=== PATIENT | male | born 1970 | race Caucasian/White ===

== ENCOUNTER → 2020-06-28 10:02 | Outpatient (BNVA) | payer MEDICAID, SELFPAY | PROVIDERS: Visit Provider Student in an Organized Health Care Education/Training Program | DX: M47.816 Spondylosis without myelopathy or radiculopathy, lumbar region (principal); Z79.891 Long term (current) use of opiate analgesic | CPT/HCPCS: 99212 ==

== ENCOUNTER 2020-09-08 15:02 | Emergency (ER) | payer MEDICAID, SELFPAY ==
--- NOTE | 2020-09-08 | ECG_ITS ---
Test Reason : CP Blood Pressure : / mmHG Vent. Rate : 059 BPM Atrial Rate : 059 BPM P-R Int : 150 ms QRS Dur : 096 ms QT Int : 416 ms P-R-T Axes : 053 041 054 degrees QTc Int : 411 ms Sinus bradycardia Incomplete right bundle branch block Borderline ECG When compared with ECG of 07-OCT-2016 15:57, No significant change was found Referred By: Generic ED Physician Electronically Signed By:Matthew Melgar
[2020-09-08 15:04] VITALS: BP 153/69; PULSE 58; RESP 16; TEMP 36.6; O2SAT 98; BMI 30.4
[2020-09-08 16:41] LABS: MANUAL DIFF FLAG NO
[2020-09-08 16:42] LABS: Basophils Absolute Auto 0.1 X10*3/uL (0.0-0.2); Basophils Percent Auto 0.9 % (0-2); Eosinophils Absolute Auto 0.6 X10*3/uL (0.0-0.4); Eosinophils Percent Auto 5.8 % (0-4); Hematocrit 40.2 % (42-52); Hemoglobin 14.1 g/dl (14.0-18.0); Imm Gran Abs Auto 0.03 X10*3/uL (0.00-0.03); Imm Gran Pct Auto 0.3 % (0.0-0.4); Lymphocytes Absolute Auto 2.3 X10*3/uL (1.2-4.9); Lymphocytes Percent Auto 24.9 % (20-40); Mean Corpuscular HGB Conc 35.1 g/dl (31.0-36.0); Mean Corpuscular Hemoglobin 32.3 pg (27.0-33.0); Mean Platelet Volume 10.1 fL (9.4-12.4); Monocytes Absolute Auto 0.7 X10*3/uL (0.1-1.2); Monocytes Percent Auto 7.4 % (2-11); Neutrophils Absolute Auto 5.7 X10*3/uL (2.0-8.3); Neutrophils Percent Auto 60.7 % (45-73); Platelet Count 294 X10*3/uL (160-400); Red Blood Count 4.37 X10*6/uL (4.60-5.80); Red Cell Distribution Width 12.8 % (11.0-16.0); White Blood Count 9.4 X10*3/uL (4.8-10.8)
[2020-09-08 17:05] LABS: Alanine Aminotransferase 23 U/L (0-40); Albumin Level 4.5 g/dL (3.5-5.0); Alkaline Phosphatase 87 U/L (39-117); Anion Gap 13 (12-20); Aspartate Amino Transferase 23 U/L (5-37); Bilirubin Direct 0.2 mg/dL (0.0-0.5); Bilirubin Total 0.7 mg/dL (0.0-1.0); Blood Urea Nitrogen 14 mg/dL (9-16); Calcium 9.6 mg/dL (8.4-10.2); Carbon Dioxide 32 mmol/L (22-29); Chloride 102 mmol/L (96-108); Creatinine Clr Calc Pharmacy 81.4; Estimated Glomerular Filt Rate > 60; Glucose Random 110 mg/dL (60-115); Lipase 31 U/L (8-78); Potassium 3.3 mmol/L (3.3-5.1); Sodium 144 mmol/L (135-145); Total Protein 7.4 g/dL (6.5-8.0)
[2020-09-08 17:08] LABS: Troponin-I High Sensitivity 8.8 ng/L (<3.5-35.0)
--- NOTE | 2020-09-08 17:16 | ED.CHESTPAIN ---
HPI - Chest Pain General Chief Complaint: Chest Pain Stated Complaint: Chest pain Time Seen by Provider: 09/08/20 17:13 Source: patient Mode of arrival: ambulatory Limitations: no limitations History of Present Illness HPI narrative: 50-year-old male with past medical history of hypertension, hyperlipidemia, GERD, constipation and chronic pain presents with left-sided chest pain will come help in the morning. The chest pain starts under the nipple line and radiates downward toward the sternum and around to the back. He also reports an episode of right lower extremity weakness that occurred yesterday lasting several minutes that has resolved. He does not report any shortness of breath, changes in vision, headaches or dizziness, palpitations, abdominal pain, dysuria, hematuria, or edema. MD complaint: chest pain Onset (ago): hour(s) (Several hours) Timing of current episode: constant Prior episodes: No Onset: during rest Pain location: substernal and left chest Pain radiation: left scapula Severity: moderate Quality: tightness and aching Relieving factors: nothing Exacerbating factors: exertion Risk Factors Coronary artery disease risk factors: smoking history, hyperlipidemia and hypertension Thoracic aortic dissection risk factors: none Related Data Home Medications Medication Instructions Recorded Confirmed aspirin 81 mg tablet,delayed 81 mg PO DAILY 06/28/20 release cholecalciferol (vitamin D3) 25 25 mcg PO DAILY 06/28/20 mcg (1,000 unit) capsule docusate sodium 100 mg capsule 100 mg PO BID 06/28/20 hydrochlorothiazide 25 mg tablet 25 mg PO DAILY 06/28/20 ibuprofen 600 mg tablet 600 mg PO Q8H PRN 06/28/20 metoprolol tartrate 50 mg tablet 50 mg PO BID 06/28/20 omeprazole magnesium 20 mg 20 mg PO BID 06/28/20 tablet,delayed release sennosides 8.6 mg tablet 17.2 mg PO BEDTIME tab 06/28/20 simvastatin 20 mg tablet 20 mg PO DAILY 06/28/20 tramadol 50 mg tablet 50 mg PO TID PRN 06/28/20 Allergies Allergy/AdvReac Type Severity Reaction Status Date / Time No Known Allergies Allergy Mild Verified 09/08/20 15:10 Review of Systems Review of Systems: Constitutional: No Weight loss, No Fever, No Chills, No Night Sweats, No Fatigue, No Malaise ENT/Mouth: No Hearing loss, No Ear Pain, No Nasal Congestion, No Sinus Pain, No Hoarseness, No sore throat, No Rhinorrhea, No Swallowing Difficulty Eyes: No Eye Pain, No Swelling, No Redness, No Foreign Body, No Discharge, No Vision Changes Cardiovascular: pos Chest Pain, no SOB, no Dyspnea on Exertion, No Orthopnea, No Edema, No Palpitations Respiratory: No Cough, No Sputum, No Wheezing, No Smoke Exposure, No Dyspnea Gastrointestinal: pos Nausea, No Vomiting, No Diarrhea, No abdominal Pain, No Hematochezia, No Melena Genitourinary: No irregular bleeding, No Dysuria, No Urinary Frequency, No Hematuria, No Urinary Incontinence, No Urgency, No Flank Pain, No Urinary Flow Changes, No Hesitancy Musculoskeletal: Positive right lower extremity weakness, No joint pain, No Myalgias, No Joint Swelling Skin: No Skin Lesions, No rash Neuro: No Weakness, No Numbness, No Paresthesias, No Loss of Consciousness, No Dizziness, No Headache Psych: No Anxiety/Panic, No Depression, No SI/HI/AH/VH Heme/Lymph: No Bruising, No Bleeding,No Lymphadenopathy Endocrine: No Polyuria, No Polydipsia, No Temperature Intolerance Yes all other systems are reviewed and are negative [facility] Past Medical History Attestation statement: The following information was validated with the patient. Source: old records reviewed Medical History Diabetes Hypercholesteremia Hypertension Social History Social History Alcohol intake: never Smoking Status: Current every day smoker Cigarettes Per Day: 4 Use of substances other than those prescribed or required for medical reasons: No Advance Directives: No Advance Directives Information Provided: Yes Physical Exam Vital Signs: Vital Signs: Last Vital Signs Temp 98.7 F 09/08/20 20:00 Pulse 58 09/08/20 20:00 Resp 17 09/08/20 20:00 BP 138/85 09/08/20 20:00 Pulse Ox 99 09/08/20 20:00 Body Mass Index 30.4 Appearance: Alert. Oriented X3. No acute distress. Eyes: Pupils equal, round and reactive to light. ENT: Pharynx normal. Neck: Normal inspection. Neck supple. CVS: Normal heart rate and rhythm. Pulses normal. Respiratory: No respiratory distress. Breath sounds normal. Abdomen: Soft and nontender. Skin: Skin warm and dry. Normal skin color. Normal skin turgor. Extremities: No lower extremity edema. Neuro: No motor deficit. No sensory deficit. Course Course Course Narrative: 50-year-old male with past medical history of hypertension, hyperlipidemia, GERD, chronic pain, presents with left-sided chest pain as well as an episode of right lower extremity weakness that occurred yesterday that has now resolved. Labs indicate elevated trope at 8.8, plan of care is to repeat at 7:30 p.m., order for chest x-ray and CT scan of head to rule out CVA, ischemia. Second troponin 10.8, does not need delta wave requirement for admission. CT scan of head negative for acute findings requiring emergent intervention. Chest x-ray normal. Patient was advised to follow up with his primary care physician for further follow-up. Patient verbalized understanding of and agrees to plan of care discharge home. MDM - Chest Pain Differential Diagnosis Differential diagnosis: Likely fracture of rib, pneumothorax, stable angina, atypical chest pain, st elevation myocardial infarction, costochondritis, chest pain and biliary colic Medical Records Data Attestation: I reviewed the patient's medical records. Lab Data Attestation: I reviewed the patient's lab results. Result diagrams: 09/08/20 16:32 09/08/20 16:32 Labs: Lab Results 09/08/20 09/08/20 09/08/20 Range/Units 16:32 16:32 16:32 WBC 9.4 (4.8-10.8) X10*3/uL RBC 4.37 L (4.60-5.80) X10*6/uL Hgb 14.1 (14.0-18.0) g/dl Hct 40.2 L (42-52) % MCV 92.0 (80-98) fL MCH 32.3 (27.0-33.0) pg MCHC 35.1 (31.0-36.0) g/dl RDW 12.8 (11.0-16.0) % Plt Count 294 (160-400) X10*3/uL MPV 10.1 (9.4-12.4) fL Immature Gran % (Auto) 0.3 (0.0-0.4) % Neut % (Auto) 60.7 (45-73) % Lymph % (Auto) 24.9 (20-40) % [place] % (Auto) 7.4 (2-11) % Eos % (Auto) 5.8 H (0-4) % Baso % (Auto) 0.9 (0-2) % Lymph # (Auto) 2.3 (1.2-4.9) X10*3/uL [place] # (Auto) 0.7 (0.1-1.2) X10*3/uL Eos # (Auto) 0.6 H (0.0-0.4) X10*3/uL Baso # (Auto) 0.1 (0.0-0.2) X10*3/uL Abs Immat Gran (auto) 0.03 (0.00-0.03) X10*3/uL Absolute Neuts (auto) 5.7 (2.0-8.3) X10*3/uL Absolute Nucleated RBC 0.000 (0.0-0.012) X10*3/uL Nucleated RBC % (auto) 0.0 (0.0-0.2) /100WBC Sodium 144 (135-145) mmol/L Potassium 3.3 (3.3-5.1) mmol/L Chloride 102 (96-108) mmol/L Carbon Dioxide 32 H (22-29) mmol/L Anion Gap 13 (12-20) BUN 14 (9-16) mg/dL Creatinine 1.16 (0.5-1.4) mg/dL Estim Creat Clear Calc 81.4 Estimated GFR > 60 Random Glucose 110 (60-115) mg/dL Calcium 9.6 (8.4-10.2) mg/dL Total Bilirubin 0.7 (0.0-1.0) mg/dL Direct Bilirubin 0.2 (0.0-0.5) mg/dL AST 23 (5-37) U/L ALT 23 (0-40) U/L Alkaline Phosphatase 87 (39-117) U/L Troponin I High Sens 8.8 (<3.5-35.0) ng/L Total Protein 7.4 (6.5-8.0) g/dL Albumin 4.5 (3.5-5.0) g/dL Lipase 31 (8-78) U/L Urine Color Urine Appearance Urine pH (5.0-8.0) Ur Specific [place] (1.005-1.025) Urine Protein (NEG-TRACE) MG/DL Urine Glucose (UA) (NEG) MG/DL Urine Ketones (NEG) MG/DL Urine Blood (NEG) Urine Nitrite (NEG) Ur Leukocyte Esterase (NEG) COVID-19 (PATEL) (Negative) COVID-19 Clin Com 09/08/20 09/08/20 09/08/20 Range/Units 18:30 18:33 19:31 WBC (4.8-10.8) X10*3/uL RBC (4.60-5.80) X10*6/uL Hgb (14.0-18.0) g/dl Hct (42-52) % MCV (80-98) fL MCH (27.0-33.0) pg MCHC (31.0-36.0) g/dl RDW (11.0-16.0) % Plt Count (160-400) X10*3/uL MPV (9.4-12.4) fL Immature Gran % (Auto) (0.0-0.4) % Neut % (Auto) (45-73) % Lymph % (Auto) (20-40) % [place] % (Auto) (2-11) % Eos % (Auto) (0-4) % Baso % (Auto) (0-2) % Lymph # (Auto) (1.2-4.9) X10*3/uL [place] # (Auto) (0.1-1.2) X10*3/uL Eos # (Auto) (0.0-0.4) X10*3/uL Baso # (Auto) (0.0-0.2) X10*3/uL Abs Immat Gran (auto) (0.00-0.03) X10*3/uL Absolute Neuts (auto) (2.0-8.3) X10*3/uL Absolute Nucleated RBC (0.0-0.012) X10*3/uL Nucleated RBC % (auto) (0.0-0.2) /100WBC Sodium (135-145) mmol/L Potassium (3.3-5.1) mmol/L Chloride (96-108) mmol/L Carbon Dioxide (22-29) mmol/L Anion Gap (12-20) BUN (9-16) mg/dL Creatinine (0.5-1.4) mg/dL Estim Creat Clear Calc Estimated GFR Random Glucose (60-115) mg/dL Calcium (8.4-10.2) mg/dL Total Bilirubin (0.0-1.0) mg/dL Direct Bilirubin (0.0-0.5) mg/dL AST (5-37) U/L ALT (0-40) U/L Alkaline Phosphatase (39-117) U/L Troponin I High Sens 10.7 (<3.5-35.0) ng/L Total Protein (6.5-8.0) g/dL Albumin (3.5-5.0) g/dL Lipase (8-78) U/L Urine Color YELLOW Urine Appearance CLEAR Urine pH 6.5 (5.0-8.0) Ur Specific [place] 1.015 (1.005-1.025) Urine Protein NEG (NEG-TRACE) MG/DL Urine Glucose (UA) NEG (NEG) MG/DL Urine Ketones NEG (NEG) MG/DL Urine Blood NEG (NEG) Urine Nitrite NEG (NEG) Ur Leukocyte Esterase NEG (NEG) COVID-19 (PATEL) Negative (Negative) COVID-19 Clin Com See Note Imaging Data Chest x-ray: Attestation: I personally reviewed and interpreted this imaging study as follows: Radiologist's impression: EXAMINATION: XR CHEST CLINICAL INFORMATION: Left-sided chest pain COMPARISON: 06/30/2017 TECHNIQUE: 2 views of the chest were obtained. FINDINGS: No significant abnormality is noted involving the heart, lungs, mediastinum, bony thorax or soft tissues. XR/XR chest 2V IMPRESSION: Unremarkable examination. CT scan - head: Attestation: I personally reviewed and interpreted this imaging study as follows: Radiologist's impression: EXAMINATION: CT HEAD WITHOUT CONTRAST CLINICAL INFORMATION: Right lower extremity weakness COMPARISON: 02/10/2012 TECHNIQUE: Contiguous axial imaging was performed from the skull base to vertex without intravenous administration of contrast. This CT examination was performed using dose optimization techniques as appropriate, variously including the following: *Automated exposure control *Adjustment of mA and/or kV according to patient size (this includes techniques or standardized protocols for targeted exams where dose is matched to indication/reason for exam; i.e. extremities or head) *Use of iterative reconstruction technique DLP: 773 mGy-cm FINDINGS: There is no evidence of acute intracranial hemorrhage or territorial infarction. No abnormal mass effect or midline shift is seen. [place] to white matter differentiation is well preserved. No extra-axial fluid collections are identified. The ventricles are normal in size. There is no abnormal attenuation within the brain parenchyma. The osseous structures and soft tissues are normal. The mastoid air cells and visualized portions of the paranasal sinuses are well aerated. CT/CT head/brain wo con IMPRESSION: No acute intracranial pathology. ECG Data ECG #1: Attestation: I personally reviewed and interpreted this ECG as follows: ECG interpretation date: 09/08/20 ECG interpretation time: 15:06 Interpretation: Vent. rate 59 BPM FL interval 150 ms QRS duration 96 ms QT/QTc 416/411 ms P-R-T axes 53 41 54 Sinus bradycardia Incomplete right bundle branch block Borderline ECG When compared with ECG of 07-OCT-2016 15:57, No significant change was found Discharge Plan Discharge Clinical Impression: Chest pain Qualifiers: Chest pain type: unspecified Qualified Code(s): R07.9 - Chest pain, unspecified Patient Disposition: Home, Self-Care Instructions: Chest Pain (ED) Additional Instructions: You were evaluated for left-sided chest pain. EKG showed sinus bradycardia at 59 beats per minute, this could be a normal finding for you as you do take a rate controlling medication, Toprol. Please follow-up with primary care physician this week for further evaluation. If your chest pain continues or you develop concerning symptoms please return to the emergency department immediately. Thank you for choosing this emergency department for evaluation. Please follow-up with primary care physician as needed. Return to the emergency department for any new, concerning, or worsening symptoms. Prescriptions: No Action tramadol 50 mg tablet 50 mg PO TID PRNRF: 0 metoprolol tartrate 50 mg tablet 50 mg PO BID RF: 0 simvastatin 20 mg tablet 20 mg PO DAILY RF: 0 hydrochlorothiazide 25 mg tablet 25 mg PO DAILY RF: 0 aspirin [Adult Low Dose Aspirin] 81 mg tablet,delayed release (DR/EC) 81 mg PO DAILY RF: 0 ibuprofen 600 mg tablet 600 mg PO Q8H PRNRF: 0 cholecalciferol (vitamin D3) 25 mcg (1,000 unit) capsule 25 mcg PO DAILY RF: 0 omeprazole magnesium [Prilosec OTC] 20 mg tablet,delayed release (DR/EC) 20 mg PO BID RF: 0 docusate sodium [Colace] 100 mg capsule 100 mg PO BID RF: 0 sennosides [Natural Senna Laxative] 8.6 mg tablet 17.2 mg PO BEDTIME RF: 0 Interventions: ED Discharge Assessment Last Done: 09/08/20 20:38 Discharge Date/Time: 09/08/20 20:39
[2020-09-08 17:22] VITALS: BP 149/83; PULSE 61; PULSE 63; RESP 16; TEMP 36.8; O2SAT 99
--- NOTE | 2020-09-08 17:22 | XR_ITS ---
EXAMINATION: XR CHEST CLINICAL INFORMATION: Left-sided chest pain COMPARISON: 06/30/2017 TECHNIQUE: 2 views of the chest were obtained. FINDINGS: No significant abnormality is noted involving the heart, lungs, mediastinum, bony thorax or soft tissues. XR/XR chest 2V IMPRESSION: Unremarkable examination.
--- NOTE | 2020-09-08 17:24 | CT_ITS ---
EXAMINATION: CT HEAD WITHOUT CONTRAST CLINICAL INFORMATION: Right lower extremity weakness COMPARISON: 02/10/2012 TECHNIQUE: Contiguous axial imaging was performed from the skull base to vertex without intravenous administration of contrast. This CT examination was performed using dose optimization techniques as appropriate, variously including the following: *Automated exposure control *Adjustment of mA and/or kV according to patient size (this includes techniques or standardized protocols for targeted exams where dose is matched to indication/reason for exam; i.e. extremities or head) *Use of iterative reconstruction technique DLP: 773 mGy-cm FINDINGS: There is no evidence of acute intracranial hemorrhage or territorial infarction. No abnormal mass effect or midline shift is seen. [place] to white matter differentiation is well preserved. No extra-axial fluid collections are identified. The ventricles are normal in size. There is no abnormal attenuation within the brain parenchyma. The osseous structures and soft tissues are normal. The mastoid air cells and visualized portions of the paranasal sinuses are well aerated. CT/CT head/brain wo con IMPRESSION: No acute intracranial pathology.
[2020-09-08 18:00] VITALS: BP 133/83; PULSE 54; RESP 15; TEMP 36.9; O2SAT 98
[2020-09-08 18:43] LABS: Glucose Urine UA NEG (NEG); Leukocyte Esterase Urine NEG (NEG); Nitrite Urine NEG (NEG); PH 6.5 (5.0-8.0); Specific Gravity - Urine 1.015 (1.005-1.025); Urine Blood NEG (NEG); Urine Ketones NEG (NEG); Urine Protein NEG (NEG-TRACE)
[2020-09-08 18:46] LABS: Appearance Urine CLEAR; Color Urine YELLOW
[2020-09-08 19:01] LABS: COVID-19 Test Negative (Negative); IDNOW Serial# 9DD0AD1C
[2020-09-08 20:00] VITALS: BP 138/85; PULSE 58; RESP 17; TEMP 37.1; O2SAT 99
[2020-09-08 20:12] LABS: Troponin-I High Sensitivity 10.7 ng/L (<3.5-35.0)
== END 2020-09-08 20:39 | disposition home or self-care (01) ==
PROVIDERS: Nurse Practitioner Family; Emergency Provider Internal Medicine
DX: R07.9 Chest pain, unspecified (principal); Z20.822 Contact with and (suspected) exposure to COVID-19; I10 Essential (primary) hypertension; E11.9 Type 2 diabetes mellitus without complications; F17.210 Nicotine dependence, cigarettes, uncomplicated; Z79.899 Other long term (current) drug therapy
CPT/HCPCS: 36415; 70450; 71046; 80048; 80076; 81003; 83690; 84484; 85025; 87635; 93005; 99284

== ENCOUNTER 2021-03-28 11:57 | Emergency (ER) | payer MEDICAID, SELFPAY ==
--- NOTE | ~2021-03-28 | XR_ITS ---
EXAMINATION: XR CHEST CLINICAL INFORMATION: Chest pain COMPARISON: Chest radiographs 09/08/2020, 06/30/2017. TECHNIQUE: Frontal view of the chest was obtained. FINDINGS: The lungs are clear. There is no pneumothorax, pleural reaction, airspace consolidation or opacity. No pleural effusion. The costophrenic sulci are clear. The heart is normal in size. The hilar and mediastinal contours are normal. No edema visible acute bony abnormality. XR/XR chest 1V IMPRESSION: Unremarkable examination.
[2021-03-28 12:07] VITALS: BP 147/77; PULSE 63; RESP 16; O2SAT 98; BMI 30.4
--- NOTE | 2021-03-28 12:11 | ECG_ITS ---
Test Reason : CHEST PAIN Blood Pressure : / mmHG Vent. Rate : 053 BPM Atrial Rate : 053 BPM P-R Int : 154 ms QRS Dur : 098 ms QT Int : 434 ms P-R-T Axes : 044 039 039 degrees QTc Int : 407 ms Sinus bradycardia Incomplete right bundle branch block Borderline ECG When compared with ECG of 08-SEP-2020 15:06, No significant change was found Referred By: Generic ED Physician Electronically Signed By:DIEGO HIGHTOWER
[2021-03-28 13:24] LABS: MANUAL DIFF FLAG NO
[2021-03-28 13:32] LABS: Basophils Absolute Auto 0.1 X10*3/uL (0.0-0.2); Basophils Percent Auto 0.7 % (0-2); Eosinophils Absolute Auto 0.5 X10*3/uL (0.0-0.4); Eosinophils Percent Auto 6.1 % (0-4); Hematocrit 35.7 % (42-52); Hemoglobin 12.7 g/dl (14.0-18.0); Imm Gran Abs Auto 0.03 X10*3/uL (0.00-0.03); Imm Gran Pct Auto 0.4 % (0.0-0.4); Lymphocytes Absolute Auto 1.8 X10*3/uL (1.2-4.9); Mean Corpuscular HGB Conc 35.6 g/dl (31.0-36.0); Mean Corpuscular Hemoglobin 31.9 pg (27.0-33.0); Mean Corpuscular Volume 89.7 fL (80-98); Mean Platelet Volume 10.3 fL (9.4-12.4); Monocytes Absolute Auto 0.7 X10*3/uL (0.1-1.2); Monocytes Percent Auto 9.1 % (2-11); Neutrophils Absolute Auto 4.7 X10*3/uL (2.0-8.3); Neutrophils Percent Auto 60.7 % (45-73); Platelet Count 256 X10*3/uL (160-400); Red Blood Count 3.98 X10*6/uL (4.60-5.80); Red Cell Distribution Width 12.9 % (11.0-16.0); White Blood Count 7.7 X10*3/uL (4.8-10.8)
[2021-03-28 13:41] LABS: Prothrombin Time 11.6 SEC (9.9-13.0)
[2021-03-28 13:56] LABS: Anion Gap 12 (12-20); Blood Urea Nitrogen 15 mg/dL (9-16); Calcium 9.4 mg/dL (8.4-10.2); Carbon Dioxide 28 mmol/L (22-29); Chloride 106 mmol/L (96-108); Creatinine Clr Calc Pharmacy 82.9; Estimated Glomerular Filt Rate > 60; Glucose Random 161 mg/dL (60-115); Magnesium 2.3 mg/dL (1.6-2.6); Potassium 3.2 mmol/L (3.3-5.1); Sodium 143 mmol/L (135-145); Troponin-I High Sensitivity 9.6 ng/L (<3.5-35.0)
[2021-03-28 14:18] VITALS: BP 125/71; PULSE 50; RESP 16; O2SAT 98
--- NOTE | 2021-03-28 14:18 | PC.NURSE ---
LAYING OPN STRETCHER, CALL [facility] IN PLACE. AWAITING MD MCCLAIN
[2021-03-28] MEDS: Potassium Chloride Packet 20 MEQ PACKET 40 MEQ PO (16:17)
[2021-03-28 16:18] VITALS: BP 146/83; PULSE 54; RESP 20; O2SAT 98
--- NOTE | 2021-03-28 16:20 | PC.NURSE ---
PT RESTING IN THE STRETCHER, , RESPIRATION EVEN AND UNLABORED, PT REPORTS LEFT SIDE CHEST PAIN THAT GETS WORSE WITH MOVEMENT, DENIES SOB
--- NOTE | 2021-03-28 17:01 | ED.CHESTPAIN ---
HPI - Chest Pain General Chief Complaint: Chest Pain Stated Complaint: chest and shoulder pain Time Seen by Provider: 03/28/21 15:49 Source: patient Mode of arrival: ambulatory Limitations: no limitations History of Present Illness HPI narrative: 50-year-old male presents for 2 days of constant left upper chest pain, left shoulder pain, left arm pain. Patient has no associated shortness of breath, nausea or vomiting, he saw his primary care provider 2 days ago gave him a muscle relaxant. No trauma, no injury, no repetitive motion. Patient has had surgery in his left shoulder previously. Related Data Home Medications Medication Instructions Recorded Confirmed aspirin 81 mg tablet,delayed 81 mg PO DAILY 06/28/20 release (Adult Low Dose Aspirin) cholecalciferol (vitamin D3) 25 25 mcg PO DAILY 06/28/20 mcg (1,000 unit) capsule docusate sodium 100 mg capsule 100 mg PO BID 06/28/20 (Colace) hydrochlorothiazide 25 mg tablet 25 mg PO DAILY 06/28/20 ibuprofen 600 mg tablet 600 mg PO Q8H PRN 06/28/20 metoprolol tartrate 50 mg tablet 50 mg PO BID 06/28/20 omeprazole magnesium 20 mg 20 mg PO BID 06/28/20 tablet,delayed release (Prilosec OTC) sennosides 8.6 mg tablet (Natural 17.2 mg PO BEDTIME tab 06/28/20 Senna Laxative) simvastatin 20 mg tablet 20 mg PO DAILY 06/28/20 Previous Rx's Medication Instructions Recorded tramadol 50 mg tablet 50 mg PO TID PRN #90 tab 03/26/21 ketorolac 10 mg tablet 10 mg PO Q6H 5 Days #20 tab 03/28/21 methocarbamol 750 mg tablet 750 mg PO Q8H 5 Days #15 tab 03/28/21 Allergies Allergy/AdvReac Type Severity Reaction Status Date / Time No Known Allergies Allergy Mild Verified 03/28/21 12:11 Review of Systems Review of Systems: Constitutional : No Weight loss, No Fever, No Chills, No Night Sweats,No Fatigue, No Malaise ENT/Mouth : No Hearing loss, No Ear Pain, No Nasal Congestion, NoSinus Pain, No Hoarseness, No sore throat, No Rhinorrhea, NoSwallowing Difficulty Eyes: No Eye Pain, No Swelling, No Redness, No Foreign Body, NoDischarge, No Vision Changes Cardiovascular : Chest Pain, No SOB, No Dyspnea on Exertion, NoOrthopnea, No Edema, No Palpitations Respiratory : No Cough, No Sputum, No Wheezing, No Smoke Exposure, No Dyspnea Gastrointestinal : No Nausea, No Vomiting, No Diarrhea, NoConstipation, No abdominal Pain, No Hematochezia, No Melena Genitourinary : no irregular bleeding, No Dysuria, No UrinaryFrequency, No Hematuria, No Urinary Incontinence, No Urgency, No FlankPain, No Urinary Flow Changes, No Hesitancy Musculoskeletal : left shoulder pain, left arm pain, upper left back pain Skin : No Skin Lesions, No rash Neuro : No Weakness, No Numbness, No Paresthesias, No Loss ofConsciousness, No Dizziness, No Headache Psych : , No Depression, No SI/HI/AH/VH, No Social Issues, Endocrine : No Polyuria, No Polydipsia, No Temperature Intolerance PMFSH Past Medical History Medical History Diabetes Hypercholesteremia Hypertension Social History Social History Alcohol intake: never Patient Tobacco Use Status: Current everyday Tobacco user Cigarettes Per Day: 4 Use of substances other than those prescribed or required for medical reasons: No Advance Directives: Yes Advance Directives Information Provided: Yes Advance Directives on File: No Physical Exam Vital Signs: Vital Signs: Last Vital Signs Pulse 54 03/28/21 16:18 Resp 20 03/28/21 16:18 BP 146/83 H 03/28/21 16:18 Pulse Ox 98 03/28/21 16:18 Body Mass Index 30.4 Appearance: Alert. Oriented X3. No acute distress. Head: Normal external exam. Normocephalic. Atraumatic. ?No Johnson signs noted. No raccoon eyes noted Eyes: PERRLA. EOMI. Conjunctiva and sclera normal. Eyelids normal. ENT: EAC normal. TM's Normal. Pharynx normal. Uvula midline. Moist mucous membranes. ??No trismus noted. ?No drooling noted. ?No muffled voice noted. Neck: Normal inspection. Neck supple. FROM. No adenopathy. Thyroid Normal. No meningeal signs. No neck mass noted. CVS: heart rate 53, and rhythm. Heart sound normal. Pulses normal throughout. ?No murmurs/rales/gallops. Respiratory: No respiratory distress. Painless inspiration. Breath sounds normal. No wheezes/rales/rhonchi noted. Chest nontender. ??No accessory muscle usage noted or decreased air movement noted. Abdomen: Soft and nontender. Bowel sounds normal in all 4 quadrants. No distention noted. ?No organomegaly noted. ?No visible injury noted. Back: ?No CVA tenderness. ?Full range of motion noted. ?No rashes/lesion/induration/fluctuance or signs of infection noted. Tender left neck muscles, left upper paraspinous muscles Skin: Skin warm and dry. ?Normal skin color. ?Normal skin turgor. No rashes/lesions/lacerations noted. Extremities: Patient has full range of motion of left upper extremity, mild pain with empty can test. No lower extremity edema. ??Extremities exhibit normal range of motion. ?Extremities nontender. Neuro: Oriented X 3. ?No motor deficit. ?No sensory deficit. ?Reflexes normal. ?Normal steady gait. ?No focal neuro deficits noted. Vascular: + radial pulses ?Normal cap refill. ?No cyanosis noted to upper extremity nails Course Course Course Narrative: 50-year-old male presents with 2 days of constant aching left chest pain left upper back pain left shoulder pain and left arm pain. On exam, patient is tender to palpation in his upper left paraspinous muscle, upper left neck muscle. Patient has intact left upper extremity pulses, sensation, motor strength. Chest x-ray is unremarkable, EKG is unchanged from August 2020, troponin is not elevated. Patient is mildly hypokalemic at 3.2. Repleted potassium orally. Discussed that this does not seem to be cardiac in nature. Discussed foods to increase potassium, counseled patient to continue taking his potassium supplements. Consult patient follow-up with his primary care provider. Give patient IM ketorolac, send patient home on ketorolac and naproxen. Counseled patient to stop baclofen and ibuprofen. Given return precautions. MDM - Chest Pain Lab Data Result diagrams: 03/28/21 13:19 03/28/21 13:19 Labs: Lab Results 03/28/21 03/28/21 03/28/21 Range/Units 13:18 13:19 13:19 WBC 7.7 (4.8-10.8) X10*3/uL RBC 3.98 L (4.60-5.80) X10*6/uL Hgb 12.7 L (14.0-18.0) g/dl Hct 35.7 L (42-52) % MCV 89.7 (80-98) fL MCH 31.9 (27.0-33.0) pg MCHC 35.6 (31.0-36.0) g/dl RDW 12.9 (11.0-16.0) % Plt Count 256 (160-400) X10*3/uL MPV 10.3 (9.4-12.4) fL Immature Gran % (Auto) 0.4 (0.0-0.4) % Neut % (Auto) 60.7 (45-73) % Lymph % (Auto) 23.0 (20-40) % [place] % (Auto) 9.1 (2-11) % Eos % (Auto) 6.1 H (0-4) % Baso % (Auto) 0.7 (0-2) % Lymph # (Auto) 1.8 (1.2-4.9) X10*3/uL [place] # (Auto) 0.7 (0.1-1.2) X10*3/uL Eos # (Auto) 0.5 H (0.0-0.4) X10*3/uL Baso # (Auto) 0.1 (0.0-0.2) X10*3/uL Abs Immat Gran (auto) 0.03 (0.00-0.03) X10*3/uL Absolute Neuts (auto) 4.7 (2.0-8.3) X10*3/uL Absolute Nucleated RBC 0.000 (0.0-0.012) X10*3/uL Nucleated RBC % (auto) 0.0 (0.0-0.2) /100WBC PT 11.6 (9.9-13.0) SEC INR 1.0 (0.9-1.1) Sodium 143 (135-145) mmol/L Potassium 3.2 L (3.3-5.1) mmol/L Chloride 106 (96-108) mmol/L Carbon Dioxide 28 (22-29) mmol/L Anion Gap 12 (12-20) BUN 15 (9-16) mg/dL Creatinine 1.14 (0.5-1.4) mg/dL Estim Creat Clear Calc 82.9 Estimated GFR > 60 Random Glucose 161 H D (60-115) mg/dL Calcium 9.4 (8.4-10.2) mg/dL Magnesium 2.3 (1.6-2.6) mg/dL Troponin I High Sens (<3.5-35.0) ng/L 03/28/ Range/Units 13:19 WBC (4.8-10.8) X10*3/uL RBC (4.60-5.80) X10*6/uL Hgb (14.0-18.0) g/dl Hct (42-52) % MCV (80-98) fL MCH (27.0-33.0) pg MCHC (31.0-36.0) g/dl RDW (11.0-16.0) % Plt Count (160-400) X10*3/uL MPV (9.4-12.4) fL Immature Gran % (Auto) (0.0-0.4) % Neut % (Auto) (45-73) % Lymph % (Auto) (20-40) % [place] % (Auto) (2-11) % Eos % (Auto) (0-4) % Baso % (Auto) (0-2) % Lymph # (Auto) (1.2-4.9) X10*3/uL [place] # (Auto) (0.1-1.2) X10*3/uL Eos # (Auto) (0.0-0.4) X10*3/uL Baso # (Auto) (0.0-0.2) X10*3/uL Abs Immat Gran (auto) (0.00-0.03) X10*3/uL Absolute Neuts (auto) (2.0-8.3) X10*3/uL Absolute Nucleated RBC (0.0-0.012) X10*3/uL Nucleated RBC % (auto) (0.0-0.2) /100WBC PT (9.9-13.0) SEC INR (0.9-1.1) Sodium (135-145) mmol/L Potassium (3.3-5.1) mmol/L Chloride (96-108) mmol/L Carbon Dioxide (22-29) mmol/L Anion Gap (12-20) BUN (9-16) mg/dL Creatinine (0.5-1.4) mg/dL Estim Creat Clear Calc Estimated GFR Random Glucose (60-115) mg/dL Calcium (8.4-10.2) mg/dL Magnesium (1.6-2.6) mg/dL Troponin I High Sens 9.6 (<3.5-35.0) ng/L ECG Data ECG #1: Interpretation: EKG shows sinus bradycardia at [address] interval 154, QRS 90, QTC 407. Patient has incomplete right bundle branch, unchanged from August. New ST segment elevation or depression, no T-wave changes. Normal axis. Discharge Plan Discharge Clinical Impression: Atypical chest pain, Muscle spasm of left shoulder area Patient Disposition: Home, Self-Care Instructions: Chest Pain (ED) Additional Instructions: Please stop taking ibuprofen and the baclofen. I have ordered the muscle relaxant that I like better to your pharmacy. I am also ordering a medicine called ketorolac. This is what you got a shot anterior arm of. Your potassium was low, please continue to take your potassium supplement While taking the ketorolac please do not take any ibuprofen containing products, no Motrin, no Excedrin, no Aleve, no ibuprofen. Please call your primary care provider tomorrow for follow-up appointment. I would like you to be seen in 1 week. If you have worsening chest pain, shortness of breath, nausea, vomiting, fevers, please return to the emergency room. Prescriptions: New methocarbamol 750 mg tablet 750 mg PO Q8H 5 Days Qty: 15 RF: 0 ketorolac 10 mg tablet 10 mg PO Q6H 5 Days Qty: 20 RF: 0 No Action tramadol 50 mg tablet 50 mg PO TID PRN (Reason: pain) Qty: 90 RF: 5 metoprolol tartrate 50 mg tablet 50 mg PO BID RF: 0 simvastatin 20 mg tablet 20 mg PO DAILY RF: 0 hydrochlorothiazide 25 mg tablet 25 mg PO DAILY RF: 0 aspirin [Adult Low Dose Aspirin] 81 mg tablet,delayed release (DR/EC) 81 mg PO DAILY RF: 0 ibuprofen 600 mg tablet 600 mg PO Q8H PRNRF: 0 cholecalciferol (vitamin D3) 25 mcg (1,000 unit) capsule 25 mcg PO DAILY RF: 0 omeprazole magnesium [Prilosec OTC] 20 mg tablet,delayed release (DR/EC) 20 mg PO BID RF: 0 docusate sodium [Colace] 100 mg capsule 100 mg PO BID RF: 0 sennosides [Natural Senna Laxative] 8.6 mg tablet 17.2 mg PO BEDTIME RF: 0 Interventions: ED Discharge Assessment Last Done: 03/28/21 18:25 Discharge Date/Time: 03/28/21 18:26
[2021-03-28] MEDS: Ketorolac Tromethamine 15 MG/ML VIAL 30 MG IM (17:19)
== END 2021-03-28 18:26 | disposition home or self-care (01) ==
PROVIDERS: Emergency Provider Emergency Medicine
DX: R07.89 Other chest pain (principal); M62.838 Other muscle spasm; M79.602 Pain in left arm; R00.1 Bradycardia, unspecified; E11.9 Type 2 diabetes mellitus without complications; I10 Essential (primary) hypertension; E78.00 Pure hypercholesterolemia, unspecified; Z79.899 Other long term (current) drug therapy; Z79.02 Long term (current) use of antithrombotics/antiplatelets; Z79.82 Long term (current) use of aspirin; F17.210 Nicotine dependence, cigarettes, uncomplicated
CPT/HCPCS: 36415; 71045; 80048; 83735; 84484; 85025; 85610; 93005; 96372; 99284; J1885

== ENCOUNTER 2021-06-27 10:00 | Outpatient (REF) | payer MEDICAID, SELFPAY ==
--- NOTE | ~2021-06-27 | XR_ITS ---
EXAMINATION: XR ELBOW, RIGHT XR ELBOW, LEFT CLINICAL INFORMATION: Pain in the elbows COMPARISON: None TECHNIQUE: AP, lateral, and oblique views of each elbow. FINDINGS: RIGHT ELBOW: Small marginal osteophytes are present at the coronoid process. No fracture or malalignment. Joint spaces are well-preserved. No effusion. A small enthesopathic spur is present at the triceps tendon insertion on the olecranon. LEFT ELBOW: Small enthesopathic spur at the triceps tendon insertion on the olecranon. No fracture or malalignment. Joint spaces are well-preserved. No effusion. XR/XR elbow LT 2V IMPRESSION: Minimal osteophytic spurring at the elbows. No acute osseous findings.
--- NOTE | ~2021-06-27 | XR_ITS ---
EXAMINATION: XR HAND, RIGHT XR HAND, LEFT CLINICAL INFORMATION: Bilateral hand pain. COMPARISON: None TECHNIQUE: PA, lateral, and oblique views of each hand. FINDINGS: RIGHT HAND: Tiny marginal osteophytes are present at multiple joints including the triscaphe, first CMC, and MCP joints. No joint space narrowing. No fracture or malalignment. No erosions. Soft tissues are unremarkable. Normal bone mineralization. LEFT HAND: Tiny marginal osteophytes are present at the first CMC joint. No fracture or malalignment. Bone mineralization is normal. Joint spaces are well-preserved. No erosions. Soft tissues are unremarkable. 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 No fracture or malalignment.
--- NOTE | ~2021-06-27 | XR_ITS ---
EXAMINATION: XR HAND, RIGHT XR HAND, LEFT CLINICAL INFORMATION: Bilateral hand pain. COMPARISON: None TECHNIQUE: PA, lateral, and oblique views of each hand. FINDINGS: RIGHT HAND: Tiny marginal osteophytes are present at multiple joints including the triscaphe, first CMC, and MCP joints. No joint space narrowing. No fracture or malalignment. No erosions. Soft tissues are unremarkable. Normal bone mineralization. LEFT HAND: Tiny marginal osteophytes are present at the first CMC joint. No fracture or malalignment. Bone mineralization is normal. Joint spaces are well-preserved. No erosions. Soft tissues are unremarkable. XR/XR hand LT min 3V IMPRESSION: Minimal multifocal osteoarthritis in the hands. No fracture or malalignment.
--- NOTE | ~2021-06-27 | XR_ITS ---
EXAMINATION: XR ELBOW, RIGHT XR ELBOW, LEFT CLINICAL INFORMATION: Pain in the elbows COMPARISON: None TECHNIQUE: AP, lateral, and oblique views of each elbow. FINDINGS: RIGHT ELBOW: Small marginal osteophytes are present at the coronoid process. No fracture or malalignment. Joint spaces are well-preserved. No effusion. A small enthesopathic spur is present at the triceps tendon insertion on the olecranon. LEFT ELBOW: Small enthesopathic spur at the triceps tendon insertion on the olecranon. No fracture or malalignment. Joint spaces are well-preserved. No effusion. XR/XR elbow RT 2V IMPRESSION: Minimal osteophytic spurring at the elbows. No acute osseous findings.
[2021-06-27 13:04] LABS: Alanine Aminotransferase 17 U/L (0-40); Albumin Level 4.4 g/dL (3.5-5.0); Alkaline Phosphatase 84 U/L (39-117); Anion Gap 12 (12-20); Aspartate Amino Transferase 20 U/L (5-37); Bilirubin Total 0.4 mg/dL (0.0-1.0); Blood Urea Nitrogen 22 mg/dL (9-16); Calcium 9.6 mg/dL (8.4-10.2); Carbon Dioxide 30 mmol/L (22-29); Chloride 102 mmol/L (96-108); Estimated Glomerular Filt Rate 56; Glucose Random 87 mg/dL (60-115); Potassium 3.9 mmol/L (3.3-5.1); Sodium 140 mmol/L (135-145); Total Protein 7.2 g/dL (6.5-8.0)
== END 2021-06-27 10:01 | disposition home or self-care (01) ==
LOC: HO.LAB 10:00
PROVIDERS: PCP Internal Medicine; Visit Provider Nurse Practitioner Family
DX: M47.816 Spondylosis without myelopathy or radiculopathy, lumbar region (principal); M79.641 Pain in right hand; M79.642 Pain in left hand; M25.521 Pain in right elbow; M25.522 Pain in left elbow
CPT/HCPCS: 36415; 73070; 73130; 80053; 99212

== ENCOUNTER 2021-11-28 14:45 | Emergency (ER) | payer MEDICAID, SELFPAY ==
--- NOTE | 2021-11-28 | ECG_ITS ---
Test Reason : cp Blood Pressure : / mmHG Vent. Rate : 059 BPM Atrial Rate : 059 BPM P-R Int : 146 ms QRS Dur : 092 ms QT Int : 426 ms P-R-T Axes : 043 034 036 degrees QTc Int : 421 ms Sinus bradycardia Otherwise normal ECG When compared with ECG of 28-MAR-2021 12:44, Incomplete right bundle branch block is no longer Present Referred By: Generic ED Physician Electronically Signed By:YOGI TALAVERA MD
--- NOTE | ~2021-11-28 | XR_ITS ---
EXAMINATION: XR CHEST CLINICAL INFORMATION: Chest pain COMPARISON: 03/28/2021 and priors TECHNIQUE: Frontal and lateral views of the chest FINDINGS: ECG leads overlie the chest. Heart and mediastinum grossly within normal limits and stable. No pulmonary edema. No mass or adenopathy. Lung volumes preserved. No focal pneumonia. No effusion or pneumothorax. Nonobstructive gas pattern. Status post cholecystectomy. Degenerative spine disease. XR/XR chest 2V IMPRESSION: No acute cardiopulmonary process.
[2021-11-28 15:25] VITALS: BP 129/77; PULSE 61; RESP 16; TEMP 36.3; O2SAT 98; BMI 28.8
[2021-11-28 16:30] LABS: MANUAL DIFF FLAG NO
[2021-11-28] MEDS: Aspirin 81 MG TAB.CHEW 324 MG PO (16:30)
[2021-11-28] MEDS: Nitroglycerin 2 % Oint 1 GM Packet 0.5 INCH TRANSDERMA (16:30)
[2021-11-28 16:32] LABS: Basophils Absolute Auto 0.1 X10*3/uL (0.0-0.2); Basophils Percent Auto 0.8 % (0-2); Eosinophils Absolute Auto 0.4 X10*3/uL (0.0-0.4); Eosinophils Percent Auto 4.9 % (0-4); Hematocrit 38.5 % (42.0-52.0); Hemoglobin 13.4 g/dl (14.0-18.0); Imm Gran Abs Auto 0.03 X10*3/uL (0.00-0.03); Imm Gran Pct Auto 0.3 % (0.0-0.4); Lymphocytes Absolute Auto 2.7 X10*3/uL (1.2-4.9); Lymphocytes Percent Auto 30.3 % (20-40); Mean Corpuscular HGB Conc 34.8 g/dl (31.0-36.0); Mean Corpuscular Hemoglobin 31.9 pg (27.0-33.0); Mean Corpuscular Volume 91.7 fL (80.0-98.0); Mean Platelet Volume 9.9 fL (9.4-12.4); Monocytes Absolute Auto 0.9 X10*3/uL (0.1-1.2); Neutrophils Absolute Auto 4.7 x10*3/uL (2.0-8.3); Neutrophils Percent Auto 53.7 % (45-73); Platelet Count 257 X10*3/uL (160-400); Red Cell Distribution Width 13.1 % (11.0-16.0); White Blood Count 8.8 X10*3/uL (4.8-10.8)
--- NOTE | 2021-11-28 16:40 | ED.CHESTPAIN ---
HPI - Chest Pain General Chief Complaint: Chest Pain Stated Complaint: chest pain Time Seen by Provider: 11/28/21 15:38 Source: patient Mode of arrival: ambulatory Limitations: no limitations History of Present Illness HPI narrative: Patient presents to the emergency department for evaluation of substernal chest pain of sudden onset while at rest yesterday night. Progressively worsening. The pain has been constant. Non-radiating, non-reproducible. It is described as a 9/10 squeezing pain. Has some associated cough and mild shortness of breath, reporting mold in his apartment which she thinks is causing his cough. Denies fevers, chills, neck pain, palpitations, nausea, vomiting, abdominal pain, dysuria, urinary frequency, pedal edema, generalized weakness Related Data Home Medications Medication Instructions Recorded Confirmed aspirin 81 mg tablet,delayed 81 mg PO DAILY 06/28/20 release (Adult Low Dose Aspirin) cholecalciferol (vitamin D3) 25 25 mcg PO DAILY 06/28/20 mcg (1,000 unit) capsule docusate sodium 100 mg capsule 100 mg PO BID 06/28/20 (Colace) hydrochlorothiazide 25 mg tablet 25 mg PO DAILY 06/28/20 metoprolol tartrate 50 mg tablet 50 mg PO BID 06/28/20 omeprazole magnesium 20 mg 20 mg PO BID 06/28/20 tablet,delayed release (Prilosec OTC) sennosides 8.6 mg tablet (Natural 17.2 mg PO BEDTIME tab 06/28/20 Senna Laxative) simvastatin 20 mg tablet 20 mg PO DAILY 06/28/20 Previous Rx's Medication Instructions Recorded methocarbamol 750 mg tablet 750 mg PO Q8H 5 Days #15 tab 03/28/21 tramadol 50 mg tablet 50 mg PO TID PRN #90 tab 09/18/21 Allergies Allergy/AdvReac Type Severity Reaction Status Date / Time No Known Allergies Allergy Mild Verified 06/27/21 10:34 Review of Systems Review of Systems: Constitutional : No Weight loss, No Fever, No Chills ENT/Mouth :? No sore throat, No Rhinorrhea Eyes: No Eye Pain, No Swelling Cardiovascular : pos Chest Pain, pos SOB, no Dyspnea on Exertion, No Orthopnea, No Edema, No Palpitations Respiratory : pos Cough, No Sputum Gastrointestinal : no Nausea, No Vomiting, No Diarrhea, No abdominal Pain, No Hematochezia, No Melena Genitourinary : No Dysuria, No Urinary Frequency Musculoskeletal : No joint pain, No Myalgias, No Joint Swelling Skin : No Skin Lesions, No rash Neuro : No Weakness, No Numbness, No Dizziness, No Headache Psych : No Anxiety/Panic, No Depression Heme/Lymph: No Bruising, No Lymphadenopathy Endocrine : No Polyuria, No Polydipsia Yes all other systems are reviewed and are negative [facility] Past Medical History Attestation statement: The following information was validated with the patient. Source: old records reviewed Medical History Diabetes Hypercholesteremia Hypertension Social History Social History Alcohol intake: never Patient Tobacco Use Status: Current everyday Tobacco user Cigarettes Per Day: 4 Advance Directives: No Advance Directives Information Provided: No Physical Exam Vital Signs: Vital Signs: Last Vital Signs Temp 97.8 F 11/28/21 19:39 Pulse 52 11/28/21 19:39 Resp 15 11/28/21 19:39 BP 140/82 H 11/28/21 19:39 Pulse Ox 97 11/28/21 19:39 BMI result Body Mass Index 28.8 Vital signs have been reviewed as normal and appeared to be correct. Blood pressure normal.? Heart rate normal.? Respiration rate normal. Temperature normal.? Oxygen saturation normal. Appearance: Alert.?Oriented to person, place and time. No acute distress.?Normal affect. Eyes: Pupils equal, round and reactive to light.? ENT: Pharynx normal.?? Neck: Normal inspection.? Neck supple.?? CVS: Heart sounds normal. Normal heart rate and rhythm.? Pulses normal.?? Respiratory: No respiratory distress.? Lung sounds clear to auscultation bilaterally?? Abdomen: Soft and non-tender. Normoactive bowel sounds. No pulsatile mass.?? Skin: Skin warm and dry.? Normal skin color.? Extremities: No lower extremity edema.? No calf ttp? Neuro: Moves all extremities spontaneously. Sensation intact bilaterally. CN II-XII intact. No focal neuro deficits. Ambulates with normal steady gait. Course Course Course Narrative: Patient is a 51-year-old male with past medical history of hypertension, hyperlipidemia, and hypokalemia presenting for evaluation of chest pain. Will obtain CBC to evaluate for leukocytosis/ anemia, CMP to evaluate for abnormal electrolytes /abnormal renal function/ abnormal hepatic function, EKG and troponin to evaluate for ischemia/ACS. Chest x-ray to evaluate for consolidation/ infiltrate/ mass/ pulmonary congestion. COVID- 19 and influenza testing to exclude virus. Given past medical history with will give aspirin 34 mg p.o. and nitro paste 0.5 inch for pain. disposition pending results Reevaluation(s) Reevaluation #1: CBC overall unremarkable mild normocytic anemia with hemoglobin 13.4 and hematocrit 38.5. CMP overall unremarkable. Troponin 5.8 with EKG revealing sinus bradycardia with no acute changes in comparison to March 2021 EKG, no acute concerns for ischemia, pain has been present for nearly 24 hours, and has completely resolved after receiving aspirin and nitropaste. However, without clear cause for the pain will repeat delta trop and obtain D-dimer to exclude PE. chest x-ray without any acute cardiopulmonary process. COVID- 19 and influenza testing are negative. Time: 18:23 Reevaluation #2: repeat troponin 5.7, therefore delta troponin less than 50%, unlikely to be ACS. D-dimer <150. continues to remain pain-free at this time. Reviewed case with ED attending Dr. Delvalle who agrees with plan of care and discharge. Discussed all findings with patient, advised follow-up with primary care provider in 1-3 days, discussed strict return precautions for the emergency department, all questions were answered, and patient is agreeable with plan of longterm. Patient to continue taking low-dose aspirin daily. Time: 20:16 [facility] - Chest Pain Medical Records Data Attestation: I reviewed the patient's medical records. Lab Data Attestation: I reviewed the patient's lab results. Result diagrams: 11/28/21 16:22 11/28/21 16:22 Labs: Lab Results 11/28/21 11/28/21 11/28/21 Range/Units 16:22 16:22 16:22 WBC 8.8 (4.8-10.8) X10*3/uL RBC 4.20 L (4.60-5.80) X10*6/uL Hgb 13.4 L (14.0-18.0) g/dl Hct 38.5 L (42.0-52.0) % MCV 91.7 (80.0-98.0) fL MCH 31.9 (27.0-33.0) pg MCHC 34.8 (31.0-36.0) g/dl RDW 13.1 (11.0-16.0) % Plt Count 257 (160-400) X10*3/uL MPV 9.9 (9.4-12.4) fL Immature Gran % (Auto) 0.3 (0.0-0.4) % Neut % (Auto) 53.7 (45-73) % Lymph % (Auto) 30.3 (20-40) % [place] % (Auto) 10.0 (2-11) % Eos % (Auto) 4.9 H (0-4) % Baso % (Auto) 0.8 (0-2) % Lymph # (Auto) 2.7 (1.2-4.9) X10*3/uL [place] # (Auto) 0.9 (0.1-1.2) X10*3/uL Eos # (Auto) 0.4 (0.0-0.4) X10*3/uL Baso # (Auto) 0.1 (0.0-0.2) X10*3/uL Abs Immat Gran (auto) 0.03 (0.00-0.03) X10*3/uL Absolute Neuts (auto) 4.7 (2.0-8.3) x10*3/uL Absolute Nucleated RBC 0.000 (0.0-0.012) X10*3/uL Nucleated RBC % (auto) 0.0 (0.0-0.2) /100WBC D-Dimer High Sensitivty NG/ML Sodium 142 (135-145) mmol/L Potassium 3.5 (3.3-5.1) mmol/L Chloride 104 (96-108) mmol/L Carbon Dioxide 30 H (22-29) mmol/L Anion Gap 12 (12-20) BUN 18 H (9-16) mg/dL Creatinine 1.18 (0.5-1.4) mg/dL Estim Creat Clear Calc 77.3 Estimated GFR > 60 Random Glucose 91 (60-115) mg/dL Calcium 9.5 (8.4-10.2) mg/dL Total Bilirubin 0.5 (0.0-1.0) mg/dL AST 19 (5-37) U/L ALT 14 (0-40) U/L Alkaline Phosphatase 68 (39-117) U/L Troponin I High Sens 5.8 (<3.5-35.0) ng/L Total Protein 6.6 (6.5-8.0) g/dL Albumin 4.1 (3.5-5.0) g/dL COVID-19 (PATEL) (Negative) COVID-19 Clin Com Influenza Type A (MIN) (Negative) Influenza Type B (MIN) (Negative) Influenza A & B Note 11/28/21 11/28/21 11/28/21 Range/Units 17:24 17:24 19:09 WBC (4.8-10.8) X10*3/uL RBC (4.60-5.80) X10*6/uL Hgb (14.0-18.0) g/dl Hct (42.0-52.0) % MCV (80.0-98.0) fL MCH (27.0-33.0) pg MCHC (31.0-36.0) g/dl RDW (11.0-16.0) % Plt Count (160-400) X10*3/uL MPV (9.4-12.4) fL Immature Gran % (Auto) (0.0-0.4) % Neut % (Auto) (45-73) % Lymph % (Auto) (20-40) % [place] % (Auto) (2-11) % Eos % (Auto) (0-4) % Baso % (Auto) (0-2) % Lymph # (Auto) (1.2-4.9) X10*3/uL [place] # (Auto) (0.1-1.2) X10*3/uL Eos # (Auto) (0.0-0.4) X10*3/uL Baso # (Auto) (0.0-0.2) X10*3/uL Abs Immat Gran (auto) (0.00-0.03) X10*3/uL Absolute Neuts (auto) (2.0-8.3) x10*3/uL Absolute Nucleated RBC (0.0-0.012) X10*3/uL Nucleated RBC % (auto) (0.0-0.2) /100WBC D-Dimer High Sensitivty < 150 NG/ML Sodium (135-145) mmol/L Potassium (3.3-5.1) mmol/L Chloride (96-108) mmol/L Carbon Dioxide (22-29) mmol/L Anion Gap (12-20) BUN (9-16) mg/dL Creatinine (0.5-1.4) mg/dL Estim Creat Clear Calc Estimated GFR Random Glucose (60-115) mg/dL Calcium (8.4-10.2) mg/dL Total Bilirubin (0.0-1.0) mg/dL AST (5-37) U/L ALT (0-40) U/L Alkaline Phosphatase (39-117) U/L Troponin I High Sens (<3.5-35.0) ng/L Total Protein (6.5-8.0) g/dL Albumin (3.5-5.0) g/dL COVID-19 (PATEL) Negative (Negative) COVID-19 Clin Com See Note Influenza Type A (MIN) Negative (Negative) Influenza Type B (MIN) Negative (Negative) Influenza A & B Note See Note 11/28/21 Range/Units 19:09 WBC (4.8-10.8) X10*3/uL RBC (4.60-5.80) X10*6/uL Hgb (14.0-18.0) g/dl Hct (42.0-52.0) % MCV (80.0-98.0) fL MCH (27.0-33.0) pg MCHC (31.0-36.0) g/dl RDW (11.0-16.0) % Plt Count (160-400) X10*3/uL MPV (9.4-12.4) fL Immature Gran % (Auto) (0.0-0.4) % Neut % (Auto) (45-73) % Lymph % (Auto) (20-40) % [place] % (Auto) (2-11) % Eos % (Auto) (0-4) % Baso % (Auto) (0-2) % Lymph # (Auto) (1.2-4.9) X10*3/uL [place] # (Auto) (0.1-1.2) X10*3/uL Eos # (Auto) (0.0-0.4) X10*3/uL Baso # (Auto) (0.0-0.2) X10*3/uL Abs Immat Gran (auto) (0.00-0.03) X10*3/uL Absolute Neuts (auto) (2.0-8.3) x10*3/uL Absolute Nucleated RBC (0.0-0.012) X10*3/uL Nucleated RBC % (auto) (0.0-0.2) /100WBC D-Dimer High Sensitivty NG/ML Sodium (135-145) mmol/L Potassium (3.3-5.1) mmol/L Chloride (96-108) mmol/L Carbon Dioxide (22-29) mmol/L Anion Gap (12-20) BUN (9-16) mg/dL Creatinine (0.5-1.4) mg/dL Estim Creat Clear Calc Estimated GFR Random Glucose (60-115) mg/dL Calcium (8.4-10.2) mg/dL Total Bilirubin (0.0-1.0) mg/dL AST (5-37) U/L ALT (0-40) U/L Alkaline Phosphatase (39-117) U/L Troponin I High Sens 5.7 (<3.5-35.0) ng/L Total Protein (6.5-8.0) g/dL Albumin (3.5-5.0) g/dL COVID-19 (PATEL) (Negative) COVID-19 Clin Com Influenza Type A (MIN) (Negative) Influenza Type B (MIN) (Negative) Influenza A & B Note Imaging Data Chest x-ray: Radiologist's impression: FINDINGS: ECG leads overlie the chest. Heart and mediastinum grossly within normal limits and stable. No pulmonary edema. No mass or adenopathy. Lung volumes preserved. No focal pneumonia. No effusion or pneumothorax. Nonobstructive gas pattern. Status post cholecystectomy. Degenerative spine disease. XR/XR chest 2V IMPRESSION: No acute cardiopulmonary process. ECG Data ECG #1: Attestation: I personally reviewed and interpreted this ECG as follows: ECG interpretation date: 11/28/21 ECG interpretation time: 18:14 Prior ECG tracings: available for review Interpretation: Rate: 58 Rhythm:? sinus bradycardia [place]:? normal Normal P waves.? Normal AMADO.?? Normal QRS complex.?? ST T wave :?? no ST elevation, no ST depression, no T-wave inversion qTC: 421 prior studies:? March 2021 The study has been interpreted contemporaneously by me. Discharge Plan Discharge Clinical Impression: Chest pain Patient Disposition: Home, Self-Care Instructions: Chest Pain (ED) Additional Instructions: Please follow-up with your primary care doctor in 1-3 days. Return to the emergency department with any new or worsening symptoms or concerns such as fevers, chills, dizziness, lightheadedness, worsening chest pain, palpitations, shortness of breath, difficulty breathing, nausea with persistent vomiting, abdominal pain, generalized weakness Prescriptions: No Action tramadol 50 mg tablet 50 mg PO TID PRN (Reason: pain) Qty: 90 5RF methocarbamol 750 mg tablet 750 mg PO Q8H 5 Days Qty: 15 0RF metoprolol tartrate 50 mg tablet 50 mg PO BID 0RF simvastatin 20 mg tablet 20 mg PO DAILY 0RF hydrochlorothiazide 25 mg tablet 25 mg PO DAILY 0RF aspirin [Adult Low Dose Aspirin] 81 mg tablet,delayed release (DR/EC) 81 mg PO DAILY 0RF cholecalciferol (vitamin D3) 25 mcg (1,000 unit) capsule 25 mcg PO DAILY 0RF omeprazole magnesium [Prilosec OTC] 20 mg tablet,delayed release (DR/EC) 20 mg PO BID 0RF docusate sodium [Colace] 100 mg capsule 100 mg PO BID 0RF sennosides [Natural Senna Laxative] 8.6 mg tablet 17.2 mg PO BEDTIME 0RF Referrals: Chauncey Haney MD [Primary Care Provider] - 2 days
[2021-11-28 16:48] LABS: Alanine Aminotransferase 14 U/L (0-40); Albumin Level 4.1 g/dL (3.5-5.0); Alkaline Phosphatase 68 U/L (39-117); Anion Gap 12 (12-20); Aspartate Amino Transferase 19 U/L (5-37); Bilirubin Total 0.5 mg/dL (0.0-1.0); Blood Urea Nitrogen 18 mg/dL (9-16); Calcium 9.5 mg/dL (8.4-10.2); Carbon Dioxide 30 mmol/L (22-29); Chloride 104 mmol/L (96-108); Creatinine Clr Calc Pharmacy 77.3; Estimated Glomerular Filt Rate > 60; Glucose Random 91 mg/dL (60-115); Potassium 3.5 mmol/L (3.3-5.1); Sodium 142 mmol/L (135-145); Total Protein 6.6 g/dL (6.5-8.0)
[2021-11-28 16:52] LABS: Troponin-I High Sensitivity 5.8 ng/L (<3.5-35.0)
[2021-11-28 17:49] LABS: Influenza A Negative (Negative); Influenza B2 Negative (Negative)
[2021-11-28 17:50] LABS: COVID-19 Test Negative (Negative); IDNOW Serial# 16C4AD1C
[2021-11-28 19:39] VITALS: BP 140/82; PULSE 52; RESP 15; TEMP 36.6; O2SAT 97
[2021-11-28 19:42] LABS: Troponin-I High Sensitivity 5.7 ng/L (<3.5-35.0)
[2021-11-28 19:43] LABS: D Dimer High Sensitivity < 150 NG/ML
== END 2021-11-28 20:33 | disposition home or self-care (01) ==
PROVIDERS: Nurse Practitioner Family; Emergency Provider Internal Medicine; PCP Internal Medicine
DX: R07.89 Other chest pain (principal); I10 Essential (primary) hypertension; F17.210 Nicotine dependence, cigarettes, uncomplicated; Z20.822 Contact with and (suspected) exposure to COVID-19; Z71.6 Tobacco abuse counseling; Z79.899 Other long term (current) drug therapy
CPT/HCPCS: 36415; 71046; 80053; 84484; 85025; 85379; 87502; 87635; 93005; 99283; 99285

== ENCOUNTER 2022-04-23 23:06 | Emergency (ER) | payer MEDICAID, SELFPAY ==
--- NOTE | ~2022-04-23 | CT_ITS ---
EXAMINATION: CT HEAD WITHOUT CONTRAST CLINICAL INFORMATION: Left-sided facial paresthesia COMPARISON: 09/08/2020 TECHNIQUE: Contiguous axial imaging was performed from the skull base to vertex without intravenous contrast. This CT examination was performed using dose optimization techniques as appropriate, variously including the following: * Automated exposure control * Adjustment of mA and/or kV according to patient size (this includes techniques or standardized protocols for targeted exams where dose is matched to indication/reason for exam; i.e. extremities or head) Use of iterative reconstruction technique DLP: 752 mGy-cm. FINDINGS: There is no evidence of acute intracranial hemorrhage or territorial infarction. No abnormal mass effect or midline shift is seen. [place] to white matter differentiation is well preserved. No extra-axial fluid collections are identified. No hydrocephalus. No significant volume loss. There is no abnormal attenuation within the brain parenchyma. Chronic appearing depression of the left lamina papyracea. No acute osseous or soft tissue abnormality.. The mastoid air cells and visualized portions of the paranasal sinuses are well aerated. CT/CT head/brain wo IV con IMPRESSION: No acute intracranial pathology.
[2022-04-23 23:24] VITALS: BP 177/81; PULSE 67; RESP 18; O2SAT 98; BMI 30.4
--- NOTE | 2022-04-23 23:41 | ED_ITS ---
HPI - Headache General Chief Complaint: Headache Stated Complaint: GARCIA Time Seen by Provider: 04/23/22 23:41 Source: patient Mode of arrival: ambulatory Limitations: no limitations History of Present Illness HPI Narrative: 51 years old with no significant past medical history woke up 2 hours ago with left facial numbness the drooling on the left angle of the mouth lasted for an hour no other weakness or other paresthesia at mild headache on the left side on arrival patient did not have any symptoms except for mild headache no speech problem no vision change Related Data Home Medications Medication Instructions Recorded Confirmed aspirin 81 mg tablet,delayed 81 mg PO DAILY 06/28/20 release (Adult Low Dose Aspirin) cholecalciferol (vitamin D3) 25 25 mcg PO DAILY 06/28/20 mcg (1,000 unit) capsule docusate sodium 100 mg capsule 100 mg PO BID 06/28/20 (Colace) hydrochlorothiazide 25 mg tablet 25 mg PO DAILY 06/28/20 metoprolol tartrate 50 mg tablet 50 mg PO BID 06/28/20 omeprazole magnesium 20 mg 20 mg PO BID 06/28/20 tablet,delayed release (Prilosec OTC) sennosides 8.6 mg tablet (Natural 17.2 mg PO BEDTIME 06/28/20 Senna Laxative) simvastatin 20 mg tablet 20 mg PO DAILY 06/28/20 Previous Rx's Medication Instructions Recorded methocarbamol 750 mg tablet 750 mg PO Q8H 5 days #15 tabs 03/28/21 tramadol 50 mg tablet 50 mg PO TID PRN pain #90 tabs 03/10/22 [id number] 1 cap PO Q6H PRN headache #20 caps 04/24/22 50 mg-300 mg-40 mg capsule (Fioricet) Allergies Allergy/AdvReac Type Severity Reaction Status Date / Time No Known Allergies Allergy Mild Verified 03/06/22 10:23 Review of Systems Review of Systems: Yes all other systems are reviewed and are negative PMFSH Past Medical History Medical History Diabetes Hypercholesteremia Hypertension Social History Social History Alcohol intake: never Patient Tobacco Use Status: Current everyday Tobacco user Cigarettes Per Day: 4 Use of substances other than those prescribed or required for medical reasons: No Advance Directives: No Advance Directives Information Provided: Yes Physical Exam Vital Signs: Vital Signs: Last Vital Signs Temp 98.6 F 04/23/22 23:43 Pulse 66 04/23/22 23:43 Resp 18 04/23/22 23:43 BP 141/85 H 04/23/22 23:43 Pulse Ox 99 04/23/22 23:43 O2 Del Method 04/23/22 23:43 BMI result Body Mass Index 30.4 Appearance: Alert. Oriented X3. No acute distress. Eyes: PERRLA, No Nystagmus ENT: Pharynx normal. Oral Mucosa moist Neck: Normal inspection. Neck supple. CVS: Normal heart rate and rhythm. Pulses normal. Respiratory: No respiratory distress. Equal air entry bilateral, no wheezing/rales/rhonchi Abdomen: Soft and nontender. Bowel sounds are present, no mass palpable, no CVA tenderness Skin: Skin warm and dry. Normal skin color. Normal skin turgor. Extremities: No lower extremity edema. No calf tenderness Neuro: Oriented X 3. No motor deficit. No sensory deficit.No cerebellar signs , cranial nerves II-XII intact NIH Stroke Scale Internal: Initial- Upon Arrival Level of Consciousness: Alert Level of Consciousness Questions: Answers both questions correctly Level of Consciousness Commands: Performs both tasks correctly Best Gaze: Normal Visual: No visual loss Facial Palsy: Normal Motor Arm (Right): No drift Motor Arm (Left): No drift Motor Leg (Right): No drift Motor Leg (Left): No drift Limb Ataxia: Absent Sensory: Normal Best Language: No aphasia Dysarthia: Normal Extinction and Inattention: No abnormality Score: 0 MDM - Headache MDM Narrative Medical decision making narrative: Patient has atypical symptoms no objective findings likely is migraine headache CT scan head is negative will discharge patient on Fioricet Lab Data Attestation: I reviewed the patient's lab results. Result diagrams: 04/24/22 00:40 04/24/22 00:40 Labs: Lab Results 04/24/22 04/24/22 04/24/22 Range/Units 00:40 00:40 00:40 WBC 12.1 H (4.8-10.8) X10*3/uL RBC 4.29 L (4.60-5.80) X10*6/uL Hgb 13.7 L (14.0-18.0) g/dl Hct 38.4 L (42.0-52.0) % MCV 89.5 (80.0-98.0) fL MCH 31.9 (27.0-33.0) pg MCHC 35.7 (31.0-36.0) g/dl RDW 12.9 (11.0-16.0) % Plt Count 240 (160-400) X10*3/uL MPV 10.1 (9.4-12.4) fL Immature Gran % (Auto) 0.4 (0.0-0.4) % Neut % (Auto) 64.0 (45-73) % Lymph % (Auto) 23.3 (20-40) % [place] % (Auto) 7.5 (2-11) % Eos % (Auto) 4.1 H (0-4) % Baso % (Auto) 0.7 (0-2) % Lymph # (Auto) 2.8 (1.2-4.9) X10*3/uL [place] # (Auto) 0.9 (0.1-1.2) X10*3/uL Eos # (Auto) 0.5 H (0.0-0.4) X10*3/uL Baso # (Auto) 0.1 (0.0-0.2) X10*3/uL Abs Immat Gran (auto) 0.05 H (0.00-0.03) X10*3/uL Absolute Neuts (auto) 7.7 (2.0-8.3) x10*3/uL Absolute Nucleated RBC 0.000 (0.0-0.012) X10*3/uL Nucleated RBC % (auto) 0.0 (0.0-0.2) /100WBC PT (10.0-13.1) SEC INR (0.9-1.1) APTT (26.0-36.4) SEC Sodium 145 (135-145) mmol/L Potassium 3.2 L (3.3-5.1) mmol/L Chloride 105 (96-108) mmol/L Carbon Dioxide 25 (22-29) mmol/L Anion Gap 18 (12-20) BUN 17 H (9-16) mg/dL Creatinine 0.90 (0.5-1.4) mg/dL Estim Creat Clear Calc 103.8 Estimated GFR > 60 Random Glucose 100 (60-115) mg/dL Calcium 9.0 (8.4-10.2) mg/dL Total Bilirubin 0.5 (0.0-1.0) mg/dL AST 20 (5-37) U/L ALT 16 (0-40) U/L Alkaline Phosphatase 89 D (39-117) U/L Total Protein 7.0 (6.5-8.0) g/dL Albumin 4.2 (3.5-5.0) g/dL COVID-19 (PATEL) Negative (Negative) COVID-19 Clin Com See Note 04/24/22 04/24/22 Range/Units 00:40 00:41 WBC (4.8-10.8) X10*3/uL RBC (4.60-5.80) X10*6/uL Hgb (14.0-18.0) g/dl Hct (42.0-52.0) % MCV (80.0-98.0) fL MCH (27.0-33.0) pg MCHC (31.0-36.0) g/dl RDW (11.0-16.0) % Plt Count (160-400) X10*3/uL MPV (9.4-12.4) fL Immature Gran % (Auto) (0.0-0.4) % Neut % (Auto) (45-73) % Lymph % (Auto) (20-40) % [place] % (Auto) (2-11) % Eos % (Auto) (0-4) % Baso % (Auto) (0-2) % Lymph # (Auto) (1.2-4.9) X10*3/uL [place] # (Auto) (0.1-1.2) X10*3/uL Eos # (Auto) (0.0-0.4) X10*3/uL Baso # (Auto) (0.0-0.2) X10*3/uL Abs Immat Gran (auto) (0.00-0.03) X10*3/uL Absolute Neuts (auto) (2.0-8.3) x10*3/uL Absolute Nucleated RBC (0.0-0.012) X10*3/uL Nucleated RBC % (auto) (0.0-0.2) /100WBC PT 11.2 (10.0-13.1) SEC INR 1.0 (0.9-1.1) APTT 26.3 (26.0-36.4) SEC Sodium (135-145) mmol/L Potassium (3.3-5.1) mmol/L Chloride (96-108) mmol/L Carbon Dioxide (22-29) mmol/L Anion Gap (12-20) BUN (9-16) mg/dL Creatinine (0.5-1.4) mg/dL Estim Creat Clear Calc Estimated GFR Random Glucose (60-115) mg/dL Calcium (8.4-10.2) mg/dL Total Bilirubin (0.0-1.0) mg/dL AST (5-37) U/L ALT (0-40) U/L Alkaline Phosphatase (39-117) U/L Total Protein (6.5-8.0) g/dL Albumin (3.5-5.0) g/dL COVID-19 (PATEL) (Negative) COVID-19 Clin Com Discharge Plan Discharge Clinical Impression: Facial paresthesia Patient Disposition: Home, Self-Care Instructions: Paresthesia (ED) Additional Instructions: Take baby aspirin daily Report to the ER if recurrence of symptoms Follow with PCP for further evaluation Take Fioricet for headache Prescriptions: New qosnzohcmz-rfgyqbmdhfdmk-jrle [Fioricet] 50-300-40 mg capsule 1 cap PO Q6H PRN (Reason: headache) Qty: 20 0RF No Action tramadol 50 mg tablet 50 mg PO TID PRN (Reason: pain) Qty: 90 2RF methocarbamol 750 mg tablet 750 mg PO Q8H 5 Days Qty: 15 0RF metoprolol tartrate 50 mg tablet 50 mg PO BID simvastatin 20 mg tablet 20 mg PO DAILY hydrochlorothiazide 25 mg tablet 25 mg PO DAILY aspirin [Adult Low Dose Aspirin] 81 mg tablet,delayed release (DR/EC) 81 mg PO DAILY cholecalciferol (vitamin D3) 25 mcg (1,000 unit) capsule 25 mcg PO DAILY omeprazole magnesium [Prilosec OTC] 20 mg tablet,delayed release (DR/EC) 20 mg PO BID docusate sodium [Colace] 100 mg capsule 100 mg PO BID sennosides [Natural Senna Laxative] 8.6 mg tablet 17.2 mg PO BEDTIME Interventions: ED Discharge Assessment Last Done: 04/24/22 01:41 Discharge Date/Time: 04/24/22 01:42
[2022-04-23 23:43] VITALS: BP 141/85; PULSE 66; RESP 18; TEMP 37; O2SAT 99
[2022-04-24 00:45] LABS: MANUAL DIFF FLAG NO
[2022-04-24 01:05] LABS: Basophils Absolute Auto 0.1 X10*3/uL (0.0-0.2); Basophils Percent Auto 0.7 % (0-2); Eosinophils Absolute Auto 0.5 X10*3/uL (0.0-0.4); Eosinophils Percent Auto 4.1 % (0-4); Hematocrit 38.4 % (42.0-52.0); Hemoglobin 13.7 g/dl (14.0-18.0); Imm Gran Abs Auto 0.05 X10*3/uL (0.00-0.03); Imm Gran Pct Auto 0.4 % (0.0-0.4); Lymphocytes Absolute Auto 2.8 X10*3/uL (1.2-4.9); Lymphocytes Percent Auto 23.3 % (20-40); Mean Corpuscular HGB Conc 35.7 g/dl (31.0-36.0); Mean Corpuscular Hemoglobin 31.9 pg (27.0-33.0); Mean Corpuscular Volume 89.5 fL (80.0-98.0); Mean Platelet Volume 10.1 fL (9.4-12.4); Monocytes Absolute Auto 0.9 X10*3/uL (0.1-1.2); Monocytes Percent Auto 7.5 % (2-11); Neutrophils Absolute Auto 7.7 x10*3/uL (2.0-8.3); Platelet Count 240 X10*3/uL (160-400); Red Blood Count 4.29 X10*6/uL (4.60-5.80); Red Cell Distribution Width 12.9 % (11.0-16.0); White Blood Count 12.1 X10*3/uL (4.8-10.8)
[2022-04-24 01:11] LABS: Prothrombin Time 11.2 SEC (10.0-13.1)
[2022-04-24 01:14] LABS: Partial Thromboplastin Time 26.3 SEC (26.0-36.4)
[2022-04-24 01:18] LABS: Alanine Aminotransferase 16 U/L (0-40); Albumin Level 4.2 g/dL (3.5-5.0); Alkaline Phosphatase 89 U/L (39-117); Anion Gap 18 (12-20); Aspartate Amino Transferase 20 U/L (5-37); Bilirubin Total 0.5 mg/dL (0.0-1.0); Blood Urea Nitrogen 17 mg/dL (9-16); Carbon Dioxide 25 mmol/L (22-29); Chloride 105 mmol/L (96-108); Creatinine Clr Calc Pharmacy 103.8; Estimated Glomerular Filt Rate > 60; Glucose Random 100 mg/dL (60-115); Potassium 3.2 mmol/L (3.3-5.1); Sodium 145 mmol/L (135-145)
[2022-04-24 01:24] LABS: COVID-19 Test Negative (Negative)
[2022-04-24] MEDS: Aspirin 325 MG TABLET PO (01:24)
[2022-04-24] MEDS: Butalb/Acetamin/Caff 50/325/40 TABLET 1 TAB PO (01:34)
== END 2022-04-24 01:42 | disposition home or self-care (01) ==
PROVIDERS: Emergency Provider Internal Medicine
DX: R20.2 Paresthesia of skin (principal); R51.9 Headache, unspecified; F17.200 Nicotine dependence, unspecified, uncomplicated; Z20.822 Contact with and (suspected) exposure to COVID-19; Z71.6 Tobacco abuse counseling; Z79.899 Other long term (current) drug therapy
CPT/HCPCS: 36415; 70450; 80053; 85025; 85610; 85730; 87635; 99284

== ENCOUNTER 2022-05-20 18:10 | Emergency (ER) | payer MEDICAID, SELFPAY ==
[2022-05-20 18:17] VITALS: BP 139/91; PULSE 67; RESP 18; TEMP 36.8; O2SAT 99; BMI 30.4
== END 2022-05-20 19:42 | disposition left against medical advice (07) ==
PROVIDERS: Emergency Provider Emergency Medicine
DX: I10 Essential (primary) hypertension (principal)
CPT/HCPCS: 99281

== ENCOUNTER → 2022-06-27 11:47 | Outpatient (BNVA) | payer MEDICAID, SELFPAY | PROVIDERS: PCP Internal Medicine; Visit Provider Nurse Practitioner Family | DX: M47.816 Spondylosis without myelopathy or radiculopathy, lumbar region (principal) | CPT/HCPCS: 99212 ==

== ENCOUNTER 2022-06-30 12:57 | Outpatient (REF) | payer MEDICAID, SELFPAY ==
--- NOTE | ~2022-06-30 | XR_ITS ---
EXAMINATION: XR LUMBOSACRAL SPINE CLINICAL INFORMATION: Low back pain COMPARISON: Previous x-ray from 2016 TECHNIQUE: Three views of the lumbosacral spine. FINDINGS: Bone alignment is normal. No fracture or dislocation. Multilevel degenerative spondylosis from T11-T12 to L2-L3. Normal disc spaces. Lower lumbar spine facet arthritis. XR/XR lumbar spine 2-3V IMPRESSION: Degenerative changes.
[2022-06-30 14:11] LABS: Amphetamine Screen Urine Not Detected (Not Detect); Barbiturates, Urine Not Detected (Not Detect); Benzodiazepines Screen Urine Not Detected (Not Detect); Cannabinoid Screen Urine Not Detected (Not Detect); Cocaine Screen Urine Not Detected (Not Detect); Fentanyl, urine Not Detected (Not Detect); Opiate Screen Urine Not Detected (Not Detect); Phencyclidine Screen Urine Not Detected (Not Detect)
[2022-06-30 14:15] LABS: C Reactive Protein 0.24 mg/dL (< or = 0.50); Potassium 3.8 mmol/L (3.3-5.1)
[2022-06-30 14:34] LABS: Erythrocyte Sedimentation Rate 10 MM/HR (0-15)
[2022-07-08 11:43] LABS: HLA B27 Negative (Negative)
== END 2022-06-30 12:58 | disposition home or self-care (01) ==
LOC: HO.XRAY 12:57
PROVIDERS: PCP Internal Medicine; Visit Provider Nurse Practitioner Family
DX: M54.50 Low back pain, unspecified (principal); E87.6 Hypokalemia; Z79.899 Other long term (current) drug therapy
CPT/HCPCS: 72100; 80307; 84132; 85652; 86140; 86812

== ENCOUNTER 2022-08-08 13:17 | Emergency (ER) | payer MEDICAID, SELFPAY ==
--- NOTE | ~2022-08-08 | CT_ITS ---
EXAMINATION: CT ABDOMEN AND PELVIS WITH CONTRAST CLINICAL INFORMATION: Abdominal pain COMPARISON: CT abdomen and pelvis 10/31/2016 TECHNIQUE: Multidetector volumetric images were obtained from the superior aspect of the liver through the pubic symphysis following administration 85 mL of Omnipaque 350 intravenous contrast. Sagittal and coronal reformatted images were obtained on the technologist's workstation. Oral contrast: No This CT examination was performed using dose optimization techniques as appropriate, variously including the following: *Automated exposure control *Adjustment of mA and/or kV according to patient size (this includes techniques or standardized protocols for targeted exams where dose is matched to indication/reason for exam; i.e. extremities or head) *Use of iterative reconstruction technique DLP: 674 mGy-cm FINDINGS: LUNG BASES: The visualized lung bases are unremarkable. LIVER, GALLBLADDER, AND BILIARY TREE: Normal hepatic attenuation in size. There are a few small calcified hepatic granulomas in the posterior segment right liver lobe, unchanged. No other liver lesion. No biliary ductal dilation. Status post cholecystectomy. PANCREAS: Unremarkable. SPLEEN: Normal size. Small calcified splenic annular,. No other splenic lesion. ADRENAL GLANDS: Unremarkable. KIDNEYS AND URETERS: The kidneys are normal in size, shape, and attenuation. No hydronephrosis, hydroureter, or calculi seen. No perinephric stranding. BLADDER: Unremarkable. GASTROINTESTINAL TRACT: No dilated bowel loops. No bowel wall thickening. Status post appendectomy. No free air or ascites ABDOMINAL WALL: Small fat-containing right inguinal hernia. LYMPH NODES: Slightly leila appearance of the mesenteric root with a few small nonpathologically enlarged mesenteric lymph nodes, nonspecific. No lymphadenopathy by size criteria. VASCULAR: Normal caliber abdominal aorta. Mild vascular calcifications. PELVIC VISCERA: Prostate gland is enlarged and measures approximately 5.1 x 4.8 x 4.7 cm in size slightly indenting into the bladder base. OSSEOUS STRUCTURES: No acute fracture or suspicious osseous lesion. CT/CT abdomen pelvis w IV con IMPRESSION: 1. No acute intra-abdominal process identified. 2. Status post cholecystectomy and appendectomy. 3. Prostatomegaly.
[2022-08-08 14:33] VITALS: BP 148/85; PULSE 70; RESP 18; TEMP 36.7; O2SAT 98; BMI 30.7
--- NOTE | 2022-08-08 14:33 | ED.ABDPAIN ---
HPI - Abdominal Pain General Chief Complaint: Abdominal Pain Stated Complaint: Stomach Pain Time Seen by Provider: 08/08/22 17:05 Related Data Home Medications Medication Instructions Recorded Confirmed aspirin 81 mg tablet,delayed 81 mg PO DAILY 06/28/20 release (Adult Low Dose Aspirin) cholecalciferol (vitamin D3) 25 25 mcg PO DAILY 06/28/20 mcg (1,000 unit) capsule docusate sodium 100 mg capsule 100 mg PO BID 06/28/20 (Colace) hydrochlorothiazide 25 mg tablet 25 mg PO DAILY 06/28/20 metoprolol tartrate 50 mg tablet 50 mg PO BID 06/28/20 omeprazole magnesium 20 mg 20 mg PO BID 06/28/20 tablet,delayed release (Prilosec OTC) sennosides 8.6 mg tablet (Natural 17.2 mg PO BEDTIME 06/28/20 Senna Laxative) simvastatin 20 mg tablet 20 mg PO DAILY 06/28/20 haloperidol 2 mg tablet 2 mg PO DAILY 06/27/22 06/27/22 haloperidol 5 mg tablet 5 mg PO BEDTIME 06/27/22 losartan 100 mg tablet 100 mg PO QAM 06/27/22 potassium chloride 20 mEq 40 meq PO QAM 06/27/22 tablet,extended release(part/cryst) Previous Rx's Medication Instructions Recorded rsdsihypxe-oscbmmgpuqpsk-ogynjnig 1 cap PO Q6H PRN headache #20 caps 04/24/22 50 mg-300 mg-40 mg capsule (Fioricet) tramadol 50 mg tablet 50 mg PO TID PRN pain #90 tabs 07/10/22 loperamide 2 mg capsule 2 mg PO Q6H PRN loose stool #30 08/08/22 (Anti-Diarrheal (loperamide)) caps ondansetron 4 mg disintegrating 4 mg PO Q6H PRN nausea and 08/08/22 tablet vomiting #14 tabs Allergies Allergy/AdvReac Type Severity Reaction Status Date / Time No Known Allergies Allergy Mild Verified 06/27/22 12:07 [facility] Past Medical History Medical History Diabetes Hypercholesteremia Hypertension Social History Social History Alcohol intake: never Patient Tobacco Use Status: Current everyday Tobacco user Cigarettes Per Day: 4 Smoked in Last 30 Days: No Use of substances other than those prescribed or required for medical reasons: No Advance Directives: No Advance Directives Information Provided: No Physical Exam ED Vital Signs: BMI result Body Mass Index 30.7 Course Course Course Narrative: This is an RME: Additional HPI, ROS, PE not included below will be deferred to primary provider. Patient is a 52-year-old male who presents to emergency department with complaint of tactile fevers, chills, nausea, vomiting, diarrhea with multiple episodes, diffuse ABD pain. Symptom onset was yesterday. Denies sick contacts. Reports yesterday eating out; turkish food. Plan: labs, zofran orally, viral testing, urinalysis Medical Decision Making Lab Data Result Diagrams: 08/08/22 15:56 08/08/22 15:56 Labs: Lab Results 08/08/22 08/08/22 08/08/22 Range/Units 15:53 15:54 15:54 WBC (4.8-10.8) X10*3/uL RBC (4.60-5.80) X10*6/uL Hgb (14.0-18.0) g/dl Hct (42.0-52.0) % MCV (80.0-98.0) fL MCH (27.0-33.0) pg MCHC (31.0-36.0) g/dl RDW (11.0-16.0) % Plt Count (160-400) X10*3/uL MPV (9.4-12.4) fL Immature Gran % (Auto) (0.0-0.4) % Neut % (Auto) (45-73) % Lymph % (Auto) (20-40) % [place] % (Auto) (2-11) % Eos % (Auto) (0-4) % Baso % (Auto) (0-2) % Lymph # (Auto) (1.2-4.9) X10*3/uL [place] # (Auto) (0.1-1.2) X10*3/uL Eos # (Auto) (0.0-0.4) X10*3/uL Baso # (Auto) (0.0-0.2) X10*3/uL Abs Immat Gran (auto) (0.00-0.03) X10*3/uL Absolute Neuts (auto) (2.0-8.3) x10*3/uL Absolute Nucleated RBC (0.0-0.012) X10*3/uL Nucleated RBC % (auto) (0.0-0.2) /100WBC Sodium (135-145) mmol/L Potassium (3.3-5.1) mmol/L Chloride (96-108) mmol/L Carbon Dioxide (22-29) mmol/L Anion Gap (12-20) BUN (9-16) mg/dL Creatinine (0.5-1.4) mg/dL Estim Creat Clear Calc Estimated GFR Random Glucose (60-115) mg/dL Calcium (8.4-10.2) mg/dL Total Bilirubin (0.0-1.0) mg/dL AST (5-37) U/L ALT (0-40) U/L Alkaline Phosphatase (39-117) U/L Total Protein (6.5-8.0) g/dL Albumin (3.5-5.0) g/dL Lipase (8-78) U/L Urine Color Dark Yellow Urine Appearance Clear Urine pH 5.5 (5.0-9.0) Ur Specific [place] 1.025 (1.005-1.025) Urine Protein 30 (1+) H (Neg-Trace) mg/dL Urine Glucose (UA) Negative (Negative) mg/dL Urine Ketones Trace (Negative) mg/dL Urine Blood Negative (Negative) Urine Nitrite Negative (Negative) Ur Leukocyte Esterase Negative (Negative) Urine RBC 0-2 (0-2) /HPF Urine WBC 0-5 (0-5) /HPF Ur Squamous Epith Cells 11-20 (0-2) /HPF Urine Bacteria None Seen (None Seen) Hyaline Casts >20 (0-2) /LPF Granular Casts Present COVID-19 (PATEL) Negative (Negative) COVID-19 Clin Com See Note Influenza Type A (MIN) Negative (Negative) Influenza Type B (MIN) Negative (Negative) Influenza A & B Note See Note 08/08/22 08/08/22 Range/Units 15:56 15:56 WBC 6.9 (4.8-10.8) X10*3/uL RBC 4.29 L (4.60-5.80) X10*6/uL Hgb 13.7 L (14.0-18.0) g/dl Hct 38.0 L (42.0-52.0) % MCV 88.6 (80.0-98.0) fL MCH 31.9 (27.0-33.0) pg MCHC 36.1 H (31.0-36.0) g/dl RDW 12.5 (11.0-16.0) % Plt Count 218 (160-400) X10*3/uL MPV 9.7 (9.4-12.4) fL Immature Gran % (Auto) 0.3 (0.0-0.4) % Neut % (Auto) 63.2 (45-73) % Lymph % (Auto) 19.5 L (20-40) % [place] % (Auto) 14.3 H (2-11) % Eos % (Auto) 2.3 (0-4) % Baso % (Auto) 0.4 (0-2) % Lymph # (Auto) 1.3 (1.2-4.9) X10*3/uL [place] # (Auto) 1.0 (0.1-1.2) X10*3/uL Eos # (Auto) 0.2 (0.0-0.4) X10*3/uL Baso # (Auto) 0.0 (0.0-0.2) X10*3/uL Abs Immat Gran (auto) 0.02 (0.00-0.03) X10*3/uL Absolute Neuts (auto) 4.3 (2.0-8.3) x10*3/uL Absolute Nucleated RBC 0.000 (0.0-0.012) X10*3/uL Nucleated RBC % (auto) 0.0 (0.0-0.2) /100WBC Sodium 144 (135-145) mmol/L Potassium 3.2 L (3.3-5.1) mmol/L Chloride 106 (96-108) mmol/L Carbon Dioxide 32 H (22-29) mmol/L Anion Gap 9 L (12-20) BUN 16 (9-16) mg/dL Creatinine 1.35 (0.5-1.4) mg/dL Estim Creat Clear Calc 68.7 Estimated GFR 55 Random Glucose 107 (60-115) mg/dL Calcium 9.3 (8.4-10.2) mg/dL Total Bilirubin 0.8 (0.0-1.0) mg/dL AST 29 (5-37) U/L ALT 25 (0-40) U/L Alkaline Phosphatase 82 (39-117) U/L Total Protein 6.8 (6.5-8.0) g/dL Albumin 4.2 (3.5-5.0) g/dL Lipase 32 (8-78) U/L Urine Color Urine Appearance Urine pH (5.0-9.0) Ur Specific [place] (1.005-1.025) Urine Protein (Neg-Trace) mg/dL Urine Glucose (UA) (Negative) mg/dL Urine Ketones (Negative) mg/dL Urine Blood (Negative) Urine Nitrite (Negative) Ur Leukocyte Esterase (Negative) Urine RBC (0-2) /HPF Urine WBC (0-5) /HPF Ur Squamous Epith Cells (0-2) /HPF Urine Bacteria (None Seen) Hyaline Casts (0-2) /LPF Granular Casts COVID-19 (PATEL) (Negative) COVID-19 Clin Com Influenza Type A (MIN) (Negative) Influenza Type B (MIN) (Negative) Influenza A & B Note Medications Administered Discontinued Medications Generic Name Dose Route Start Last Admin Trade Name Freq PRN Reason Stop Dose Admin Sodium Chloride 1,000 mls @ 999 mls/hr 08/08/22 20:15 08/08/22 20:18 Ns IV 08/08/22 21:15 999 mls/hr .Q1H1M KAMILAH Administration Iohexol 100 ml 08/08/22 18:30 08/08/22 18:31 Iohexol 350 Mg/Ml 100 Ml Infus..Btl IV 08/08/22 18:31 85 ml ONCE ONE Administration Loperamide HCl 2 mg 08/08/22 20:09 08/08/22 20:25 Loperamide Hcl 2 Mg Capsule PO 08/08/22 20:10 2 mg ONCE ONE Administration Ondansetron HCl 4 mg 08/08/22 14:36 08/08/22 14:39 Ondansetron Odt 4 Mg Tab.Rapdis TRANSLINGU 08/08/22 14:37 4 mg ONCE ONE Administration Potassium Chloride 20 meq 08/08/22 20:43 08/08/22 20:55 Potassium Chloride Er 20 Meq Tab.Er.Prt PO 08/08/22 20:44 20 meq ONCE ONE Administration Discharge Plan Discharge Clinical Impression: Abdominal pain, Nausea & vomiting, Diarrhea Patient Disposition: Home, Self-Care Instructions: Acute Nausea and Vomiting (ED), Acute Diarrhea (ED), Acute Abdominal Pain (ED), Abdominal Pain (ED), Nutrition Tips for Relief of Diarrhea (ED) Additional Instructions: Take your medications as prescribed. If you were prescribed antibiotics today, it is important that you take your medication to their entirety, do not skip any doses, do not finish them early. Follow-up with your primary care provider this week. Return to the emergency department with new or worsening symptoms. Such as fevers, chills, chest pain, shortness of breath, nausea, vomiting, dizziness, headache, vision changes, lethargy In case of emergency call 911 You can take Zofran for nausea and vomiting. Loperamide for diarrhea. CT/CT abdomen pelvis w IV con IMPRESSION: 1.? No acute intra-abdominal process identified. 2.? Status post cholecystectomy and appendectomy. 3.? Prostatomegaly. ? ? Prescriptions: New loperamide [Anti-Diarrheal (loperamide)] 2 mg capsule 2 mg PO Q6H PRN (Reason: loose stool) Qty: 30 0RF ondansetron 4 mg tablet,disintegrating 4 mg PO Q6H PRN (Reason: nausea and vomiting) Qty: 14 0RF No Action tramadol 50 mg tablet 50 mg PO TID PRN (Reason: pain) Qty: 90 3RF lralrcbzae-vomsrbuowyamh-zqvq [Fioricet] 50-300-40 mg capsule 1 cap PO Q6H PRN (Reason: headache) Qty: 20 0RF metoprolol tartrate 50 mg tablet 50 mg PO BID simvastatin 20 mg tablet 20 mg PO DAILY hydrochlorothiazide 25 mg tablet 25 mg PO DAILY aspirin [Adult Low Dose Aspirin] 81 mg tablet,delayed release (DR/EC) 81 mg PO DAILY cholecalciferol (vitamin D3) 25 mcg (1,000 unit) capsule 25 mcg PO DAILY omeprazole magnesium [Prilosec OTC] 20 mg tablet,delayed release (DR/EC) 20 mg PO BID docusate sodium [Colace] 100 mg capsule 100 mg PO BID sennosides [Natural Senna Laxative] 8.6 mg tablet 17.2 mg PO BEDTIME losartan 100 mg tablet 100 mg PO QAM haloperidol 5 mg tablet 5 mg PO BEDTIME potassium chloride 20 mEq tablet,ER particles/crystals 40 meq PO QAM haloperidol 2 mg tablet 2 mg PO DAILY Referrals: [facility] [place] Gastroenterology Services [Provider Group] - 2 weeks Chauncey Haney MD [Primary Care Provider] - 2 days Interventions: ED Discharge Assessment Last Done: 08/08/22 21:42 Discharge Date/Time: 08/08/22 21:43
[2022-08-08] MEDS: Ondansetron ODT 4 MG TAB.RAPDIS TRANSLINGU (14:39)
[2022-08-08 16:00] LABS: MANUAL DIFF FLAG NO
[2022-08-08 16:03] LABS: Basophils Percent Auto 0.4 % (0-2); Eosinophils Absolute Auto 0.2 X10*3/uL (0.0-0.4); Eosinophils Percent Auto 2.3 % (0-4); Hemoglobin 13.7 g/dl (14.0-18.0); Imm Gran Abs Auto 0.02 X10*3/uL (0.00-0.03); Imm Gran Pct Auto 0.3 % (0.0-0.4); Lymphocytes Absolute Auto 1.3 X10*3/uL (1.2-4.9); Lymphocytes Percent Auto 19.5 % (20-40); Mean Corpuscular HGB Conc 36.1 g/dl (31.0-36.0); Mean Corpuscular Hemoglobin 31.9 pg (27.0-33.0); Mean Corpuscular Volume 88.6 fL (80.0-98.0); Mean Platelet Volume 9.7 fL (9.4-12.4); Monocytes Percent Auto 14.3 % (2-11); Neutrophils Absolute Auto 4.3 x10*3/uL (2.0-8.3); Neutrophils Percent Auto 63.2 % (45-73); Platelet Count 218 X10*3/uL (160-400); Red Blood Count 4.29 X10*6/uL (4.60-5.80); Red Cell Distribution Width 12.5 % (11.0-16.0); White Blood Count 6.9 X10*3/uL (4.8-10.8)
[2022-08-08 16:04] LABS: Appearance Urine Clear; Color Urine Dark Yellow; Glucose Urine UA Negative (Negative); Leukocyte Esterase Urine Negative (Negative); Nitrite Urine Negative (Negative); PH 5.5 (5.0-9.0); Specific Gravity - Urine 1.025 (1.005-1.025); UMIC TRIGGER UACC YES; Urine Blood Negative (Negative); Urine Ketones Trace mg/dL (Negative); Urine Protein 30 (1+) mg/dL (Neg-Trace)
[2022-08-08 16:15] LABS: COVID-19 Test Negative (Negative); IDNOW Serial# 6674DD1D
[2022-08-08 16:18] LABS: Alanine Aminotransferase 25 U/L (0-40); Albumin Level 4.2 g/dL (3.5-5.0); Alkaline Phosphatase 82 U/L (39-117); Anion Gap 9 (12-20); Aspartate Amino Transferase 29 U/L (5-37); Bilirubin Total 0.8 mg/dL (0.0-1.0); Blood Urea Nitrogen 16 mg/dL (9-16); Calcium 9.3 mg/dL (8.4-10.2); Carbon Dioxide 32 mmol/L (22-29); Chloride 106 mmol/L (96-108); Creatinine Clr Calc Pharmacy 68.7; Estimated Glomerular Filt Rate 55; Glucose Random 107 mg/dL (60-115); Lipase 32 U/L (8-78); Potassium 3.2 mmol/L (3.3-5.1); Sodium 144 mmol/L (135-145); Total Protein 6.8 g/dL (6.5-8.0)
[2022-08-08 16:19] LABS: IDNOW Serial# 55D5AD1C; Influenza A Negative (Negative); Influenza B2 Negative (Negative)
[2022-08-08 16:21] LABS: Bacteria Urine None Seen (None Seen); Granular Casts Urine Present; Hyaline Casts Urine >20 /LPF (0-2); RBC Urine 0-2 /HPF (0-2); WBC Urine 0-5 /HPF (0-5)
[2022-08-08] MEDS: iohexoL 350 MG/ML 100 ML INFUS..BTL IV (18:31)
--- NOTE | 2022-08-08 18:51 | PC.NURSE ---
52 y/o M pw intermittent abdominal pain and n/v that started after eating samoan food. pt is aox3, calm and cooperative, VSS. awaiting further recs
[2022-08-08 19:41] VITALS: BP 140/81; PULSE 60; RESP 16; TEMP 36.8; O2SAT 96
[2022-08-08] MEDS: 0.9 % Sodium Chloride 1,000 ML 999 ML IV (20:18)
[2022-08-08] MEDS: Loperamide HCl 2 MG CAPSULE PO (20:25)
--- NOTE | 2022-08-08 20:35 | ED_ITS ---
HPI - Abdominal Pain General Chief Complaint: Abdominal Pain Stated Complaint: Stomach Pain Time Seen by Provider: 08/08/22 17:05 Source: patient Mode of arrival: ambulatory Limitations: no limitations History of Present Illness HPI narrative: This is a 52-year-old male hx DM, HLD, HTN presenting to the emergency d epartment complaints of diffuse abdominal pain, nausea, vomiting, diarrhea since this morning. Patient tells me he woke up this morning with these symptoms. He tells me he may have eaten [place]ian food that was bad yesterday. Nobody else at home has similar symptoms. Patient denies headache, vision changes, chest pain, shortness of breath, hematochezia, hematemesis, urinary changes, headache, vi chava changes, dizziness, fevers and chills. Patient has been tolerating p.o. without difficulty. Denies sick contacts. No recent antibiotic use, no recent travel. He tells me at this time he is feeling better than he was earlier today. Related Data Home Medications Medication Instructions Recorded Confirmed aspirin 81 mg tablet,delayed 81 mg PO DAILY 06/28/20 release (Adult Low Dose Aspirin) cholecalciferol (vitamin D3) 25 25 mcg PO DAILY 06/28/20 mcg (1,000 unit) capsule docusate sodium 100 mg capsule 100 mg PO BID 06/28/20 (Colace) hydrochlorothiazide 25 mg tablet 25 mg PO DAILY 06/28/20 metoprolol tartrate 50 mg tablet 50 mg PO BID 06/28/20 omeprazole magnesium 20 mg 20 mg PO BID 06/28/20 tablet,delayed release (Prilosec OTC) sennosides 8.6 mg tablet (Natural 17.2 mg PO BEDTIME 06/28/20 Senna Laxative) simvastatin 20 mg tablet 20 mg PO DAILY 06/28/20 haloperidol 2 mg tablet 2 mg PO DAILY 06/27/22 06/27/22 haloperidol 5 mg tablet 5 mg PO BEDTIME 06/27/22 losartan 100 mg tablet 100 mg PO QAM 06/27/22 potassium chloride 20 mEq 40 meq PO QAM 06/27/22 tablet,extended release(part/cryst) Previous Rx's Medication Instructions Recorded ehvledzjqa-ajasjkddwzrpq-tayggdtr 1 cap PO Q6H PRN headache #20 caps 04/24/22 50 mg-300 mg-40 mg capsule (Fioricet) tramadol 50 mg tablet 50 mg PO TID PRN pain #90 tabs 07/10/22 loperamide 2 mg capsule 2 mg PO Q6H PRN loose stool #30 08/08/22 (Anti-Diarrheal (loperamide)) caps ondansetron 4 mg disintegrating 4 mg PO Q6H PRN nausea and 08/08/22 tablet vomiting #14 tabs Allergies Allergy/AdvReac Type Severity Reaction Status Date / Time No Known Allergies Allergy Mild Verified 06/27/22 12:07 Review of Systems Review of Systems Constitutional : No Weight loss, No Fever, No Chills, No Fatigue, No Malaise ENT/Mouth : No sore throat, No Rhinorrhea Eyes: No Eye Pain, No Swelling, No Redness Cardiovascular : No Chest Pain, No SOB, No Dyspnea on Exertion, No Orthopnea, No Edema, No Palpitations Respiratory : No Cough, No Sputum, No Wheezing Gastrointestinal : + Nausea, + Vomiting, + Diarrhea, No Constipation, + abdominal Pain, No Hematochezia, No Melena Genitourinary : No Dysuria, No Urinary Frequency, No Hematuria, Musculoskeletal : No joint pain, No Myalgias, No Joint Swelling Skin : No Skin Lesions, No rash Neuro : No Weakness, No Numbness, No Dizziness, No Headache Psych : No Anxiety/Panic, No Depression All other systems reviewed and are negative Yes all other systems are reviewed and are negative FORMERLY [facility], 1928–1983 Past Medical History Attestation statement: The following information was validated with the patient. Source: old records reviewed and nursing notes reviewed Medical History Diabetes Hypercholesteremia Hypertension Social History Social History Alcohol intake: never Patient Tobacco Use Status: Current everyday Tobacco user Cigarettes Per Day: 4 Smoked in Last 30 Days: No Use of substances other than those prescribed or required for medical reasons: No Advance Directives: No Advance Directives Information Provided: No Physical Exam ED Vital Signs: Vital Signs - 24 hr 08/08/22 14:33 08/08/22 19:41 Temperature 98.1 F 98.3 F Pulse Rate 70 60 Respiratory Rate 18 16 Blood Pressure 148/85 H 140/81 H Pulse Oximetry 98 96 Oxygen Delivery Method Room Air Room Air BMI result Body Mass Index 30.7 Vital signs stable Appearance: Alert.? Oriented X3.? No acute distress.? Head: Normocephalic, atraumatic, no step-offs or deformities Eyes: Pupils equal, round and reactive to light.? ENT: Pharynx normal.? Neck: Normal inspection.? Neck supple.? CVS: Normal heart rate and rhythm.? Pulses normal.? Respiratory: No respiratory distress.? Breath sounds normal.? Abdomen: Soft and diffusely tender with normoactive bowel sounds..? Skin: Skin warm and dry.? Normal skin color.? Normal skin turgor.? Extremities: No lower extremity edema.? No calf ttp. 5/5 strength to bilateral upper and lower extremities Neuro: Oriented X 3.? No motor deficit.? No sensory deficit. CN 2-12 intact Course Reevaluation(s) Reevaluation #1: CBC appears to be within normal limits. Chemistry with slightly low potassium will give p.o. potassium prior to discharge. Carbon dioxide slightly elevated however appears to be around patient's baseline. Lipase within normal limits. Urine clean. Influenza, COVID negative. Patient tells me he is feeling so much better after Zofran which was given at triage. He is tolerating p.o.. CT of the abdomen pelvis showing no acute intra-abdominal process. Status post cholecystectomy and appendectomy. Prostatomegaly noted. Educated patient on findings of CT scan. Patient will be discharged home on Zofran, loperamide. I suspect this is viral in origin. Patient appears well tolerating p.o. at time of discharge with stable vitals. Educated patient on diagnosis and treatment plan, answered all question, patient verbalizes understanding. At this time patient will be discharged home, advised to return with new or worsening symptoms. Educated on worrisome signs and symptoms and when to return. At this time I feel comfortable discharge home. To note upon re-evaluation at discharge patient's abdomen is no longer tender, he states he is feeling better. Time: 20:41 Medical Decision Making Medical Decision Making [facility] Narrative: 1700 52-year-old male presents with nausea, vomiting, diarrhea and diffuse abdominal pain since this morning. Tells me he may have eaten bad [place] food. Physical exam patient appears well no acute distress. Abdomen diffusely tender with normoactive bowel sounds. Regular rate and rhythm. Lungs clear. Neuro nonfocal. Vital signs stable. Likely gastroenteritis versus viral infection. Unlikely acute abdomen, small- bowel obstruction, large-bowel obstruction. Plan at this time labs, imaging, influenza, COVID, urine, CT of the abdomen and pelvis. Lab Data Result Diagrams: 08/08/22 15:56 08/08/22 15:56 Labs: Lab Results 08/08/22 08/08/22 08/08/22 Range/Units 15:53 15:54 15:54 WBC (4.8-10.8) X10*3/uL RBC (4.60-5.80) X10*6/uL Hgb (14.0-18.0) g/dl Hct (42.0-52.0) % MCV (80.0-98.0) fL MCH (27.0-33.0) pg MCHC (31.0-36.0) g/dl RDW (11.0-16.0) % Plt Count (160-400) X10*3/uL MPV (9.4-12.4) fL Immature Gran % (Auto) (0.0-0.4) % Neut % (Auto) (45-73) % Lymph % (Auto) (20-40) % [place] % (Auto) (2-11) % Eos % (Auto) (0-4) % Baso % (Auto) (0-2) % Lymph # (Auto) (1.2-4.9) X10*3/uL [place] # (Auto) (0.1-1.2) X10*3/uL Eos # (Auto) (0.0-0.4) X10*3/uL Baso # (Auto) (0.0-0.2) X10*3/uL Abs Immat Gran (auto) (0.00-0.03) X10*3/uL Absolute Neuts (auto) (2.0-8.3) x10*3/uL Absolute Nucleated RBC (0.0-0.012) X10*3/uL Nucleated RBC % (auto) (0.0-0.2) /100WBC Sodium (135-145) mmol/L Potassium (3.3-5.1) mmol/L Chloride (96-108) mmol/L Carbon Dioxide (22-29) mmol/L Anion Gap (12-20) BUN (9-16) mg/dL Creatinine (0.5-1.4) mg/dL Estim Creat Clear Calc Estimated GFR Random Glucose (60-115) mg/dL Calcium (8.4-10.2) mg/dL Total Bilirubin (0.0-1.0) mg/dL AST (5-37) U/L ALT (0-40) U/L Alkaline Phosphatase (39-117) U/L Total Protein (6.5-8.0) g/dL Albumin (3.5-5.0) g/dL Lipase (8-78) U/L Urine Color Dark Yellow Urine Appearance Clear Urine pH 5.5 (5.0-9.0) Ur Specific [place] 1.025 (1.005-1.025) Urine Protein 30 (1+) H (Neg-Trace) mg/dL Urine Glucose (UA) Negative (Negative) mg/dL Urine Ketones Trace (Negative) mg/dL Urine Blood Negative (Negative) Urine Nitrite Negative (Negative) Ur Leukocyte Esterase Negative (Negative) Urine RBC 0-2 (0-2) /HPF Urine WBC 0-5 (0-5) /HPF Ur Squamous Epith Cells 11-20 (0-2) /HPF Urine Bacteria None Seen (None Seen) Hyaline Casts >20 (0-2) /LPF Granular Casts Present COVID-19 (PATEL) Negative (Negative) COVID-19 Clin Com See Note Influenza Type A (MIN) Negative (Negative) Influenza Type B (MIN) Negative (Negative) Influenza A & B Note See Note 08/08/22 08/08/22 Range/Units 15:56 15:56 WBC 6.9 (4.8-10.8) X10*3/uL RBC 4.29 L (4.60-5.80) X10*6/uL Hgb 13.7 L (14.0-18.0) g/dl Hct 38.0 L (42.0-52.0) % MCV 88.6 (80.0-98.0) fL MCH 31.9 (27.0-33.0) pg MCHC 36.1 H (31.0-36.0) g/dl RDW 12.5 (11.0-16.0) % Plt Count 218 (160-400) X10*3/uL MPV 9.7 (9.4-12.4) fL Immature Gran % (Auto) 0.3 (0.0-0.4) % Neut % (Auto) 63.2 (45-73) % Lymph % (Auto) 19.5 L (20-40) % [place] % (Auto) 14.3 H (2-11) % Eos % (Auto) 2.3 (0-4) % Baso % (Auto) 0.4 (0-2) % Lymph # (Auto) 1.3 (1.2-4.9) X10*3/uL [place] # (Auto) 1.0 (0.1-1.2) X10*3/uL Eos # (Auto) 0.2 (0.0-0.4) X10*3/uL Baso # (Auto) 0.0 (0.0-0.2) X10*3/uL Abs Immat Gran (auto) 0.02 (0.00-0.03) X10*3/uL Absolute Neuts (auto) 4.3 (2.0-8.3) x10*3/uL Absolute Nucleated RBC 0.000 (0.0-0.012) X10*3/uL Nucleated RBC % (auto) 0.0 (0.0-0.2) /100WBC Sodium 144 (135-145) mmol/L Potassium 3.2 L (3.3-5.1) mmol/L Chloride 106 (96-108) mmol/L Carbon Dioxide 32 H (22-29) mmol/L Anion Gap 9 L (12-20) BUN 16 (9-16) mg/dL Creatinine 1.35 (0.5-1.4) mg/dL Estim Creat Clear Calc 68.7 Estimated GFR 55 Random Glucose 107 (60-115) mg/dL Calcium 9.3 (8.4-10.2) mg/dL Total Bilirubin 0.8 (0.0-1.0) mg/dL AST 29 (5-37) U/L ALT 25 (0-40) U/L Alkaline Phosphatase 82 (39-117) U/L Total Protein 6.8 (6.5-8.0) g/dL Albumin 4.2 (3.5-5.0) g/dL Lipase 32 (8-78) U/L Urine Color Urine Appearance Urine pH (5.0-9.0) Ur Specific [place] (1.005-1.025) Urine Protein (Neg-Trace) mg/dL Urine Glucose (UA) (Negative) mg/dL Urine Ketones (Negative) mg/dL Urine Blood (Negative) Urine Nitrite (Negative) Ur Leukocyte Esterase (Negative) Urine RBC (0-2) /HPF Urine WBC (0-5) /HPF Ur Squamous Epith Cells (0-2) /HPF Urine Bacteria (None Seen) Hyaline Casts (0-2) /LPF Granular Casts COVID-19 (PATEL) (Negative) COVID-19 Clin Com Influenza Type A (MIN) (Negative) Influenza Type B (MIN) (Negative) Influenza A & B Note Medications Administered Generic Name Dose Route Start Last Admin Trade Name Freq PRN Reason Stop Dose Admin Sodium Chloride 1,000 mls @ 999 mls/hr 08/08/22 20:15 08/08/22 20:18 Ns IV 08/08/22 21:15 999 mls/hr .Q1H1M KAMILAH Administration Discontinued Medications Generic Name Dose Route Start Last Admin Trade Name Freq PRN Reason Stop Dose Admin Iohexol 100 ml 08/08/22 18:30 08/08/22 18:31 Iohexol 350 Mg/Ml 100 Ml Infus..Btl IV 08/08/22 18:31 85 ml ONCE ONE Administration Loperamide HCl 2 mg 08/08/22 20:09 08/08/22 20:25 Loperamide Hcl 2 Mg Capsule PO 08/08/22 20:10 2 mg ONCE ONE Administration Ondansetron HCl 4 mg 08/08/22 14:36 08/08/22 14:39 Ondansetron Odt 4 Mg Tab.Rapdis TRANSLINGU 08/08/22 14:37 4 mg ONCE ONE Administration Discharge Plan Discharge Clinical Impression: Abdominal pain, Nausea & vomiting, Diarrhea Patient Disposition: Home, Self-Care Instructions: Acute Nausea and Vomiting (ED), Acute Diarrhea (ED), Acute Abdominal Pain (ED), Abdominal Pain (ED), Nutrition Tips for Relief of Diarrhea (ED) Additional Instructions: Take your medications as prescribed. If you were prescribed antibiotics today, it is important that you take your medication to their entirety, do not skip any doses, do not finish them early. Follow-up with your primary care provider this week. Return to the emergency department with new or worsening symptoms. Such as fevers, chills, chest pain, shortness of breath, nausea, vomiting, dizziness, headache, vision changes, lethargy In case of emergency call 911 You can take Zofran for nausea and vomiting. Loperamide for diarrhea. CT/CT abdomen pelvis w IV con IMPRESSION: 1.? No acute intra-abdominal process identified. 2.? Status post cholecystectomy and appendectomy. 3.? Prostatomegaly. ? ? Prescriptions: New loperamide [Anti-Diarrheal (loperamide)] 2 mg capsule 2 mg PO Q6H PRN (Reason: loose stool) Qty: 30 0RF ondansetron 4 mg tablet,disintegrating 4 mg PO Q6H PRN (Reason: nausea and vomiting) Qty: 14 0RF No Action tramadol 50 mg tablet 50 mg PO TID PRN (Reason: pain) Qty: 90 3RF vinggekeio-ejetjxblipjwy-aacx [Fioricet] 50-300-40 mg capsule 1 cap PO Q6H PRN (Reason: headache) Qty: 20 0RF metoprolol tartrate 50 mg tablet 50 mg PO BID simvastatin 20 mg tablet 20 mg PO DAILY hydrochlorothiazide 25 mg tablet 25 mg PO DAILY aspirin [Adult Low Dose Aspirin] 81 mg tablet,delayed release (DR/EC) 81 mg PO DAILY cholecalciferol (vitamin D3) 25 mcg (1,000 unit) capsule 25 mcg PO DAILY omeprazole magnesium [Prilosec OTC] 20 mg tablet,delayed release (DR/EC) 20 mg PO BID docusate sodium [Colace] 100 mg capsule 100 mg PO BID sennosides [Natural Senna Laxative] 8.6 mg tablet 17.2 mg PO BEDTIME losartan 100 mg tablet 100 mg PO QAM haloperidol 5 mg tablet 5 mg PO BEDTIME potassium chloride 20 mEq tablet,ER particles/crystals 40 meq PO QAM haloperidol 2 mg tablet 2 mg PO DAILY [place] [facility] [place]Provider Group] - 2 weeks Chauncey Haney MD [Primary Care Provider] - 2 days
[2022-08-08] MEDS: Potassium Chloride ER 20 MEQ TAB.ER.PRT PO (20:55)
[2022-08-08 21:41] VITALS: BP 138/76; PULSE 6; RESP 16; TEMP 36.7; O2SAT 99
== END 2022-08-08 21:43 | disposition home or self-care (01) ==
PROVIDERS: Nurse Practitioner Family; Emergency Provider Emergency Medicine; PCP Internal Medicine
DX: R11.2 Nausea with vomiting, unspecified (principal); R19.7 Diarrhea, unspecified; R10.13 Epigastric pain; Z20.822 Contact with and (suspected) exposure to COVID-19; Z79.899 Other long term (current) drug therapy
CPT/HCPCS: 74177; 80053; 81001; 81003; 83690; 85025; 87502; 87635; 99284; Q9967

== ENCOUNTER → 2022-12-25 10:16 | Outpatient (BNVA) | payer MEDICAID, SELFPAY | PROVIDERS: Visit Provider Nurse Practitioner Family | DX: M47.816 Spondylosis without myelopathy or radiculopathy, lumbar region (principal); M25.511 Pain in right shoulder | CPT/HCPCS: 99212 ==

== ENCOUNTER 2023-05-19 09:53 | Outpatient (REF) | payer MEDICAID, SELFPAY ==
[2023-05-19 11:56] LABS: MANUAL DIFF FLAG NO
[2023-05-19 12:17] LABS: Basophils Absolute Auto 0.1 X10*3/uL (0.0-0.2); Basophils Percent Auto 0.8 % (0-2); Eosinophils Absolute Auto 0.4 X10*3/uL (0.0-0.4); Eosinophils Percent Auto 5.3 % (0-4); Hematocrit 39.5 % (42.0-52.0); Hemoglobin 13.5 g/dl (14.0-18.0); Imm Gran Abs Auto 0.03 X10*3/uL (0.00-0.03); Imm Gran Pct Auto 0.4 % (0.0-0.4); Lymphocytes Absolute Auto 1.6 X10*3/uL (1.2-4.9); Lymphocytes Percent Auto 20.5 % (20-40); Mean Corpuscular HGB Conc 34.2 g/dl (31.0-36.0); Mean Corpuscular Hemoglobin 31.8 pg (27.0-33.0); Mean Corpuscular Volume 92.9 fL (80.0-98.0); Mean Platelet Volume 10.9 fL (9.4-12.4); Monocytes Absolute Auto 0.6 X10*3/uL (0.1-1.2); Monocytes Percent Auto 8.2 % (2-11); Neutrophils Absolute Auto 4.9 x10*3/uL (2.0-8.3); Neutrophils Percent Auto 64.8 % (45-73); Platelet Count 280 X10*3/uL (160-400); Red Blood Count 4.25 X10*6/uL (4.60-5.80); Red Cell Distribution Width 13.4 % (11.0-16.0); White Blood Count 7.6 X10*3/uL (4.8-10.8)
[2023-05-21 16:53] LABS: TS Negative Control Passed; TS Panel A 0; TS Panel B 1; TS Positive Control Passed; TSpotTB Negative (Negative)
[2023-05-22 13:54] LABS: Hepatitis B Viral DNA Qn - cp NOT DETECTED Log IU/mL (NOT DETECTED); Hepatitis B Viral DNA Qn-IU/mL NOT DETECTED (NOT DETECTED)
[2023-05-23 01:28] LABS: VITAMIN D (1,25 OH) D3 64 pg/mL; Vit D (1,25-Dihydroxy) Total 64 pg/mL (18-72); Vitamin D (1,25 OH) D2 <8 pg/mL
== END 2023-05-19 09:54 | disposition home or self-care (01) ==
LOC: HO.HHCL 09:53
PROVIDERS: Visit Provider Student in an Organized Health Care Education/Training Program
DX: Z00.00 Encounter for general adult medical examination without abnormal findings (principal); Z11.4 Encounter for screening for human immunodeficiency virus [HIV]; Z11.3 Encounter for screening for infections with a predominantly sexual mode of transmission; Z11.1 Encounter for screening for respiratory tuberculosis
CPT/HCPCS: 0353U; 80053; 80061; 82043; 82570; 82607; 82652; 82746; 83036; 84443; 85025; 86481; 86704; 86706; 86780; 86803; 87389; 87517

== ENCOUNTER 2023-05-20 11:33 | Outpatient (REF) | payer MEDICAID, SELFPAY | END 2023-05-20 11:34 | disposition home or self-care (01) | LOC: HO.HHCL 11:33 | PROVIDERS: Visit Provider Student in an Organized Health Care Education/Training Program | DX: E87.6 Hypokalemia (principal) | CPT/HCPCS: 36415; 83735; 84132 ==

== ENCOUNTER 2023-05-20 22:14 | Emergency (ER) | payer MEDICAID, SELFPAY ==
--- NOTE | 2023-05-20 | ECG_ITS ---
Test Reason : CHEST PAIN Blood Pressure : / mmHG Vent. Rate : 064 BPM Atrial Rate : 064 BPM P-R Int : 146 ms QRS Dur : 096 ms QT Int : 418 ms P-R-T Axes : 052 033 040 degrees QTc Int : 431 ms Normal sinus rhythm Incomplete right bundle branch block Borderline ECG When compared with ECG of 28-NOV-2021 14:50, No significant change was found Referred By: Generic ED Physician Electronically Signed By:FLORINA JOE MD
--- NOTE | ~2023-05-20 | XR_ITS ---
EXAMINATION: XR CHEST CLINICAL INFORMATION: Chest pain. COMPARISON: 11/28/2021. TECHNIQUE: 2 views of the chest were obtained. FINDINGS: The cardiomediastinal silhouette is normal. There is no focal lung consolidation or pleural effusion. The bony structures and soft tissues are unremarkable. XR/XR chest 2V IMPRESSION: No active cardiopulmonary disease.
[2023-05-20 22:24] VITALS: BP 171/81; PULSE 70; RESP 20; TEMP 36.4; O2SAT 98; BMI 30.4
[2023-05-20 22:37] LABS: MANUAL DIFF FLAG NO
[2023-05-20 22:38] LABS: Basophils Absolute Auto 0.1 X10*3/uL (0.0-0.2); Basophils Percent Auto 0.6 % (0-2); Eosinophils Absolute Auto 0.5 X10*3/uL (0.0-0.4); Eosinophils Percent Auto 5.1 % (0-4); Hematocrit 37.9 % (42.0-52.0); Hemoglobin 13.4 g/dl (14.0-18.0); Imm Gran Abs Auto 0.03 X10*3/uL (0.00-0.03); Imm Gran Pct Auto 0.3 % (0.0-0.4); Lymphocytes Percent Auto 20.1 % (20-40); Mean Corpuscular HGB Conc 35.4 g/dl (31.0-36.0); Mean Corpuscular Hemoglobin 32.3 pg (27.0-33.0); Mean Corpuscular Volume 91.3 fL (80.0-98.0); Mean Platelet Volume 10.1 fL (9.4-12.4); Monocytes Absolute Auto 0.8 X10*3/uL (0.1-1.2); Monocytes Percent Auto 7.8 % (2-11); Neutrophils Absolute Auto 6.7 x10*3/uL (2.0-8.3); Neutrophils Percent Auto 66.1 % (45-73); Platelet Count 280 X10*3/uL (160-400); Red Blood Count 4.15 X10*6/uL (4.60-5.80); Red Cell Distribution Width 13.2 % (11.0-16.0); White Blood Count 10.2 X10*3/uL (4.8-10.8)
[2023-05-20 22:58] LABS: Alanine Aminotransferase 12 U/L (0-40); Albumin Level 4.3 g/dL (3.5-5.0); Alkaline Phosphatase 88 U/L (39-117); Anion Gap 15 (12-20); Aspartate Amino Transferase 22 U/L (5-37); Bilirubin Direct 0.1 mg/dL (0.0-0.5); Bilirubin Total 0.4 mg/dL (0.0-1.0); Blood Urea Nitrogen 16 mg/dL (9-16); Calcium 9.5 mg/dL (8.4-10.2); Carbon Dioxide 28 mmol/L (22-29); Chloride 106 mmol/L (96-108); Creatinine Clr Calc Pharmacy 76.9; Estimated Glomerular Filt Rate > 60; Glucose Random 109 mg/dL (60-115); Potassium 4.2 mmol/L (3.3-5.1); Sodium 145 mmol/L (135-145); Total Protein 7.5 g/dL (6.5-8.0)
[2023-05-20 23:05] LABS: Troponin-I High Sensitivity 5.1 ng/L (<3.5-35.0)
[2023-05-21] VITALS: PULSE 55
[2023-05-21 00:05] VITALS: BP 138/64; PULSE 59; RESP 16; TEMP 36.8; O2SAT 97
--- NOTE | 2023-05-21 00:15 | ED_ITS ---
HPI - Chest Pain General Chief Complaint: Chest Pain Stated Complaint: Chest pain Time Seen by Provider: 05/21/23 00:13 Source: patient Mode of arrival: ambulatory Limitations: no limitations History of Present Illness HPI narrative: Patient with history of hypertension schizophrenia no known coronary artery disease noticed pain in mid chest since 17:00 which is sharp in character coming and going no diaphoresis no nausea no vomiting no shortness of breath no cough no increase in pain on palpation no history of similar pain in the past Related Data Home Medications Medication Instructions Recorded Confirmed aspirin 81 mg tablet,delayed 81 mg PO DAILY 06/28/20 12/25/22 release (Adult Low Dose Aspirin) docusate sodium 100 mg capsule 100 mg PO BID 06/28/20 12/25/22 (Colace) hydrochlorothiazide 25 mg tablet 25 mg PO DAILY 06/28/20 12/25/22 metoprolol tartrate 50 mg tablet 50 mg PO BID 06/28/20 12/25/22 omeprazole magnesium 20 mg 20 mg PO BID 06/28/20 12/25/22 tablet,delayed release (Prilosec OTC) sennosides 8.6 mg tablet (Natural 17.2 mg PO BEDTIME 06/28/20 12/25/22 Senna Laxative) simvastatin 20 mg tablet 20 mg PO DAILY 06/28/20 12/25/22 haloperidol 2 mg tablet 2 mg PO DAILY 06/27/22 12/25/22 haloperidol 5 mg tablet 5 mg PO BEDTIME 06/27/22 12/25/22 losartan 100 mg tablet 100 mg PO QAM 06/27/22 12/25/22 potassium chloride 20 mEq 40 meq PO QAM 06/27/22 12/25/22 tablet,extended release(part/cryst) amlodipine 10 mg tablet 10 mg PO QAM 12/25/22 12/25/22 cholecalciferol (vitamin D3) 25 25 mcg PO QAM 12/25/22 12/25/22 mcg (1,000 unit) tablet zolpidem 10 mg tablet 5 - 10 mg PO BEDTIME PRN 12/25/22 12/25/22 Previous Rx's Medication Instructions Recorded zxktcdwfbx-agybiezdvewxa-kdxcbymk 1 cap PO Q6H PRN headache #20 caps 04/24/22 50 mg-300 mg-40 mg capsule (Fioricet) loperamide 2 mg capsule 2 mg PO Q6H PRN loose stool #30 08/08/22 (Anti-Diarrheal (loperamide)) caps ondansetron 4 mg disintegrating 4 mg PO Q6H PRN nausea and 08/08/22 tablet vomiting #14 tabs tramadol 50 mg tablet 50 mg PO Q8H PRN pain #90 tabs 02/23/23 Allergies Allergy/AdvReac Type Severity Reaction Status Date / Time No Known Allergies Allergy Mild Verified 05/20/23 22:24 Review of Systems 2 Review of Systems: Yes all other systems are reviewed and are negative FOR[facility]LY [facility], [facility] Past Medical History Medical History Hypercholesteremia Diabetes Hypertension Social History Social History Alcohol intake: current Alcohol intake frequency: does not drink Patient Tobacco Use Status: Former Tobacco user Quit Date: 1 year ago Advance Directives: No Advance Directives Information Provided: Yes Physical Exam 2 Vital Signs: Vital Signs: Last Vital Signs Temp 98.3 F 05/21/23 00:05 Pulse 56 05/21/23 01:22 Resp 18 05/21/23 01:22 BP 143/72 H 05/21/23 01:22 Pulse Ox 95 05/21/23 01:22 O2 Del Method Room Air 05/21/23 01:22 BMI result Body Mass Index 30.4 Appearance: Alert. Oriented X3. No acute distress. Eyes: PERRLA, No Nystagmus ENT: Pharynx normal. Oral Mucosa moist Neck: Normal inspection. Neck supple. CVS: Normal heart rate and rhythm. Pulses normal. No murmur/rub or gallop Respiratory: No respiratory distress. Equal air entry bilateral, no wheezing/rales/rhonchi Abdomen: Soft and nontender. Bowel sounds are present, no mass palpable, no CVA tenderness Skin: Skin warm and dry. Normal skin color. Normal skin turgor. Extremities: No lower extremity edema. No calf tenderness Neuro: Oriented X 3. No motor deficit. No sensory deficit.No cerebellar signs , cranial nerves II-XII intact Medications Administered Discontinued Medications Generic Name Dose Route Start Last Admin Trade Name Freq PRN Reason Stop Dose Admin Nitroglycerin 1 inch 05/21/23 00:54 05/21/23 01:20 Nitroglycerin 2 % Oint 1 Gm Packet TRANSDERMA 05/21/23 00:55 1 inch ONCE ONE Administration Medical Decision Making Medical Decision Making [facility] Narrative: Patient has atypical pain etiology not very clear not reproducible initial troponin and EKG negative will repeat troponin. Patient does take baby aspirin daily which he took today at 20:00 Repeat troponin negative for delta change Differential Diagnosis Differential Diagnoses: The differential diagnosis associated with the presentation includes Chest wall pain/ACS/angina Lab Data [facility] Lab Attestation statement: I reviewed the patient's lab results. 05/20/23 22:31 05/20/23 22:31 Labs: Lab Results 05/20/23 05/21/23 Range/Units 22:31 01:11 WBC 10.2 (4.8-10.8) X10*3/uL RBC 4.15 L (4.60-5.80) X10*6/uL Hgb 13.4 L (14.0-18.0) g/dl Hct 37.9 L (42.0-52.0) % MCV 91.3 (80.0-98.0) fL MCH 32.3 (27.0-33.0) pg MCHC 35.4 (31.0-36.0) g/dl RDW 13.2 (11.0-16.0) % Plt Count 280 (160-400) X10*3/uL MPV 10.1 (9.4-12.4) fL Immature Gran % (Auto) 0.3 (0.0-0.4) % Neut % (Auto) 66.1 (45-73) % Lymph % (Auto) 20.1 (20-40) % [place] % (Auto) 7.8 (2-11) % Eos % (Auto) 5.1 H (0-4) % Baso % (Auto) 0.6 (0-2) % Lymph # (Auto) 2.0 (1.2-4.9) X10*3/uL [place] # (Auto) 0.8 (0.1-1.2) X10*3/uL Eos # (Auto) 0.5 H (0.0-0.4) X10*3/uL Baso # (Auto) 0.1 (0.0-0.2) X10*3/uL Abs Immat Gran (auto) 0.03 (0.00-0.03) X10*3/uL Absolute Neuts (auto) 6.7 (2.0-8.3) x10*3/uL Absolute Nucleated RBC 0.000 (0.0-0.012) X10*3/uL Nucleated RBC % (auto) 0.0 (0.0-0.2) /100WBC PT 11.6 (11.1-13.3) SEC INR 1.0 (0.9-1.1) D-Dimer High Sensitivty < 150 NG/ML Sodium 145 (135-145) mmol/L Potassium 4.2 (3.3-5.1) mmol/L Chloride 106 (96-108) mmol/L Carbon Dioxide 28 (22-29) mmol/L Anion Gap 15 (12-20) BUN 16 (9-16) mg/dL Creatinine 1.20 (0.5-1.4) mg/dL Estim Creat Clear Calc 76.9 Estimated GFR > 60 Random Glucose 109 (60-115) mg/dL Calcium 9.5 (8.4-10.2) mg/dL Total Bilirubin 0.4 (0.0-1.0) mg/dL Direct Bilirubin 0.1 (0.0-0.5) mg/dL AST 22 (5-37) U/L ALT 12 (0-40) U/L Alkaline Phosphatase 88 (39-117) U/L Troponin I High Sens 5.1 7.1 (<3.5-35.0) ng/L Total Protein 7.5 (6.5-8.0) g/dL Albumin 4.3 (3.5-5.0) g/dL Independent Interpretation I performed an independent interpretation of an: EKG Interpretation: Normal sinus rhythm heart rate 64 beats per minute incomplete right bundle- branch block no acute change from the previous EKG no acute ischemia Discharge Plan Discharge Clinical Impression: Chest pain Patient Disposition: Home, Self-Care Instructions: Chest Pain (ED) Additional Instructions: Cause of your chest pain is not clear likely musculoskeletal Follow with PCP for further evaluation including stress test Continue taking baby aspirin daily Prescriptions: No Action tramadol 50 mg tablet 50 mg PO Q8H PRN (Reason: pain) Qty: 90 3RF msmxeakdas-rokwkakakhwre-ppxq [Fioricet] 50-300-40 mg capsule 1 cap PO Q6H PRN (Reason: headache) Qty: 20 0RF loperamide [Anti-Diarrheal (loperamide)] 2 mg capsule 2 mg PO Q6H PRN (Reason: loose stool) Qty: 30 0RF ondansetron 4 mg tablet,disintegrating 4 mg PO Q6H PRN (Reason: nausea and vomiting) Qty: 14 0RF metoprolol tartrate 50 mg tablet 50 mg PO BID simvastatin 20 mg tablet 20 mg PO DAILY hydrochlorothiazide 25 mg tablet 25 mg PO DAILY aspirin [Adult Low Dose Aspirin] 81 mg tablet,delayed release (DR/EC) 81 mg PO DAILY omeprazole magnesium [Prilosec OTC] 20 mg tablet,delayed release (DR/EC) 20 mg PO BID docusate sodium [Colace] 100 mg capsule 100 mg PO BID sennosides [Natural Senna Laxative] 8.6 mg tablet 17.2 mg PO BEDTIME losartan 100 mg tablet 100 mg PO QAM haloperidol 5 mg tablet 5 mg PO BEDTIME potassium chloride 20 mEq tablet,ER particles/crystals 40 meq PO QAM haloperidol 2 mg tablet 2 mg PO DAILY cholecalciferol (vitamin D3) 25 mcg (1,000 unit) tablet 25 mcg PO QAM zolpidem 10 mg tablet 5 - 10 mg PO BEDTIME PRN amlodipine 10 mg tablet 10 mg PO QAM
[2023-05-21] MEDS: Nitroglycerin 2 % Oint 1 GM Packet 1 INCH TRANSDERMA (01:20)
[2023-05-21 01:22] VITALS: BP 143/72; PULSE 56; RESP 18; O2SAT 95
--- NOTE | 2023-05-21 01:22 | PC.NURSE ---
This RN assumed care. Patient medicated per OCT. Plan of care ongoing
[2023-05-21 01:23] LABS: Prothrombin Time 11.6 SEC (11.1-13.3)
[2023-05-21 01:29] LABS: D Dimer High Sensitivity < 150 NG/ML
[2023-05-21 01:38] LABS: Troponin-I High Sensitivity 7.1 ng/L (<3.5-35.0)
== END 2023-05-21 02:41 | disposition home or self-care (01) ==
PROVIDERS: Emergency Provider Internal Medicine; PCP Student in an Organized Health Care Education/Training Program
DX: R07.9 Chest pain, unspecified (principal); I10 Essential (primary) hypertension; E78.00 Pure hypercholesterolemia, unspecified; E11.9 Type 2 diabetes mellitus without complications; Z87.891 Personal history of nicotine dependence; Z79.82 Long term (current) use of aspirin; Z79.899 Other long term (current) drug therapy
CPT/HCPCS: 36415; 71046; 80048; 80076; 84484; 85025; 85379; 85610; 93005; 99283; 99285

== ENCOUNTER 2023-05-22 21:42 | Emergency (ER) | payer MEDICAID, SELFPAY ==
--- NOTE | 2023-05-22 | ECG_ITS ---
Test Reason : hypertension Blood Pressure : / mmHG Vent. Rate : 072 BPM Atrial Rate : 072 BPM P-R Int : 148 ms QRS Dur : 094 ms QT Int : 394 ms P-R-T Axes : 132 153 145 degrees QTc Int : 431 ms Suspect limb lead reversal, interpretation assumes no reversal Normal sinus rhythm Right axis deviation Incomplete right bundle branch block Abnormal ECG When compared with ECG of 20-MAY-2023 22:19, QRS axis Shifted right T wave inversion now evident in Lateral leads limb lead reversal Referred By: Generic ED Physician Electronically Signed By:FLORINA JOE MD
[2023-05-22 21:51] VITALS: BP 156/88; PULSE 71; RESP 20; TEMP 37.2; O2SAT 98; BMI 29.6
[2023-05-22 22:11] LABS: Hematocrit 36.5 % (42.0-52.0); Mean Corpuscular HGB Conc 35.6 g/dl (31.0-36.0); Mean Corpuscular Hemoglobin 32.3 pg (27.0-33.0); Mean Corpuscular Volume 90.8 fL (80.0-98.0); Mean Platelet Volume 9.7 fL (9.4-12.4); Platelet Count 250 X10*3/uL (160-400); Red Blood Count 4.02 X10*6/uL (4.60-5.80); Red Cell Distribution Width 13.1 % (11.0-16.0); White Blood Count 11.6 X10*3/uL (4.8-10.8)
[2023-05-22 22:25] LABS: Alanine Aminotransferase 13 U/L (0-40); Albumin Level 4.4 g/dL (3.5-5.0); Alkaline Phosphatase 97 U/L (39-117); Anion Gap 16 (12-20); Aspartate Amino Transferase 21 U/L (5-37); Bilirubin Total 0.6 mg/dL (0.0-1.0); Blood Urea Nitrogen 13 mg/dL (9-16); Calcium 9.3 mg/dL (8.4-10.2); Carbon Dioxide 25 mmol/L (22-29); Chloride 109 mmol/L (96-108); Creatinine Clr Calc Pharmacy 65.6; Estimated Glomerular Filt Rate 53; Glucose Random 81 mg/dL (60-115); Potassium 3.5 mmol/L (3.3-5.1); Sodium 146 mmol/L (135-145); Total Protein 7.4 g/dL (6.5-8.0)
== END 2023-05-22 23:50 | disposition left against medical advice (07) ==
LOC: HO.ED 23:45
PROVIDERS: Emergency Medicine Emergency Medical Services; Emergency Provider Emergency Medicine; PCP Student in an Organized Health Care Education/Training Program
DX: I10 Essential (primary) hypertension (principal); E11.9 Type 2 diabetes mellitus without complications; E78.00 Pure hypercholesterolemia, unspecified
CPT/HCPCS: 36415; 80053; 85027; 93005; 99283

== ENCOUNTER 2023-07-07 10:18 | Outpatient (AMB) | payer MEDICAID, SELFPAY ==
[2023-07-07 10:35] VITALS: BP 122/70; PULSE 58; TEMP 36.3; O2SAT 97; BMI 30.3
--- NOTE | 2023-07-07 10:35 | A.OFFVIS_ITS ---
Intake Vital Signs 07/07/23 10:35 Height 5 ft 8 in Weight 199 lb 4.766 oz BMI 30.3 BP 122/70 Blood Pressure Location Rt brachial Position Sitting Pulse 58 Pulse Source Pulse Oximeter Temp 97.4 F Temp Source Skin Pulse Oximetry (%) 97 Oxygen Delivery Method Room Air Intake Visit Reasons: back pain Intake Note: Pt last seen 12/25/22, presents today for follow up and test results. On tramadol tid, using back brace Active Directory Architect Required: No Accompanied by: Self / Same As Patient Allergies No Known Allergies Allergy (Mild, Verified 07/07/23 10:37) Medication List - Last Reconciled 07/07/23 by Chase Jauregui MD amlodipine 10 mg PO QAM aspirin (Adult Low Dose Aspirin) 81 mg PO DAILY gbncobfans-odbmdnwejlbdx-stzt 50-300-40 mg (Fioricet) 1 cap PO Q6H PRN cholecalciferol (vitamin D3) 25 mcg PO QAM docusate sodium (Colace) 100 mg PO BID haloperidol 2 mg PO DAILY haloperidol 5 mg PO BEDTIME hydrochlorothiazide 25 mg PO DAILY loperamide (Anti-Diarrheal (loperamide)) 2 mg PO Q6H PRN losartan 100 mg PO QAM metoprolol tartrate 50 mg PO BID omeprazole magnesium (Prilosec OTC) 20 mg PO BID ondansetron 4 mg PO Q6H PRN potassium chloride ER 40 mEq PO QAM sennosides (Natural Senna Laxative) 17.2 mg PO BEDTIME simvastatin 20 mg PO DAILY tramadol 50 mg PO Q8H PRN zolpidem 5 - 10 mg PO BEDTIME PRN HPI HPI Comments History of Present Illness Details Patient is a 52yoM who presents for follow-up of back pain. Last seen by Sivan Hawthorne 12/2022 Patient states that his back pain is controlled overall. He takes tramadol 50 mg Twice daily and sometimes 3 times a day. Works well for his back pain. FORMERLY [facility], [facility] Medical History Hypercholesteremia Diabetes Hypertension Household Members: Significant Other Alcohol intake: current Alcohol intake frequency: does not drink Patient Tobacco Use Status: Current everyday Tobacco user Tobacco use type: Cigarette Cigarettes Per Day: 5 Review of Systems Musc Reports back pain Physical Exam Vital Signs: Last Vital Signs Temp 97.4 F 07/07/23 10:35 Pulse 58 07/07/23 10:35 BP 122/70 07/07/23 10:35 Pulse Ox 97 07/07/23 10:35 Oxygen Delivery Method Room Air 07/07/23 10:35 BMI result Body Mass Index 30.3 Const General: cooperative, healthy appearing and comfortable Nutritional Appearance: overweight Orientation/consciousness: patient oriented x3 Limitations: no limitations HEENT Head: Yes normocephalic and Yes atraumatic Mouth: moist mucous membranes Resp Effort & Inspection: normal respiratory effort and able to speak in complete sentences Auscultation: clear to auscultation bilaterally Cardio Rate: regular rate Rhythm: regular rhythm Neuro General: patient oriented x3 Extrem Other: Bilateral lumbar paraspinal muscle tenderness Results Reviewed Results Reviewed: Laboratory Tests 08/08/22 08/08/22 15:56 15:56 WBC 6.9 Hgb 13.7 L Hct 38.0 L Plt Count 218 BUN 16 Creatinine 1.35 AST 29 ALT 25 06/30/22 06/30/22 06/30/22 13:08 13:08 13:08 ESR 10 C-Reactive Protein 0.24 HLA-B27 Negative Ordering Physician: Renee Hawthorne NP Date of Service: 06/30/22 Procedure(s): XR lumbar spine 2-3V Accession Number(s): [id number] EXAMINATION: XR LUMBOSACRAL SPINE CLINICAL INFORMATION: Low back pain COMPARISON: Previous x-ray from 2016 TECHNIQUE: Three views of the lumbosacral spine. FINDINGS: Bone alignment is normal. No fracture or dislocation. Multilevel degenerative spondylosis from T11-T12 to L2-L3. Normal disc spaces. Lower lumbar spine facet arthritis. XR/XR lumbar spine 2-3V IMPRESSION: Degenerative changes. Assessment & Plan Assessment & Plan (1) Lumbar spondylosis: Code(s): M47.816 - Spondylosis without myelopathy or radiculopathy, lumbar region Plan: Patient with chronic low back pain and previous diagnosis of lumbar spondylosis. X-rays from 2015 showed mild degenerative changes throughout the spine. Repeat x-ray of the lumbar spine June 2022 with degenerative changes. At this time, patient's low back pain is well controlled with tramadol 50 mg BID & sometimes TID. In the past, the risk of taking tramadol, Haldol and zolpidem including decreased respiratory rate and , was discussed. Patient is well aware of these risks. It seems he has been tolerating his medication without issue. Will continue to monitor. Plan I spent 15 minutes reviewing patient's chart, evaluating patient, counseling patient and documenting in the chart Coding Level of Care Code Est Pt Level 3 (15799) Diagnoses Lumbar spondylosis M47.816
== END 2023-07-07 11:03 | disposition home or self-care (01) ==
PROVIDERS: PCP Student in an Organized Health Care Education/Training Program; Referring Provider Student in an Organized Health Care Education/Training Program; Visit Provider Student in an Organized Health Care Education/Training Program
DX: M47.816 Spondylosis without myelopathy or radiculopathy, lumbar region (principal)
CPT/HCPCS: 99213

== ENCOUNTER 2023-07-07 12:31 | Outpatient (REF) | payer MEDICAID, SELFPAY ==
--- NOTE | ~2023-07-07 | US_ITS ---
EXAMINATION: US SCROTUM CLINICAL INFORMATION: Hematuria. Pain at penile base. Patient states palpable mass to left side of base of penis which is palpable with erection. COMPARISON: None available. TECHNIQUE: A sonogram of the scrotum was performed assessing stoner-scale appearance and color Doppler flow. Spectral Doppler analysis of the arterial and venous flow were performed in the testes bilaterally. FINDINGS: RIGHT: Right testicle measures 3.5 x 2.0 x 3.0 cm, volume 10.8 mL. No focal testicular parenchymal lesions are visualized. Spectral Doppler analysis of the arterial and venous flow is normal in the right testis. Right epididymal head is normal in size. No right hydrocele or varicocele is seen. Right epididymal Doppler flow is normal. LEFT: Left testicle measures 3.4 x 1.8 x 2.7 cm, volume 8.4 mL. No focal testicular parenchymal lesions are visualized. Spectral Doppler analysis of the arterial and venous flow is normal in the left testis. Left epididymal head is normal in size. No left hydrocele or varicocele is seen. Left epididymal Doppler flow is normal. ADDITIONAL FINDINGS: Targeted ultrasound images were obtained by the slide forming machine operator of the area of concern as indicated by the patient in the along the left side of the base of the penis and demonstrated no focal mass. Radiologist was not in attendance. Images were later provided for interpretation. US/US scrotum IMPRESSION: 1. Targeted ultrasound images were obtained by the slide forming machine operator of the area of concern as indicated by the patient in the along the left side of the base of the penis and demonstrated no focal mass. Decisions regarding further imaging, treatment or biopsy should be based on the clinical exam, as not all abnormalities are detectable on ultrasound studies. 2. Urology consultation recommended to determine further management.
== END 2023-07-07 12:32 | disposition home or self-care (01) ==
LOC: HO.US 12:31
PROVIDERS: PCP Student in an Organized Health Care Education/Training Program; Visit Provider Student in an Organized Health Care Education/Training Program
DX: R31.9 Hematuria, unspecified (principal); N48.89 Other specified disorders of penis; M47.816 Spondylosis without myelopathy or radiculopathy, lumbar region
CPT/HCPCS: 76870; 99212

== ENCOUNTER 2023-07-29 14:03 | Outpatient (REF) | payer MEDICAID, SELFPAY ==
[2023-07-29 16:39] LABS: MANUAL DIFF FLAG NO
[2023-07-29 16:53] LABS: Basophils Absolute Auto 0.1 X10*3/uL (0.0-0.2); Basophils Percent Auto 0.8 % (0-2); Eosinophils Absolute Auto 0.6 X10*3/uL (0.0-0.4); Eosinophils Percent Auto 4.6 % (0-4); Hematocrit 42.3 % (42.0-52.0); Hemoglobin 14.5 g/dl (14.0-18.0); Imm Gran Abs Auto 0.04 X10*3/uL (0.00-0.03); Imm Gran Pct Auto 0.3 % (0.0-0.4); Lymphocytes Absolute Auto 2.8 X10*3/uL (1.2-4.9); Lymphocytes Percent Auto 23.1 % (20-40); Mean Corpuscular HGB Conc 34.3 g/dl (31.0-36.0); Mean Corpuscular Hemoglobin 31.1 pg (27.0-33.0); Mean Corpuscular Volume 90.8 fL (80.0-98.0); Mean Platelet Volume 10.4 fL (9.4-12.4); Monocytes Percent Auto 8.6 % (2-11); Neutrophils Absolute Auto 7.5 x10*3/uL (2.0-8.3); Neutrophils Percent Auto 62.6 % (45-73); Platelet Count 320 X10*3/uL (160-400); Red Blood Count 4.66 X10*6/uL (4.60-5.80)
[2023-07-29 17:39] LABS: Iron 82 mcg/dL (45-160); Percent Iron Saturation 28 % (15-50); Total Iron Binding Capacity 295 mcg/dL (228-428); Unsaturated Iron Binding 213 ug/dL
[2023-07-29 17:48] LABS: Ferritin 100 ng/mL (20-250)
== END 2023-07-29 14:04 | disposition home or self-care (01) ==
LOC: HO.HHCL 14:03
PROVIDERS: Visit Provider Student in an Organized Health Care Education/Training Program
DX: D64.9 Anemia, unspecified (principal)
CPT/HCPCS: 36415; 82728; 83540; 85025

== ENCOUNTER 2023-08-04 09:23 | Outpatient (REF) | payer MEDICAID, SELFPAY ==
[2023-08-04] MEDS: iohexoL 350 MG/ML 100 ML INFUS..BTL IV (10:31)
[2023-08-04 13:29] LABS: GFR POC > 60
== END 2023-08-04 09:24 | disposition home or self-care (01) ==
LOC: HO.CT 09:23
PROVIDERS: PCP Student in an Organized Health Care Education/Training Program; Visit Provider Student in an Organized Health Care Education/Training Program
DX: R31.9 Hematuria, unspecified (principal)
CPT/HCPCS: 74178; 82565; Q9967

== ENCOUNTER 2023-08-18 12:45 | Emergency (ER) | payer MEDICAID, SELFPAY ==
--- NOTE | ~2023-08-18 | CT_ITS ---
EXAMINATION: CT ABDOMEN AND PELVIS WITHOUT CONTRAST CLINICAL INFORMATION: Bladder mass and kidney stones COMPARISON: CT abdomen pelvis 08/04/2023: TECHNIQUE: Multidetector volumetric imaging was performed from the superior aspect of the liver through the pubic symphysis. Sagittal and coronal reformatted images were obtained on the technologist's workstation. This CT examination was performed using dose optimization techniques as appropriate, variously including the following: *Automated exposure control *Adjustment of mA and/or kV according to patient size (this includes techniques or standardized protocols for targeted exams where dose is matched to indication/reason for exam; i.e. extremities or head) *Use of iterative reconstruction technique DLP: 627 mGy-cm FINDINGS: LUNG BASES: The visualized lung bases are unremarkable. LIVER, GALLBLADDER, AND BILIARY TREE: The liver is normal in size, shape, and attenuation. At least 4 calcified punctate granulomas are again seen. No focal hepatic lesion or biliary ductal dilatation is present. Status post cholecystectomy. PANCREAS: Unremarkable. SPLEEN: Unremarkable. There is a single calcified granuloma. . ADRENAL GLANDS: Unremarkable. KIDNEYS AND URETERS: The kidneys are normal in size, shape, and attenuation. No hydronephrosis, hydroureter, or calculi seen. No perinephric stranding. BLADDER: Unremarkable. GASTROINTESTINAL TRACT: The small and large bowel are unremarkable. There is been an appendectomy and ?partial right hemicolectomy with no evidence of obstruction. ABDOMINAL WALL: Small fat-containing inguinal hernias containing fat LYMPH NODES: No retroperitoneal lymphadenopathy. VASCULAR: Calcific atherosclerotic changes are present in the aorta and iliofemoral vessels. There is no evidence of an abdominal aortic aneurysm. PELVIC VISCERA: Prostate is enlarged measuring 5.6 x 5.1 x 5.7 cm for a volume of 85 mL again seen is a median lobe protruding into the bladder but not as well-seen as the time of the prior study as this exam was without IV contrast. OSSEOUS STRUCTURES: Unremarkable. CT/CT abdomen pelvis wo IV con IMPRESSION: 1. No renal calculi are seen. 2. Prostatomegaly with median lobe protruding into the bladder. There is nothing seen to suggest the presence of an intrinsic bladder mass although cystoscopy is recommended procedure for this. 3. Other incidental findings as described above including hepatic and splenic granulomas, cholecystectomy, appendectomy and small fat-containing inguinal hernias. Fleischner guidelines were followed.
[2023-08-18 12:59] VITALS: BP 157/91; PULSE 79; RESP 19; TEMP 36.6; O2SAT 98; BMI 28.9
--- NOTE | 2023-08-18 13:00 | ED.GENADULT ---
HPI - General Adult General Chief complaint: Abdominal Pain Stated complaint: Bladder Issues Time Seen by Provider: 08/18/23 21:55 Source: patient Mode of arrival: ambulatory Limitations: no limitations History of Present Illness HPI narrative: Patient with history of BPH status post ?TURP about 5 years, history of hypertension hyperlipidemia schizophrenia depression been having suprapubic discomfort for last few days and difficulty in urination patient had a CT scan on 07/29 CP shows enlarged prostate questionable growth inside the bladder had another CT scan done today showing the same patient at slight hematuria about 4 months ago plan to see urologist in next 2 weeks Related Data Home Medications Medication Instructions Recorded Confirmed aspirin 81 mg tablet,delayed 81 mg PO DAILY 06/28/20 12/25/22 release (Adult Low Dose Aspirin) docusate sodium 100 mg capsule 100 mg PO BID 06/28/20 12/25/22 (Colace) hydrochlorothiazide 25 mg tablet 25 mg PO DAILY 06/28/20 12/25/22 metoprolol tartrate 50 mg tablet 50 mg PO BID 06/28/20 12/25/22 omeprazole magnesium 20 mg 20 mg PO BID 06/28/20 12/25/22 tablet,delayed release (Prilosec OTC) sennosides 8.6 mg tablet (Natural 17.2 mg PO BEDTIME 06/28/20 12/25/22 Senna Laxative) simvastatin 20 mg tablet 20 mg PO DAILY 06/28/20 12/25/22 haloperidol 2 mg tablet 2 mg PO DAILY 06/27/22 12/25/22 haloperidol 5 mg tablet 5 mg PO BEDTIME 06/27/22 12/25/22 losartan 100 mg tablet 100 mg PO QAM 06/27/22 12/25/22 potassium chloride 20 mEq 40 meq PO QAM 06/27/22 12/25/22 tablet,extended release(part/cryst) amlodipine 10 mg tablet 10 mg PO QAM 12/25/22 12/25/22 cholecalciferol (vitamin D3) 25 25 mcg PO QAM 12/25/22 12/25/22 mcg (1,000 unit) tablet zolpidem 10 mg tablet 5 - 10 mg PO BEDTIME PRN 12/25/22 12/25/22 Previous Rx's Medication Instructions Recorded zopzimsqya-yonotuhxphjrt-nrsdsynr 1 cap PO Q6H PRN headache #20 caps 04/24/22 50 mg-300 mg-40 mg capsule (Fioricet) loperamide 2 mg capsule 2 mg PO Q6H PRN loose stool #30 08/08/22 (Anti-Diarrheal (loperamide)) caps ondansetron 4 mg disintegrating 4 mg PO Q6H PRN nausea and 08/08/22 tablet vomiting #14 tabs tramadol 50 mg tablet 50 mg PO Q8H PRN pain #90 tabs 06/02/23 tamsulosin 0.4 mg capsule (Flomax) 0.4 mg PO BEDTIME #30 caps 08/18/23 Allergies Allergy/AdvReac Type Severity Reaction Status Date / Time No Known Allergies Allergy Mild Verified 08/18/23 12:56 Review of Systems Review of Systems: Yes all other systems are reviewed and are negative PMFSH Past Medical History Onset Date is defined in the Problem List Problems that require an onset date and time if occurred within 24 hrs of arrival to the ED Aortic Dissection and Rupture; Neurologic impairment; Cardiopulmonary Arrest; Endotracheal Intubation; Insertion or Replacement of Mechanical Circulatory Assist Device Medical History Hypercholesteremia Diabetes Hypertension Social History Social History Household Members: Significant Other Alcohol intake: former Patient Tobacco Use Status: Current everyday Tobacco user Tobacco use type: Cigarette Cigarettes Per Day: 5 Smoked in Last 30 Days: Yes Use of substances other than those prescribed or required for medical reasons: No Advance Directives: No Advance Directives Information Provided: No Physical Exam ED Vital Signs: Vital Signs - 24 hr 08/18/23 12:59 08/18/23 22:26 Temperature 98 F 98.5 F Pulse Rate 79 66 Respiratory Rate 19 16 Blood Pressure 157/91 H 147/76 H Pulse Oximetry 98 96 Oxygen Delivery Method Room Air Room Air BMI result Body Mass Index 28.9 Appearance: Alert. Oriented X3. No acute distress. ENT: Pharynx normal. Oral Mucosa moist Neck: Normal inspection. Neck supple. CVS: Normal heart rate and rhythm. Pulses normal. Respiratory: No respiratory distress. Equal air entry bilateral, Abdomen: Soft mild suprapubic discomfort Bowel sounds are present, no mass palpable, no CVA tenderness Skin: Skin warm and dry. Normal skin color. Normal skin turgor. Extremities: No lower extremity edema. No calf tenderness Neuro: Oriented X 3. No motor deficit. Medications Administered Discontinued Medications Generic Name Dose Route Start Last Admin Trade Name Estela PRN Reason Stop Dose Admin Tamsulosin HCl 0.4 mg 08/18/23 22:27 08/18/23 22:51 Tamsulosin Hcl 0.4 Mg Capsule PO 08/18/23 22:28 0.4 mg ONCE ONE Administration Medical Decision Making Medical Decision Making [facility] Narrative: RME: 53 yold male presents to the ED suprapic pain. patient states hematuria in the past and known bladdder mass . Patient states no presents hematuria. just suprapubic pain without any nausea or vomitting. labs and UA Ordered. Patient with enlarged prostate and suprapubic discomfort last few weeks plan to see urologist symptoms likely from BPH and growth is likely from the enlarged prostate will discharge patient home to follow with urologist as scheduled and start patient on Flomax Lab Data [facility] Lab Attestation statement: I reviewed the patient's lab results. 08/18/23 13:14 08/18/23 13:14 Labs: Lab Results 08/18/23 08/18/23 Range/Units 13:14 22:41 WBC 9.3 (4.8-10.8) X10*3/uL RBC 4.21 L (4.60-5.80) X10*6/uL Hgb 13.5 L (14.0-18.0) g/dl Hct 38.0 L (42.0-52.0) % MCV 90.3 (80.0-98.0) fL MCH 32.1 (27.0-33.0) pg MCHC 35.5 (31.0-36.0) g/dl RDW 12.7 (11.0-16.0) % Plt Count 260 (160-400) X10*3/uL MPV 9.8 (9.4-12.4) fL Immature Gran % (Auto) 0.3 (0.0-0.4) % Neut % (Auto) 75.0 H (45-73) % Lymph % (Auto) 13.5 L (20-40) % Donley % (Auto) 7.8 (2-11) % Eos % (Auto) 2.9 (0-4) % Baso % (Auto) 0.5 (0-2) % Lymph # (Auto) 1.3 (1.2-4.9) X10*3/uL Donley # (Auto) 0.7 (0.1-1.2) X10*3/uL Eos # (Auto) 0.3 (0.0-0.4) X10*3/uL Baso # (Auto) 0.1 (0.0-0.2) X10*3/uL Abs Immat Gran (auto) 0.03 (0.00-0.03) X10*3/uL Absolute Neuts (auto) 7.0 (2.0-8.3) x10*3/uL Absolute Nucleated RBC 0.000 (0.0-0.012) X10*3/uL Nucleated RBC % (auto) 0.0 (0.0-0.2) /100WBC Sodium 146 H (135-145) mmol/L Potassium 3.2 L (3.3-5.1) mmol/L Chloride 107 (96-108) mmol/L Carbon Dioxide 27 (22-29) mmol/L Anion Gap 15 (12-20) BUN 11 (9-16) mg/dL Creatinine 1.22 (0.5-1.4) mg/dL Estim Creat Clear Calc 73.0 Estimated GFR > 60 Random Glucose 130 H (60-115) mg/dL Calcium 9.4 (8.4-10.2) mg/dL Total Bilirubin 0.8 (0.0-1.0) mg/dL AST 33 (5-37) U/L ALT 15 (0-40) U/L Alkaline Phosphatase 91 (39-117) U/L Total Protein 7.0 (6.5-8.0) g/dL Albumin 4.1 (3.5-5.0) g/dL Urine Color Yellow Urine Appearance Clear Urine pH 6.0 (5.0-9.0) Ur Specific [place] 1.010 (1.005-1.025) Urine Protein Negative (Neg-Trace) mg/dL Urine Glucose (UA) Negative (Negative) mg/dL Urine Ketones Negative (Negative) mg/dL Urine Blood Negative (Negative) Urine Nitrite Negative (Negative) Ur Leukocyte Esterase Negative (Negative) Independent Interpretation I performed an independent interpretation of an: CT Scan Radiology Impression Discussion of test interpretation with radiology: I have reviewed the radiologist's reading. Discharge Plan Discharge Clinical Impression: Benign prostatic hyperplasia (BPH) with urinary urgency Patient Disposition: Home, Self-Care Instructions: Enlarged Prostate (BPH) (ED) Additional Instructions: Follow-up with urologist as scheduled Take Flomax 1 tab daily Follow-up with your PCP Prescriptions: New tamsulosin [Flomax] 0.4 mg capsule 0.4 mg PO BEDTIME Qty: 30 0RF No Action tramadol 50 mg tablet 50 mg PO Q8H PRN (Reason: pain) Qty: 90 3RF seaefmqgtz-elqnxcqdsytkm-dhys [Fioricet] 50-300-40 mg capsule 1 cap PO Q6H PRN (Reason: headache) Qty: 20 0RF loperamide [Anti-Diarrheal (loperamide)] 2 mg capsule 2 mg PO Q6H PRN (Reason: loose stool) Qty: 30 0RF ondansetron 4 mg tablet,disintegrating 4 mg PO Q6H PRN (Reason: nausea and vomiting) Qty: 14 0RF metoprolol tartrate 50 mg tablet 50 mg PO BID simvastatin 20 mg tablet 20 mg PO DAILY hydrochlorothiazide 25 mg tablet 25 mg PO DAILY aspirin [Adult Low Dose Aspirin] 81 mg tablet,delayed release (DR/EC) 81 mg PO DAILY omeprazole magnesium [Prilosec OTC] 20 mg tablet,delayed release (DR/EC) 20 mg PO BID docusate sodium [Colace] 100 mg capsule 100 mg PO BID sennosides [Natural Senna Laxative] 8.6 mg tablet 17.2 mg PO BEDTIME losartan 100 mg tablet 100 mg PO QAM haloperidol 5 mg tablet 5 mg PO BEDTIME potassium chloride 20 mEq tablet,ER particles/crystals 40 meq PO QAM haloperidol 2 mg tablet 2 mg PO DAILY cholecalciferol (vitamin D3) 25 mcg (1,000 unit) tablet 25 mcg PO QAM zolpidem 10 mg tablet 5 - 10 mg PO BEDTIME PRN amlodipine 10 mg tablet 10 mg PO QAM Referrals: Romie Mart MD [Physician] - 2 weeks Interventions: ED Discharge Assessment Last Done: 08/18/23 23:15 Discharge Date/Time: 08/18/23 23:16
[2023-08-18 13:18] LABS: MANUAL DIFF FLAG NO
[2023-08-18 13:22] LABS: Basophils Absolute Auto 0.1 X10*3/uL (0.0-0.2); Basophils Percent Auto 0.5 % (0-2); Eosinophils Absolute Auto 0.3 X10*3/uL (0.0-0.4); Eosinophils Percent Auto 2.9 % (0-4); Hemoglobin 13.5 g/dl (14.0-18.0); Imm Gran Abs Auto 0.03 X10*3/uL (0.00-0.03); Imm Gran Pct Auto 0.3 % (0.0-0.4); Lymphocytes Absolute Auto 1.3 X10*3/uL (1.2-4.9); Lymphocytes Percent Auto 13.5 % (20-40); Mean Corpuscular HGB Conc 35.5 g/dl (31.0-36.0); Mean Corpuscular Hemoglobin 32.1 pg (27.0-33.0); Mean Corpuscular Volume 90.3 fL (80.0-98.0); Mean Platelet Volume 9.8 fL (9.4-12.4); Monocytes Absolute Auto 0.7 X10*3/uL (0.1-1.2); Monocytes Percent Auto 7.8 % (2-11); Platelet Count 260 X10*3/uL (160-400); Red Blood Count 4.21 X10*6/uL (4.60-5.80); Red Cell Distribution Width 12.7 % (11.0-16.0); White Blood Count 9.3 X10*3/uL (4.8-10.8)
[2023-08-18 13:36] LABS: Alanine Aminotransferase 15 U/L (0-40); Albumin Level 4.1 g/dL (3.5-5.0); Alkaline Phosphatase 91 U/L (39-117); Anion Gap 15 (12-20); Aspartate Amino Transferase 33 U/L (5-37); Bilirubin Total 0.8 mg/dL (0.0-1.0); Blood Urea Nitrogen 11 mg/dL (9-16); Calcium 9.4 mg/dL (8.4-10.2); Carbon Dioxide 27 mmol/L (22-29); Chloride 107 mmol/L (96-108); Estimated Glomerular Filt Rate > 60; Glucose Random 130 mg/dL (60-115); Potassium 3.2 mmol/L (3.3-5.1); Sodium 146 mmol/L (135-145)
[2023-08-18 22:26] VITALS: BP 147/76; PULSE 66; RESP 16; TEMP 36.9; O2SAT 96
[2023-08-18 22:48] LABS: Appearance Urine Clear; Color Urine Yellow; Glucose Urine UA Negative (Negative); Leukocyte Esterase Urine Negative (Negative); Nitrite Urine Negative (Negative); Urine Blood Negative (Negative); Urine Ketones Negative (Negative); Urine Protein Negative (Neg-Trace)
[2023-08-18] MEDS: Tamsulosin HCL 0.4 MG CAPSULE PO (22:51)
== END 2023-08-18 23:16 | disposition home or self-care (01) ==
PROVIDERS: Physician Assistant; Emergency Provider Internal Medicine; PCP Student in an Organized Health Care Education/Training Program
DX: N40.0 Benign prostatic hyperplasia without lower urinary tract symptoms (principal); R39.15 Urgency of urination; R10.2 Pelvic and perineal pain; Z79.899 Other long term (current) drug therapy
CPT/HCPCS: 36415; 51798; 74176; 80053; 81003; 85025; 99284

== ENCOUNTER 2023-09-04 09:45 | Outpatient (REF) | payer MEDICAID, SELFPAY ==
[2023-09-04 16:38] LABS: Urine Cytology See Pathology rpt
== END 2023-09-04 09:46 | disposition home or self-care (01) ==
LOC: HO.LNP 09:45
PROVIDERS: PCP Student in an Organized Health Care Education/Training Program; Visit Provider Nurse Practitioner Family
DX: R31.9 Hematuria, unspecified (principal); F17.200 Nicotine dependence, unspecified, uncomplicated; Z71.6 Tobacco abuse counseling
CPT/HCPCS: 81003; 88112; 99212

== ENCOUNTER 2023-09-04 09:47 | Outpatient (AMB) | payer MEDICAID, SELFPAY ==
--- NOTE | 2023-09-04 10:51 | MHC.OFFVIS ---
Intake Intake Visit Reasons: hematuria Intake Note: New Patient presents for initial visit for hematuria Urology Medications: tamsulosin Blood Thinner: aspirin Leave Coordinator Required: No Accompanied by: Self / Same As Patient Allergies No Known Allergies Allergy (Mild, Verified 09/05/23 20:36) Medication List - Last Reconciled 09/05/23 by SHWETA Wyatt-FRANK amlodipine 10 mg PO QAM aspirin (Adult Low Dose Aspirin) 81 mg PO DAILY herwatilbz-zgaxgchreyzkn-alvf 50-300-40 mg (Fioricet) 1 cap PO Q6H PRN cholecalciferol (vitamin D3) 25 mcg PO QAM docusate sodium (Colace) 100 mg PO BID haloperidol 2 mg PO DAILY haloperidol 5 mg PO BEDTIME hydrochlorothiazide 25 mg PO DAILY loperamide (Anti-Diarrheal (loperamide)) 2 mg PO Q6H PRN losartan 100 mg PO QAM metoprolol tartrate 50 mg PO BID omeprazole magnesium (Prilosec OTC) 20 mg PO BID ondansetron 4 mg PO Q6H PRN potassium chloride ER 40 mEq PO QAM sennosides (Natural Senna Laxative) 17.2 mg PO BEDTIME simvastatin 20 mg PO DAILY tamsulosin (Flomax) 0.4 mg PO BEDTIME tramadol 50 mg PO Q8H PRN zolpidem 5 - 10 mg PO BEDTIME PRN HPI HPI Comments History of Present Illness Details Merlin is a 53-year-old male patient of Dr. Blas Yates. He has a past medical history of hypercholesteremia, diabetes, hypertension, schizophrenia, osteoarthritis, and lumbar spondylosis. Presents to the office today as a new patient for gross hematuria. In discussion with the patient today reports noting multiple episodes of gross hematuria over the last month. He reports having seeked emergency room care approximately 3 weeks ago for lower urinary tract symptoms of suprapubic discomfort and difficulty urinating at which time a CT of the abdomen was ordered and performed. These results were reviewed with the patient today. No renal calculi are seen, prostatomegaly with median lobe protruding into the bladder. There is nothing seen to suggest the presence of an intrinsic bladder mass although cystoscopy is recommended procedure for this per radiology report. In discussion with the patient today he reports having followed up with [facility] in the past and undergoing what sounds like a TURP approximately 5 years ago. He reports recommendations were made for cystoscopy however he was unable to undergo an office cystoscopy previously due to his mental health issues therefore procedure was done in the OR. He does report a longstanding history of smoking for over 35 years. He reports currently only smoking approximately 5 cigarettes per day however previously has smoked approximately 1 pack per day. He denies any workplace chemical exposure. Discussed at length potential causes for lower urinary tract symptoms patient has been experiencing. Discussed further assessment evaluation with cystoscopy however patient declines an office cystoscopy will attempt to obtain prior authorization for OR cystoscopy under sedation for further assessment evaluation. He reports hematuria has since subsided. In office urinalysis results reviewed with the patient today. No microscopic hematuria noted. PFS Medical History Hypercholesteremia Diabetes Hypertension Social History Household Members: Significant Other Alcohol intake: former Patient Tobacco Use Status: Current everyday Tobacco user Tobacco use type: Cigarette Cigarettes Per Day: 5 Review of Systems Const Reports as per HPI Eyes Reports no additional complaints ENT Reports no additional complaints Card Reports as per HPI Resp Reports no additional complaints GI Reports no additional complaints Reports as per HPI Musc Reports as per HPI Neuro Reports no additional complaints Psych Reports as per HPI Endo Reports as per HPI Gary/Lymph Reports no additional complaints Aller/Immun Reports no additional complaints Physical Exam Const General: cooperative, healthy appearing, comfortable, no acute distress, well developed, alert and awake Orientation/consciousness: patient oriented x3 Limitations: no limitations HEENT Head: Yes normal to inspection, Yes normocephalic and Yes atraumatic Ears: hearing grossly normal bilaterally Eyes General: appearance normal, both eyes and all related structures Neck Neck: Yes normal visual inspection and Yes trachea midline Chest Chest palpation & inspection: normal inspection of the chest Resp Effort & Inspection: normal respiratory effort and able to speak in complete sentences Cardio Rate: regular rate GI Inspection: Yes normal to inspection General: Yes no CVA tenderness Back/Spine/Pelvis Back: no CVA tenderness Skin General skin exam: no rashes or lesions noted Neuro General: patient oriented x3 Extrem General: Yes normal to inspection Psych Appearance: grossly normal and well kempt Mental Status: mental status grossly normal Speech and movement: Normal speech and movement present and Clear speech present Affect: normal affect Attitude: cooperative Thought process: Normal thought process present Thought content: Normal thought content present Insight: Fair insight present (Psych) Judgement: Fair judgement present (Psych) Results AMB Urinalysis, Automated UA Leukoctes 0 Keren/uL Last Edit by Gaviota Hamilton on 09/04/23 10:54 UA Nitrite Negative Last Edit by Gaviota Hamilton on 09/04/23 10:54 UA Urobilinogen 0.2 mg/dL Last Edit by [employer] on 09/04/23 10:54 UA Protein 15 mg/dL Last Edit by [employer] on 09/04/23 10:54 UA pH 6.0 Last Edit by [employer] on 09/04/23 10:54 UA Blood 0 Erwin/uL Last Edit by [employer] on 09/04/23 10:54 UA Specific [place] 1.020 Last Edit by [employer] on 09/04/23 10:54 UA Ketone Negative Last Edit by [employer] on 09/04/23 10:54 UA Bilirubin 0 mg/dL Last Edit by [employer] on 09/04/23 10:54 UA Glucose 0 mg/dL Last Edit by [employer] on 09/04/23 10:54 Results Reviewed Results Reviewed: Laboratory Last Values Urine pH (Auto) 6.0 09/04/23 10:53 Specific [place] (Auto) 1.020 09/04/23 10:53 Urine Protein (Auto) 15 mg/dL 09/04/23 10:53 Glucose (UA)(Auto) 0 mg/dL 09/04/23 10:53 Urine Ketones (Auto) Negative 09/04/23 10:53 Urine Blood (Auto) 0 Erwin/uL 09/04/23 10:53 Urine Nitrite (Auto) Negative 09/04/23 10:53 Urine Bilirubin (Auto) 0 mg/dL 09/04/23 10:53 Urine Urobilinogen (Auto) 0.2 mg/dL 09/04/23 10:53 Leukocyte Esterase (Auto) 0 Keren/uL 09/04/23 10:53 Date of Service: 08/18/23 EXAMINATION: CT ABDOMEN AND PELVIS WITHOUT CONTRAST FINDINGS: LUNG BASES: The visualized lung bases are unremarkable. LIVER, GALLBLADDER, AND BILIARY TREE: The liver is normal in size, shape, and attenuation. At least 4 calcified punctate granulomas are again seen. No focal hepatic lesion or biliary ductal dilatation is present. Status post cholecystectomy. PANCREAS: Unremarkable. SPLEEN: Unremarkable. There is a single calcified granuloma. . ADRENAL GLANDS: Unremarkable. KIDNEYS AND URETERS: The kidneys are normal in size, shape, and attenuation. No hydronephrosis, hydroureter, or calculi seen. No perinephric stranding. BLADDER: Unremarkable. GASTROINTESTINAL TRACT: The small and large bowel are unremarkable. There is been an appendectomy and ?partial right hemicolectomy with no evidence of obstruction. ABDOMINAL WALL: Small fat-containing inguinal hernias containing fat LYMPH NODES: No retroperitoneal lymphadenopathy. VASCULAR: Calcific atherosclerotic changes are present in the aorta and iliofemoral vessels. There is no evidence of an abdominal aortic aneurysm. PELVIC VISCERA: Prostate is enlarged measuring 5.6 x 5.1 x 5.7 cm for a volume of 85 mL again seen is a median lobe protruding into the bladder but not as well-seen as the time of the prior study as this exam was without IV contrast. OSSEOUS STRUCTURES: Unremarkable. IMPRESSION: 1. No renal calculi are seen. 2. Prostatomegaly with median lobe protruding into the bladder. There is nothing seen to suggest the presence of an intrinsic bladder mass although cystoscopy is recommended procedure for this. 3. Other incidental findings as described above including hepatic and splenic granulomas, cholecystectomy, appendectomy and small fat-containing inguinal hernias. Assessment & Plan Assessment & Plan (1) Hematuria: Code(s): R31.9 - Hematuria, unspecified Plan: Risks, benefits and alternatives to therapy were discussed. These include but are not limited to infection, bleeding, damage to local organs and tissues, need for further interventions. ? Anesthetic risks regarding cardiac arrhythmia, blood clots, and potential mortality were discussed. The patient understands the typical recovery time and the outpatient nature of the procedure. After consideration of these risks the patient gives full informed consent and they wish to move ahead with the procedure. (2) Nicotine dependence: Code(s): F17.200 - Nicotine dependence, unspecified, uncomplicated Plan In office urinalysis results reviewed with the patient today; as noted above; will send for urine cytology. Discussed obtaining PSA for further assessment evaluation. Recent CT results reviewed with the patient today; as noted above Discussed at length potential causes for lower urinary tract symptoms patient has been experiencing. Discussed at length potential causes for gross hematuria; discussed further workup with cytology, and cystoscopy; this was discussed at length; risks and benefits were also discussed at length Discussed, educated, and stressed the importance of drinking water daily. Discussed and stressed the importance of limiting/quitting cigarette smoking for overall health and well-being. Will attempt to obtain authorization for cystoscopy under moderate sedation for further assessment evaluation. Follow-up status post procedure per Dr. Mart's orders; or sooner with any issues, concerns, and or questions. Orders: Orders AMB Urinalysis Automated 09/04/23 Z13.9 - Encounter for screening, unspecified Prostate Specific Antigen 09/04/23 N40.0 - Benign prostatic hyperplasia without lower urinary tract symptoms, R31.9 - Hematuria, unspecified Urine Cytology 09/04/23 R31.9 - Hematuria, unspecified Patient Instructions: The patient had an opportunity to ask questions regarding the treatment plan. All questions were answered. Physical exam, labs, and imaging were discussed and reviewed in detail. As well as risks, benefits, and discussion of treatment choices. No major barriers to understanding were identified. The patient expressed understanding and agreement with the above treatment plan. The patient was made aware they should contact our office by phone for worsening of their current condition, the appearance of new symptoms, or with any questions or concerns. Compliance is encouraged with any medications and follow up testing that is ordered. It is a privilege to be allowed the opportunity to participate in? your urological care.? Again, if you have any questions or concerns If you have any questions or concerns please do not hesitate to contact me. The office is [phone]. This note is constructed using voice recognition software. While every effort has been made to ensure accuracy building tech errors may have been included. Yours sincerely, EVA Wyatt Coding Level of Care Code New Pt Level 4 (68338) Diagnoses Hematuria R31.9 Nicotine dependence F17.200
== END 2023-09-04 11:26 | disposition home or self-care (01) ==
PROVIDERS: PCP Student in an Organized Health Care Education/Training Program; Visit Provider Nurse Practitioner Family
DX: R31.9 Hematuria, unspecified (principal); F17.200 Nicotine dependence, unspecified, uncomplicated
CPT/HCPCS: 99204

== ENCOUNTER 2023-09-11 10:53 | Outpatient (REF) | payer MEDICAID, SELFPAY ==
[2023-09-11 12:46] LABS: Alanine Aminotransferase 17 U/L (0-40); Alkaline Phosphatase 94 U/L (39-117); Anion Gap 12 (12-20); Aspartate Amino Transferase 21 U/L (5-37); Bilirubin Total 0.6 mg/dL (0.0-1.0); Blood Urea Nitrogen 12 mg/dL (9-16); Calcium 9.2 mg/dL (8.4-10.2); Carbon Dioxide 27 mmol/L (22-29); Chloride 105 mmol/L (96-108); Cholesterol 156 mg/dL (<200); Estimated Glomerular Filt Rate > 60; Glucose Random 189 mg/dL (60-115); HDL Cholesterol 34 mg/dL (>40); LDL Cholesterol Calculated 77 mg/dL (<100); Magnesium 2.1 mg/dL (1.6-2.6); Potassium 2.9 mmol/L (3.3-5.1); Sodium 141 mmol/L (135-145); Triglycerides 227 mg/dL (<150)
[2023-09-11 12:59] LABS: Prostate Specific Antigen 3.15 ng/mL (<0.05-4.0)
== END 2023-09-11 10:54 | disposition home or self-care (01) ==
LOC: HO.HHCL 10:53
PROVIDERS: Nurse Practitioner Family; Visit Provider Student in an Organized Health Care Education/Training Program
DX: Z12.5 Encounter for screening for malignant neoplasm of prostate (principal); R31.9 Hematuria, unspecified; N40.0 Benign prostatic hyperplasia without lower urinary tract symptoms; E78.5 Hyperlipidemia, unspecified
CPT/HCPCS: 36415; 80053; 80061; 83735; 84153

== ENCOUNTER 2023-09-15 10:24 | Outpatient (REF) | payer MEDICAID, SELFPAY ==
[2023-09-15 14:30] LABS: Alanine Aminotransferase 18 U/L (0-40); Albumin Level 4.2 g/dL (3.5-5.0); Alkaline Phosphatase 97 U/L (39-117); Anion Gap 15 (12-20); Aspartate Amino Transferase 23 U/L (5-37); Bilirubin Total 0.4 mg/dL (0.0-1.0); Blood Urea Nitrogen 15 mg/dL (9-16); Calcium 9.4 mg/dL (8.4-10.2); Carbon Dioxide 28 mmol/L (22-29); Chloride 106 mmol/L (96-108); Estimated Glomerular Filt Rate > 60; Glucose Random 110 mg/dL (60-115); Potassium 3.7 mmol/L (3.3-5.1); Sodium 145 mmol/L (135-145); Total Protein 7.4 g/dL (6.5-8.0)
[2023-09-26 18:29] LABS: Aldosterone/Renin Ratio 107.7 Ratio (0.9-28.9); Plasma Renin Activity 0.13 ng/mL/h (0.25-5.82)
== END 2023-09-15 10:25 | disposition home or self-care (01) ==
LOC: HO.HHCL 10:24
PROVIDERS: Visit Provider Student in an Organized Health Care Education/Training Program
DX: E87.6 Hypokalemia (principal)
CPT/HCPCS: 36415; 80053; 82088

== ENCOUNTER 2023-10-09 16:22 | Emergency (ER) | payer MEDICAID, SELFPAY ==
[2023-10-09 16:25] VITALS: BP 148/78; PULSE 68; RESP 18; TEMP 36.1; O2SAT 98; BMI 30.2
--- NOTE | 2023-10-09 16:25 | ED_ITS ---
HPI - General Adult General Chief complaint: Skin/Abscess/Foreign Body Stated complaint: FB in throat/ R arm pain Time Seen by Provider: 10/09/23 16:54 Source: patient Mode of arrival: ambulatory Limitations: no limitations History of Present Illness HPI narrative: Patient is a 53 year old male with a history of schizophrenia presents to the ED with a 3 hour history of throat irritation after accidentally swallowing a piece of packing tape. Patient reports he was tearing a strip of packing tape with his teeth when it managed to get swallowed and stuck in his esophagus. Patient reports the area feeling itchy and irritated since the incident but denies throat pain, CP, SOB, difficulty breathing nor swallowing. Patient has been able to tolerate PO intake without any issues since the incident. Patient states that his right shoulder has chronically bothered him and he was hoping to have that checked out today. MD complaint: Foreign body ingestion Onset (ago): hour(s) (3) Radiation: non-radiation Severity: mild Severity scale (1-10): 2 Relieving factors: none Exacerbating factors: none Associated symptoms: denies other symptoms Treatments prior to arrival: none Related Data Home Medications Medication Instructions Recorded Confirmed aspirin 81 mg tablet,delayed 81 mg PO DAILY 06/28/20 12/25/22 release (Adult Low Dose Aspirin) docusate sodium 100 mg capsule 100 mg PO BID 06/28/20 12/25/22 (Colace) hydrochlorothiazide 25 mg tablet 25 mg PO DAILY 06/28/20 12/25/22 metoprolol tartrate 50 mg tablet 50 mg PO BID 06/28/20 12/25/22 omeprazole magnesium 20 mg 20 mg PO BID 06/28/20 12/25/22 tablet,delayed release (Prilosec OTC) sennosides 8.6 mg tablet (Natural 17.2 mg PO BEDTIME 06/28/20 12/25/22 Senna Laxative) simvastatin 20 mg tablet 20 mg PO DAILY 06/28/20 12/25/22 haloperidol 2 mg tablet 2 mg PO DAILY 06/27/22 12/25/22 haloperidol 5 mg tablet 5 mg PO BEDTIME 06/27/22 12/25/22 losartan 100 mg tablet 100 mg PO QAM 06/27/22 12/25/22 potassium chloride 20 mEq 40 meq PO QAM 11/18/22 05/18/23 tablet,extended release(part/cryst) amlodipine 10 mg tablet 10 mg PO QAM 12/25/22 12/25/22 cholecalciferol (vitamin D3) 25 25 mcg PO QAM 12/25/22 12/25/22 mcg (1,000 unit) tablet zolpidem 10 mg tablet 5 - 10 mg PO BEDTIME PRN 12/25/22 12/25/22 Previous Rx's Medication Instructions Recorded icpxiieoxb-rurqsdvigizlf-rlkrfjnd 1 cap PO Q6H PRN headache #20 caps 04/24/22 50 mg-300 mg-40 mg capsule (Fioricet) loperamide 2 mg capsule 2 mg PO Q6H PRN loose stool #30 08/08/22 (Anti-Diarrheal (loperamide)) caps ondansetron 4 mg disintegrating 4 mg PO Q6H PRN nausea and 08/08/22 tablet vomiting #14 tabs tramadol 50 mg tablet 50 mg PO Q8H PRN pain #90 tabs 06/02/23 tamsulosin 0.4 mg capsule (Flomax) 0.4 mg PO BEDTIME #30 caps 08/18/23 Allergies Allergy/AdvReac Type Severity Reaction Status Date / Time No Known Allergies Allergy Mild Verified 09/05/23 20:36 Review of Systems Constitutional: Constitutional: Reports no additional constitutional complaints, Denies chills, Denies fever(s) and Denies night sweats Eyes: Eyes: Reports no additional eye complaints, Denies blurry vision, Denies change in vision, Denies diplopia, Denies eye discharge, Denies loss of vision and Denies eye pain ENT: Denies dysphagia, Denies dizziness, Reports sore throat and Denies throat swelling Cardiovascular: Cardiovascular: Reports no additional cardiovascular complaints, Denies chest pain, Denies lightheadedness, Denies Loss of Consciousness and Denies dyspnea Respiratory: Respiratory: Reports no additional respiratory complaints and Denies dyspnea Gastrointestinal: Gastrointestinal: Reports no additional gastrointestinal complaints, Denies abdominal pain, Denies melena, Denies hematochezia, Denies change in bowel habits, Denies change in stool character and Denies dysphagia Genitourinary: Genitourinary: Reports no additional male genitourinary complaints, Denies hematuria, Denies oliguria, Denies difficulty urinating, Denies dysuria, Denies urinary frequency, Denies urinary hesitancy, Denies urinary incontinence and Denies urinary urgency Musculoskeletal: Musculoskeletal: Reports no additional musculoskeletal complaints, Denies numbness and Denies tingling Neurologic: Denies dizziness, Denies loss of vision, Denies numbness and Denies tingling Psychiatric: Psychiatric: Reports no additional psychiatric complaints Endocrine: Endocrine: Reports no additional endocrine complaints Hematologic/Lymphatic: Hematologic/Lymphatic: Reports no additional hematologic/lymphatic complaints Allergic/Immunologic: Allergic/Immunologic: Reports no additional allergic/immunologic complaints and Denies throat swelling PMFSH Past Medical History Attestation statement: The following information was validated with the patient. Source: old records reviewed and nursing notes reviewed Medical History Hypercholesteremia Diabetes Hypertension Social History Social History Household Members: Significant Other Alcohol intake: former Patient Tobacco Use Status: Current everyday Tobacco user Tobacco use type: Cigarette Cigarettes Per Day: 5 Smoked in Last 30 Days: Yes Use of substances other than those prescribed or required for medical reasons: No Advance Directives: No Advance Directives Information Provided: No Physical Exam ED Vital Signs: Vital Signs - 24 hr 10/09/23 16:25 Temperature 97.0 F Pulse Rate 68 Respiratory Rate 18 Blood Pressure 148/78 H Pulse Oximetry 98 Oxygen Delivery Method Room Air BMI result Body Mass Index 30.2 Const General: cooperative, comfortable, alert and awake Nutritional Appearance: well nourished Orientation/consciousness: patient oriented x3 Limitations: no limitations [facility] Head: Yes normal to inspection Ears: hearing grossly normal bilaterally General nose exam: Normal external nose present Face and sinus: Yes normal facial exam Mouth: Normal oral and palatal mucosa present Throat: Yes posterior oropharynx normal Eyes General: appearance normal, both eyes and all related structures Periorbital: periorbital findings normal Eyelids: Yes eyelids normal Conjunctivae: conjunctivae normal Pupils: Equal, round and reactive pupils present EOM: EOMs intact bilaterally Neck Neck: Yes normal visual inspection, Yes full ROM and Yes no lymphadenopathy Chest Chest palpation & inspection: normal inspection of the chest Resp Effort & Inspection: normal respiratory effort and able to speak in complete sentences Auscultation: clear to auscultation bilaterally Cardio Palpation: normal PMI Rate: regular rate Rhythm: regular rhythm GI Inspection: Yes normal to inspection Neuro General: patient oriented x3 Cranial nerves: Yes Equal, round and reactive pupils present Cognition (Neuro): normal cognition Motor exam (neuro): 5/5 motor strength present throughout Sensory Exam: Normal double simultaneous stimulation for sensation Coordination: nmiqdt-aj-oprp test normal Extrem Other: pain with right shoulder ROM General: Yes normal to inspection, Yes full ROM and Yes capillary refill normal Psych Appearance: grossly normal Mental Status: mental status grossly normal Affect: normal affect Attitude: cooperative Thought process: Normal thought process present Thought content: Normal thought content present Insight: Good insight present (Psych) Course Course Course Narrative: RME- 53 year old male presents for what he believes to be a piece of tape stuck in his throat. He was cutting scotch tape with his teeth when he accidentally swallowed a small piece. He is managing his secretions. Medical Decision Making Medical Decision Making [facility] Narrative: Patient is a 53 year old assigned male at with a history of schizophrenia presenting to the emergency department today with a sore throat after accidentally swallowing a piece of packing tape and chronic right shoulder pain. Patient's physical exam showed right shoulder pain with ROM but was otherwise unremarkable. I explained my physical exam findings to the patient. I answered all questions asked by the patient. Patient was able to drink an entire glass of water without incident. I stressed the importance of the patient taking his medication as prescribed. I stressed the importance of the patient following up with his primary care provider. I stressed the importance of the patient returning to the emergency department immediately if his symptoms were to worsen or if he were to develop any dizziness, shortness of breath, difficulty breathi ng, chest pain, blurry vision, loss of vision, nausea, vomiting, abdominal pain, fever, chills, back pain, or any other complaints. Patient verbalized agreement and understanding with this treatment plan and discharge. Differential Diagnosis Differential Diagnoses: The differential diagnosis associated with the presentation includes Esophagitis Shoulder pain Shoulder strain Rotator cuff injury Admission/Observation Consideration of admission/observation: Escalation of care including admission/observation considered Patient would have been admitted to the hospital had his clinical presentation warranted hospital admission. Discharge Plan Discharge Clinical Impression: Esophagitis, Acute shoulder pain Patient Disposition: Home, Self-Care Instructions: Shoulder Pain (ED), Esophagitis (ED) Additional Instructions: Follow up with your primary care provider and an orthopedic provider - for your shoulder pain. Return to the emergency department immediately if your symptoms worsen or if you develop any dizziness, shortness of breath, difficulty breathing, chest pain, blurry vision, loss of vision, nausea, vomiting, abdominal pain, fever, chills, back pain, or any other complaints. Prescriptions: No Action tramadol 50 mg tablet 50 mg PO Q8H PRN (Reason: pain) Qty: 90 3RF rodwnyhumr-nddextszxvgph-aikn [Fioricet] 50-300-40 mg capsule 1 cap PO Q6H PRN (Reason: headache) Qty: 20 0RF loperamide [Anti-Diarrheal (loperamide)] 2 mg capsule 2 mg PO Q6H PRN (Reason: loose stool) Qty: 30 0RF ondansetron 4 mg tablet,disintegrating 4 mg PO Q6H PRN (Reason: nausea and vomiting) Qty: 14 0RF tamsulosin [Flomax] 0.4 mg capsule 0.4 mg PO BEDTIME Qty: 30 0RF metoprolol tartrate 50 mg tablet 50 mg PO BID simvastatin 20 mg tablet 20 mg PO DAILY hydrochlorothiazide 25 mg tablet 25 mg PO DAILY aspirin [Adult Low Dose Aspirin] 81 mg tablet,delayed release (DR/EC) 81 mg PO DAILY omeprazole magnesium [Prilosec OTC] 20 mg tablet,delayed release (DR/EC) 20 mg PO BID docusate sodium [Colace] 100 mg capsule 100 mg PO BID sennosides [Natural Senna Laxative] 8.6 mg tablet 17.2 mg PO BEDTIME losartan 100 mg tablet 100 mg PO QAM haloperidol 5 mg tablet 5 mg PO BEDTIME potassium chloride 20 mEq tablet,ER particles/crystals 40 meq PO QAM haloperidol 2 mg tablet 2 mg PO DAILY cholecalciferol (vitamin D3) 25 mcg (1,000 unit) tablet 25 mcg PO QAM zolpidem 10 mg tablet 5 - 10 mg PO BEDTIME PRN amlodipine 10 mg tablet 10 mg PO QAM Referrals: [facility] [Provider Group] (Call to establish and follow up with an orthopedic provider to discuss your shoulder pain.) Beryl Almanza MD [Primary Care Provider] - Interventions: ED Discharge Assessment Last Done: 10/09/23 17:35 Discharge Date/Time: 10/09/23 17:28 Print Language: Salvadorean
== END 2023-10-09 17:28 | disposition home or self-care (01) ==
PROVIDERS: Emergency Provider Emergency Medicine; PCP Student in an Organized Health Care Education/Training Program
DX: K20.90 Esophagitis, unspecified without bleeding (principal); M25.511 Pain in right shoulder; I10 Essential (primary) hypertension; E11.9 Type 2 diabetes mellitus without complications
CPT/HCPCS: 99283; 99284

== ENCOUNTER 2023-10-12 14:38 | Outpatient (REF) | payer MEDICAID, SELFPAY ==
[2023-10-12 16:44] LABS: Alanine Aminotransferase 18 U/L (0-40); Albumin Level 4.4 g/dL (3.5-5.0); Alkaline Phosphatase 103 U/L (39-117); Anion Gap 9 (12-20); Aspartate Amino Transferase 20 U/L (5-37); Bilirubin Total 0.6 mg/dL (0.0-1.0); Blood Urea Nitrogen 12 mg/dL (9-16); Calcium 9.6 mg/dL (8.4-10.2); Carbon Dioxide 30 mmol/L (22-29); Chloride 109 mmol/L (96-108); Estimated Glomerular Filt Rate > 60; Glucose Random 81 mg/dL (60-115); Potassium 3.4 mmol/L (3.3-5.1); Sodium 145 mmol/L (135-145); Total Protein 7.6 g/dL (6.5-8.0)
== END 2023-10-12 14:39 | disposition home or self-care (01) ==
LOC: HO.HHCL 14:38
PROVIDERS: Visit Provider Student in an Organized Health Care Education/Training Program
DX: E87.6 Hypokalemia (principal)
CPT/HCPCS: 36415; 80053

== ENCOUNTER 2023-11-09 17:42 | Emergency (ER) | payer MEDICAID, SELFPAY ==
--- NOTE | ~2023-11-09 | XR_ITS ---
EXAMINATION: XR CHEST CLINICAL INFORMATION: Chest pain. COMPARISON: Chest radiograph 05/20/2023. TECHNIQUE: 2 views of the chest were obtained. FINDINGS: The lungs are adequately expanded. No focal consolidation. No pleural effusion, edema or pneumothorax. The cardiomediastinal silhouette is within normal limits. Degenerative changes of the thoracic spine. No acute osseous abnormality. XR/XR chest 2V IMPRESSION: No acute pulmonary disease.
--- NOTE | 2023-11-09 17:45 | ECG_ITS ---
Test Reason : CHEST PAIN Blood Pressure : / mmHG Vent. Rate : 072 BPM Atrial Rate : 072 BPM P-R Int : 150 ms QRS Dur : 138 ms QT Int : 436 ms P-R-T Axes : 049 067 010 degrees QTc Int : 477 ms Normal sinus rhythm Right bundle branch block Abnormal ECG When compared with ECG of 22-MAY-2023 21:50, Right bundle branch block has replaced Incomplete right bundle branch block Referred By: Radha Malik Electronically Signed By:YOGI TALAVERA MD
--- NOTE | 2023-11-09 17:52 | ED.GENADULT ---
HPI - General Adult General Chief complaint: Chest Pain Stated complaint: chest pain Related Data Home Medications ?Medication ?Instructions ?Recorded ?Confirmed aspirin 81 mg tablet,delayed 81 mg PO DAILY 06/28/20 12/25/22 release (Adult Low Dose Aspirin) docusate sodium 100 mg capsule 100 mg PO BID 06/28/20 12/25/22 (Colace) hydrochlorothiazide 25 mg tablet 25 mg PO DAILY 06/28/20 12/25/22 metoprolol tartrate 50 mg tablet 50 mg PO BID 06/28/20 12/25/22 omeprazole magnesium 20 mg 20 mg PO BID 06/28/20 12/25/22 tablet,delayed release (Prilosec OTC) sennosides 8.6 mg tablet (Natural 17.2 mg PO BEDTIME 06/28/20 12/25/22 Senna Laxative) simvastatin 20 mg tablet 20 mg PO DAILY 06/28/20 12/25/22 haloperidol 2 mg tablet 2 mg PO DAILY 06/27/22 12/25/22 haloperidol 5 mg tablet 5 mg PO BEDTIME 06/27/22 12/25/22 losartan 100 mg tablet 100 mg PO QAM 06/27/22 12/25/22 potassium chloride 20 mEq 40 meq PO QAM 06/27/22 12/25/22 tablet,extended release(part/cryst) amlodipine 10 mg tablet 10 mg PO QAM 12/25/22 12/25/22 cholecalciferol (vitamin D3) 25 25 mcg PO QAM 12/25/22 12/25/22 mcg (1,000 unit) tablet zolpidem 10 mg tablet 5 - 10 mg PO BEDTIME PRN 12/25/22 12/25/22 Previous Rx's ?Medication ?Instructions ?Recorded akdyxifphe-dtgvuuwrynguu-voupexnk 1 cap PO Q6H PRN headache #20 caps 04/24/22 50 mg-300 mg-40 mg capsule (Fioricet) loperamide 2 mg capsule 2 mg PO Q6H PRN loose stool #30 08/08/22 (Anti-Diarrheal (loperamide)) caps ondansetron 4 mg disintegrating 4 mg PO Q6H PRN nausea and 08/08/22 tablet vomiting #14 tabs tramadol 50 mg tablet 50 mg PO Q8H PRN pain #90 tabs 10/24/23 tamsulosin 0.4 mg capsule (Flomax) 0.4 mg PO BEDTIME #30 caps 08/18/23 Allergies Allergy/AdvReac Type Severity Reaction Status Date / Time No Known Allergies Allergy Mild Verified 11/09/23 17:57 [facility] Past Medical History Medical History Hypercholesteremia Diabetes Hypertension Social History Social History Household Members: Significant Other Alcohol intake: former Patient Tobacco Use Status: Current everyday Tobacco user Tobacco use type: Cigarette Cigarettes Per Day: 5 Advance Directives: No Advance Directives Information Provided: No Physical Exam ED Vital Signs: BMI result Body Mass Index 31.8 Course Course Course Narrative: This is a rapid medical exam: Additional HPI, ROS, PE not included below will be deferred to primary provider. Patient is a 53-year-old male with history of schizophrenia presenting to the ED with complaint of chest pain/epigastric pain for the past 2 days. Pain is constant. Also states right leg has been giving out while walking. Coughing a lot. Denies vomiting. Plan: EKG, labs, CXR, viral swabs Medical Decision Making Lab Data 11/09/23 18:19 11/09/23 18:19 Labs: Lab Results 11/09/23 11/09/23 Range/Units 18:15 18:19 WBC 8.7 (4.8-10.8) X10*3/uL RBC 4.13 L (4.60-5.80) X10*6/uL Hgb 13.4 L (14.0-18.0) g/dl Hct 36.8 L (42.0-52.0) % MCV 89.1 (80.0-98.0) fL MCH 32.4 (27.0-33.0) pg MCHC 36.4 H (31.0-36.0) g/dl RDW 12.9 (11.0-16.0) % Plt Count 249 (160-400) X10*3/uL MPV 9.9 (9.4-12.4) fL Immature Gran % (Auto) 0.2 (0.0-0.4) % Neut % (Auto) 62.2 (45-73) % Lymph % (Auto) 23.6 (20-40) % [place] % (Auto) 8.6 (2-11) % Eos % (Auto) 4.6 H (0-4) % Baso % (Auto) 0.8 (0-2) % Lymph # (Auto) 2.1 (1.2-4.9) X10*3/uL [place] # (Auto) 0.8 (0.1-1.2) X10*3/uL Eos # (Auto) 0.4 (0.0-0.4) X10*3/uL Baso # (Auto) 0.1 (0.0-0.2) X10*3/uL Abs Immat Gran (auto) 0.02 (0.00-0.03) X10*3/uL Absolute Neuts (auto) 5.4 (2.0-8.3) x10*3/uL Absolute Nucleated RBC 0.000 (0.0-0.012) X10*3/uL Nucleated RBC % (auto) 0.0 (0.0-0.2) /100WBC PT 11.8 (11.1-13.3) SEC INR 1.0 (0.9-1.1) Sodium 146 H (135-145) mmol/L Potassium 3.5 (3.3-5.1) mmol/L Chloride 109 H (96-108) mmol/L Carbon Dioxide 29 (22-29) mmol/L Anion Gap 12 (12-20) BUN 20 H (9-16) mg/dL Creatinine 1.27 (0.5-1.4) mg/dL Estim Creat Clear Calc 73.4 Estimated GFR 59 Random Glucose 91 (60-115) mg/dL Calcium 9.6 (8.4-10.2) mg/dL Total Bilirubin 0.6 (0.0-1.0) mg/dL AST 21 (5-37) U/L ALT 16 (0-40) U/L Alkaline Phosphatase 91 (39-117) U/L Troponin I High Sens 9.0 (<3.5-35.0) ng/L Total Protein 7.4 (6.5-8.0) g/dL Albumin 4.4 (3.5-5.0) g/dL Influenza Type A (PCR) NEGATIVE (Negative) Influenza Type B (PCR) NEGATIVE (Negative) RSV RNA Qual (PCR) NEGATIVE (Negative) SARS-CoV-2 RNA (RT-PCR) NEGATIVE (Negative) Discharge Plan Discharge Clinical Impression: Diagnosis unknown Patient Disposition: Left W/O Completing Treatment Prescriptions: No Action tramadol 50 mg tablet 50 mg PO Q8H PRN (Reason: pain) Qty: 90 3RF [id number]-nfzmqoxeyelsf-owfh [Fioricet] 50-300-40 mg capsule 1 cap PO Q6H PRN (Reason: headache) Qty: 20 0RF loperamide [Anti-Diarrheal (loperamide)] 2 mg capsule 2 mg PO Q6H PRN (Reason: loose stool) Qty: 30 0RF ondansetron 4 mg tablet,disintegrating 4 mg PO Q6H PRN (Reason: nausea and vomiting) Qty: 14 0RF tamsulosin [Flomax] 0.4 mg capsule 0.4 mg PO BEDTIME Qty: 30 0RF metoprolol tartrate 50 mg tablet 50 mg PO BID simvastatin 20 mg tablet 20 mg PO DAILY hydrochlorothiazide 25 mg tablet 25 mg PO DAILY aspirin [Adult Low Dose Aspirin] 81 mg tablet,delayed release (DR/EC) 81 mg PO DAILY omeprazole magnesium [Prilosec OTC] 20 mg tablet,delayed release (DR/EC) 20 mg PO BID docusate sodium [Colace] 100 mg capsule 100 mg PO BID sennosides [Natural Senna Laxative] 8.6 mg tablet 17.2 mg PO BEDTIME losartan 100 mg tablet 100 mg PO QAM haloperidol 5 mg tablet 5 mg PO BEDTIME potassium chloride 20 mEq tablet,ER particles/crystals 40 meq PO QAM haloperidol 2 mg tablet 2 mg PO DAILY cholecalciferol (vitamin D3) 25 mcg (1,000 unit) tablet 25 mcg PO QAM zolpidem 10 mg tablet 5 - 10 mg PO BEDTIME PRN amlodipine 10 mg tablet 10 mg PO QAM Discharge Date/Time: 11/10/23 01:13
[2023-11-09 17:55] VITALS: BP 145/78; PULSE 68; RESP 16; TEMP 36.8; O2SAT 98; BMI 31.8
[2023-11-09 18:27] LABS: MANUAL DIFF FLAG NO
[2023-11-09 18:28] LABS: Basophils Absolute Auto 0.1 X10*3/uL (0.0-0.2); Basophils Percent Auto 0.8 % (0-2); Eosinophils Absolute Auto 0.4 X10*3/uL (0.0-0.4); Eosinophils Percent Auto 4.6 % (0-4); Hematocrit 36.8 % (42.0-52.0); Hemoglobin 13.4 g/dl (14.0-18.0); Imm Gran Abs Auto 0.02 X10*3/uL (0.00-0.03); Imm Gran Pct Auto 0.2 % (0.0-0.4); Lymphocytes Absolute Auto 2.1 X10*3/uL (1.2-4.9); Lymphocytes Percent Auto 23.6 % (20-40); Mean Corpuscular HGB Conc 36.4 g/dl (31.0-36.0); Mean Corpuscular Hemoglobin 32.4 pg (27.0-33.0); Mean Corpuscular Volume 89.1 fL (80.0-98.0); Mean Platelet Volume 9.9 fL (9.4-12.4); Monocytes Absolute Auto 0.8 X10*3/uL (0.1-1.2); Monocytes Percent Auto 8.6 % (2-11); Neutrophils Absolute Auto 5.4 x10*3/uL (2.0-8.3); Neutrophils Percent Auto 62.2 % (45-73); Platelet Count 249 X10*3/uL (160-400); Red Blood Count 4.13 X10*6/uL (4.60-5.80); Red Cell Distribution Width 12.9 % (11.0-16.0); White Blood Count 8.7 X10*3/uL (4.8-10.8)
[2023-11-09 18:42] LABS: Alanine Aminotransferase 16 U/L (0-40); Albumin Level 4.4 g/dL (3.5-5.0); Alkaline Phosphatase 91 U/L (39-117); Anion Gap 12 (12-20); Aspartate Amino Transferase 21 U/L (5-37); Bilirubin Total 0.6 mg/dL (0.0-1.0); Blood Urea Nitrogen 20 mg/dL (9-16); Calcium 9.6 mg/dL (8.4-10.2); Carbon Dioxide 29 mmol/L (22-29); Chloride 109 mmol/L (96-108); Creatinine Clr Calc Pharmacy 73.4; Estimated Glomerular Filt Rate 59; Glucose Random 91 mg/dL (60-115); Potassium 3.5 mmol/L (3.3-5.1); Sodium 146 mmol/L (135-145); Total Protein 7.4 g/dL (6.5-8.0)
[2023-11-09 18:54] LABS: Prothrombin Time 11.8 SEC (11.1-13.3)
[2023-11-09 19:07] LABS: Influenza A PCR NEGATIVE (Negative); Influenza B PCR NEGATIVE (Negative); Resp Syncy Virus RNA Qual PCR NEGATIVE (Negative); SARS COV2 PCR INHOUSE NEGATIVE (Negative)
== END 2023-11-10 01:13 | disposition left against medical advice (07) ==
PROVIDERS: Registered Nurse Emergency; Emergency Provider Emergency Medicine; PCP Student in an Organized Health Care Education/Training Program
DX: R07.89 Other chest pain (principal); F17.210 Nicotine dependence, cigarettes, uncomplicated; Z11.52 Encounter for screening for COVID-19; Z20.822 Contact with and (suspected) exposure to COVID-19; Z79.899 Other long term (current) drug therapy
CPT/HCPCS: 0241U; 36415; 71046; 80053; 84484; 85025; 85610; 93005; 99283

== ENCOUNTER → 2023-11-09 17:45 | Outpatient (BNV) | payer MEDICAID, SELFPAY | PROVIDERS: Emergency Provider Emergency Medicine; PCP Student in an Organized Health Care Education/Training Program; Visit Provider Internal Medicine Cardiovascular Disease | DX: R94.31 Abnormal electrocardiogram [ECG] [EKG] (principal) | CPT/HCPCS: 93010 ==

== ENCOUNTER 2023-11-27 12:42 | Emergency (ER) | payer MEDICAID, SELFPAY ==
--- NOTE | ~2023-11-27 | XR_ITS ---
EXAMINATION: XR CHEST CLINICAL INFORMATION: Chest pain and cough. COMPARISON: Chest radiograph dated 11/09/2023. TECHNIQUE: 2 views of the chest were obtained. FINDINGS: The trachea is in normal anatomic position. The cardiac silhouette is normal in size. Both lungs are clear. The pleural spaces are clear. There is no pneumothorax. No acute osseous abnormality. XR/XR chest 2V IMPRESSION: Stable appearance of the heart and lungs. No active disease.
--- NOTE | 2023-11-27 12:45 | ECG_ITS ---
Test Reason : CHEST DISCOMFORT Blood Pressure : / mmHG Vent. Rate : 061 BPM Atrial Rate : 061 BPM P-R Int : 152 ms QRS Dur : 134 ms QT Int : 436 ms P-R-T Axes : 044 061 013 degrees QTc Int : 438 ms Normal sinus rhythm Right bundle branch block Abnormal ECG When compared with ECG of 09-NOV-2023 17:48, No significant changes seen Referred By: Generic ED Physician Electronically Signed By:RITIKA COREY
[2023-11-27 12:50] VITALS: BP 157/98; PULSE 61; RESP 17; TEMP 36.6; O2SAT 97; BMI 32.5
[2023-11-27 13:02] LABS: MANUAL DIFF FLAG NO
[2023-11-27 13:04] LABS: Basophils Absolute Auto 0.1 X10*3/uL (0.0-0.2); Basophils Percent Auto 0.8 % (0-2); Eosinophils Absolute Auto 0.4 X10*3/uL (0.0-0.4); Eosinophils Percent Auto 3.8 % (0-4); Hematocrit 39.4 % (42.0-52.0); Hemoglobin 14.3 g/dl (14.0-18.0); Imm Gran Abs Auto 0.05 X10*3/uL (0.00-0.03); Imm Gran Pct Auto 0.5 % (0.0-0.4); Lymphocytes Absolute Auto 1.8 X10*3/uL (1.2-4.9); Mean Corpuscular HGB Conc 36.3 g/dl (31.0-36.0); Mean Corpuscular Hemoglobin 31.8 pg (27.0-33.0); Mean Corpuscular Volume 87.8 fL (80.0-98.0); Mean Platelet Volume 9.6 fL (9.4-12.4); Monocytes Absolute Auto 0.7 X10*3/uL (0.1-1.2); Monocytes Percent Auto 7.4 % (2-11); Neutrophils Absolute Auto 6.9 x10*3/uL (2.0-8.3); Neutrophils Percent Auto 69.5 % (45-73); Platelet Count 284 X10*3/uL (160-400); Red Blood Count 4.49 X10*6/uL (4.60-5.80); Red Cell Distribution Width 12.5 % (11.0-16.0); White Blood Count 9.9 X10*3/uL (4.8-10.8)
[2023-11-27 13:11] LABS: INTERNATIONAL NORM RATIO 0.9 (0.9-1.1); Prothrombin Time 11.3 SEC (11.1-13.3)
[2023-11-27 13:18] LABS: Anion Gap 11 (12-20); Blood Urea Nitrogen 11 mg/dL (9-16); Calcium 9.6 mg/dL (8.4-10.2); Carbon Dioxide 30 mmol/L (22-29); Chloride 107 mmol/L (96-108); Creatinine Clr Calc Pharmacy 86.4; Estimated Glomerular Filt Rate > 60; Glucose Random 103 mg/dL (60-115); Lipase 36 U/L (8-78); Potassium 3.4 mmol/L (3.3-5.1); Sodium 145 mmol/L (135-145)
--- NOTE | 2023-11-27 17:44 | ED_ITS ---
HPI - Chest Pain General Chief Complaint: Chest Pain Stated Complaint: Chest Discomfort B/L Side Pain Time Seen by Provider: 11/27/23 17:33 Source: patient Limitations: no limitations History of Present Illness HPI narrative: 53 years old with past medical history hypertension, hyperlipidemia, diabetes, currently under test for gross hematuria, presents to the emergency room for chest pain. Patient reports that the pain has been ongoing for multiple months, intermittent, not exertional or pleuritic. Patient reports that it comes several times a day, last 2-3 minutes when present, localized in the middle of his chest, moderate in intensity without radiation or other associated symptoms such as nausea, vomiting, diaphoresis or shortness of breath. Patient is supposed to undergo stress test in December order by his primary physician. At the time of examination he denies active chest pain, shortness of breath, nausea, vomiting or abdominal pain. Reports that presented today because he wanted to better investigate the pain however there is no change in pain fissures. No recent trauma Related Data Home Medications ?Medication ?Instructions ?Recorded ?Confirmed aspirin 81 mg tablet,delayed 81 mg PO DAILY 06/28/20 12/25/22 release (Adult Low Dose Aspirin) docusate sodium 100 mg capsule 100 mg PO BID 06/28/20 12/25/22 (Colace) hydrochlorothiazide 25 mg tablet 25 mg PO DAILY 06/28/20 12/25/22 metoprolol tartrate 50 mg tablet 50 mg PO BID 06/28/20 12/25/22 omeprazole magnesium 20 mg 20 mg PO BID 06/28/20 12/25/22 tablet,delayed release (Prilosec OTC) sennosides 8.6 mg tablet (Natural 17.2 mg PO BEDTIME 06/28/20 12/25/22 Senna Laxative) simvastatin 20 mg tablet 20 mg PO DAILY 06/28/20 12/25/22 haloperidol 2 mg tablet 2 mg PO DAILY 06/27/22 12/25/22 haloperidol 5 mg tablet 5 mg PO BEDTIME 06/27/22 12/25/22 losartan 100 mg tablet 100 mg PO QAM 06/27/22 12/25/22 potassium chloride 20 mEq 40 meq PO QAM 06/27/22 12/25/22 tablet,extended release(part/cryst) amlodipine 10 mg tablet 10 mg PO QAM 12/25/22 12/25/22 cholecalciferol (vitamin D3) 25 25 mcg PO QAM 12/25/22 12/25/22 mcg (1,000 unit) tablet zolpidem 10 mg tablet 5 - 10 mg PO BEDTIME PRN 12/25/22 12/25/22 Previous Rx's ?Medication ?Instructions ?Recorded bicvkbjolh-smypermgewyoh-symusruc 1 cap PO Q6H PRN headache #20 caps 04/24/22 50 mg-300 mg-40 mg capsule (Fioricet) loperamide 2 mg capsule 2 mg PO Q6H PRN loose stool #30 08/08/22 (Anti-Diarrheal (loperamide)) caps ondansetron 4 mg disintegrating 4 mg PO Q6H PRN nausea and 08/08/22 tablet vomiting #14 tabs tramadol 50 mg tablet 50 mg PO Q8H PRN pain #90 tabs 06/02/23 tamsulosin 0.4 mg capsule (Flomax) 0.4 mg PO BEDTIME #30 caps 08/18/23 Allergies Allergy/AdvReac Type Severity Reaction Status Date / Time No Known Allergies Allergy Mild Verified 11/27/23 12:52 Review of Systems 2 Review of Systems: Yes all other systems are reviewed and are negative [facility] Past Medical History Medical History Hypercholesteremia Diabetes Hypertension Social History Social History Household Members: Significant Other Alcohol intake: former Patient Tobacco Use Status: Current everyday Tobacco user Tobacco use type: Cigarette Cigarettes Per Day: 5 Advance Directives: No Advance Directives Information Provided: No Physical Exam 2 Vital Signs: Vital Signs: Last Vital Signs Temp 98 F 11/27/23 12:50 Pulse 61 11/27/23 12:50 Resp 17 11/27/23 12:50 BP 157/98 H 11/27/23 12:50 Pulse Ox 97 11/27/23 12:50 O2 Del Method Room Air 11/27/23 12:50 BMI result Body Mass Index 32.5 General: Alert, Not in Distress Skin: No rash, warm HEENT: Atraumatic, No Exudate or Pharyngeal Erythema Resp: Normal Breath sounds bilaterally Cardio: Regular rate and Rhythm, Normal S1, S2 ABD: Abd soft, non tender, no guarding or rebound. Normal Bowel sounds. : No cva tenderness Neuro: Alert, oriented x4, PERRL Strenght 5/5 on all extremities Sensation is preserved in both lower and upper extremities Index to nose: normal Cranial Nerves II-XII grossly intact No dysarthria, or aphasia No neglet. Visual bustamante are normal bilaterally Psych: Cooperative, NO SI Medical Decision Making Medical Decision Making [facility] Narrative: Patient presents emergency room with a chest pain with no features of ACS. His EKG showed sinus rhythm with right bundle-branch block but otherwise no signs of ischemia. He has a blood work including single troponin which I think in his case is appropriate given fissures of the pain are unremarkable. I personally reviewed and interpreted the patient chest x-ray that shows no consolidation. I personally reviewed and interpreted the patient's EKG Admission/Observation Consideration of admission/observation: Escalation of care including admission/observation considered Lab Data [facility] Lab Attestation statement: I reviewed the patient's lab results. Negative troponin, negative and unremarkable CBC and BMP 11/27/23 12:57 11/27/23 12:57 Labs: Lab Results 11/27/23 11/27/23 Range/Units 12:57 16:31 WBC 9.9 (4.8-10.8) X10*3/uL RBC 4.49 L (4.60-5.80) X10*6/uL Hgb 14.3 (14.0-18.0) g/dl Hct 39.4 L (42.0-52.0) % MCV 87.8 (80.0-98.0) fL MCH 31.8 (27.0-33.0) pg MCHC 36.3 H (31.0-36.0) g/dl RDW 12.5 (11.0-16.0) % Plt Count 284 (160-400) X10*3/uL MPV 9.6 (9.4-12.4) fL Immature Gran % (Auto) 0.5 H (0.0-0.4) % Neut % (Auto) 69.5 (45-73) % Lymph % (Auto) 18.0 L (20-40) % [place]ilion % (Auto) 7.4 (2-11) % Eos % (Auto) 3.8 (0-4) % Baso % (Auto) 0.8 (0-2) % Lymph # (Auto) 1.8 (1.2-4.9) X10*3/uL [place] # (Auto) 0.7 (0.1-1.2) X10*3/uL Eos # (Auto) 0.4 (0.0-0.4) X10*3/uL Baso # (Auto) 0.1 (0.0-0.2) X10*3/uL Abs Immat Gran (auto) 0.05 H (0.00-0.03) X10*3/uL Absolute Neuts (auto) 6.9 (2.0-8.3) x10*3/uL Absolute Nucleated RBC 0.000 (0.0-0.012) X10*3/uL Nucleated RBC % (auto) 0.0 (0.0-0.2) /100WBC PT 11.3 (11.1-13.3) SEC INR 0.9 (0.9-1.1) Sodium 145 (135-145) mmol/L Potassium 3.4 (3.3-5.1) mmol/L Chloride 107 (96-108) mmol/L Carbon Dioxide 30 H (22-29) mmol/L Anion Gap 11 L (12-20) BUN 11 (9-16) mg/dL Creatinine 1.09 (0.5-1.4) mg/dL Estim Creat Clear Calc 86.4 Estimated GFR > 60 Random Glucose 103 (60-115) mg/dL Calcium 9.6 (8.4-10.2) mg/dL Troponin I High Sens 11.0 Cancelled (<3.5-35.0) ng/L Lipase 36 (8-78) U/L External Record Review External record reviewed: Office record (Last neurology visit was recorded) Chronic Conditions Patient?s care impacted by: Diabetes and Hypertension Discharge Plan Discharge Clinical Impression: Chest pain Patient Disposition: Home, Self-Care Additional Instructions: You were seen in the emergency room for chest pain Blood work including CBC, BMP, troponin are negative EKG showed right bundle-branch block but otherwise unremarkable, negative for ischemia Follow-up with your primary care physician within the next week and obtain stress test in December as scheduled. Presented to the emergency room if your symptoms worsen. Prescriptions: No Action tramadol 50 mg tablet 50 mg PO Q8H PRN (Reason: pain) Qty: 90 3RF sfgcbeszah-bjeszxdimbcxi-udls [Fioricet] 50-300-40 mg capsule 1 cap PO Q6H PRN (Reason: headache) Qty: 20 0RF loperamide [Anti-Diarrheal (loperamide)] 2 mg capsule 2 mg PO Q6H PRN (Reason: loose stool) Qty: 30 0RF ondansetron 4 mg tablet,disintegrating 4 mg PO Q6H PRN (Reason: nausea and vomiting) Qty: 14 0RF tamsulosin [Flomax] 0.4 mg capsule 0.4 mg PO BEDTIME Qty: 30 0RF metoprolol tartrate 50 mg tablet 50 mg PO BID simvastatin 20 mg tablet 20 mg PO DAILY hydrochlorothiazide 25 mg tablet 25 mg PO DAILY aspirin [Adult Low Dose Aspirin] 81 mg tablet,delayed release (DR/EC) 81 mg PO DAILY omeprazole magnesium [Prilosec OTC] 20 mg tablet,delayed release (DR/EC) 20 mg PO BID docusate sodium [Colace] 100 mg capsule 100 mg PO BID sennosides [Natural Senna Laxative] 8.6 mg tablet 17.2 mg PO BEDTIME losartan 100 mg tablet 100 mg PO QAM haloperidol 5 mg tablet 5 mg PO BEDTIME potassium chloride 20 mEq tablet,ER particles/crystals 40 meq PO QAM haloperidol 2 mg tablet 2 mg PO DAILY cholecalciferol (vitamin D3) 25 mcg (1,000 unit) tablet 25 mcg PO QAM zolpidem 10 mg tablet 5 - 10 mg PO BEDTIME PRN amlodipine 10 mg tablet 10 mg PO QAM Print Language: Tajik
[2023-11-27 18:00] VITALS: BP 141/89; PULSE 67; RESP 18; TEMP 36.2; O2SAT 96
== END 2023-11-27 18:01 | disposition home or self-care (01) ==
PROVIDERS: Physician Assistant; Emergency Provider Student in an Organized Health Care Education/Training Program; PCP Student in an Organized Health Care Education/Training Program
DX: R07.9 Chest pain, unspecified (principal); I10 Essential (primary) hypertension; E11.9 Type 2 diabetes mellitus without complications
CPT/HCPCS: 36415; 71046; 80048; 83690; 84484; 85025; 85610; 93005; 99283

== ENCOUNTER → 2023-11-27 12:45 | Outpatient (BNV) | payer MEDICAID, SELFPAY | PROVIDERS: PCP Student in an Organized Health Care Education/Training Program; Visit Provider Internal Medicine | DX: R94.31 Abnormal electrocardiogram [ECG] [EKG] (principal) | CPT/HCPCS: 93010 ==

== ENCOUNTER → 2023-12-16 13:25 | Outpatient (REF) | payer MEDICAID, SELFPAY ==
--- NOTE | 2023-12-16 13:28 | CA_ITS ---
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 Normal LV ejection fraction of 60 65% with impaired relaxation filling pattern 2. Normal cardiac valvular Dopplers 3. Normal RV systolic pressure 4. No gross pericardial effusion Findings Left Ventricle Normal left ventricular size, thickness, and systolic function. The visually estimated ejection fraction is between 60-65%. Spectral Doppler is indicative of an impaired relaxation filling pattern. E/E prime ratio is between 8 and 15 consistent with indeterminate filling pressures. Peak GLS is -14.8%, which is mildly to moderately reduced. Right Ventricle Normal right ventricular cavity size and systolic function. Atria Both atria are normal in size. There is no evidence of interatrial shunt. Aortic Valve Normal aortic valve structure and function. There is no aortic valve stenosis. There is no aortic valve regurgitation. Mitral Valve Normal mitral valve structure and function. There is trace mitral valve regurgitation. There is no mitral valve stenosis. Pulmonic Valve The pulmonic valve is likely normal. Tricuspid Valve Normal tricuspid valve structure. There is trace tricuspid valve regurgitation. The right ventricular systolic pressure is normal. The right ventricular systolic pressure is 10 mmHg. Normal right atrial pressure. There is no evidence of pulmonary hypertension. Great Vessels All visible segments of the aorta are normal in size. The pulmonary artery was not well visualized. There is no dilatation of the ascending aorta measuring 3.10 cm. Small plaque is seen in the sino tubular ridge. Venous The inferior vena cava is normal in size and collapses greater than 50% with inspiration. Pericardium/Pleural There is no evidence of pericardial effusion. Prior Study Comparison No prior study in the last 5 years for comparison Measurements 2D Linear Measurements IVSd: 1.00 0.6-0.9/0.6-1.0 cm LVIDd: 5.22 3.9-5.3/4.2-5.9 cm LVIDd Index: 2.50 2.4-3.2/2.2-3.1 cm/m2 LVIDs: 2.95 2.0-3.6 cm LVPWd: 0.89 0.7-1.1 cm LA Diam: 3.10 2.7-3.8/3.0-4.0 cm LAIDs Index: 1.48 1.5-2.3 cm/m2 LV Mass: 225.72 67-162/88-224 g LV Mass Index: 108.00 43-95/49-115 g/m2 LVOT Diam: 2.00 3.0+(-)1.3 cm 2D Volumes LA Vol: 25.90 2D Systolic Function EF 4C: 60.20 >55% EF 2C: 62.20 >55% EF BiP: 60.50 >55% Mitral Valve MV Pk E: 0.57 MV PK A: 0.64 MV Decel Time: 326.00 E/A: 0.90 E'Lateral: 6.42 E'Medial: 5.77 E/E' Med: 9.90 E/E' Lat: 8.90 PHT: 95.00 MVA PHT: 2.32 Decel [place]: 1.76 Aortic Valve AoV Pk Silas: 1.51 AoV Mn Silas: 0.96 AoV VTI: 0.34 AoV Pk Grad: 9.00 Aov Mn Grad: 4.00 PEARL Cont.VTI: 2.41 LVOT LVOT Pk Silas: 1.22 LVOT Mn Silas: 0.79 LVOT VTI: 0.26 LVOT Pk Grad: 6.00 LVOT Mn Grad: 3.00 LVOT Diam: 2.00 LVOT Area: 3.14 Diastolic Function MV Pk E: 0.57 MV Pk A: 0.64 E/A: 0.90 E'Medial: 5.77 E/E' Med: 9.90 E' Laterial: 6.42 E/E' Lat: 8.90 Right Ventricle TAPSE (mm): 21.40 TVS' Silas: 11.50 Tricuspid Valve TR Pk Silas: 1.36 TR Pk Grad: 7.00 RA Press: 3.00 RVSP: 10.00 Great Vessels Aorta Sinus of Valsalva: 3.21 2.0-3.[address] [place]: 2.26 1.7-3.4 cm Ao Asc: 3.10 2.1-3.4 cm Updated in Other Vendor System with Status of Final Elmo Webb MD electronically signed on 12/17/2023 3:27:30 PM with status of Final
== END ==
LOC: HO.CARD 13:25
PROVIDERS: PCP Student in an Organized Health Care Education/Training Program; Visit Provider Internal Medicine Cardiovascular Disease
DX: Z01.818 Encounter for other preprocedural examination (principal)
CPT/HCPCS: 93306; 93356

== ENCOUNTER → 2023-12-16 13:28 | Outpatient (BNV) | payer MEDICAID, SELFPAY | PROVIDERS: PCP Student in an Organized Health Care Education/Training Program; Visit Provider Internal Medicine Cardiovascular Disease | DX: R93.1 Abnormal findings on diagnostic imaging of heart and coronary circulation (principal); Z01.810 Encounter for preprocedural cardiovascular examination | CPT/HCPCS: 93306; 93356 ==

== ENCOUNTER 2023-12-18 09:54 | Outpatient (REF) | payer MEDICAID, SELFPAY ==
[2023-12-18 12:35] LABS: Alanine Aminotransferase 16 U/L (0-40); Albumin Level 4.2 g/dL (3.5-5.0); Alkaline Phosphatase 97 U/L (39-117); Anion Gap 14 (12-20); Aspartate Amino Transferase 21 U/L (5-37); Bilirubin Total 0.5 mg/dL (0.0-1.0); Blood Urea Nitrogen 12 mg/dL (9-16); Calcium 9.6 mg/dL (8.4-10.2); Carbon Dioxide 26 mmol/L (22-29); Chloride 107 mmol/L (96-108); Estimated Glomerular Filt Rate 57; Glucose Random 175 mg/dL (60-115); Potassium 3.6 mmol/L (3.3-5.1); Sodium 143 mmol/L (135-145); Total Protein 7.4 g/dL (6.5-8.0)
== END 2023-12-18 09:55 | disposition home or self-care (01) ==
LOC: HO.HHCL 09:54
PROVIDERS: Visit Provider Student in an Organized Health Care Education/Training Program
DX: I10 Essential (primary) hypertension (principal)
CPT/HCPCS: 36415; 80053

== ENCOUNTER 2024-02-02 13:29 | Outpatient (REF) | payer MEDICAID, SELFPAY ==
--- NOTE | ~2024-02-02 | XR_ITS ---
EXAMINATION: XR SHOULDER, RIGHT CLINICAL INFORMATION: Chronic right shoulder pain COMPARISON: None available. TECHNIQUE: AP external rotation, Grashey, scapular Y, and axillary views of the right shoulder. FINDINGS: Mild acromioclavicular osteoarthritis. No fracture or malalignment. The glenohumeral joint appears normal. XR/XR shoulder RT min 2V IMPRESSION: Mild acromioclavicular osteoarthritis.
== END 2024-02-02 13:30 | disposition home or self-care (01) ==
LOC: HO.HHCX 13:29
PROVIDERS: Visit Provider Student in an Organized Health Care Education/Training Program
DX: M25.511 Pain in right shoulder (principal); G89.29 Other chronic pain
CPT/HCPCS: 73030

== ENCOUNTER 2024-02-03 11:24 | Emergency (ER) | payer MEDICAID, SELFPAY ==
[2024-02-03 11:29] VITALS: BP 153/69; PULSE 60; RESP 18; TEMP 36.4; O2SAT 97; BMI 30.7
--- NOTE | 2024-02-03 11:31 | ED_ITS ---
HPI - Dental/Oral General Chief complaint: Dental/Oral Stated complaint: Tooth pain Time Seen by Provider: 02/03/24 11:41 Source: patient Mode of arrival: ambulatory Limitations: no limitations History of Present Illness ED Provider: DAPHNIE MANSFIELD PA-C HPI Narrative: 53 year old male with pmhx significant for schizophrenia, hypertension, diabetes presents to the ED today for evaluation of dental pain x24 hours. Pain localized to right upper molar without radiation. He cannot recall if he broke the tooth. Admits to multiple missing teeth and dental caries. Not followed up with a dentist in some time. Reports fever yesterday with TMAX 103F last night. Admits he took 2 motrin last night. Did not take any OTC medications today. Reports calling his dentist this morning however was placed on a wait list. Denies trauma to the mouth. Denies sore throat, neck swelling, voice changes, odynophagia, dysphagia, N/V, chest pain, palpitations. MD Complaint: tooth pain Related Data Home Medications ?Medication ?Instructions ?Recorded ?Confirmed aspirin 81 mg tablet,delayed 81 mg PO DAILY 06/28/20 12/25/22 release (Adult Low Dose Aspirin) docusate sodium 100 mg capsule 100 mg PO BID 06/28/20 12/25/22 (Colace) hydrochlorothiazide 25 mg tablet 25 mg PO DAILY 06/28/20 12/25/22 metoprolol tartrate 50 mg tablet 50 mg PO BID 06/28/20 12/25/22 omeprazole magnesium 20 mg 20 mg PO BID 06/28/20 12/25/22 tablet,delayed release (Prilosec OTC) sennosides 8.6 mg tablet (Natural 17.2 mg PO BEDTIME 06/28/20 12/25/22 Senna Laxative) simvastatin 20 mg tablet 20 mg PO DAILY 06/28/20 12/25/22 haloperidol 2 mg tablet 2 mg PO DAILY 06/27/22 12/25/22 haloperidol 5 mg tablet 5 mg PO BEDTIME 06/27/22 12/25/22 losartan 100 mg tablet 100 mg PO QAM 06/27/22 12/25/22 potassium chloride 20 mEq 40 meq PO QAM 06/27/22 12/25/22 tablet,extended release(part/cryst) amlodipine 10 mg tablet 10 mg PO QAM 12/25/22 12/25/22 cholecalciferol (vitamin D3) 25 25 mcg PO QAM 12/25/22 12/25/22 mcg (1,000 unit) tablet zolpidem 10 mg tablet 5 - 10 mg PO BEDTIME PRN 12/25/22 12/25/22 Previous Rx's ?Medication ?Instructions ?Recorded [id number] 1 cap PO Q6H PRN headache #20 caps 04/24/22 50 mg-300 mg-40 mg capsule (Fioricet) loperamide 2 mg capsule 2 mg PO Q6H PRN loose stool #30 08/08/22 (Anti-Diarrheal (loperamide)) caps ondansetron 4 mg disintegrating 4 mg PO Q6H PRN nausea and 08/08/22 tablet vomiting #14 tabs tramadol 50 mg tablet 50 mg PO Q8H PRN pain #90 tabs 06/02/23 tamsulosin 0.4 mg capsule (Flomax) 0.4 mg PO BEDTIME #30 caps 08/18/23 amoxicillin 875 mg-potassium 1 tab PO Q12H 7 days #14 tabs 02/03/24 clavulanate 125 mg tablet tramadol 50 mg tablet 50 mg PO Q8H PRN pain (scale score 02/03/24 7-10) #4 tabs Allergies Allergy/AdvReac Type Severity Reaction Status Date / Time No Known Allergies Allergy Mild Verified 02/03/24 11:34 Review of Systems 2 Review of Systems: Constitutional: No fever, chills, fatigue, night sweats, weight changes ENT/Mouth: No ear pain, hearing loss, nasal congestion, sinus pain, rhinorrhea, sore throat, +dental pain Eyes: No eye pain, swelling, redness, vision changes, discharge Cardio: No chest pain, palpitations, BRANDT, orthopnea, peripheral edema Pulm: No SOB, cough, sputum, wheezing, dyspnea, hemoptysis GI: No nausea, vomiting, hematemesis, abdominal pain, diarrhea, constipation, hematochezia, melena : No irregular bleeding, dysuria, frequency, urgency, hesitancy, hematuria, flank pain, urinary flow changes, urinary incontinence or retention MSK: No back pain, neck pain, joint pain, myalgias Skin: No lesions, rashes Neuro: No weakness, numbness, paresthesias, LOC, dizziness, headache Psych: No anxiety/panic, depression, SI/HI, AH/VH All other systems reviewed and are negative. [facility] Past Medical History Attestation statement: The following information was validated with the patient. Source: old records reviewed and nursing notes reviewed Medical History Hypercholesteremia Diabetes Hypertension Social History Social History Household Members: Significant Other Alcohol intake: former Patient Tobacco Use Status: Current everyday Tobacco user Tobacco use type: Cigarette Cigarettes Per Day: 5 Advance Directives: No Advance Directives Information Provided: Yes Do you have a plan to hurt others: No Plan Physical Exam 2 Vital Signs: Vital Signs: Last Vital Signs Temp 97.6 F 02/03/24 11:39 Pulse 60 02/03/24 11:39 Resp 18 02/03/24 11:39 BP 153/69 H 02/03/24 11:39 Pulse Ox 97 02/03/24 11:39 O2 Del Method Room Air 02/03/24 11:39 BMI result Body Mass Index 30.7 Vital signs stable, afebrile. Const: General: cooperative, comfortable and no acute distress O rientation/consciousness: patient oriented x3 Limitations: no limitations HEENT: Other: + No facial edema. Tongue and lips wnl + multiple dental caries and poor dentit ion. right upper molar with localized periapical swelling to the lingual ginginva. No pointing. No active bleeding/ discharge. TTP. No palpable fluctuance. + No edema to buccal mucosa + Posterior oropharynx without erythema/ edema. Uvula midline. Controlling secretions and speaking in complete sentences + No submandublar or submental LAD + No cervical LAD + No anterior neck swelling Head: Yes normal to inspection, Yes No palpable skull fracture present, Yes normocephalic and Yes atraumatic Ears: hearing grossly normal bilaterally, external ears normal, TM's normal bilaterally, EAC's normal, mastoids normal and no periauricular adenopathy Teeth image: 1. Eyes: General: appearance normal, both eyes and all related structures C onjunctivae: conjunctivae normal Sclerae: sclerae normal Pupils: Equal, round and reactive pupils present Neck: Neck: Yes normal visual inspection and Yes no lymphadenopathy Resp: Effort & Inspection: normal respiratory effort and no stridor A uscultation: clear to auscultation bilaterally Cardio: Rate: regular rate Rhythm: regular rhythm Skin: General skin exam: no rashes or lesions noted Neuro: General: patient oriented x3 and gait normal Cranial nerves: Yes Equal, round and reactive pupils present Course Course Course Narrative: 1145-- Patient noted to have dental infection. There is no evidence of abscess warranting drainage at this time. Will treat patient's pain and patient will be discharged home on Augmentin to ensure there is no worsening infection for follow-up with dentist. Patient advised to follow up with dentist this week. A referral has been provided. Patient has remained stable throughout ED visit today. I discussed worrisome signs and symptoms and when to return to the ED. All questions answered at this time. Patient is agreeable with disposition and stable for discharge. Medical Decision Making Medical Decision Making MDM Narrative: 53 year old male with pmhx significant for schizophrenia, hypertension, diabetes presents to the ED today for evaluation of dental pain x24 hours. Patient slightly hypertensive. Vitals otherwise wnl. Afebrile. On exam, No facial edema. Tongue and lips wnl. multiple dental caries and poor dentition. right upper molar with localized periapical swelling to the lingual ginginva. No pointing. No active bleeding/ discharge. TTP. No palpable fluctuance. No edema to buccal mucosa. Posterior oropharynx without erythema/edema. Uvula midline. Controlling secretions and speaking in complete sentences. No submandublar or submental LAD. No cervical LAD. No anterior neck swelling. No rashes. Skin W/D/I. Differential includes dental/ periapical abscess/infection. Unlikely mono, herpes, sialadenitis, sialolithiasis, WIRE BENDER, retropharyngeal abscess, deep neck infection, osteomyelitis, facial cellulitis/ abscess, lymphoma, ludwigs angina. Plan for pain control and discharge home with antibiotics and dentist follow up. Differential Diagnosis Differential Diagnoses: The differential diagnosis associated with the presentation includes as above. Admission/Observation Not indicated. External Record Review External record reviewed: Inpatient record, Office record, Outpatient record, Prior outpatient labs, Prior outpatient radiology, Primary care record and Outside ED record Tests considered The following testing was considered but not selected: I considered obtaining a CT of the soft tissues neck however these is no evidence of ludwigs angina or concern for deep tissue infection. Not warranted at this time. Prescription Management I considered prescription management with: Pain Medication (tylenol/ motrin/ tramadol) and Antibiotic (augmentin) Social Determinants Patient?s care significantly limited by Social Determinants of Health including: Other Social Determinant of Health Critical Care Time Critical Care Time Critical Care Time: No Discharge Plan Discharge Clinical Impression: Dental infection Patient Disposition: Home, Self-Care Instructions: Root Canal (DC) Additional Instructions: You were evaluated in ED today for dental pain. You have a dental infection. Augmentin is an antibiotic that has been sent to your pharmacy for treatment. Take this as prescribed and do not skip any doses. Take this to completion or the infection may persist or worsen. On Augmentin, softer bowel movements are to be expected. Call your provider if you move your bowels more than 4 times a day, your bowel movements are almost all liquid, or you get a rash.? Take tylenol/ motrin at home as needed for pain. Tramadol is a pain medication that has been sent to your pharmacy for you to take for break-through pain. Use this with caution. YOU NEED TO FOLLOW UP WITH A DENTIST. You have been provided with a referral to [facility]. They are currently taking new clients. Call them to make an appointment. They will not call you. Return with new or worsening symptoms. In the case of an emergency call [phone]. [facility]: [phone] [facility] [id number] Prescriptions: New amoxicillin-pot clavulanate 875-125 mg tablet 1 tab PO Q12H 7 Days Qty: 14 0RF tramadol 50 mg tablet 50 mg PO Q8H PRN (Reason: pain (scale score 7-10)) Qty: 4 0RF No Action tramadol 50 mg tablet 50 mg PO Q8H PRN (Reason: pain) Qty: 90 3RF [id number]-yipyugqyotsud-umts [Fioricet] 50-300-40 mg capsule 1 cap PO Q6H PRN (Reason: headache) Qty: 20 0RF loperamide [Anti-Diarrheal (loperamide)] 2 mg capsule 2 mg PO Q6H PRN (Reason: loose stool) Qty: 30 0RF ondansetron 4 mg tablet,disintegrating 4 mg PO Q6H PRN (Reason: nausea and vomiting) Qty: 14 0RF tamsulosin [Flomax] 0.4 mg capsule 0.4 mg PO BEDTIME Qty: 30 0RF metoprolol tartrate 50 mg tablet 50 mg PO BID simvastatin 20 mg tablet 20 mg PO DAILY hydrochlorothiazide 25 mg tablet 25 mg PO DAILY aspirin [Adult Low Dose Aspirin] 81 mg tablet,delayed release (DR/EC) 81 mg PO DAILY omeprazole magnesium [Prilosec OTC] 20 mg tablet,delayed release (DR/EC) 20 mg PO BID docusate sodium [Colace] 100 mg capsule 100 mg PO BID sennosides [Natural Senna Laxative] 8.6 mg tablet 17.2 mg PO BEDTIME losartan 100 mg tablet 100 mg PO QAM haloperidol 5 mg tablet 5 mg PO BEDTIME potassium chloride 20 mEq tablet,ER particles/crystals 40 meq PO QAM haloperidol 2 mg tablet 2 mg PO DAILY cholecalciferol (vitamin D3) 25 mcg (1,000 unit) tablet 25 mcg PO QAM zolpidem 10 mg tablet 5 - 10 mg PO BEDTIME PRN amlodipine 10 mg tablet 10 mg PO QAM Interventions: ED Discharge Assessment Last Done: 02/03/24 11:39 Discharge Date/Time: 02/03/24 11:44 Print Language: Kazakh
[2024-02-03 11:39] VITALS: BP 153/69; PULSE 60; RESP 18; TEMP 36.4; O2SAT 97
== END 2024-02-03 11:44 | disposition home or self-care (01) ==
PROVIDERS: Emergency Provider Emergency Medicine; PCP Student in an Organized Health Care Education/Training Program
DX: K04.7 Periapical abscess without sinus (principal); K08.89 Other specified disorders of teeth and supporting structures
CPT/HCPCS: 99282; 99283

== ENCOUNTER → 2024-02-22 09:41 | Outpatient (REF) | payer MEDICAID, SELFPAY ==
--- NOTE | ~2024-02-22 | NM_ITS ---
EXERCISE MYOCARDIAL PERFUSION STUDY INDICATION: Preoperative cardiac evaluation TECHNIQUE: The patient was brought in for an exercise perfusion study on 02/22/2024. Patient performed exercise as per Macario protocol and was injected 30 mCi of sestamibi once target heart rate was achieved. Images were obtained using the SPECT gamma camera interlaced with the gating device. Images were obtained in supine position. Resting perfusion study was performed on 02/23/2024. Patient was administered 30 mCi of sestamibi intravenously at rest. Images were then obtained in supine position. Images were processed with the software and compared side to side in short axis, horizontal long axis and vertical long axis views. Total DLP 153mGy-cm. FINDINGS: Raw images were reviewed. Arms by the patient's side. The stress perfusion study showed mildly reduced tracer uptake along the inferior wall. There is improvement with CT attenuation correction suggestive of diaphragmatic attenuation artifact. The gated study shows normal LV systolic function with calculated LVEF of 67%. LV cavity is normal in size. The gated study shows normal wall thickening and contraction of segments. Resting study shows no significant perfusion abnormality. Gating at rest reveals normal wall motion with ejection fraction at 65%. The findings are consistent with no clear reversible or fixed perfusion abnormality. NM/NM liliana perf SPECT rest & str IMPRESSION: 1. Myocardial perfusion imaging study shows likely normal myocardial perfusion. 2. Gated LVEF is 67% during stress and 65% during rest. 3. Transient ischemic dilatation not present. EKG component of the test reported separately.
--- NOTE | 2024-02-22 09:44 | CA_ITS ---
Acquisition Time: 2024-02-22 10:04:04 Total Exercise Time: 00:09:30 Test Indications: PRE OP Medications: SEE MED SHEET Protocol: MACARIO Max HR: 118 BPM 71% of Pred: 165 BPM Max BP: 154/070 mmHG Max Work Load: 10.1 METS Exercise stress test exercise 9 min 30 sec of Macario protocol achieving 70% MPHR & 10.1 METS, without anginal symptoms, with isolated PVCs, with normotensive resposne to [place].compaige damon no ST changes at achieved workload. Nuclear images pending. Test reviewed with Dr. Webb Patient took medications (reports unsure which he took), drank caffiene and refuse to reschedule testing. Reported he wouldnt come back another time. Good workload achieved. Referred By: Avinash Yeboah Overread By: Ame Crooks
== END ==
LOC: HO.CARD 09:41
PROVIDERS: PCP Student in an Organized Health Care Education/Training Program; Visit Provider Internal Medicine Cardiovascular Disease
DX: Z01.818 Encounter for other preprocedural examination (principal)
CPT/HCPCS: 78452; 93017; A9500

== ENCOUNTER → 2024-02-22 09:44 | Outpatient (BNV) | payer MEDICAID, SELFPAY | PROVIDERS: PCP Student in an Organized Health Care Education/Training Program; Visit Provider Nurse Practitioner | DX: I49.3 Ventricular premature depolarization (principal) | CPT/HCPCS: 78452; 93016; 93018 ==

== ENCOUNTER 2024-05-02 13:45 | Emergency (ER) | payer MEDICAID, SELFPAY ==
--- NOTE | ~2024-05-02 | XR_ITS ---
EXAMINATION: XR KNEE, LEFT CLINICAL INFORMATION: Left knee pain COMPARISON: None available. TECHNIQUE: Four views of the left knee. FINDINGS: No fracture or malalignment. Mild medial compartment osteoarthritis. No joint effusion. XR/XR knee LT 3V IMPRESSION: Mild medial compartment osteoarthritis. No fracture. Electronically signed by: Miguel Angel Conley MD 05/02/2024 04:36 PM EDT
--- NOTE | ~2024-05-02 | US_ITS ---
EXAMINATION: US TRIPLEX LOWER EXTREMITY, LEFT CLINICAL INFORMATION: Pain, swelling COMPARISON: None available. TECHNIQUE: Color-flow triplex imaging with spectral analysis and compression Doppler were performed on the left lower extremity. FINDINGS: Respiratory variation, normal compression and augmented flow are noted throughout the left lower extremity. The visualized common femoral vein, superficial femoral vein, profunda femoral vein, popliteal vein and midcalf peroneal and posterior tibial venous segments show no evidence of deep venous thrombosis. There is no Nunez's cyst. US/US venous duplex LE LT IMPRESSION: No evidence of deep venous thrombosis involving the left lower extremity. Electronically signed by: Mckay Daley MD 05/02/2024 06:21 PM EDT
[2024-05-02 14:20] VITALS: BP 136/79; PULSE 62; RESP 16; TEMP 36.8; O2SAT 98; BMI 30.5
--- NOTE | 2024-05-02 14:21 | ED_ITS ---
HPI - General Adult General Chief complaint: Extremity Injury, Lower Stated complaint: l knee pain Time Seen by Provider: 05/02/24 16:59 Source: patient and old records reviewed Mode of arrival: ambulatory Limitations: no limitations History of Present Illness ED Provider: MERRICK SMITH narrative: 53 yo male with PMH of DM, HTN, HLD here with c/o s/p trip and fall on a hill in [place] 3 days ago landing on L knee then flew back from [place] Thursday since then pain in knee and calf swelling no rash, redness, fevers. NO other symptoms. Denies injury to knee in past. Using copper sleeve with some relief. MD complaint: knee injury Onset (ago): day(s) (3) Location: left and lower extremity Radiation: non-radiation Severity: mild Quality: aching Pain Consistency: intermittent Relieving factors: rest Exacerbating factors: movement Associated symptoms: denies other symptoms Treatments prior to arrival: other Related Data Home Medications ?Medication ?Instructions ?Recorded ?Confirmed aspirin 81 mg tablet,delayed 81 mg PO DAILY 06/28/20 12/25/22 release (Adult Low Dose Aspirin) docusate sodium 100 mg capsule 100 mg PO BID 06/28/20 12/25/22 (Colace) hydrochlorothiazide 25 mg tablet 25 mg PO DAILY 06/28/20 12/25/22 metoprolol tartrate 50 mg tablet 50 mg PO BID 06/28/20 12/25/22 omeprazole magnesium 20 mg 20 mg PO BID 06/28/20 12/25/22 tablet,delayed release (Prilosec OTC) sennosides 8.6 mg tablet (Natural 17.2 mg PO BEDTIME 06/28/20 12/25/22 Senna Laxative) simvastatin 20 mg tablet 20 mg PO DAILY 06/28/20 12/25/22 haloperidol 2 mg tablet 2 mg PO DAILY 06/27/22 12/25/22 haloperidol 5 mg tablet 5 mg PO BEDTIME 06/27/22 12/25/22 losartan 100 mg tablet 100 mg PO QAM 06/27/22 12/25/22 potassium chloride 20 mEq 40 meq PO QAM 06/27/22 12/25/22 tablet,extended release(part/cryst) amlodipine 10 mg tablet 10 mg PO QAM 12/25/22 12/25/22 cholecalciferol (vitamin D3) 25 25 mcg PO QAM 12/25/22 12/25/22 mcg (1,000 unit) tablet zolpidem 10 mg tablet 5 - 10 mg PO BEDTIME PRN 12/25/22 12/25/22 Previous Rx's ?Medication ?Instructions ?Recorded [id number] 1 cap PO Q6H PRN headache #20 caps 04/24/22 50 mg-300 mg-40 mg capsule (Fioricet) loperamide 2 mg capsule 2 mg PO Q6H PRN loose stool #30 08/08/22 (Anti-Diarrheal (loperamide)) caps ondansetron 4 mg disintegrating 4 mg PO Q6H PRN nausea and 08/08/22 tablet vomiting #14 tabs tramadol 50 mg tablet 50 mg PO Q8H PRN pain #90 tabs 06/02/23 tamsulosin 0.4 mg capsule (Flomax) 0.4 mg PO BEDTIME #30 caps 08/18/23 amoxicillin 875 mg-potassium 1 tab PO Q12H 7 days #14 tabs 02/03/24 clavulanate 125 mg tablet tramadol 50 mg tablet 50 mg PO Q8H PRN pain (scale score 02/03/24 7-10) #4 tabs Allergies Allergy/AdvReac Type Severity Reaction Status Date / Time No Known Allergies Allergy Mild Verified 05/02/24 14:22 Review of Systems Review of Systems: Constitutional : No Fever, No Chills ENT/Mouth : No Ear Pain, No Hoarseness, No sore throat Eyes: No Eye Pain, No Swelling, No Redness, No Foreign Body Cardiovascular : No Chest Pain, No SOB Respiratory : No Cough, No Dyspnea Gastrointestinal : No Nausea, No Vomiting, No Diarrhea, No abdominal Pain Genitourinary : No Dysuria, No Hematuria Musculoskeletal : positive joint pain, No Myalgias, pos Joint Swelling Skin : No Skin lacerations, No rash Neuro : No Weakness, No Numbness, No Loss of Consciousness, No Dizziness, No Headache All other systems reviewed and are negative [facility] Past Medical History Attestation statement: The following information was validated with the patient. Source: old records reviewed Medical History Hypercholesteremia Diabetes Hypertension Social History Social History Household Members: Significant Other Alcohol intake: former Patient Tobacco Use Status: Current everyday Tobacco user Tobacco use type: Cigarette Cigarettes Per Day: 5 Advance Directives: No Advance Directives Information Provided: No Physical Exam ED Vital Signs: Vital Signs - 24 hr 05/02/24 14:20 Temperature 98.3 F Pulse Rate 62 Respiratory Rate 16 Blood Pressure 136/79 Pulse Oximetry 98 Oxygen Delivery Method Room Air BMI result Body Mass Index 30.5 Appearance: Alert. Oriented X3. No acute distress. Eyes: Pupils equal, round and reactive to light. ENT: Pharynx normal. Neck: Normal inspection. Neck supple. CVS: Normal heart rate and rhythm. Pulses normal. Respiratory: No respiratory distress. Breath sounds normal. Abdomen: Soft and nontender. Skin: Skin warm and dry. Normal skin color. Normal skin turgor. Extremities: L calf > R calf distal pulses intact, ttp along medial joint line no effusion noted, no erythema, compartments are soft and compressible. Neuro: Oriented X 3. No motor deficit. No sensory deficit. Course Course Course Narrative: RME performed by Kathleen Parrish PA-C. Patient is a 53 year old assigned male at presenting to the emergency department with left knee pain. Patient states that he tripped and fell a couple of days ago and is having left knee pain. Detailed physical exam and review of systems are deferred to the aoc director intelligence officer. Imaging ordered. Patient placed back in the waiting room pending room availability and results. Medical Decision Making Medical Decision Making MDM Narrative: 53 yo male with PMH of DM, HTN, HLD here with c/o tripping and fall landing on L knee while in [place] - he came back Thursday has copper sleeve on but still has pain and now L calf is swollen not red. No other symptoms wanted to get it checked out. Xray of knee and DVT study ordered Differential Diagnosis Differential Diagnoses: The differential diagnosis associated with the presentation includes strain, sprain, DVT, ligamentous injury Admission/Observation Consideration of admission/observation: Escalation of care including admission/observation considered no acute findings stable for outpatient workup Independent Interpretation I performed an independent interpretation of an: Plain X-Ray (no fracture) and Ultrasound (no DVT) Radiology Impression Discussion of test interpretation with radiology: I have reviewed the radiologist's reading. Discharge Plan Discharge Clinical Impression: Knee strain Qualifiers: Encounter type: initial encounter Laterality: left Qualified Code(s): S86.912A - Strain of unspecified muscle(s) and tendon(s) at lower leg level, left leg, initial encounter Patient Disposition: Home, Self-Care Instructions: Knee Sprain (ED), Knee Pain (ED) Additional Instructions: normal xray no blood clot return for worsening symptoms or concerns follow up with your doctor in 1 week if not better you may need a MRI continue to wear your wrap Prescriptions: No Action tramadol 50 mg tablet 50 mg PO Q8H PRN (Reason: pain) Qty: 90 3RF [id number]-gnldyzdldcssx-eedc [Fioricet] 50-300-40 mg capsule 1 cap PO Q6H PRN (Reason: headache) Qty: 20 0RF loperamide [Anti-Diarrheal (loperamide)] 2 mg capsule 2 mg PO Q6H PRN (Reason: loose stool) Qty: 30 0RF ondansetron 4 mg tablet,disintegrating 4 mg PO Q6H PRN (Reason: nausea and vomiting) Qty: 14 0RF tamsulosin [Flomax] 0.4 mg capsule 0.4 mg PO BEDTIME Qty: 30 0RF amoxicillin-pot clavulanate 875-125 mg tablet 1 tab PO Q12H 7 Days Qty: 14 0RF tramadol 50 mg tablet 50 mg PO Q8H PRN (Reason: pain (scale score 7-10)) Qty: 4 0RF metoprolol tartrate 50 mg tablet 50 mg PO BID simvastatin 20 mg tablet 20 mg PO DAILY hydrochlorothiazide 25 mg tablet 25 mg PO DAILY aspirin [Adult Low Dose Aspirin] 81 mg tablet,delayed release (DR/EC) 81 mg PO DAILY omeprazole magnesium [Prilosec OTC] 20 mg tablet,delayed release (DR/EC) 20 mg PO BID docusate sodium [Colace] 100 mg capsule 100 mg PO BID sennosides [Natural Senna Laxative] 8.6 mg tablet 17.2 mg PO BEDTIME losartan 100 mg tablet 100 mg PO QAM haloperidol 5 mg tablet 5 mg PO BEDTIME potassium chloride 20 mEq tablet,ER particles/crystals 40 meq PO QAM haloperidol 2 mg tablet 2 mg PO DAILY cholecalciferol (vitamin D3) 25 mcg (1,000 unit) tablet 25 mcg PO QAM zolpidem 10 mg tablet 5 - 10 mg PO BEDTIME PRN amlodipine 10 mg tablet 10 mg PO QAM Print Language: Syriac
--- NOTE | 2024-05-02 18:30 | PC.NURSE ---
PT WAS SEEN AND RESULTS WERE REVIEWED BY PROVIDER AND DISCHARGE PLAN
[2024-05-02 18:32] VITALS: BP 128/74; PULSE 71; RESP 16; TEMP 36.4; O2SAT 98
== END 2024-05-02 18:33 | disposition home or self-care (01) ==
PROVIDERS: Emergency Provider Emergency Medicine; PCP Student in an Organized Health Care Education/Training Program
DX: S83.92XA Sprain of unspecified site of left knee, initial encounter (principal); W19.XXXA Unspecified fall, initial encounter; Y93.9 Activity, unspecified; Y92.9 Unspecified place or not applicable; Y99.9 Unspecified external cause status; M25.562 Pain in left knee; I10 Essential (primary) hypertension; E11.9 Type 2 diabetes mellitus without complications; Z79.899 Other long term (current) drug therapy
CPT/HCPCS: 73562; 93971; 99282; 99284

== ENCOUNTER 2024-11-10 21:38 | Emergency (ER) | payer MEDICAID, SELFPAY ==
[2024-11-10 21:42] VITALS: BP 138/65; PULSE 66; RESP 16; TEMP 36.6; O2SAT 96; BMI 28.9
[2024-11-10 21:56] LABS: Basophils Absolute Auto 0.1 X10*3/uL (0.0-0.2); Basophils Percent Auto 0.9 % (0-2); Eosinophils Absolute Auto 0.7 X10*3/uL (0.0-0.4); Eosinophils Percent Auto 6.1 % (0-4); Hematocrit 34.8 % (42.0-52.0); Hemoglobin 12.4 g/dl (14.0-18.0); Imm Gran Abs Auto 0.05 X10*3/uL (0.00-0.03); Imm Gran Pct Auto 0.4 % (0.0-0.4); Lymphocytes Absolute Auto 2.8 X10*3/uL (1.2-4.9); Lymphocytes Percent Auto 25.3 % (20-40); MANUAL DIFF FLAG NO; Mean Corpuscular HGB Conc 35.6 g/dl (31.0-36.0); Mean Corpuscular Hemoglobin 32.3 pg (27.0-33.0); Mean Corpuscular Volume 90.6 fL (80.0-98.0); Mean Platelet Volume 9.5 fL (9.4-12.4); Monocytes Absolute Auto 0.9 X10*3/uL (0.1-1.2); Monocytes Percent Auto 7.7 % (2-11); Neutrophils Absolute Auto 6.6 x10*3/uL (2.0-8.3); Neutrophils Percent Auto 59.6 % (45-73); Platelet Count 304 X10*3/uL (160-400); Red Blood Count 3.84 X10*6/uL (4.60-5.80); Red Cell Distribution Width 12.8 % (11.0-16.0); White Blood Count 11.2 X10*3/uL (4.8-10.8)
[2024-11-10 22:14] LABS: Alanine Aminotransferase 35 U/L (0-40); Albumin Level 4.2 g/dL (3.5-5.0); Alkaline Phosphatase 105 U/L (39-117); Anion Gap 12 (12-20); Aspartate Amino Transferase 27 U/L (5-37); Bilirubin Total 0.4 mg/dL (0.0-1.0); Blood Urea Nitrogen 23 mg/dL (9-16); Calcium 9.4 mg/dL (8.4-10.2); Carbon Dioxide 24 mmol/L (22-29); Chloride 110 mmol/L (96-108); Creatinine Clr Calc Pharmacy 57.5; Estimated Glomerular Filt Rate 47; Glucose Random 131 mg/dL (60-115); Lipase 62 U/L (8-78); Potassium 4.4 mmol/L (3.3-5.1); Sodium 142 mmol/L (135-145); Total Protein 7.5 g/dL (6.5-8.0)
--- NOTE | 2024-11-10 23:26 | ED_ITS ---
HPI - Male Genitourinary General Chief complaint: Urogenital-Male Stated complaint: unable to urinate Time Seen by Provider: 11/10/24 23:04 Source: patient Mode of arrival: ambulatory Limitations: no limitations History of Present Illness ED Provider: Dr. Dirk Salazar HPI Narrative: 54-year-old male history of hypercholesterolemia, diabetes, hypertension, schizophrenia, osteoarthritis, lumbar spondylosis, gross hematuria, prostatomegaly, TURP, who presents emergency department for evaluation of difficulty urinating. The patient had a left adrenalectomy at [facility] on 10/18/2024. Patient was 3 days in the hospital. He states that he was having difficulty urinating and eventually had a Dunham catheter placed. The Dunham catheter was removed yesterday. He states that the 1st day that the Dunham catheter was removed he was able to urinate but today he was had dysuria, frequency, urgency and only urinating small amounts. He does feel like his bladder is distended. He denied fever or chills. He is taking Flomax. Related Data Home Medications ?Medication ?Instructions ?Recorded ?Confirmed aspirin 81 mg tablet,delayed 81 mg PO DAILY 06/28/20 12/25/22 release (Adult Low Dose Aspirin) docusate sodium 100 mg capsule 100 mg PO BID 06/28/20 12/25/22 (Colace) hydrochlorothiazide 25 mg tablet 25 mg PO DAILY 06/28/20 12/25/22 metoprolol tartrate 50 mg tablet 50 mg PO BID 06/28/20 12/25/22 omeprazole magnesium 20 mg 20 mg PO BID 06/28/20 12/25/22 tablet,delayed release (Prilosec OTC) sennosides 8.6 mg tablet (Natural 17.2 mg PO BEDTIME 06/28/20 12/25/22 Senna Laxative) simvastatin 20 mg tablet 20 mg PO DAILY 06/28/20 12/25/22 haloperidol 2 mg tablet 2 mg PO DAILY 06/27/22 12/25/22 haloperidol 5 mg tablet 5 mg PO BEDTIME 06/27/22 12/25/22 losartan 100 mg tablet 100 mg PO QAM 06/27/22 12/25/22 potassium chloride 20 mEq 40 meq PO QAM 06/27/22 12/25/22 tablet,extended release(part/cryst) amlodipine 10 mg tablet 10 mg PO QAM 12/25/22 12/25/22 cholecalciferol (vitamin D3) 25 25 mcg PO QAM 12/25/22 12/25/22 mcg (1,000 unit) tablet zolpidem 10 mg tablet 5 - 10 mg PO BEDTIME PRN 12/25/22 12/25/22 Previous Rx's ?Medication ?Instructions ?Recorded kipckuwlju-ztpccaujubeau-qgjxyvuy 1 cap PO Q6H PRN headache #20 caps 04/24/22 50 mg-300 mg-40 mg capsule (Fioricet) loperamide 2 mg capsule 2 mg PO Q6H PRN loose stool #30 08/08/22 (Anti-Diarrheal (loperamide)) caps ondansetron 4 mg disintegrating 4 mg PO Q6H PRN nausea and 08/08/22 tablet vomiting #14 tabs tramadol 50 mg tablet 50 mg PO Q8H PRN pain #90 tabs 06/02/23 tamsulosin 0.4 mg capsule (Flomax) 0.4 mg PO BEDTIME #30 caps 08/18/23 amoxicillin 875 mg-potassium 1 tab PO Q12H 7 days #14 tabs 02/03/24 clavulanate 125 mg tablet tramadol 50 mg tablet 50 mg PO Q8H PRN pain (scale score 02/03/24 7-10) #4 tabs Allergies Allergy/AdvReac Type Severity Reaction Status Date / Time No Known Allergies Allergy Mild Verified 11/10/24 21:46 Review of Systems 2 Review of Systems: Yes all other systems are reviewed and are negative FORMERLY [facility], [facility]–1983 Past Medical History Medical History Hypercholesteremia Diabetes Hypertension Social History Social History Household Members: Significant Other Alcohol intake: former Patient Tobacco Use Status: Current everyday Tobacco user Tobacco use type: Cigarette Cigarettes Per Day: 5 Advance Directives: No Advance Directives Information Provided: Yes Do you have a plan to hurt others: No Plan Physical Exam 2 Vital Signs: Vital Signs: Last Vital Signs Temp 98.3 F 11/10/24 23:28 Pulse 57 11/10/24 23:28 Resp 16 11/10/24 23:28 BP 121/67 11/10/24 23:28 Pulse Ox 96 11/10/24 23:28 O2 Del Method Room Air 11/10/24 23:28 BMI result Body Mass Index 28.9 Vital signs revealed an elevated blood pressure of 130/65 otherwise unremarkable Exam: General: Awake, alert in no distress Head: Normocephalic, atraumatic EENT: PERRL, Lids normal, sclera normal, conjunctiva normal, nose normal , ears normal, throat without erythema or exudates Neck: Supple, no adenopathy Lung: breath sounds symmetric, no wheezing, rales or rhonchi Chest: symmetric movement, nontender Heart: regular rate and rhythm, normal S1, S2 no murmurs or rubs Abdomen: soft, moderate suprapubic tenderness, laparoscopic surgical sites are intact, normoactive bowel sounds, no rebound Back: no vertebral tenderness, no CVAT Extremities: no deformities, moves all extremities symmetrically Neuro: Awake, alert, oriented, normal speech, cranial nerves intact, moves all extremities symmetrically Psych: Pleasant, cooperative Medical Decision Making Medical Decision Making MDM Narrative: 54-year-old male history of hypercholesterolemia, diabetes, hypertension, schizophrenia, osteoarthritis, lumbar spondylosis, gross hematuria, prostatomegaly, TURP, who presents to the emergency department for evaluation of difficulty urinating x1 day. The patient had an abdominal surgery at [facility] on 10/18/2024. Based on the patient was description of the surgery I suspect that he had an left adrenalectomy. He states that he has been 3 days in the hospital. He states that he was having difficulty urinating and eventually had a Dunham catheter placed. The Dunham catheter was removed yesterday. He states that initially he was able to urinate without any difficulty. Today he states he was only been urinating in small amounts he feels like his bladder is full. He also states that he has a burning sensation when he urinates. He denied fever or chills. He is taking Flomax. Physical examination did reveal suprapubic tenderness otherwise was unremarkable. Differential diagnosis: ?Includes but is not limited to urinary retention, urinary tract infection, acute kidney injury, anemia, electrolyte abnormality Course: 00:00 My interpretation patient's laboratory evaluation is as follows: WBC was elevated 11,200. Normocytic anemia with an H&H of 12.4 and 34.8. BUN and creatinine were elevated 23 and 1.53 with a GFR of 47 The patient had a bladder scan which revealed between 240 and 290 cc of urine in his bladder. Patient was post-void residual was 91 cc. 00:48 The patient was urinalysis was unremarkable. At this time I do not think that the patient needs the Dunham catheter reinserted and I did discuss this with him. I advised the patient to change he was Flomax to a morning dose and to take his next dose tomorrow morning. I did tell the patient increase the amount of fluid that he drinks over the next 1-2 days to prevent dehydration and that if he was not able to void or felt increased pressure in his bladder area then you should return to the emergency department for re-evaluation. Admission/Observation Consideration of admission/observation: Escalation of care including admission/observation considered (Yes) Lab Data MDM Lab Attestation statement: I reviewed the patient's lab results. 11/10/24 21:51 11/10/24 21:51 Labs: Lab Results 11/10/24 11/11/24 Range/Units 21:51 00:05 WBC 11.2 H (4.8-10.8) X10*3/uL RBC 3.84 L (4.60-5.80) X10*6/uL Hgb 12.4 L (14.0-18.0) g/dl Hct 34.8 L (42.0-52.0) % MCV 90.6 (80.0-98.0) fL MCH 32.3 (27.0-33.0) pg MCHC 35.6 (31.0-36.0) g/dl RDW 12.8 (11.0-16.0) % Plt Count 304 (160-400) X10*3/uL MPV 9.5 (9.4-12.4) fL Immature Gran % (Auto) 0.4 (0.0-0.4) % Neut % (Auto) 59.6 (45-73) % Lymph % (Auto) 25.3 (20-40) % [place] % (Auto) 7.7 (2-11) % Eos % (Auto) 6.1 H (0-4) % Baso % (Auto) 0.9 (0-2) % Lymph # (Auto) 2.8 (1.2-4.9) X10*3/uL [place] # (Auto) 0.9 (0.1-1.2) X10*3/uL Eos # (Auto) 0.7 H (0.0-0.4) X10*3/uL Baso # (Auto) 0.1 (0.0-0.2) X10*3/uL Abs Immat Gran (auto) 0.05 H (0.00-0.03) X10*3/uL Absolute Neuts (auto) 6.6 (2.0-8.3) x10*3/uL Absolute Nucleated RBC 0.000 (0.0-0.012) X10*3/uL Nucleated RBC % (auto) 0.0 (0.0-0.2) /100WBC Sodium 142 (135-145) mmol/L Potassium 4.4 D (3.3-5.1) mmol/L Chloride 110 H (96-108) mmol/L Carbon Dioxide 24 (22-29) mmol/L Anion Gap 12 (12-20) BUN 23 H (9-16) mg/dL Creatinine 1.53 H (0.5-1.4) mg/dL Estim Creat Clear Calc 57.5 Estimated GFR 47 Random Glucose 131 H (60-115) mg/dL Calcium 9.4 (8.4-10.2) mg/dL Total Bilirubin 0.4 (0.0-1.0) mg/dL AST 27 (5-37) U/L ALT 35 (0-40) U/L Alkaline Phosphatase 105 (39-117) U/L Total Protein 7.5 (6.5-8.0) g/dL Albumin 4.2 (3.5-5.0) g/dL Lipase 62 (8-78) U/L Urine Color Yellow Urine Appearance Clear Urine pH 6.0 (5.0-9.0) Ur Specific [place] 1.015 (1.005-1.025) Urine Protein Negative (Neg-Trace) mg/dL Urine Glucose (UA) Negative (Negative) mg/dL Urine Ketones Negative (Negative) mg/dL Urine Blood Negative (Negative) Urine Nitrite Negative (Negative) Ur Leukocyte Esterase Negative (Negative) Discharge Plan Discharge Clinical Impression: Dysuria Patient Disposition: Home, Self-Care Additional Instructions: Your blood work did reveal a slight elevation in your kidney numbers, I suspect that this might be from dehydration so I want you to increase the amount of fluid that you drink over the next 1-2 days. You do not have a urinary tract infection based on the urine sample that you gave us this evening. We checked the amount of urine in your bladder with an ultrasound device. Initially you had 290 cc of urine and after you voided you had 90 cc which is reassuring and suggests that you do not need a Dunham catheter at this time. However, if you continue to have difficulty urinating in you feel like your having pressure in your bladder area you should return to the emergency department so that we can re-evaluate you to determine if you need the Dunham catheter reinserted. I want you to start taking your Flomax in the morning and take your next dose tomorrow morning. Continue taking your other medications as prescribed by your providers. Follow-up with your doctor in 2 days. Please return to the emergency department if your symptoms get worse or if you develop any symptoms that are concerning to you. Prescriptions: No Action tramadol 50 mg tablet 50 mg PO Q8H PRN (Reason: pain) Qty: 90 3RF [id number]-aqfpokudmnwbd-xfjx [Fioricet] 50-300-40 mg capsule 1 cap PO Q6H PRN (Reason: headache) Qty: 20 0RF loperamide [Anti-Diarrheal (loperamide)] 2 mg capsule 2 mg PO Q6H PRN (Reason: loose stool) Qty: 30 0RF ondansetron 4 mg tablet,disintegrating 4 mg PO Q6H PRN (Reason: nausea and vomiting) Qty: 14 0RF tamsulosin [Flomax] 0.4 mg capsule 0.4 mg PO BEDTIME Qty: 30 0RF amoxicillin-pot clavulanate 875-125 mg tablet 1 tab PO Q12H 7 Days Qty: 14 0RF tramadol 50 mg tablet 50 mg PO Q8H PRN (Reason: pain (scale score 7-10)) Qty: 4 0RF metoprolol tartrate 50 mg tablet 50 mg PO BID simvastatin 20 mg tablet 20 mg PO DAILY hydrochlorothiazide 25 mg tablet 25 mg PO DAILY aspirin [Adult Low Dose Aspirin] 81 mg tablet,delayed release (DR/EC) 81 mg PO DAILY omeprazole magnesium [Prilosec OTC] 20 mg tablet,delayed release (DR/EC) 20 mg PO BID docusate sodium [Colace] 100 mg capsule 100 mg PO BID sennosides [Natural Senna Laxative] 8.6 mg tablet 17.2 mg PO BEDTIME losartan 100 mg tablet 100 mg PO QAM haloperidol 5 mg tablet 5 mg PO BEDTIME potassium chloride 20 mEq tablet,ER particles/crystals 40 meq PO QAM haloperidol 2 mg tablet 2 mg PO DAILY cholecalciferol (vitamin D3) 25 mcg (1,000 unit) tablet 25 mcg PO QAM zolpidem 10 mg tablet 5 - 10 mg PO BEDTIME PRN amlodipine 10 mg tablet 10 mg PO QAM Print Language: Yoruba
[2024-11-10 23:28] VITALS: BP 121/67; PULSE 57; RESP 16; TEMP 36.8; O2SAT 96
--- NOTE | 2024-11-11 00:01 | PC.NURSE ---
244 mL scanned. pt voided into toilet without dysuria, slight hesitancy. post void residual shows 90 mL
[2024-11-11 00:11] LABS: Appearance Urine Clear; Color Urine Yellow; Glucose Urine UA Negative (Negative); Leukocyte Esterase Urine Negative (Negative); Nitrite Urine Negative (Negative); Specific Gravity - Urine 1.015 (1.005-1.025); Urine Blood Negative (Negative); Urine Ketones Negative (Negative); Urine Protein Negative (Neg-Trace)
[2024-11-11 01:07] VITALS: BP 118/64; PULSE 56; RESP 16; TEMP 36.6; O2SAT 96
== END 2024-11-11 01:30 | disposition home or self-care (01) ==
PROVIDERS: Emergency Provider Emergency Medicine Emergency Medical Services
DX: R33.9 Retention of urine, unspecified (principal); R30.0 Dysuria; Z79.899 Other long term (current) drug therapy
CPT/HCPCS: 36415; 51798; 80053; 81003; 83690; 85025; 99283; 99285

== ENCOUNTER 2025-02-17 11:41 | Outpatient (REF) | payer MEDICAID, SELFPAY ==
--- NOTE | ~2025-02-17 | XR_ITS ---
CLINICAL HISTORY: pt w chronic lower back pain 3 views lumbar spine Comparison: CR/SR - XR LUMBAR SPINE 2-3V - 06/30/22 13:22 EST Findings: Straightening of the normal lumbar lordosis. No acute fractures or dislocation. Degenerative changes stable since 06/30/2022. IMPRESSION: No acute findings. This document has been electronically signed by: Miguel Angel Whitney MD, PHD on 02/19/2025 23:09:03
--- OUTSIDE RECORDS SUMMARY | 2025-02-17 12:11 | XMS_ITS | Clinical Summary ---
Author Organization [facility] Facility Address [address] [place] [id number] Care Team Providers Care Supervisor Hot Dip Plating Name Role Phone Me [place] Primary Care Provider Unavaila ble Allergies Active Allergy Reactions Criticality Noted Date Comments Acetaminophen Other (see comments) 11/26/2020 Oxycodone Other (see comments) 11/26/2020 Medications amLODIPine (NORVASC) 10 MG tablet Take 10 mg by mouth 1 Active SM Aspirin Adult Low Strength 81 MG EC tablet Take 81 mg by mouth at bed time 1 Active Cholecalciferol (Vitamin D3) 25 MCG tablet Take 1 tablet by mouth 1 Active Albuterol Sulfate (ProAir RespiClick) 108 (90 Base) MCG/ACT aerosol powder Active haloperidol (HALDOL) 5 MG tablet Take 5 mg by mouth at bed time 1 Active metoprolol tartrate (LOPRESSOR) 50 MG tablet TAKE 1 TABLET BY MOUTH TWICE DAILY IN THE MORNING AND IN THE EVENING WITH MEALS 1 Active nicotine (NICODERM CQ) 14 MG/24HR APPLY 1 PATCH TOPICALLY TO THE SKIN DAILY IN THE MORNING THEN REMOVE AT BEDTIME DIRECTED. DO NOT SMOKE WHILE USING PATCH 1 Active simvastatin (ZOCOR) 20 MG tablet Take 20 mg by mouth at bed time 1 Active traMADol (ULTRAM) 50 MG tablet TAKE 1 TABLET BY MOUTH THREE TIMES DAILY NEEDED FOR PAIN 1 Active zolpidem (AMBIEN) 10 MG tablet TAKE 1/2 TO 1 TABLET BY MOUTH AT BEDTIME NEEDED 1 Active hydroCHLOROthia zide (HYDRODIURIL) 25 MG tablet Take 25 mg by mouth 1 Active haloperidol (HALDOL) 2 MG tablet TAKE 1 TABLET BY MOUTH AT BEDTIME WITH 2mg TABLET 1 Active potassium chloride (KLOR-CON M20) 20 MEQ CR tablet TAKE 2 TABLETS BY MOUTH ONCE DAILY IN THE MORNING DO NOT CRUSH, DISSOLVE, OR CHEW 60 tablet 2 2 Active Active Problems Problem Noted Date Diagnosed Date Acute nontraumatic kidney injury 11/26/2020 Hypertension 11/19/2020 Hypokalemia 11/19/2020 Gastroesophageal reflux disease 11/19/2020 Schizophrenia 11/19/2020 Social History Tobacco Use Types Packs/Day Years Used Date Smoking Tobacco: Light Smoker Cigarettes Smokeless Tobacco: Never Alcohol Use Standard Drinks/Week Comments Not Currently 0 (1 standard drink = 0.6 oz pur e alcohol) Sex and Gender Information Value Date Recorded Sex Assigned at Not on file Legal Sex Male 4:48 PM EST Gender Identity Not on file Sexual Orientation Not on file Last Filed Vital Signs Vital Sign Reading Time Taken Comments Blood Pressure 125/64 02/25/2021 2:39 PM EDT Pulse 68 02/25/2021 2:39 PM EDT Temperature - - Respiratory Rate - - Oxygen Saturation 96% 02/25/2021 2:39 PM EDT Inhaled Oxygen Concentration - - Weight 91 kg (200 lb 9.6 oz) 02/25/2021 2:39 PM EDT Height 172.7 cm (5' 8 ) 11/26/2020 2:14 PM EDT Body Mass Index 30.5 11/26/2020 2:14 PM EDT Plan of Treatment Upcoming Encounters Date Type Department Care Team (Late st Contact Info) Description 04/24/2025 2:45 PM EDT Office Visit [facility] [address] [place] [phone] Antoine Basilio MD [address] [facility] [address] [place] [address] Health Maintenance Due Date Last Done Comments Hepatitis B Vaccine (1 of 3 - 19+ 3-dose series) 1987 Colorectal Cancer Screening: Annual FOBT 2017 Colorectal Cancer Screening: Colonoscopy 2017 Colorectal Cancer Screening: Sigmoidoscopy 2017 Pneumococcal Vaccine: 50+ Ye ars (3 of 3 - PCV) 08/16/2020 08/16/2019, 12/30/2015 Influenza Vaccine (#1) 2025 , 05/21/2023, 05/08/2022, Additional history exists Pneumococcal Vaccine: Peds ( 0 to 5 Years) and At-Risk Patients (6 to 49 Years) Discontinued 08/16/2019, 12/30/2015 Insurance Medicaid [place] Care Teams Supervisor Hot Dip Plating Relationship Specialty Start Date End Date Chauncey Haney PCP - General Internal Medicine 11/06/20
--- OUTSIDE RECORDS SUMMARY | 2025-02-17 12:11 | XMS_ITS | Encounter Summary ---
Author Organization [employer] Address [address] [facility] 7 [place] [address] Care Team Providers Care Degreaser Name Role Phone Beryl Almanza MD Primary Care Pro vider Reason for Visit * Reason Onset Date Comments Referral 02/16/2025 Encounter Details Date Type Department Care Team (Late st Contact Info) Description 02/16/2025 Telephone [facility] MEDICINE [address], [place] [phone] Beryl Almanza MD [address] [place] [address] Referral Social History Tobacco Use Types Packs/Day Years Used Date Smoking Tobacco: Former Cigarettes Q uit: 10/2024 Passive Smoke Exposure: Current Smokeless Tobacco: Former Comments:Started smoking 23 years of age -15 cigarettes a day for 5 years and since then smoking 1 -2 cigarette smoking total 29 years ---STOPPED 4 months Alcohol Use Standard Drinks/Week Comments Not Currently 0 (1 standard drink = 0.6 oz pur e alcohol) Depression Answer Date Recorded Patient Health Questionnaire-9 Score 1 05/01/2023 Housing Stability Answer Date Recorded What is your housing situation today? I have ayana cardenas 12/27/[address] you li ve. Do you have problems with any of the following? None of the above 12/27/2024 Food Insecurity Answer Date Recorded Within the past 12 months, y ou worried that your food would run out before you got money to buy more: Never True 12/27/2024 Within the past 12 months,th e food you bought just didn't last and you didn't have enough money to get more: Never True Transportation Answer Date Recorded In the past 12 months, has l ack of transportation kept you from medical appts, meetings, work or from getting things needed for daily living? No 12/27/2024 Utilities Answer Date Recorded In the past 12 months, has t he electric, gas, oil or water company threatened to shut off services in your home? No 12/27/2024 Depression Answer Date Recorded Patient Health Questionnaire-2 Score 0 05/01/2023 Internet Access Answer Date Recorded Internet Access Q1 Yes 12/27/2024 Internet Access Q2 Not on file 12/27/2024 Sex and Gender Information Value Date Recorded Sex Assigned at Male 06/09/2022 10:17 AM EDT Legal Sex Male 10:17 AM EDT Gender Identity Male 06/09/2022 10:17 AM EDT Sexual Orientation Straight 06/09/2022 10 :17 AM EDT documented as of this encounter Miscellaneous Notes * Telephone Encounter - Edyta Banegas RN - 02/16/2025 11:52 AM EDT TC placed to pt to advise the PCP placed an order for a lumbar spine XR on 02/09/2025. Pt advised that this can be done at the [facility] her at the clinic or at [facility]. Pt agreeable to this information and had no further questions or concerns at this time. * Telephone Encounter - Emeterio Jackson - 02/16/2025 9:27 AM EDT Tc from pt requesting a referral for Xray of back . Pt states this was discussed with provider in [facility] apt on 02/09. Contact pt at [phone] documented in this encounter Plan of Treatment Upcoming Encounters Date Type Department Care Team (Late st Contact Info) Description 04/14/2025 1:00 PM EDT Office Visit [facility] MEDICINE [address], [place] [phone] Beryl Almanza MD [address] [place], [place] [phone] documented as of this encounter Visit Diagnoses Not on filedocumented in this encounter Additional Health Concerns Assessment Noted Time PHQ-9 Depression Total Score: 1 05/01/20 23 10:48 AM EDT documented as of this encounter Care Teams Degreaser Relationship Specialty Start Date End Date Beryl Almanza MD [address] [place] [id number] PCP - General Internal Medicine 11/21/22 documented as of this encounter
--- OUTSIDE RECORDS SUMMARY | 2025-02-17 12:12 | XMS_ITS | Clinical Summary ---
Author Organization [facility] Address [address] [place] [address] Phone Care Team Providers Care Golf Sales Manager Name Role Phone Physician, Pcp Unknown Primary Care Provider Whit vailable Allergies No known active allergies Medications No known medications Active Problems No known active problems Encounters Date Type Department Care Team Description 12/23/2024 3:49 PM EDT - 12/24/2024 1:[address] [facility] Emergency [address] [place] [address] Intractable abdominal pain (Primary Dx) Discharge Disposition: Short Term Hospital from Last 3 Months Medical History Medical History Date Comments HTN (hypertension) Social History Tobacco Use Types Packs/Day Years Used Date Smoking Tobacco: Former Cigarettes Smokeless Tobacco: Never Tobacco Cessation:Counseling Given: Not Answered Sex and Gender Information Value Date Recorded Sex Assigned at Not on file Legal Sex Male 4:54 AM EST Gender Identity Not on file Sexual Orientation Not on file Obstetrics History Last Filed Vital Signs Vital Sign Reading Time Taken Comments Blood Pressure 124/75 12/24/2024 12:30 AM EDT Pulse 55 12/24/2024 12:30 AM EDT Temperature 36.4 C (97.5 F) 12/23/2024 8:26 PM EDT Respiratory Rate 18 12/24/2024 12:30 AM EDT Oxygen Saturation 99% 12/24/2024 12:30 AM EDT Inhaled Oxygen Concentration - - Weight 90.7 kg (200 lb) 12/23/2024 3:32 PM EDT Height 172.7 cm (5' 8 ) 12/23/2024 3:32 PM EDT Body Mass Index 30.41 12/23/2024 3:32 PM EDT Plan of Treatment Health Maintenance Due Date Last Done Comments Hepatitis B Vaccines (1 of 3 - 19+ 3-dose series) 1987 Pneumococcal Vaccine: 50+ Years (2 of 2 - PCV) 08/16/2020 08/16/2019, 12/30/2015 COVID-19 Vaccine (7 - 2023- season) 2024 07/10/2023, 09/25/2022, 01/09/2022, Additional history exists Depression Screening 12/23/2024 05/01/2023 HIV Screening 12/23/2024 Social Influencers of Health Screening 12/23/2024 Influenza Vaccine (#1) 2025 , 05/21/2023, 05/08/2022, Additional history exists Hypertension/CHF/CAD Annual BMP Blood Test 12/23/2025 12/23/2024 Colorectal Cancer Screening: FIT-DNA (Cologuard) 05/14/2026 05/14/2023 DTaP,Tdap,and Td Vaccines (3 - Td or Tdap) 10/05/2027 10/05/2017, 07/01/2004 Cholesterol Screening (Lipid Panel) 09/11/2028 09/11/2023 Pneumococcal Vaccine: Pediatrics (0 to 5 Years) and At-Risk Patients (6 to 49 Years) Aged Out 08/16/2019, 12/30/2015 No longer eligibl e based on patient's age to complete this topic Hepatitis C Screening Completed 05/19/2023 Zoster Vaccines Completed 07/23/2023, 05/21/2023 HIB Vaccines Aged Out No longer eligi ble based on patient's age to complete this topic HPV Vaccines Aged Out No longer eligi ble based on patient's age to complete this topic Hepatitis A Vaccines Aged Out No long er eligible based on patient's age to complete this topic IPV Vaccines Aged Out No longer eligi ble based on patient's age to complete this topic MMR Vaccines Aged Out No longer eligi ble based on patient's age to complete this topic Meningococcal ACWY Vaccine Aged Out N o longer eligible based on patient's age to complete this topic Meningococcal B Vaccine Aged Out No l onger eligible based on patient's age to complete this topic RSV Immunization Patients Under 20 months Aged Out No longer eligible based on patient's age to complete this topic Varicella Vaccines Aged Out No longer eligible based on patient's age to complete this topic Procedures Procedure Name Priority Date/Time Associated Diagnosis Comments XR CHEST 2 VIEWS STAT 12/23/2024 9:[address] ABDOMEN PELVIS W CONTRAST STAT 12/23/2024 8:34 PM EDT B-TYPE NATRIURETIC PEPTIDE STAT 12/23/2024 6:23 PM EDT HENRY URINE CULTURE TUBE STAT 12/23/2024 3:42 PM EDT URINALYSIS WITH REFLEX MICROSCOPIC AND CULTURE STAT 12/23/2024 3:42 PM EDT URINALYSIS WITH REFLEX MICROSCOPIC AND CULTURE STAT 12/23/2024 3:42 PM EDT CBC WITH AUTO DIFFERENTIAL STAT 12/23/2024 3:38 PM EDT LIPASE STAT 12/23/2024 3:38 PM EDT COMPREHENSIVE METABOLIC PANEL STAT 12/23/2024 3:38 PM EDT CBC AND DIFFERENTIAL STAT 12/23/2024 3:38 PM EDT from Last 3 Months Results * XR Chest 2 Views (12/23/2024 9:05 PM EDT) Anatomical Region Laterality Modality Body Radiographic Niya ging 12/24/2024 8:11 AM EDT Impressions 12/24/2024 8:14 AM EDT No pneumonia or edema. -------- FINAL REPORT -------- Dictated By: Gage Beckman Dictated Date: 12/24/2024 08:11 ET Assigned Physician: Gage Beckman Reviewed and Electronically Signed By: Gage Beckman Signed Date: 12/24/2024 08:14 ET Workstation ID: [id number] Transcribed By: Self Edit Transcribed Date: 12/24/2024 08:11 ET Narrative 12/24/2024 8:14 AM EDT EXAMINATION: CHEST CLINICAL INFORMATION: Shortness of breath. Chest pain COMPARISON: None. TECHNIQUE: 2 views of the chest FINDINGS: The cardiac size, mediastinal contours, hilar, and vasculature are within normal limits. No acute pneumonia. The pleural margins appear within normal limits. There are osteophytes in the spine. Procedure Note Gage Beckman MD - 12/24/2024 EXAMINATION: CHEST CLINICAL INFORMATION: Shortness of breath. Chest pain COMPARISON: None. TECHNIQUE: 2 views of the chest FINDINGS: The cardiac size, mediastinal contours, hilar, and vasculature are withinnormal limits. No acute pneumonia. The pleural margins appear within normal limits. There are osteophytes inthe spine. IMPRESSION: No pneumonia or edema. -------- FINAL REPORT -------- Dictated By: Gage Beckman Dictated Date: 12/24/2024 08:11 ET Assigned Physician: Gage Beckman Reviewed and Electronically Signed By: Gage Beckman Signed Date: 12/24/2024 08:14 ET Workstation ID: [id number] Transcribed By: Self Edit Transcribed Date: 12/24/2024 08:11 ET us Madelyn SAAB IMG XR PROCEDURES Final Result * CT Abdomen Pelvis w Contrast (12/23/2024 8:34 PM EDT) Anatomical Region Laterality Modality Body Computed Tomogra phy 12/23/2024 9:27 PM EDT Addenda Addendum by Selvin Almazan MD on 12/23/2024 9:30 PM EDT ADDENDUM: This report was discussed with WOODROW GAFFNEY on December 23, 2024 21:28:00 EDT. This document has been electronically signed by: Dariela Miranda on 12/23/2024 21:30:18 Impressions 12/23/2024 9:27 PM EDT 1. A hypodense lesion which appears to arise from the lateral limb of the left adrenal gland or arising from the dorsal inferior pancreatic tail measuring 2.9 x 2.1 cm. The dorsal pancreatic tail is adherent to this hypodense foci with multiple small hypodense soft tissue foci adjacent to the pancreatic tail within the retroperitoneum measuring up to 2.2 and 2.6 cm respectively. Recommend MRI imaging of the abdomen with pancreatic protocol for further evaluation and to exclude neoplastic process. 2. Enlarged prostate measures 5.4 cm resulting in mild posterior contouring upon the urinary bladder. 3. Surgical changes of the level of the cecum. The appendix is absent. 4. Numerous chronic findings as above. This document has been electronically signed by: Selvin Almazan DO on 12/23/2024 21:27:46 Narrative 12/23/2024 9:27 PM EDT INDICATION: diffuse abd pain CT abdomen and pelvis with contrast Comparison: None Findings: The lung bases are clear. Atherosclerosis of the abdominal aorta. Small inguinal hernias each containing fat. The liver parenchyma is unremarkable. Intrahepatic and extrahepatic biliary ductal dilatation likely related to prior cholecystectomy. A hypodense lesion which appears to arise from the lateral limb of the left adrenal gland or arising from the dorsal pancreatic tail measuring 2.9 x 2.1 cm. The dorsal pancreatic tail is adherent to this hypodense foci with multiple small hypodense soft tissue foci adjacent to the pancreatic tail measuring up to 2.2 and 2.6 cm respectively. Recommend MRI imaging of the abdomen with pancreatic protocol for further evaluation and to exclude neoplastic process. The spleen and right adrenal gland are normal. The kidneys without nephrolithiasis or hydronephrosis Enlarged prostate measures 5.4 cm in transverse diameter resulting in posterior contouring upon the urinary bladder. Mild mucosal thickening of the urinary bladder may be on the basis of underdistention or chronic outlet obstruction. Intraluminal fluid within the mid/distal small bowel, nonspecific. No bowel obstruction, pneumoperitoneum, or pneumatosis. Mild colonic fecal burden. Surgical changes of the level of the cecum. The appendix is absent. Degenerative changes of the lumbar spine. Procedure Note Selvin Almazan MD - 12/23/2024 INDICATION: diffuse abd pain CT abdomen and pelvis with contrast Comparison: None Findings: The lung bases are clear. Atherosclerosis of the abdominal aorta. Small inguinal hernias each containing fat. The liver parenchyma is unremarkable. Intrahepatic and extrahepatic biliary ductal dilatation likely relatedto prior cholecystectomy. A hypodense lesion which appears to arise from the lateral limb of the left adrenal gland or arising from the dorsal pancreatic tail measuring 2.9 x 2.1 cm. The dorsal pancreatic tail is adherent to this hypodense foci with multiple small hypodense soft tissue foci adjacent to the pancreatic tail measuring up to 2.2 and 2.6 cm respectively. RecommendMRI imaging of the abdomen with pancreatic protocol for further evaluationand to exclude neoplastic process. The spleen and right adrenal gland are normal. The kidneys without nephrolithiasis or hydronephrosis Enlarged prostate measures 5.4 cm in transverse diameter resulting in posterior contouring upon the urinary bladder. Mild mucosal thickeningof the urinary bladder may be on the basis of underdistention or chronic outlet obstruction. Intraluminal fluid within the mid/distal small bowel, nonspecific. No bowel obstruction, pneumoperitoneum, or pneumatosis. Mild colonicfecal burden. Surgical changes of the level of the cecum. The appendix is absent. Degenerative changes of the lumbar spine. IMPRESSION: 1. A hypodense lesion which appears to arise from the lateral limb ofthe left adrenal gland or arising from the dorsal inferior pancreatic tail measuring 2.9 x 2.1 cm. The dorsal pancreatic tail is adherent to this hypodense foci with multiple small hypodense soft tissue foci adjacentto the pancreatic tail within the retroperitoneum measuring up to 2.2 and2.6 cm respectively. Recommend MRI imaging of the abdomen with pancreatic protocol for further evaluation and to exclude neoplastic process. 2. Enlarged prostate measures 5.4 cm resulting in mild posterior contouring upon the urinary bladder. 3. Surgical changes of the level of the cecum. The appendix is absent. 4. Numerous chronic findings as above. This document has been electronically signed by: Selvin Almazan DO on 12/23/2024 21:27:[address] PROCEDURES Edited Resul t - Final * B-type natriuretic peptide (12/23/2024 6:23 PM EDT) BNP 3 <=100 pcg/mL LAB CHEMISTRY METHOD 12/23/2024 7:34 PM EDT [facility] Blood Venous blood specimen / Unknown Venipuncture / Unknown 12/23/2024 6:23 PM EDT 12/23/2024 6:49 PM EDT us Madelyn SAAB LAB BLOOD ORDERABLES Final Res ult [facility] [address] [place] [address], [place] [phone] * (ABNORMAL) Urinalysis with reflex microscopic and culture (12/23/2024 3:42 PM EDT) Specific Veteran Urine 1.022 1.003 - 1.030 LAB URINALYSIS - AUTOMATED METHOD 12/23/2024 4:05 PM [facility] pH, Urine 5.5 5.0 - 8.0 pH LAB URINALYSIS - AUTOMATED METHOD 12/23/2024 4:05 PM [facility] Leukocytes, Urine Negative Negative LAB URINALYSIS - AUTOMATED METHOD 12/23/2024 4:05 PM [facility] Nitrite, Urine Negative Negative LAB URINALYSIS - AUTOMATED METHOD 12/23/2024 4:05 PM [facility] Protein, Urine Trace <=Trace mg/dL LAB URINALYSIS - AUTOMATED METHOD 12/23/2024 4:05 PM [facility] Glucose, Urine Negative Negative mg/dL LAB URINALYSIS - AUTOMATED METHOD 12/23/2024 4:05 PM [facility] Ketones, Urine Trace(A) Negative mg/dL LAB URINALYSIS - AUTOMATED METHOD 12/23/2024 4:05 PM [facility] Urobilinogen, Urine 1.0 0.2 - 1.0 mg/dL LAB URINALYSIS - AUTOMATED METHOD 12/23/2024 4:05 PM [facility] Bilirubin, Urine Negative Negative LAB URINALYSIS - AUTOMATED METHOD 12/23/2024 4:05 PM [facility] Blood, Urine Negative Negative LAB URINALYSIS - AUTOMATED METHOD 12/23/2024 4:05 PM [facility] Urine Urine specimen obtained by clean catch procedure / Unknown Non-blood Collection / Unknown 12/23/2024 3:42 PM EDT 12/23/2024 3:54 PM EDT Douglas B Judd JOYCE LAB URINE ORDERABLES Final Resu lt Performing Organization Address City/[facility]/ZIP Co de Phone Number [facility] [address] [place] [address], [place] [phone] * Henry urine culture tube (12/23/2024 3:42 PM EDT) Pathologist [facility] Extra Tube Hold for add-ons. 12/23/2024 5:02 PM EDT [facility] Comment:Auto resulted. Urine Urine specimen obtained by clean catch procedure / Unknown Non-blood Collection / Unknown 12/23/2024 3:42 PM EDT 12/23/2024 3:54 PM EDT Douglas B Judd JOYCE LAB URINE ORDERABLES Final Resu lt Performing Organization Address [facility]/ZIP Co de Phone Number [facility] [address] [place] [address], [place] [phone] * (ABNORMAL) CBC auto differential (12/23/2024 3:38 PM EDT) Pathologist [facility] WBC 9.6 4.8 - 10.8 K/mcL LAB HEMETOLOGY METHOD 12/23/2024 4:04 PM EDT [facility] RBC 3.90(L) 4.50 - 5.50 M/[facility] LAB HEMETOLOGY METHOD 12/23/2024 4:04 PM EDT [facility] Hemoglobin 12.3(L) 13.5 - 17.5 g/dL LAB HEMETOLOGY METHOD 12/23/2024 4:04 PM EDT [facility] Hematocrit 34.2(L) 42.0 - 54.0 % LAB HEMETOLOGY METHOD 12/23/2024 4:04 PM [facility] MCV 88.1 79.0 - 98.0 FL LAB HEMETOLOGY METHOD 12/23/2024 4:04 PM [facility] MCH 31.7 27.0 - 32.0 pcg LAB HEMETOLOGY METHOD 12/23/2024 4:04 PM [facility] MCHC 36.0 32.0 - 37.0 g/dL LAB HEMETOLOGY METHOD 12/23/2024 4:04 PM [facility] RDW 13.4 11.0 - 15.0 % LAB HEMETOLOGY METHOD 12/23/2024 4:04 PM [facility] Platelets 265 130 - 400 K/mcL LAB HEMETOLOGY METHOD 12/23/2024 4:04 PM [facility] MPV 9.7 7.0 - 11.0 FL LAB HEMETOLOGY METHOD 12/23/2024 4:04 PM [facility] NRBC 0.0 <1.0 % LAB HEMETOLOGY METHOD 12/23/2024 4:04 PM [facility] NRBC Absolute 0.00 <0.10 K/mcL LAB HEMETOLOGY METHOD 12/23/2024 4:04 PM [facility] Neutrophils Relative 61.2 % LAB HEMETOLOGY METHOD 12/23/2024 4:04 PM [facility] Lymphocytes Relative 25.1 % LAB HEMETOLOGY METHOD 12/23/2024 4:04 PM [facility] Monocytes Relative 8.3 % LAB HEMETOLOGY METHOD 12/23/2024 4:04 PM [facility] Eosinophils Relative 4.3 % LAB HEMETOLOGY METHOD 12/23/2024 4:04 PM [facility] Basophils Relative 0.7 % LAB HEMETOLOGY METHOD 12/23/2024 4:04 PM EDT [facility] Immature Granulocytes Relative 0.4 % LAB HEMETOLOGY METHOD 12/23/2024 4:04 PM EDT [facility] Neutrophils Absolute 5.84 1.50 - 7.00 K/mcL LAB HEMETOLOGY METHOD 12/23/2024 4:04 PM EDT [facility] Lymphocytes Absolute 2.40 1.00 - 5.00 K/mcL LAB HEMETOLOGY METHOD 12/23/2024 4:04 PM EDT [facility] Monocytes Absolute 0.79 0.20 - 1.00 K/mcL LAB HEMETOLOGY METHOD 12/23/2024 4:04 PM EDT [facility] Eosinophils Absolute 0.41 0.00 - 0.50 K/mcL LAB HEMETOLOGY METHOD 12/23/2024 4:04 PM EDT [facility] Basophils Absolute 0.07 0.00 - 0.20 K/mcL LAB HEMETOLOGY METHOD 12/23/2024 4:04 PM EDT [facility] Immature Granulocytes Absolute 0.04(H) 0.00 - 0.03 K/mcL LAB HEMETOLOGY METHOD 12/23/2024 4:04 PM EDT [facility] Blood Venous blood specimen / Unknown Venipuncture / Unknown 12/23/2024 3:38 PM EDT 12/23/2024 3:54 PM EDT us Douglas B Judd JOYCE LAB BLOOD ORDERABLES Final Resu lt [facility] [address] [place] [address], * (ABNORMAL) Lipase (12/23/2024 3:38 PM EDT) Lipase 92(H) 13 - 75 unit/L LAB CHEMISTRY METHOD 12/23/2024 4:43 PM [facility] Blood Venous blood specimen / Unknown Venipuncture / Unknown 12/23/2024 3:38 PM EDT 12/23/2024 3:54 PM EDT us Douglas B Judd JOYCE LAB BLOOD ORDERABLES Final Resu lt [facility] [address] [place] [address], * (ABNORMAL) Comprehensive metabolic panel (12/23/2024 3:38 PM EDT) Sodium 138 133 - 145 mmol/L LAB CHEMISTRY METHOD 12/23/2024 4:43 PM [facility] Potassium 4.2 3.5 - 5.5 mmol/L LAB CHEMISTRY METHOD 12/23/2024 4:43 PM [facility] Chloride 105 96 - 110 mmol/L LAB CHEMISTRY METHOD 12/23/2024 4:43 PM [facility] CO2 25 21 - 32 mmol/L LAB CHEMISTRY METHOD 12/23/2024 4:43 PM [facility] Anion Gap 8 3 - 11 LAB CHEMISTRY METHOD 12/23/2024 4:43 PM [facility] Glucose 89 70 - 100 mg/dL LAB CHEMISTRY METHOD 12/23/2024 4:43 PM [facility] BUN 20 5 - 25 mg/dL LAB CHEMISTRY METHOD 12/23/2024 4:43 PM [facility] Creatinine 1.44(H) 0.70 - 1.30 mg/dL LAB CHEMISTRY METHOD 12/23/2024 4:43 PM [facility] eGFR 57(L) >=60 mL/min/1. 73m2 LAB CHEMISTRY METHOD 12/23/2024 4:43 PM EDT [facility] Comment:Calculation based on the Chronic Kidney Disease Epidemiology Collaboration (CKD-EPI) equation refit without adjustment for race. BUN/Creatinine Ratio 13.9 LAB CHEMISTRY METHOD 12/23/2024 4:43 PM T [facility] Calcium 9.6 8.5 - 10.5 mg/dL LAB CHEMISTRY METHOD 12/23/2024 4:43 PM [facility] AST (SGOT) 17 10 - 42 unit/L LAB CHEMISTRY METHOD 12/23/2024 4:43 PM [facility] ALT (SGPT) 21 10 - 60 unit/L LAB CHEMISTRY METHOD 12/23/2024 4:43 PM [facility] Alkaline Phosphatase 119 42 - 121 unit/L LAB CHEMISTRY METHOD 12/23/2024 4:43 PM [facility] Total Protein 7.7 6.0 - 8.0 g/dL LAB CHEMISTRY METHOD 12/23[facility]24 4[facility] Albumin 4.0 3.2 - 5.0 g/dL LAB CHEMISTRY METHOD 12/23/2024 4:43 PM [facility] Total Bilirubin 0.6 0.0 - 1.4 mg/dL LAB CHEMISTRY METHOD 12/23/2024 4:43 PM EDT [facility] Blood Venous blood specimen / Unknown Venipuncture / Unknown 12/23/2024 3:38 PM EDT 12/23/2024 3:54 PM EDT us Douglas B Judd JOYCE LAB BLOOD ORDERABLES Final Resu lt [facility] [address] [place] [address], [place] [phone] from Last 3 Months Insurance MEDICAID - [place] Care Teams Golf Sales Manager Relationship Specialty Start Date End Date Physician, Pcp Unknown PCP - General 12/23/24
== END 2025-02-17 11:42 | disposition home or self-care (01) ==
LOC: HO.XRAY 11:41
PROVIDERS: PCP Student in an Organized Health Care Education/Training Program; Visit Provider Student in an Organized Health Care Education/Training Program
DX: M54.50 Low back pain, unspecified (principal)
CPT/HCPCS: 72100

== ENCOUNTER → 2025-02-17 11:45 | Outpatient (BNV) | payer MEDICAID, SELFPAY | PROVIDERS: PCP Student in an Organized Health Care Education/Training Program; Visit Provider General Practice | DX: M54.50 Low back pain, unspecified (principal) | CPT/HCPCS: 72100 ==

== ENCOUNTER 2025-04-12 08:49 | Outpatient (REF) | payer MEDICAID, SELFPAY ==
--- OUTSIDE RECORDS SUMMARY | 2025-04-12 09:21 | XMS_ITS | Encounter Summary ---
Author Organization [employer] Address [address] [place] [address] [address], [place] [address] Care Team Providers Care Feed Mill Manager Name Role Phone Chauncey Haney MD Primary Care Provider Unava Chanda Mustafa [facility] Primary Care Provider [phone] Beryl Almanza MD Primary Care Pro vider Ibis Fonseca RN Unavailable [phone] Milagros Diego Unavailable Encounter Details Date Type Department Care Team (Latest Contact Info) Description 05/14/2022 Abstract [facility] CONVERSIONS Dental, Provider, DDS Social History Tobacco Use Types Packs/Day Years Used Date Smoking Tobacco: Never Assessed Sex and Gender Information Value Date Recorded Sex Assigned at Male 06/09/2022 10:17 AM EDT Legal Sex Male 10:17 AM EDT Gender Identity Male 06/09/2022 10:17 AM EDT Sexual Orientation Straight 06/09/2022 10 :17 AM EDT documented as of this encounter Plan of Treatment Upcoming Encounters Date Type Department Care Team (Late st Contact Info) Description 04/14/2025 1:00 PM EDT Office Visit [facility] [address] [place], [place] [phone] Beryl Almanza MD [address] [place], [place] [phone] documented as of this encounter Visit Diagnoses Not on filedocumented in this encounter Care Teams Feed Mill Manager Relationship Specialty Start Date End Date Chauncey Haney MD PCP - General Family Medicine 08/16/19 06/30/[facility] [address] [place] [address] [place] [address] PCP - General Family Medicine 07/01/22 11/20/22 Beryl Almanza MD [address] [place] [address] PCP - General Internal Medicine 11/21/22 Ibis Fonseca RN [address] [place] [address] Registered Nurse Family Medicine 12/26/24 12/26/24 Milagros Diego 12/26/24 12/26/24 documented as of this encounter
--- OUTSIDE RECORDS SUMMARY | 2025-04-12 09:21 | XMS_ITS | Clinical Summary ---
Author Organization [facility] Facility Address [address] [place] [address] Care Team Providers Care Patient Services Coordinator Name Role Phone Me [place] Primary Care [...] Care Team (Late st Contact Info) Description 04/20/2025 2:45 PM EDT Office Visit [facility] [address] [place] [address] Antoine Basilio MD [address] [facility] [address] [place] [address] Health Maintenance Due Date Last Done Comments Hepatitis B Vaccine (1 of 3 - 19+ 3-dose series) 1987 Colorectal Cancer Screening: Annual FOBT 2017 Colorectal Cancer Screening: Colonoscopy 2017 Colorectal Cancer Screening: Sigmoidoscopy 2017 Pneumococcal Vaccine: 50+ Ye ars (3 of 3 - PCV) 08/16/2020 08/16/2019, 12/30/2015 Influenza Vaccine (#1) 2025 4, 05/21/2023, 05/08/2022, Additional history exists Pneumococcal Vaccine: Peds ( 0 to 5 Years) and At-Risk Patients (6 to 49 Years) Discontinued 08/16/2019, 12/30/2015 [place] Medicaid [place] Care Teams Patient Services Coordinator Relationship Specialty Start Date End Date Chauncey Haney [address] [place] [address] PCP - General Internal Medicine 11/06/20
--- OUTSIDE RECORDS SUMMARY | 2025-04-12 09:21 | XMS_ITS | Encounter Summary ---
Author Organization [employer] Address [address] [facility] [address] [place] [address] Care Team Providers Care Svp Operations Name Role Phone Beryl Almanza MD Primary Care Pro vider Encounter Details Date Type Department Care Team (Late st Contact Info) Description 04/06/2025 Refill [facility] [address] [place], [place] [phone] Beryl Almanza MD [address] [place], [place] [phone] Vitamin D deficiency Social History Tobacco Use Types Packs/Day Years [...] 1:00 PM EDT Office Visit [facility] [address] [place] [phone] Beryl Almanza MD [address] [place] [address] documented as of this encounter Visit Diagnoses Diagnosis Vitamin D deficiency documented in this encounter Additional Health Concerns Assessment Noted Time PHQ-9 Depression Total Score: 1 05/01/20 23 10:48 AM EDT documented as of this encounter Care Teams Svp Operations Relationship Specialty Start Date End Date Beryl Almanza MD [address] [place] [address] PCP - General Internal Medicine 11/21/22 documented as of this encounter
--- OUTSIDE RECORDS SUMMARY | 2025-04-12 09:21 | XMS_ITS | Clinical Summary ---
Author Organization [facility] Address [address] [place] [phone] Phone Care Team Providers Care Resource Agent Name Role Phone Physician, Pcp Unknown Primary Care Provider Whit vailable Allergies No known active allergies Medications No known medications Active Problems No known active problems Medical History Medical History Date Comments HTN [...] of 2 - PCV) 08/16/2020 08/16/2019, 12/30/2015 Depression Screening 08/10/2024 HIV Screening 12/23/2024 Social Influencers of Health Screening 12/23/2024 COVID-19 Vaccine ( season) 2025 07/10/2023, 09/25/2022, 01/09/2022, Additional history exists Influenza Vaccine (#1) 2025 , 05/21/2023, 05/08/2022, Additional history exists Hypertension/CHF/CAD Annual BMP Blood Test 12/23/2025 12/23/2024 Colorectal Cancer Screening: FIT-DNA (Cologuard) 05/14/2026 05/14/2023 DTaP,Tdap,and Td Vaccines (3 - Td or Tdap) 10/05/2027 10/05/2017, 07/01/2004 Cholesterol Screening (Lipid Panel) 09/11/2028 09/11/2023 Hepatitis C Screening Completed 05/19/2023 Zoster Vaccines [...] Procedure Name Priority Date/Time Associated Diagnosis Comments COMPREHENSIVE METABOLIC PANEL STAT 12/23/2024 3:38 PM EDT from Last 3 Months or Most Recently Relevant to Health Maintenance Results * (ABNORMAL) Comprehensive metabolic panel (12/23/2024 3:38 PM EDT) Sodium 138 133 - 145 mmol/L LAB CHEMISTRY METHOD 12/23/2024 4:[address] [facility] Potassium 4.2 3.5 - 5.5 mmol/L LAB CHEMISTRY METHOD 12/23/2024 4:43 PM [facility] Chloride 105 96 - 110 mmol/L LAB CHEMISTRY METHOD 12/23/2024 4:43 PM [facility] CO2 25 21 - 32 mmol/L LAB CHEMISTRY METHOD 12/23/2024 4:43 PM [facility] Anion Gap 8 3 - 11 LAB CHEMISTRY METHOD 12/23/2024 4:43 PM [facility] Glucose 89 70 - 100 mg/dL LAB CHEMISTRY METHOD 12/23/2024 4:43 PM [facility] BUN 20 5 - 25 mg/dL LAB CHEMISTRY METHOD 12/23/2024 4:43 PM [facility] Creatinine 1.44(H) 0.70 - 1.30 mg/dL LAB CHEMISTRY METHOD 12/23/2024 4:43 PM [facility] eGFR 57(L) >=60 mL/min/1. 73m2 LAB CHEMISTRY METHOD 12/23/2024 4:43 PM [facility] Comment:Calculation based on the Chronic Kidney Disease Epidemiology Collaboration (CKD-EPI) equation refit without adjustment for race. BUN/Creatinine Ratio 13.9 LAB CHEMISTRY METHOD 12/23/2024 4:43 PM [facility] Calcium 9.6 8.5 - 10.5 mg/dL LAB CHEMISTRY METHOD 12/23/2024 4:43 PM [facility] AST (SGOT) 17 10 - 42 unit/L LAB CHEMISTRY METHOD 12/23/2024 4:43 PM [facility] ALT (SGPT) 21 10 - 60 unit/L LAB CHEMISTRY METHOD 12/23/2024 4:43 PM [facility] Alkaline Phosphatase 119 42 - 121 unit/L LAB CHEMISTRY METHOD 12/23/2024 4:43 PM [facility] Total Protein 7.7 6.0 - 8.0 g/dL LAB CHEMISTRY METHOD 12/23/2024 4:[address] [facility] Albumin 4.0 3.2 - 5.0 g/dL LAB CHEMISTRY METHOD 12/23/2024 4:[address] [facility] Total Bilirubin 0.6 0.0 - 1.4 mg/dL LAB CHEMISTRY METHOD 12/23/2024 4:[address] [facility] Blood Venous blood specimen / Unknown Venipuncture / Unknown 12/23/2024 3:38 PM EDT 12/23/2024 3:54 PM EDT Douglas Bill Whaley MD LAB BLOOD ORDERABLES Final Resu lt [facility] [address] [place] [address], from Last 3 Months or Most Recently Relevant to Health Maintenance Insurance MEDICAID - [place] Care Teams Resource Agent Relationship Specialty Start Date End Date Physician, Pcp Unknown PCP - General 12/23/24
--- OUTSIDE RECORDS SUMMARY | 2025-04-12 09:21 | XMS_ITS | Clinical Summary ---
Author Organization [employer] Address [address] [place] [address] [address] [place] [address] Care Team Providers Care Footwear Stitcher Name Role Phone Beryl Almanza MD Primary Care Pro vider Allergies No known active allergies Medications tamsulosin (Flomax) 0.4 MG 24 hr capsule Take 1 capsule (0.4 mg) by mouth in the morning. 90 capsule 024 Active haloperidol (Haldol) 1 MG tablet Active haloperidol (Haldol) 2 MG tablet 2 mg. 024 Active zolpidem (Ambien) 10 MG tablet 5 mg. 024 Active omega-3 acid ethyl esters (Lovaza) 1 g capsule TAKE 1 CAPSULE BY MOUTH EVERY MORNING 90 capsule 1 025 Active haloperidol (Haldol) 5 MG tablet Take 5 mg by mouth 4 times daily. Active Blood Pressure kitIndications:Hy pertension, unspecified type 1 each Once per day. Check BP daily as directed 1 kit 025 Active fluticasone (Flonase) 50 MCG/ACT nasal sprayIndications: Sore throat Administer 1 spray into each nostril Once per day. Shake gently. Before first use, prime pump. After use, clean tip and replace cap. 16 g 1 025 2025 Active simvastatin (Zocor) 20 MG tabletIndications :Hyperlipidemia, unspecified hyperlipidemia type TAKE 1 TABLET BY MOUTH AT BEDTIME 90 tablet 1 025 Active amLODIPine (Norvasc) 5 MG tabletIndications :Primary hypertension TAKE 1 TABLET BY MOUTH EVERY MORNING 90 tablet 1 025 Active lidocaine-priloca ine (Emla) 2.5-2.5 % cream APPLY TO THE AFFECTED AREA(S) ONCE DAILY NEEDED FOR PAIN 30 g 1 025 Active losartan (Cozaar) 100 MG tablet Take 1 tablet (100 mg) by mouth in the morning. 90 tablet 025 Active cholecalciferol (Vitamin D-3) 25 MCG tabletIndications :Vitamin D deficiency TAKE 1 TABLET BY MOUTH EVERY MORNING 90 tablet 1 025 Active simvastatin (Zocor) 20 MG tabletIndications :Hyperlipidemia, unspecified hyperlipidemia type TAKE 1 TABLET BY MOUTH AT BEDTIME 90 tablet 1 025 2024 Discontinued cholecalciferol (Vitamin D-3) 25 MCG tabletIndications :Vitamin D deficiency TAKE 1 TABLET BY MOUTH EVERY MORNING 90 tablet 1 025 2024 Discontinued(R eorder (will not trigger notification to Pharmacy)) amLODIPine (Norvasc) 5 MG tabletIndications :Primary hypertension Take 1 tablet (5 mg) by mouth in the morning. 90 tablet 025 2024 Discontinued losartan (Cozaar) 100 MG tablet Take 1 tablet (100 mg) by mouth in the morning. 90 tablet 025 2024 Discontinued(R eorder (will not trigger notification to Pharmacy)) lidocaine-priloca ine (Emla) 2.5-2.5 % cream Apply topically if needed each day for mild pain. 5 g 1 025 2024 Discontinued acetaminophen (Tylenol Extra Strength) 500 MG tabletIndications :Sore throat Take 1 tablet (500 mg) by mouth every 6 (six) hours if needed for mild pain or headaches for up to 10 days. 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 Pt fell on left knee 4-5 days ago. -ordered XR of L knee 04/26/24 -recommended ibuprofen for pain control -referred to PT 04/26/24 Severe dental caries 02/08/2024 BPH (benign prostatic hyperplasia) 12/03/2023 RBBB 11/09/2023 Macroscopic hematuria 09/07/2023 Right shoulder pain 07/08/2023 Penile abnormality 06/03/2023 Anemia 06/03/2023 Hyperlipidemia 06/03/2023 Healthcare maintenance 05/02/2023 Acute nontraumatic kidney injury 11/26/2020 Nicotine dependence 04/19/2018 Obesity 04/19/2018 Chronic pain 01/25/2015 Schizophrenia 09/16/2013 Anxiety state 01/22/2012 Depressive disorder 01/22/2012 Hypertension 01/22/2012 Gastroesophageal reflux disease 01/22/2012 Insomnia 01/22/2012 Resolved Problems Problem Noted Date Diagnosed Date Resolved Date 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 0 01/04/2025 Hypokalemia 10/12/2023 01/04/2025 Encounters Date Type Department Care Team Description 04/06/2025 Refill [facility] [address] [place] [address] Beryl Almanza MD Vitamin D deficiency 04/05/2025 Refill [facility] [address] [place] [address] Beryl Almanza MD 03/28/2025 Refill [facility] [address] [place] [address] Beryl Almanza MD Primary hypertension 03/14/2025 Refill [facility] [address] [place] [address] Luis Antonio Kumar MD Hyperlipidemia, unspecified hyperlipidemia type 03/13/2025 9:20 AM EDT Office Visit [facility] [address] [place] [address] Carol Benitez NP Sore throat (Primary Dx); Elevated blood pressure reading 03/13/2025 Travel 02/20/2025 Results Follow-Up [facility] [address] [place] [address] Beryl Almanza MD XR Lumbar Spine 2-3 Views 02/16/2025 Telephone [facility] [address] [place] [address] Beryl Almanza MD Referral 02/09/2025 10:30 AM EDT Office Visit [facility] [address] [place] [phone] Beryl Almanza MD Health care maintenance (Primary Dx); Annual physical exam; Lumbar back pain; Hypertension, unspecified type; Class 1 obesity due to excess calories without serious comorbidity with body mass index (BMI) of 30.0 to 30.9 in adult 02/09/2025 Travel 02/08/2025 Telephone [facility] [address] [place] [phone] Beryl Almanza MD chart prep 01/16/2025 3:30 PM EDT Clinical Support [address] [address] Jessica Pickard RN Hypertension, unspecified type 01/16/[address] [address] Beryl Almanza MD Hypertension, unspecified type (Primary Dx) 01/16/2025 Travel from Last 3 Months Immunizations Immunization Administration Dates Next Due Influenza Injectable Quadriv alant Preservative Free IIV4 MDCK 05/21/2023,05/08/2022,07/26/2021,06/18 Influenza injectable quadriv alent IIV4 with preservative 05/30/2019 Influenza, IIV3, injectable 05/08/2014 Influenza, Split (incl. jose fied surface antigen) 07/19/2012 Influenza, seasonal, injecta ble, preservative free 06/01/2024 Moderna Covid-19 Vaccine 12+ 12/28/2020,12/01/19 21 Moderna Covid-19 Vaccine 6+ Bivalent 09/25/2022 Pfizer Covid-19 Vaccine 12+ 07/10/2023 Pneumococcal Polysaccharide PPSV23 08/16/2019, TD (adult), 2 Lf tetanus tox oid, preservative free, adsorbed 07/01/2004 Tdap 10/05/2017 Zoster, Recombinant 07/23/2023,05/21/2023 Family History Medical History Relation Name Comments DM2 Brother DM2 Mother Relation Name Status Comments Brother Mother Social History Tobacco Use Types Packs/Day Years [...] your housing situation today? I have ayana theresa 12/27/[address] you li [...] Orientation Straight 06/09/2022 10 :17 AM EDT Last Filed Vital Signs Vital Sign Reading Time Taken Comments Blood Pressure 120/78 03/13/2025 9:48 AM EDT Pulse 103 03/13/2025 9:33 AM EDT Temperature 36 C (96.8 F) 03/13/2025 9:33 AM EDT Respiratory Rate 24 03/13/2025 9:33 AM EDT Oxygen Saturation 97% 03/13/2025 9:33 AM EDT Inhaled Oxygen Concentration - - Weight 97.1 kg (214 lb) 03/13/2025 9:33 AM EDT Height 172.7 cm (5' 8 ) 03/13/2025 9:33 AM EDT Body Mass Index 32.54 03/13/2025 9:33 AM EDT Plan of Treatment Upcoming Encounters Date Type Department Care Team (Late st Contact Info) Description 04/14/2025 1:00 PM EDT Office Visit [facility] [address] [place], [place] [phone] Beryl Almanza MD [address] [place], [place] [phone] Health Maintenance Due Date Last Done Comments CT Colonography 1968 Colonoscopy 1968 FIT 1968 FOBT 1970 Sigmoidoscopy 1968 Hepatitis B Vaccines (1 of 3 - 19+ 3-dose series) 1987 Pneumococcal Vaccine: 50+ Years (2 of 2 - PCV) 08/16/2020 08/16/2019, 12/30/2015 Dental Oral Exam 11/03/2022 05/05/2022, , 06/01/2015, Additional history exists Dental Prophylaxis 11/13/2022 05/14/2022, 0 02/09/2018, 12/04/2015, Additional history exists Dental X-Ray: Bitewings 05/06/2023 05/05/20 22, 12/04/2015, 05/24/2015, Additional history exists COVID-19 Vaccine ( season) 2024 07/10/2023, 09/25/2022, 01/09/2022, Additional history exists Depression Screening 05/01/2024 05/01/2023, 05/01/20 23 Influenza Vaccine (#1) 2025 , 05/21/2023, 05/08/2022, Additional history exists Dental X-Ray: Full Mouth 05/06/2025 05/05/2022 SDOH Screening 12/27/2025 12/27/2024 Disability Screening 01/04/2026 01/04/2025 Alcohol/Substance Use Screening 02/09/2026 02/09/2025 Tobacco Screening 03/13/2026 03/13/2025 Colorectal Cancer Screening 05/14/2026 FIT DNA/Cologuard 05/14/2026 05/14/2023 DTaP/Tdap/Td Vaccines (2 - Td or Tdap) 10/05/2027 10/05/2017, 07/01/2004 Lipid Panel 09/11/2028 09/11/2023, 05/10, 12/13/2021, Additional history exists RSV Patients and Patients Aged 60 years or older (1 - 1-dose 75+ series) 2043 HIV Screening Completed 05/19/2023 Hepatitis C Screening Completed 05/19/2023 Zoster Vaccines [...] patient's age to complete this topic Meningococcal Vaccine Aged Out No sarah bear eligible based on patient's age to complete this topic RSV under 20 months Aged Out No longe r eligible based on patient's age to complete this topic Rotavirus Vaccines Aged Out No longer eligible based on patient's age to complete this topic Procedures Procedure Name Priority Date/Time Associated Diagnosis Comments POCT INFLUENZA B (ID NOW RAPID MOLECULAR) Routine 03/13/2025 9:44 AM EDT Sore throat POCT INFLUENZA A (ID NOW RAPID MOLECULAR) Routine 03/13/2025 9:43 AM EDT Sore throat POC HOLLIDAY ID NOW STREP A Routine 03/13/2025 9:41 AM EDT Sore throat POCT RAPID COVID ANTIGEN Routine 03/13/2025 9:39 AM EDT Sore throat XR LUMBAR SPINE 2-3 VIEWS Routine 02/19/2025 11:09 PM EDT Lumbar back pain LIPID PANEL, STANDARD Routine 09/11/2023 10:57 AM EST Hyperlipidemia, unspecified hyperlipidemia type HEPATITIS C AB W/REFL TO HCV RNA, QN, PCR Routine 05/19/2023 10:00 AM EDT Health care maintenance HIV ANTIBODY/ANTIGEN (ME DPH) Routine 05/19/2023 10:00 AM EDT Hypokalemia LAB COLOGUARD COLON CANCER SCREEN Routine 05/14/2023 7:00 PM EDT Health care maintenance PROPHYLAXIS - ADULT Routine 05/14/2022 1 2:00 AM EDT INTRAORAL - COMPLETE SERIES OF RADIOGRAPHIC IMAGES Routine 05/05/2022 12:00 AM EDT PERIODIC ORAL EVALUATION - ESTABLISHED PATIENT Routine 05/05/2022 12:00 AM EDT from Last 3 Months or Most Recently Relevant to Health Maintenance Results * POCT Rapid Influenza B HOLLIDAY ID NOW (03/13/2025 9:44 AM EDT) Influenza B Negative Negative, Indeterminate [facility] QC Media Lot # [id number] [facility] Lot# Expiration Date [facility] Swab 03/13/2025 9:44 AM EDT Carol Benitez NP POINT OF CARE TEST ENTER/EDIT O RDERABLES Final Result [facility] [address] [place] [phone] * POCT Rapid Influenza A HOLLIDAY ID NOW (03/13/2025 9:43 AM EDT) Influenza A Negative Negative, Indeterminate [facility] QC Media Lot # [id number] [facility] Lot# Expiration Date [facility] Swab 03/13/2025 9:43 AM EDT [facility] CRIME SCENE ANALYST POINT OF CARE TEST ENTER/EDIT O RDERABLES Final Result [facility] [address] [place] [phone] * POCT Rapid Strep A HOLLIDAY ID NOW (03/13/2025 9:41 AM EDT) Rapid Strep A Screen Negative Negative, None Detected QC Media Lot # [id number] Lot# Expiration Date Swab 03/13/2025 9:41 AM EDT [facility] CRIME SCENE ANALYST POINT OF CARE TEST ENTER/EDIT O RDERABLES Edited Result - Final * POCT Rapid Covid-19 BinaxNOW (03/13/2025 9:39 AM EDT) Rapid COVID Ag Negative QC Media Lot # [id number] Lot# Expiration Date [id number] Swab 03/13/2025 9:39 AM EDT [facility] CRIME SCENE ANALYST POINT OF CARE TEST ENTER/EDIT O RDERABLES Final Result * XR Lumbar Spine 2-3 Views (02/19/2025 11:09 PM EDT) Anatomical Region Laterality Modality Spine, L-spine Radiographic Niya ging 02/19/2025 11:0 9 PM EDT Narrative 02/19/2025 11:10 PM EDT [address] [address] XRay Report Signed Patient: Merlin Diego MR#: [id number] : 1970 Acct:[id number] Age/Sex: 54 / M ADM Date: 02/17/25 Loc: [facility] Attending Dr: Beryl Yates MD Ordering Physician: Beryl Almanza MD Date of Service: 02/17/25 Procedure(s): XR lumbar spine 2-3V Accession Number(s): [id number] cc: Beryl Almanza MD CLINICAL HISTORY: pt w chronic lower back pain 3 views lumbar spine Comparison: CR/SR - XR LUMBAR SPINE 2-3V - 06/30/22 13:22 EST Findings: Straightening of the normal lumbar lordosis. No acute fractures or dislocation. Degenerative changes stable since 06/30/2022. IMPRESSION: No acute findings. This document has been electronically signed by: Miguel Angel Whitney MD, PHD on 02/19/2025 23:09:03 Dictated By: Miguel Angel Whitney MD Signed By: <Electronically signed by Miguel Angel Whitney MD in OV> 02/19/252309 DD/ 08 TD/TT: 02/19/252308 Mold Presser: Procedure Note Donotuseinterpreter, Image - 02/19/[address] [address] XRay Report Signed Patient: Merlin Diego [facility]#: [id number] : 1970Acct:[id number] Age/Sex: 54 / MADM Date: 02/17/25 Loc: HO.XRAY Attending Dr: Beryl Yates MD Ordering Physician: Beryl Almanza MD Date of Service: 02/17/25 Procedure(s): XR lumbar spine 2-3V Accession Number(s): [id number] cc: Beryl Almanza MD CLINICAL HISTORY: pt w chronic lower back pain 3 views lumbar spine Comparison: CR/SR - XR LUMBAR SPINE 2-3V - 06/30/22 13:22 EST Findings: Straightening of the normal lumbar lordosis. No acute fractures or dislocation. Degenerative changes stable since 06/30/2022. IMPRESSION: No acute findings. This document has been electronically signed by: Miguel Angel Whitney MD, PHD on 02/19/2025 23:09:03 Dictated By: Miguel Angel Whitney MD Signed By: <Electronically signed by Miguel Angel Whitney MD in OV> 02/19/252309 DD/ 08 TD/TT: 02/19/252308 Mold Presser: us Beryl Yates MD IMG XR PROCEDURES Edited Result - Final * (ABNORMAL) Lipid Panel, Standard (09/11/2023 10:57 AM EST) Triglycerides 227(H) <150 mg/dL [facility] Comment:Desirable Triglyceri de: less than 150 mg/dLBorderline High Triglyceride 150-199 mg/dLHigh Triglyceride: 200-499 mg/dLVery High Triglyceride: greater than or equal to 5OO mg/dL Cholesterol 156 <200 mg/dL [facility] Comment:Desirable Cholestero l: less than 200 mg/dLBorderline High Cholesterol: 200-239 mg/dLHigh Cholesterol: greater than 239 mg/dL LDL Cholesterol Calculated 77 <100 mg/dL [facility] Comment:Desirable LDL: less than 100 mg/dLNear Optimal/Above Optimal LDL: 110- 129 mg/dLBorderline High LDL: 130-159 mg/dLHigh LDL: 160-189 mg/dLVery High LDL: greater than or equal to 190 mg/dL HDL Cholesterol 34(L) >40 mg/dL [facility] Comment:Desirable HDL: great er than 40 mg/dL Note: This HDL assay may give artificially low results in patients with liver disease. Blood Venous blood specimen / Unknown 09/11/2023 10:57 AM EST 09/11/2023 11:31 AM EST us Beryl Yates MD LAB BLOOD ORDERAB LES Final Result [facility] [address] [place] [phone] * HIV Ab/Ag ([facility]) (05/19/2023 10:00 AM EDT) HIV AB/AG Nonreactive Nonreactive [facility] Comment:HIV-1 p24 Ag and/or HIV-1/HIV-2 Ab not detected.A test result that is nonreactive does not exclude thepossibility of exposure to or infection with HIV-1 and/orHIV-2. Nonreactive results in this assay for individualswith prior exposure to HIV-1 and/or HIV-2 may be due toantigen and antibody levels that are below the limit ofdetection of this assay.The [employer] HIV Ag/Ab Combo assay result andsupplemental assay results should be interpreted inconjunction with the patient's clinical presentation,history and other laboratory results. If the results areinconsistent with clinical evidence, additional testing issuggested to confirm the result. 05/19/2023 10:0 0 AM EDT 05/19/2023 11:50 AM EDT us Beryl Yates MD LAB BLOOD ORDERAB LES Final Result Performing Organization Address [facility]/ZIP Co de Phone Number [facility] [address] [place] [phone] * Hepatitis C Antibody with Reflex to HCV, RNA, Quantitative, Real-Time PCR (05/19/2023 10:00 AM EDT) [facility] Hepatitis C Antibody Nonreactive Nonreactive [facility] Comment:Antibodies to HCV no t detected; does not exclude early acuteHCV infection. Blood Venous blood specimen / Unknown 05/19/2023 10:00 AM EDT 05/19/2023 11:50 AM EDT us Beryl Yates MD LAB BLOOD ORDERAB LES Final Result Performing Organization Address [facility] Co de Phone Number [facility] [address] [place] [phone] * Cologuard?? colon cancer screening (05/14/2023 7:00 PM EDT) [facility] Cologuard Result Negative Negative 05/22/20 1:25 AM EDT [email or web address] (CLIA #:[id number]) Comment: NEGATIVE TEST RESULT. A negative Cologuard result indicates a low likelihood that a colorectal cancer (CRC) or advanced adenoma (adenomatous polyps with more advanced pre-malignant features) is present. The chance that a person with a negative Cologuard test has a colorectal cancer is less than 1 in 1500 (negative predictive value >99.9%) or has an advanced adenoma is less than 5.3% (negative predictive value 94.7%). These data are based on a prospective cross-sectional study of 10,000 individuals at average risk for colorectal cancer who were screened with both Cologuard and colonoscopy. (Bennie Kumar et al, N Engl J Med 2014;370(14):4440-6121) The normal value (reference range) for this assay is negative. COLOGUARD RE-SCREENING RECOMMENDATION: Periodic colorectal cancer screening is an important part of preventive healthcare for asymptomatic individuals at average risk for colorectal cancer. Following a negative Cologuard result, the [place] [employer] and U.S. Multi-Society Task Force screening guidelines recommend a Cologuard re-screening interval of 3 years. References: [place] [employer] Guideline for Colorectal Cancer Screening: https://www.cancer.org/cancer/alleg-axpugn-bjxnmj/tjwmebqbt-svgfkamyf-hhxaagc/ac s-rec ommendations.html.; Brian LEONG, Christine PERRY, Mickie RamosK, Colorectal Cancer Screening: Recommendations for Physicians and Patients from the U.S. Multi-Society Task Force on Colorectal Cancer Screening , Am J Gastroenterology 2017; 112:0590-4031. TEST DESCRIPTION: Composite algorithmic analysis of stool DNA-biomarkers with hemoglobin immunoassay. Quantitative values of individual biomarkers are not reportable and are not associated with individual biomarker result reference ranges. Cologuard is intended for colorectal cancer screening of adults of either sex, 45 years or older, who are at average-risk for colorectal cancer (CRC). Cologuard has been approved for use by the U.S. FDA. The performance of Cologuard was established in a cross sectional study of average-risk adults aged 50-84. Cologuard performance in patients ages 45 to 49 years was estimated by sub-group analysis of near-age groups. Colonoscopies performed for a positive result may find as the most clinically significant lesion: colorectal cancer [4.0%], advanced adenoma (including sessile serrated polyps greater than or equal to 1cm diameter) [20%] or non- advanced adenoma [31%]; or no colorectal neoplasia [45%]. These estimates are derived from a prospective cross-sectional screening study of 10,000 individuals at average risk for colorectal cancer who were screened with both Cologuard and colonoscopy. (Bennie Kumar et al, N Engl J Med 2014;370(14):4900-7720.) Cologuard may produce a false negative or false positive result (no colorectal cancer or precancerous polyp present at colonoscopy follow up). A negative Cologuard test result does not guarantee the absence of CRC or advanced adenoma (pre-cancer). The current Cologuard screening interval is every 3 years. ([place] [employer] and U.S. Multi-Society Task Force). Cologuard performance data in a 10,000 patient pivotal study using colonoscopy as the reference method can be accessed at the following location: www.[employer]/results. Additional description of the Cologuard test process, warnings and precautions can be found at www.[employer].com. Stool specimen (specimen) 05/14/2023 7:00 PM EDT 05/16/2023 4:51 PM EDT Beryl Yates MD LAB MOLECULAR [employer] ORDERABLES Final Result [email or web address] (CLIA #:[id number]) [place] [address], from Last 3 Months or Most Recently Relevant to Health Maintenance Insurance [id number] ST[facility] AD[facility] Care Teams Footwear Stitcher Relationship Specialty Start Date End Date Beryl Almanza MD [address] [place] [phone] PCP - General Internal Medicine 11/21/22
[2025-04-12 11:43] LABS: Hematocrit 35.8 % (42.0-52.0); Hemoglobin 12.2 g/dl (14.0-18.0); Mean Corpuscular HGB Conc 34.1 g/dl (31.0-36.0); Mean Corpuscular Hemoglobin 30.7 pg (27.0-33.0); Mean Corpuscular Volume 90.2 fL (80.0-98.0); NRBC Abs Auto 0.000 X10*3/uL (0.0-0.012); NRBC Pct Auto 0.0 /100WBC (0.0-0.2); Platelet Count 256 X10*3/uL (160-400); Red Blood Count 3.97 X10*6/uL (4.60-5.80); White Blood Count 7.6 X10*3/uL (4.8-10.8)
[2025-04-12 11:49] LABS: Hemoglobin A1C 118.3750 umol/L; Total Hemoglobin (HGBA1C) 3208.5427 umol/L
[2025-04-12 12:14] LABS: Alanine Aminotransferase 15 U/L (0-40); Albumin Level 4.4 g/dL (3.5-5.0); Alkaline Phosphatase 96 U/L (39-117); Anion Gap 10 (12-20); Aspartate Amino Transferase 30 U/L (5-37); Blood Urea Nitrogen 13 mg/dL (9-16); Calcium 8.9 mg/dL (8.4-10.2); Carbon Dioxide 27 mmol/L (22-29); Chloride 109 mmol/L (96-108); Cholesterol 141 mg/dL (<200); Estimated Glomerular Filt Rate 56; HDL Cholesterol 31 mg/dL (>40); Iron 55 mcg/dL (45-160); Lipase 167 U/L (8-78); Percent Iron Saturation 23 % (15-50); Potassium 4.4 mmol/L (3.3-5.1); Sodium 142 mmol/L (135-145); Total Iron Binding Capacity 236 mcg/dL (228-428); Total Protein 7.4 g/dL (6.5-8.0); Triglycerides 169 mg/dL (<150); Unsaturated Iron Binding 181 ug/dL
[2025-04-12 12:18] LABS: Prostate Specific Antigen 5.27 ng/mL (<0.05-4.0)
[2025-04-12 12:20] LABS: Syphilis Screen Nonreactive (Nonreactive)
[2025-04-12 12:22] LABS: Ferritin 135 ng/mL (20-250)
[2025-04-12 12:23] LABS: HBS Num1 0.30 mIU/mL (0-7.99); HBc Num1 0.12 S/CO (0.00-0.79); HBsAGNum1 0.66 S/CO (0.00-0.99); HIV Num 1 0.09 S/CO (0.00-0.99); Hepatitis B Surface Antigen Negative (Negative); Microalbum/Creatinine Ratio Ur 15.3 ug/mg cr (<30); ~HepC Num1 0.13 S/CO (0.00-0.79); ~Hepatitis B Surface Antibody NONREACTIVE (Nonreactive); ~Hepatitis C Antibody Nonreactive (Nonreactive)
[2025-04-12 13:38] LABS: CT PCR Urine NOT DETECTED (Not Detect.); NG PCR Urine NOT DETECTED (Not Detect.)
== END 2025-04-12 08:50 | disposition home or self-care (01) ==
LOC: HO.HHCL 08:49
PROVIDERS: PCP Student in an Organized Health Care Education/Training Program; Visit Provider Student in an Organized Health Care Education/Training Program
DX: Z00.00 Encounter for general adult medical examination without abnormal findings (principal); Z11.4 Encounter for screening for human immunodeficiency virus [HIV]; Z11.3 Encounter for screening for infections with a predominantly sexual mode of transmission; Z11.8 Encounter for screening for other infectious and parasitic diseases; Z11.59 Encounter for screening for other viral diseases; R10.13 Epigastric pain
CPT/HCPCS: 80053; 80061; 82043; 82306; 82570; 82728; 83036; 83540; 83690; 84153; 84443; 85027; 86704; 86706; 86780; 86803; 87340; 87389; 87491; 87591

== ENCOUNTER 2025-05-01 13:24 | Emergency (ER) | payer MEDICAID, SELFPAY ==
--- NOTE | ~2025-05-01 | CT_ITS ---
CLINICAL HISTORY: left flank pain, s p Left suprarenal gland resecti CT abdomen and pelvis with contrast Comparison: CT/REG/PA/SR - CT ABDOMEN PELVIS WO IV CON - 08/18/23 20:00 EST Findings: No consolidation or effusion. Postsurgical changes related to left partial adrenal gland resection with mild surrounding inflammatory changes. Status post cholecystectomy. Remainder of the solid organs are within normal limits. No hydronephrosis or nephrolithiasis. No bowel obstruction, pneumoperitoneum, or pneumatosis. Moderate prostatomegaly with prostate measuring 7.4 x 5.2 x 5.5 cm. Changes related to appendectomy. The bones are intact. IMPRESSION: Postsurgical changes related to partial left adrenal gland resection with mild surrounding inflammatory changes. No evidence of fluid collection or abscess. Moderate prostatomegaly. Status post cholecystectomy and appendectomy. This document has been electronically signed by: Nehemiah Barajas MD on 05/01/2025 19:55:52
[2025-05-01 14:07] VITALS: BP 149/65; PULSE 91; RESP 18; TEMP 36.2; O2SAT 97; BMI 32.4
--- NOTE | 2025-05-01 14:07 | ED.GENADULT ---
HPI - General Adult General Chief complaint: Abdominal Pain Stated complaint: Kidney pain Time Seen by Provider: 05/01/25 17:25 Source: patient and family ( Spouse) Mode of arrival: ambulatory Limitations: no limitations History of Present Illness ED Provider: DR. Serrano HPI narrative: 54-year-old male came in for evaluation of left flank pain that is radiating toward the left lower quadrant abdominal area, associated with nausea but no vomiting, no diarrhea, no fever, chills, no dysuria, no frequency urination, passing flatus normally, last bowel movement was this morning and was normal, no blood in the stool. A/ P left suprarenal gland removal done at [facility] 4 months ago. Related Data Home Medications ?Medication ?Instructions ?Recorded ?Confirmed aspirin 81 mg tablet,delayed 81 mg PO DAILY 06/28/20 12/25/22 release (Adult Low Dose Aspirin) docusate sodium 100 mg capsule 100 mg PO BID 06/28/20 12/25/22 (Colace) hydrochlorothiazide 25 mg tablet 25 mg PO DAILY 06/28/20 12/25/22 metoprolol tartrate 50 mg tablet 50 mg PO BID 06/28/20 12/25/22 omeprazole magnesium 20 mg 20 mg PO BID 06/28/20 12/25/22 tablet,delayed release (Prilosec OTC) sennosides 8.6 mg tablet (Natural 17.2 mg PO BEDTIME 06/28/20 12/25/22 Senna Laxative) simvastatin 20 mg tablet 20 mg PO DAILY 06/28/20 12/25/22 haloperidol 2 mg tablet 2 mg PO DAILY 06/27/22 12/25/22 haloperidol 5 mg tablet 5 mg PO BEDTIME 06/27/22 12/25/22 losartan 100 mg tablet 100 mg PO QAM 06/27/22 12/25/22 potassium chloride 20 mEq 40 meq PO QAM 06/27/22 12/25/22 tablet,extended release(part/cryst) amlodipine 10 mg tablet 10 mg PO QAM 12/25/22 12/25/22 cholecalciferol (vitamin D3) 25 25 mcg PO QAM 12/25/22 12/25/22 mcg (1,000 unit) tablet zolpidem 10 mg tablet 5 - 10 mg PO BEDTIME PRN 12/25/22 12/25/22 Previous Rx's ?Medication ?Instructions ?Recorded [id number] 1 cap PO Q6H PRN headache #20 caps 04/24/22 50 mg-300 mg-40 mg capsule (Fioricet) loperamide 2 mg capsule 2 mg PO Q6H PRN loose stool #30 08/08/22 (Anti-Diarrheal (loperamide)) caps ondansetron 4 mg disintegrating 4 mg PO Q6H PRN nausea and 08/08/22 tablet vomiting #14 tabs tramadol 50 mg tablet 50 mg PO Q8H PRN pain #90 tabs 06/02/23 tamsulosin 0.4 mg capsule (Flomax) 0.4 mg PO BEDTIME #30 caps 08/18/23 amoxicillin 875 mg-potassium 1 tab PO Q12H 7 days #14 tabs 02/03/24 clavulanate 125 mg tablet tramadol 50 mg tablet 50 mg PO Q8H PRN pain (scale score 02/03/24 7-10) #4 tabs Allergies Allergy/AdvReac Type Severity Reaction Status Date / Time No Known Allergies Allergy Mild Verified 05/01/25 14:09 Review of Systems Review of Systems: All other systems are reviewed and are negative Constitutional: Reports as per HPI and Reports no additional constitutional complaints Eyes: Reports as per HPI and Reports no additional eye complaints Reports system reviewed and no additional complaints, except as documented Cardiovascular: Reports as per HPI and Reports no additional cardiovascular complaints Respiratory: Reports as per HPI and Reports no additional respiratory complaints Gastrointestinal: Reports as per HPI and Reports no additional gastrointestinal complaints Genitourinary: Reports no additional female genitourinary complaints Musculoskeletal: Reports no additional musculoskeletal complaints Skin/Breast: Reports system reviewed and no additional complaints, except as docu Psychiatric: Reports no additional psychiatric complaints Endocrine: Reports no additional endocrine complaints Hematologic/Lymphatic: Reports no additional hematologic/lymphatic complaints Allergic/Immunologic: Reports no additional allergic/immunologic complaints Reports system reviewed and no additional complaints, except as documented and Reports Abnormal speech present [facility] Past Medical History Medical History Hypercholesteremia Diabetes Hypertension Social History Social History Household Members: Significant Other Alcohol intake: former Patient Tobacco Use Status: Current everyday Tobacco user Tobacco use type: Cigarette Cigarettes Per Day: 5 Smoked in Last 30 Days: No Use of substances other than those prescribed or required for medical reasons: No Advance Directives: No Advance Directives Information Provided: No Do you have a plan to hurt others: No Plan Physical Exam ED Vital Signs: Vital Signs - 24 hr 05/01/25 14:07 05/01/25 17:48 Temperature 97.2 F 98.1 F Pulse Rate 91 69 Respiratory Rate 18 16 Blood Pressure 149/65 H 136/72 Pulse Oximetry 97 97 Oxygen Delivery Method Room Air Room Air BMI result Body Mass Index 32.4 Vital signs have been reviewed and appear to be correct. Blood pressure elevated. Heart rate normal. Respiratory rate normal. Temperature normal. Oxygen saturation normal. Appearance: Alert. Oriented X3. No acute distress. Head: Normal external exam. Normocephalic. Atraumatic. No Johnson signs noted. No raccoon eyes noted Eyes: PERRLA. EOMI. Conjunctiva and sclera normal. Eyelids normal. ENT: TM's Normal. Pharynx normal. Uvula midline. Moist mucous membranes. No trismus noted. No drooling noted. No muffled voice noted. Neck: Normal inspection. Neck supple. FROM. No adenopathy. Thyroid Normal. No meningeal signs. No neck mass noted. CVS: Normal heart rate and rhythm. Heart sound normal. No murmurs noted. Pulses normal throughout. Respiratory: No respiratory distress. Painless inspiration. Breath sounds normal. No wheezes/rales/rhonchi noted. Chest nontender. No accessory muscle usage noted or decreased air movement noted. Abdomen: Soft and nontender. Bowel sounds normal in all 4 quadrants. No distention noted. No organomegaly noted. No visible injury noted. Back: No CVA tenderness. Full range of motion noted. Skin: Skin warm and dry. Normal skin color. Normal skin turgor. No rashes/lesions/lacerations noted. Extremities: No lower extremity edema. Extremities exhibit normal range of motion. Extremities nontender. Neuro: Oriented X 3. Cranial nerve exam: II-XII are grossly intact No motor deficit. No sensory deficit. Reflexes normal. Course Course Course Narrative: This is a Rapid Medical Examination (RME) performed by Lalo Ponce PA-C in triage. Full HPI, ROS, assessment and treatment plan per primary provider in the Main ED. Hx: 54 yo M here for eval of L flank pain wrapping around to left abdomen x yesterday. took tylenol without relief. no fever, chills, urinary symptoms. remote hx renal stones. Plan: labs, UA Reevaluation(s) Reevaluation #1: left flank pain, unremarkable labs, CT abdomen pelvis showed no acute pathology. Will discharge to follow-up with PCP. Time: 19:57 Medications Administered Discontinued Medications Generic Name Dose Route Start Last Admin Trade Name Freq PRN Reason Stop Dose Admin Iohexol 85 ml 05/01/25 18:17 05/01/25 18:18 Iohexol 350 Mg/Ml 100 Ml Infus..Btl IV 05/01/25 18:18 85 ml ONCE ONE Administration Medical Decision Making Differential Diagnosis Differential Diagnoses: The differential diagnosis associated with the presentation includes ( Kidney stone, renal colic, pyelonephritis, postoperative complication, muscular pain, electrolyte derangement, severe anemia.) Admission/Observation Consideration of admission/observation: Escalation of care including admission/observation considered Lab Data MDM Lab Attestation statement: I reviewed the patient's lab results. 05/01/25 14:55 05/01/25 14:55 Labs: Lab Results 05/01/25 05/01/25 Range/Units 14:55 15:42 WBC 8.6 (4.8-10.8) X10*3/uL RBC 4.05 L (4.60-5.80) X10*6/uL Hgb 12.6 L (14.0-18.0) g/dl Hct 35.2 L (42.0-52.0) % MCV 86.9 (80.0-98.0) fL MCH 31.1 (27.0-33.0) pg MCHC 35.8 (31.0-36.0) g/dl RDW 12.6 (11.0-16.0) % Plt Count 234 (160-400) X10*3/uL MPV 9.0 L (9.4-12.4) fL Immature Gran % (Auto) 0.5 H (0.0-0.4) % Neut % (Auto) 67.4 (45-73) % Lymph % (Auto) 21.1 (20-40) % [place] % (Auto) 6.4 (2-11) % Eos % (Auto) 4.1 H (0-4) % Baso % (Auto) 0.5 (0-2) % Lymph # (Auto) 1.8 (1.2-4.9) X10*3/uL [place] # (Auto) 0.6 (0.1-1.2) X10*3/uL Eos # (Auto) 0.4 (0.0-0.4) X10*3/uL Baso # (Auto) 0.0 (0.0-0.2) X10*3/uL Abs Immat Gran (auto) 0.04 H (0.00-0.03) X10*3/uL Absolute Neuts (auto) 5.8 (2.0-8.3) x10*3/uL Absolute Nucleated RBC 0.000 (0.0-0.012) X10*3/uL Nucleated RBC % (auto) 0.0 (0.0-0.2) /100WBC Sodium 140 (135-145) mmol/L Potassium 4.1 (3.3-5.1) mmol/L Chloride 106 (96-108) mmol/L Carbon Dioxide 29 (22-29) mmol/L Anion Gap 9 L (12-20) BUN 23 H (9-16) mg/dL Creatinine 1.37 (0.5-1.4) mg/dL Estim Creat Clear Calc 67.8 Estimated GFR 54 Random Glucose 120 H (60-115) mg/dL Calcium 9.3 (8.4-10.2) mg/dL Magnesium 2.2 (1.6-2.6) mg/dL Total Bilirubin 0.6 (0.0-1.0) mg/dL AST 26 (5-37) U/L ALT 21 (0-40) U/L Alkaline Phosphatase 105 (39-117) U/L Total Protein 7.7 (6.5-8.0) g/dL Albumin 4.3 (3.5-5.0) g/dL Lipase 47 (8-78) U/L Urine Color Yellow Urine Appearance Clear Urine pH 5.5 (5.0-9.0) Ur Specific [place] >= 1.030 H (1.005-1.025) Urine Protein Trace (Neg-Trace) mg/dL Urine Glucose (UA) Negative (Negative) mg/dL Urine Ketones Trace (Negative) mg/dL Urine Blood Negative (Negative) Urine Nitrite Negative (Negative) Ur Leukocyte Esterase Negative (Negative) Independent Interpretation I performed an independent interpretation of an: CT Scan (Postsurgical changes related to partial left adrenal gland resection with mild surrounding inflammatory changes. No evidence of fluid collection or abscess. Moderate prostatomegaly. Status post cholecystectomy and appendectomy.) Radiology Impression Discussion of test interpretation with radiology: I have reviewed the radiologist's reading. Discharge Plan Discharge Clinical Impression: Abdominal pain, Acute left flank pain Patient Disposition: Home, Self-Care Instructions: Flank Pain (ED) Prescriptions: No Action tramadol 50 mg tablet 50 mg PO Q8H PRN (Reason: pain) Qty: 90 3RF [id number] [Fioricet] 50-300-40 mg capsule 1 cap PO Q6H PRN (Reason: headache) Qty: 20 0RF loperamide [Anti-Diarrheal (loperamide)] 2 mg capsule 2 mg PO Q6H PRN (Reason: loose stool) Qty: 30 0RF ondansetron 4 mg tablet,disintegrating 4 mg PO Q6H PRN (Reason: nausea and vomiting) Qty: 14 0RF tamsulosin [Flomax] 0.4 mg capsule 0.4 mg PO BEDTIME Qty: 30 0RF amoxicillin-pot clavulanate 875-125 mg tablet 1 tab PO Q12H 7 Days Qty: 14 0RF tramadol 50 mg tablet 50 mg PO Q8H PRN (Reason: pain (scale score 7-10)) Qty: 4 0RF metoprolol tartrate 50 mg tablet 50 mg PO BID simvastatin 20 mg tablet 20 mg PO DAILY hydrochlorothiazide 25 mg tablet 25 mg PO DAILY aspirin [Adult Low Dose Aspirin] 81 mg tablet,delayed release (DR/EC) 81 mg PO DAILY omeprazole magnesium [Prilosec OTC] 20 mg tablet,delayed release (DR/EC) 20 mg PO BID docusate sodium [Colace] 100 mg capsule 100 mg PO BID sennosides [Natural Senna Laxative] 8.6 mg tablet 17.2 mg PO BEDTIME losartan 100 mg tablet 100 mg PO QAM haloperidol 5 mg tablet 5 mg PO BEDTIME potassium chloride 20 mEq tablet,ER particles/crystals 40 meq PO QAM haloperidol 2 mg tablet 2 mg PO DAILY cholecalciferol (vitamin D3) 25 mcg (1,000 unit) tablet 25 mcg PO QAM zolpidem 10 mg tablet 5 - 10 mg PO BEDTIME PRN amlodipine 10 mg tablet 10 mg PO QAM Referrals: Beryl Almanza MD [Primary Care Provider, Internal Medicine] Print Language: Frisian
[2025-05-01 14:59] LABS: MANUAL DIFF FLAG NO
[2025-05-01 15:01] LABS: Hematocrit 35.2 % (42.0-52.0); Hemoglobin 12.6 g/dl (14.0-18.0); Imm Gran Abs Auto 0.04 X10*3/uL (0.00-0.03); Imm Gran Pct Auto 0.5 % (0.0-0.4); Lymphocytes Absolute Auto 1.8 X10*3/uL (1.2-4.9); Mean Corpuscular HGB Conc 35.8 g/dl (31.0-36.0); Mean Corpuscular Hemoglobin 31.1 pg (27.0-33.0); Mean Corpuscular Volume 86.9 fL (80.0-98.0); NRBC Abs Auto 0.000 X10*3/uL (0.0-0.012); NRBC Pct Auto 0.0 /100WBC (0.0-0.2); Platelet Count 234 X10*3/uL (160-400); Red Blood Count 4.05 X10*6/uL (4.60-5.80); White Blood Count 8.6 X10*3/uL (4.8-10.8)
[2025-05-01 15:16] LABS: Alanine Aminotransferase 21 U/L (0-40); Albumin Level 4.3 g/dL (3.5-5.0); Alkaline Phosphatase 105 U/L (39-117); Anion Gap 9 (12-20); Aspartate Amino Transferase 26 U/L (5-37); Blood Urea Nitrogen 23 mg/dL (9-16); Calcium 9.3 mg/dL (8.4-10.2); Carbon Dioxide 29 mmol/L (22-29); Chloride 106 mmol/L (96-108); Creatinine Clr Calc Pharmacy 67.8; Estimated Glomerular Filt Rate 54; Lipase 47 U/L (8-78); Magnesium 2.2 mg/dL (1.6-2.6); Potassium 4.1 mmol/L (3.3-5.1); Sodium 140 mmol/L (135-145); Total Protein 7.7 g/dL (6.5-8.0)
[2025-05-01 16:06] LABS: Appearance Urine Clear; Glucose Urine UA Negative (Negative); PH 5.5 (5.0-9.0); Specific Gravity - Urine >= 1.030 (1.005-1.025)
[2025-05-01 17:48] VITALS: BP 136/72; PULSE 69; RESP 16; TEMP 36.7; O2SAT 97
[2025-05-01] MEDS: iohexoL 350 MG/ML 100 ML INFUS..BTL 85 ML IV (18:18)
--- OUTSIDE RECORDS SUMMARY | 2025-05-01 18:25 | XMS_ITS | Clinical Summary ---
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 90 tablet 025 2024 Discontinued(R eorder (will not trigger notification to Pharmacy)) lidocaine-priloca ine (Emla) 2.5-2.5 % cream Apply topically if needed each day for mild pain. 5 g 1 025 2024 Discontinued fluticasone (Flonase) 50 MCG/ACT nasal sprayIndications: Sore throat Administer 1 spray into each nostril Once per day. Shake gently. Before first use, prime pump. After use, clean tip and replace cap. 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 [...] Encounters Date Type Department Care Team Description 04/14/2025 1:00 PM EDT Office Visit [facility] [address] [place] [phone] Beryl Almanza MD Lumbar back pain (Primary Dx); Anemia, unspecified type; Hypertension, unspecified type; Class 1 obesity due to excess calories without serious comorbidity with body mass index (BMI) of 30.0 to 30.9 in adult; Healthcare maintenance; Elevated pancreatic enzyme; Elevated PSA 04/14/2025 Travel 04/12/2025 Results Follow-Up [facility] [address] [place] [address] Beryl Almanza MD CBC 04/06/2025 Refill [facility] [address] [place] [address] Beryl Almanza MD Vitamin D deficiency 04/05/2025 Refill [facility] [address] [place] [address] Beryl Almanza MD 03/28/2025 Refill [facility] [address] [place] [address] Beryl Almanza MD Primary hypertension 03/14/2025 Refill [facility] [address] [place] [address] Luis Antonio Kumar MD Hyperlipidemia, unspecified hyperlipidemia type 03/13/2025 9:20 AM EDT Office Visit [facility] [address] [place] [address] Carol Benitez NP Sore throat (Primary Dx); Elevated blood pressure reading 03/13/2025 Travel 02/20/2025 Results Follow-Up [facility] [address] [place] [address] Beryl Almanza MD XR Lumbar Spine 2-3 Views, Albumin, Random Urine W/Creatinine, Comprehensive Metabolic Panel, Additional followed-up results: 8 02/16/2025 Telephone [facility] [address] [place] [address] Beryl Almanza MD Referral 02/09/2025 10:30 AM EDT Office Visit [facility] [address] [place] [phone] Beryl Almanza MD Health care maintenance (Primary Dx); Annual physical exam; Lumbar back pain; Hypertension, unspecified type; Class 1 obesity due to excess calories without serious comorbidity with body mass index (BMI) of 30.0 to 30.9 in adult 02/09/2025 Travel 02/08/2025 Telephone [facility] [address] [place], [place] [phone] Beryl Almanza MD chart prep from Last 3 Months Immunizations Immunization Administration [...] Passive Smoke Exposure: Current Smokeless Tobacco: Former Tobacco Cessation:Counseling Given: Not Answered Comments:Started smoking 23 years of age -15 cigarettes a day for 5 years and since then smoking 1 -2 cigarette smoking total 29 years ---STOPPED 4 months Alcohol Use Standard Drinks/Week Comments Not Currently 0 (1 standard drink = 0.6 oz pur e alcohol) Depression Answer Date Recorded Patient Health Questionnaire-9 Score 0 04/14/2025 Patient Health Questionnaire-9 Score 0 04/14/2025 Last PHQ-9: Questionnaire Data Not on file 0 04/14/2025 Housing Stability Answer Date Recorded What is your housing situation today? I have ayanatory cardenas 12/27/[address] you [...] Date Recorded Patient Health Questionnaire-2 Score 0 04/14/2025 Internet Access Answer Date Recorded Internet Access [...] Sign Reading Time Taken Comments Blood Pressure 138/68 04/14/2025 12:57 PM EDT Pulse 68 04/14/2025 12:57 PM EDT Temperature 36.3 C (97.3 F) 04/14/2025 12:57 PM EDT Respiratory Rate 20 04/14/2025 12:57 PM EDT Oxygen Saturation 97% 04/14/2025 12:57 PM EDT Inhaled Oxygen Concentration - - Weight 97.3 kg (214 lb 6.4 oz) 04/14/2025 12:57 PM EDT Height 172.7 cm (5' 8 ) 04/14/2025 12:57 PM EDT Body Mass Index 32.6 04/14/2025 12:57 PM EDT Plan of Treatment Health Maintenance Due Date Last Done Comments CT Colonography 1968 Colonoscopy 1968 FIT 1968 Sigmoidoscopy 1968 Hepatitis B Vaccines (1 of 3 - 19+ 3-dose series) 1987 Pneumococcal Vaccine: 50+ Years (2 of 2 - PCV) 08/16/2020 08/16/2019, 12/30/2015 Dental Oral Exam 11/03/2022 05/05/2022, , 06/01/2015, Additional history exists Dental Prophylaxis 11/13/2022 05/14/2022, 0 02/09/2018, 12/04/2015, Additional history exists Dental X-Ray: Bitewings 05/06/2023 05/05/20, 12/04/2015, 05/24/2015, Additional history exists FOBT 05/14/2024 05/14/2023 COVID-19 Vaccine ( season) 2025 07/10/2023, 09/25/2022, 01/09/2022, Additional history exists Influenza Vaccine (#1) 2025 , 05/21/2023, 05/08/2022, Additional history exists Dental X-Ray: Full Mouth 05/06/2025 05/05/2022 SDOH Screening 12/27/2025 12/27/2024 Disability Screening 01/04/2026 01/04/2025 Alcohol/Substance Use Screening 02/09/2026 02/09/2025 Depression Screening 04/14/2026 04/14/2025, 04/14/20 Tobacco Screening 04/14/2026 04/14/2025 Colorectal Cancer Screening 05/14/2026 FIT DNA/Cologuard 05/14/2026 05/14/2023 DTaP/Tdap/Td Vaccines (2 - Td or Tdap) 10/05/2027 10/05/2017, 07/01/2004 Lipid Panel 04/12/2030 04/12/2025, 09/2023, 05/19/2023, Additional history exists RSV Patients and Patients Aged 60 years or older (1 - 1-dose 75+ series) 2043 Zoster Vaccines Completed 07/23/2023, 05/21/2023 HIV Screening Completed 04/12/2025, 05/19/2023 Hepatitis C Screening Completed 04/12/2025, 023 HIB Vaccines Aged Out No longer eligi [...] Procedure Name Priority Date/Time Associated Diagnosis Comments URINALYSIS WITH REFLEX MICROSCOPIC Routine 05/01/2025 3:42 PM EDT LIPASE Routine 05/01/2025 2:55 PM EDT MAGNESIUM Routine 05/01/2025 2:55 PM EDT COMPREHENSIVE METABOLIC PANEL Routine 05/01/2025 2:55 PM EDT CBC WITH AUTO DIFFERENTIAL Routine 05/01/2025 2:55 PM EDT CHLAMYDIA/TRICHOMONAS/ NEISSERIA GONORRHOEAE, PCR, URINE Routine 04/12/2025 9:03 AM EDT Health care maintenance PSA, TOTAL Routine 04/12/2025 9:03 AM EDT Annual physical exam LIPASE Routine 04/12/2025 9:03 AM EDT Annual physical exam IRON AND TOTAL IRON BINDING CAPACITY Routine 04/12/2025 9:03 AM EDT Annual physical exam VITAMIN D,25-OH,TOTAL,IA Routine 04/12/2025 9:03 AM EDT Annual physical exam TSH W/REFLEX TO FT4 Routine 04/12/2025 9 :03 AM EDT Annual physical exam SYPHILIS SCREEN Routine 04/12/2025 9:03 AM EDT Annual physical exam LIPID PANEL, STANDARD Routine 04/12/2025 9:03 AM EDT Annual physical exam HIV 1/2 ANTIGEN/ANTIBODY, FOURTH GENERATION W/RFL Routine 04/12/2025 9:03 AM EDT Annual physical exam HEPATITIS C AB W/REFL TO HCV RNA, QN, PCR Routine 04/12/2025 9:03 AM EDT Annual physical exam HEPATITIS B SURFACE ANTIGEN, EIA Routine 04/12/2025 9:03 AM EDT Annual physical exam HEPATITIS B SURFACE ANTIBODY, QUALITATIVE Routine 04/12/2025 9:03 AM EDT Annual physical exam HEPATITIS B CORE AB TOTAL Routine 04/12/2025 9:03 AM EDT Annual physical exam HEMOGLOBIN A1C Routine 04/12/2025 9:03 AM EDT Annual physical exam COMPREHENSIVE METABOLIC PANEL Routine 04/12/2025 9:03 AM EDT Annual physical exam ALBUMIN, RANDOM URINE W/CREATININE Routine 04/12/2025 9:03 AM EDT Annual physical exam FERRITIN Routine 04/12/2025 9:03 AM EDT Epigastric pain CBC Routine 04/12/2025 9:03 AM EDT Epigastric pain POCT INFLUENZA B (ID NOW RAPID MOLECULAR) [...] 02/19/2025 11:09 PM EDT Lumbar back pain LAB COLOGUARD COLON CANCER SCREEN Routine 05/14/2023 7:00 PM EDT Health care maintenance PROPHYLAXIS - ADULT Routine 05/14/2022 1 2:00 AM EDT INTRAORAL - COMPLETE SERIES OF RADIOGRAPHIC IMAGES Routine 05/05/2022 12:00 AM EDT PERIODIC ORAL EVALUATION - ESTABLISHED PATIENT Routine 05/05/2022 12:00 AM EDT from Last 3 Months or Most Recently Relevant to Health Maintenance Results * (ABNORMAL) Urinalysis w/reflex microscopic (05/01/2025 3:42 PM EDT) Color Urine Yellow [facility] Appearance Urine Clear [facility] PH 5.5 5.0 - 9.0 [facility] Glucose Urine UA Negative Negative mg/dL [facility] Urine Blood Negative Negative [facility] Specific [place] - Urine >=1.030(H) 1.005 - 1.025 [facility] Urine Protein Trace Neg-Trace mg/dL [facility] Urine Ketones Trace Negative mg/dL [facility] Nitrite Urine Negative Negative [facility] Leukocyte Esterase Urine Negative Negative [facility] 05/01/2025 3:42 PM EDT 05/01/2025 4:02 PM EDT Narrative [facility] - 05/01/2025 4:07 PM EDT [id number], [employer] us Generic External Data Provider LAB URINE ORDERAB LES Final Result [facility] [address] [place] [phone] [phone] * (ABNORMAL) CBC auto differential (05/01/2025 2:55 PM EDT) White Blood Count 8.6 4.8 - 10.8 X10*3/uL [facility] Red Blood Count 4.05(L) 4.60 - 5.80 X10*6/uL [facility] Hemoglobin 12.6(L) 14.0 - 18.0 g/dl [facility] Hematocrit 35.2(L) 42.0 - 52.0 % [facility] Mean Corpuscular Volume 86.9 80.0 - 98.0 fL [facility] Mean Corpuscular Hemoglobin 31.1 27.0 - 33.0 pg [facility] Mean Corpuscular HGB Conc 35.8 31.0 - 36.0 g/dl [facility] Red Cell Distribution Width 12.6 11.0 - 16.0 % [facility] Platelet Count 234 160 - 400 X10*3/uL [facility] Mean Platelet Volume 9.0(L) 9.4 - 12.4 fL [facility] Neutrophils Percent Auto 67.4 45 - 73 % [facility] Imm Gran Pct Auto 0.5(H) 0.0 - 0.4 % [facility] Lymphocytes Percent Auto 21.1 20 - 40 % [facility] Monocytes Percent Auto 6.4 2 - 11 % [facility] Eosinophils Percent Auto 4.1(H) 0 - 4 % [facility] Basophils Percent Auto 0.5 0 - 2 % [facility] NRBC Pct Auto 0.0 0.0 - 0.2 /100WBC [facility] Neutrophils Absolute Auto 5.8 2.0 - 8.3 x10*3/uL [facility] Imm Gran Abs Auto 0.04(H) 0.00 - 0.03 X10*3/uL [facility] Lymphocytes Absolute Auto 1.8 1.2 - 4.9 X10*3/uL [facility] Monocytes Absolute Auto 0.6 0.1 - 1.2 X10*3/uL [facility] Eosinophils Absolute Auto 0.4 0.0 - 0.4 X10*3/uL [facility] Basophils Absolute Auto 0.0 0.0 - 0.2 X10*3/uL [facility] NRBC Abs Auto 0.000 0.0 - 0.012 X10*3/uL [facility] 05/01/2025 2:55 PM EDT 05/01/2025 2:58 PM EDT Generic External Data Provider LAB BLOOD ORDERAB LES Final Result Performing Organization Address City/[facility]/ZIP Co de Phone Number [facility] [address] [place], [place] [phone] * Magnesium (05/01/2025 2:55 PM EDT) Magnesium 2.2 1.6 - 2.6 mg/dL [facility] 05/01/2025 2:55 PM EDT 05/01/2025 2:58 PM EDT Generic External Data Provider LAB BLOOD ORDERAB LES Final Result Performing Organization Address City/[facility] Co de Phone Number [facility] [address] [place] [address] [phone] * Lipase (05/01/2025 2:55 PM EDT) Only the most recent of2 resultswithin the time period is included. Lipase 47 8 - 78 U/L [facility] 05/01/2025 2:55 PM EDT 05/01/2025 2:58 PM EDT us Generic External Data Provider LAB BLOOD ORDERAB LES Final Result [facility] [address] [place] [address] [phone] * (ABNORMAL) Comprehensive Metabolic Panel (05/01/2025 2:55 PM EDT) Only the most recent of2 resultswithin the time period is included. Sodium 140 135 - 145 mmol/L [facility] Potassium 4.1 3.3 - 5.1 mmol/L [facility] Chloride 106 96 - 108 mmol/L [facility] Carbon Dioxide 29 22 - 29 mmol/L [facility] Anion Gap 9(L) 12 - 20 [facility] Urea Nitrogen (BUN) 23(H) 9 - 16 mg/dL [facility] Creatinine, Serum 1.37 0.5 - 1.4 mg/dL [facility] Creatinine Clr Calc Pharmacy 67.8 [facility] Comment:eGFR (calculated fro m the MDRD study equation) and eCrCl(calculated from the Cockcroft-Gault equation) are based ondifferent parameters and may not yield comparable results.If eCrCl result is absurd, please check patient'sheight/weight. Estimated Glomerular Filt Rate 54 [facility] Comment:Chronic Kidney Disea se: Estimated GFR < 60 mL/min/[id number] Kidney Disease: Estimated GFR < 15 mL/min/1.73m2 Glucose 120(H) 60 - 115 mg/dL [facility] Calcium 9.3 8.4 - 10.2 mg/dL [facility] Bilirubin, Total 0.6 0.0 - 1.0 mg/dL [facility] Aspartate Amino Transferase 26 5 - 37 U/L [facility] Alanine Aminotransferase 21 0 - 40 U/L [facility] Total Protein 7.7 6.5 - 8.0 g/dL [facility] Albumin Level 4.3 3.5 - 5.0 g/dL [facility] Alkaline Phosphatase 105 39 - 117 U/L [facility] 05/01/2025 2:55 PM EDT 05/01/2025 2:58 PM EDT us Generic External Data Provider LAB BLOOD ORDERAB LES Final Result [facility] [address] [place] [phone] * Chlamydia/N. Gonorrhoeae, PCR, Urine (04/12/2025 9:03 AM EDT) CT PCR, Urine NOT DETECTED Not Detect. [facility] Comment:A not detected test result does not exclude the possibilityof infection because test results can be affected byimproper specimen collection, concurrent antibiotic therapy,or the number of organisms in the specimen which may bebelow the sensitivity of the test. As with many diagnostictests, results from the Xpert CT/NG assay should beinterpreted in conjunction with other laboratory andclinical data available to the clinician.The Xpert CT/NG assay should not be used for the evaluationof suspected sexual abuse or for other medico-legalindications. Additional testing is recommended in anycircumstance when false positive or false negative resultscould lead to adverse medical, social or psychologicalconsequences. NG PCR, Urine NOT DETECTED Not Detect. [facility] Comment:A not detected test result does not exclude the possibilityof infection because test results can be affected byimproper specimen collection, concurrent antibiotic therapy,or the number of organisms in the specimen which may bebelow the sensitivity of the test. As with many diagnostictests, results from the Xpert CT/NG assay should beinterpreted in conjunction with other laboratory andclinical data available to the clinician.The Xpert CT/NG assay should not be used for the evaluationof suspected sexual abuse or for other medico-legalindications. Additional testing is recommended in anycircumstance when false positive or false negative resultscould lead to adverse medical, social or psychologicalconsequences. Urine (Urine, Random) 04/12/2025 9:03 AM EDT 04/12/2025 11:15 AM EDT Beryl Yates MD LAB URINE ORDERAB LES Final Result Performing Organization Address City/[facility]/ZIP Co de Phone Number [facility] [address] [place] [phone] * Syphilis Screen (04/12/2025 9:03 AM EDT) Syphilis Screen Nonreactive Nonreactive [facility] Blood 04/12/2025 9:03 AM EDT 04/12/2025 11:12 AM EDT us Beryl Yates MD LAB BLOOD ORDERAB LES Final Result Performing Organization Address [facility] Co de Phone Number [facility] [address] [place] [phone] * Vitamin D, 25-Hydroxy, Total, Immunoassay (04/12/2025 9:03 AM EDT) Vitamin D 25-OH Total 54.0 >30 ng/mL [facility] Comment: Health Based Reference Values*< 20 ng/mL [id number] ng/mL Insufficient> 30 ng/mL Sufficient*Sonia FOSS. N Engl J Med. 2007;357:266-280There is no well-established upper level of normal vitamin Dlevels. Some laboratories use 50 ng/mL as an upper limit ofnormal. However, toxicity is patient-dependent and may occurat any level. Careful correlation with the patient'spresentation is necessary and, if there is concern forvitamin D toxicity, treatment should be consideredirrespective of the serum level.Care must be taken in interpreting Vitamin D results fromdifferent laboratories and methodologies. Published datademonstrated that results from patients undergoinghemodialysis may show a negative bias when tested withvarious automated 25-OH vitamin D assays when compared toLC-MS/MS.When testing samples from patients whose predominant form ofVitamin D is Vitamin D2, such as patients receiving VitaminD2 supplementation, results that are subtherapeutic shouldbe confirmed with another method such as LC-MS/MS. Blood Venous blood specimen / Unknown 04/12/2025 9:03 AM EDT 04/12/2025 11:12 AM EDT us Beryl Yates MD LAB BLOOD ORDERAB LES Final Result Performing Organization Address City/[facility] Co de Phone Number [facility] [address] [place] [phone] * TSH with Reflex to Free T4 (04/12/2025 9:03 AM EDT) TSH reflex Free T4 1.64 0.32 - 4.0 uIU/mL [facility] Blood 04/12/2025 9:03 AM EDT 04/12/2025 11:12 AM EDT us Beryl Yates MD LAB BLOOD ORDERAB LES Final Result Performing Organization Address [facility] Co de Phone Number [facility] [address] [place] [phone] * Albumin, Random Urine W/Creatinine (04/12/2025 9:03 AM EDT) Creatinine, Urine 188.88 mg/dL [facility] Microalbumin Urine 29.0 mg/L [facility] Microalbum Creatinine Ratio Ur 15.3 <30 ug/mg cr [facility] Comment:Albumin/Creatinine R atio Reference Ranges: Normal: < 30 ug/mg creatinine Microalbuminuria: 30 - 300 ug/mg creatinineClinical Albuminuria: > 300 ug/mg creatinine Urine (Urine, Random) 04/12/2025 9:03 AM EDT 04/12/2025 11:15 AM EDT Beryl Yates MD LAB URINE ORDERAB LES Final Result Performing Organization Address City/[facility] Co de Phone Number [facility] [address] [place] [address] [phone] * Hepatitis C Antibody with Reflex to HCV, RNA, Quantitative, Real-Time PCR (04/12/2025 9:03 AM EDT) Pathologist [facility] Hepatitis C Antibody Nonreactive Nonreactive [facility] Comment:Antibodies to HCV no t detected; does not exclude early acuteHCV infection. Blood Venous blood specimen / Unknown 04/12/2025 9:03 AM EDT 04/12/2025 11:12 AM EDT us Beryl Yates MD LAB BLOOD ORDERAB LES Final Result Performing Organization Address [facility] Co de Phone Number [facility] [address] [place] [phone] [phone] * Iron And Total Iron Binding Capacity (04/12/2025 9:03 AM EDT) Pathologist [facility] Iron 55 45 - 160 mcg/dL [facility] Total Iron Binding Capacity 236 228 - 428 mcg/dL [facility] Percent Iron Saturation 23 15 - 50 % [facility] Unsaturated Iron Binding 181 ug/dL [facility] Blood Venous blood specimen / Unknown 04/12/2025 9:03 AM EDT 04/12/2025 11:12 AM EDT us Beryl Yates MD LAB BLOOD ORDERAB LES Final Result Performing Organization Address [facility] Co de Phone Number [facility] [address] [place] [address] [phone] * Hepatitis B surface antigen, EIA (04/12/2025 9:03 AM EDT) [facility] Hepatitis B Surface Ag Negative Negative [facility] Blood Venous blood specimen / Unknown 04/12/2025 9:03 AM EDT 04/12/2025 11:12 AM EDT Beryl Yates MD LAB BLOOD ORDERAB LES Final Result [facility] [address] [place] [phone] * Hepatitis B Core Antibody, Total (04/12/2025 9:03 AM EDT) Hepatitis B Core Antibody Nonreactive Nonreactive [facility] Blood Venous blood specimen / Unknown 04/12/2025 9:03 AM EDT 04/12/2025 11:12 AM EDT Beryl Yates MD LAB BLOOD ORDERAB LES Final Result Performing Organization Address [facility]/ZIP Co de Phone Number [facility] [address] [place] [phone] * HIV-1/2 Antigen and Antibodies, Fourth Generation, with Reflexes (04/12/2025 9:03 AM EDT) HIV AB/AG Nonreactive Nonreactive [facility] Comment:HIV-1 p24 Ag and/or HIV-1/HIV-2 Ab not detected.A test result that is nonreactive does not exclude thepossibility of exposure to or infection with HIV-1 and/orHIV-2. Nonreactive results in this assay for individualswith prior exposure to HIV-1 and/or HIV-2 may be due toantigen and antibody levels that are below the limit ofdetection of this assay.The [employer] HIV Ag/Ab Combo assay result andsupplemental assay results should be interpreted inconjunction with the patient's clinical presentation,history and other laboratory results. If the results areinconsistent with clinical evidence, additional testing issuggested to confirm the result. Blood Venous blood specimen / Unknown 04/12/2025 9:03 AM EDT 04/12/2025 11:12 AM EDT Beryl Yates MD LAB BLOOD ORDERAB LES Final Result Performing Organization Address City/[facility]/ZIP Co de Phone Number [facility] [address] [place] [address] [phone] * Hepatitis B Surface Antibody, Qualitative (04/12/2025 9:03 AM EDT) [facility] ~Hepatitis B Surface Antibody NONREACTIVE Nonreactive [facility] Comment:Nonreactive: < 8.00 mIU/mL Blood Venous blood specimen / Unknown 04/12/2025 9:03 AM EDT 04/12/2025 11:12 AM EDT us Beryl Yates MD LAB BLOOD ORDERAB LES Final Result Performing Organization Address [facility]/ZIP Co de Phone Number [facility] [address] [place] [phone] [phone] * (ABNORMAL) CBC (04/12/2025 9:03 AM EDT) [facility] White Blood Count 7.6 4.8 - 10.8 X10*3/uL [facility] Red Blood Count 3.97(L) 4.60 - 5.80 X10*6/uL [facility] Hemoglobin 12.2(L) 14.0 - 18.0 g/dl [facility] Hematocrit 35.8(L) 42.0 - 52.0 % [facility] Mean Corpuscular Volume 90.2 80.0 - 98.0 fL [facility] Mean Corpuscular Hemoglobin 30.7 27.0 - 33.0 pg [facility] Mean Corpuscular HGB Conc 34.1 31.0 - 36.0 g/dl [facility] Red Cell Distribution Width 13.0 11.0 - 16.0 % [facility] Platelet Count 256 160 - 400 X10*3/uL [facility] Mean Platelet Volume 10.3 9.4 - 12.4 fL [facility] NRBC Pct Auto 0.0 0.0 - 0.2 /100WBC [facility] NRBC Abs Auto 0.000 0.0 - 0.012 X10*3/uL [facility] Blood Venous blood specimen / Unknown 04/12/2025 9:03 AM EDT 04/12/2025 11:29 AM EDT us Beryl Yates MD LAB BLOOD ORDERAB LES Final Result Performing Organization Address [facility] Co de Phone Number [facility] [address] [place] [phone] * (ABNORMAL) PSA,Total (04/12/2025 9:03 AM EDT) Prostate Specific Antigen 5.27(H) <0.05 - 4.0 ng/mL [facility] Comment:PSA methodology: Abb erik Crowe i ChemiluminescentMicroparticle Immunoassay (CMIA) Blood Venous blood specimen / Unknown 04/12/2025 9:03 AM EDT 04/12/2025 11:12 AM EDT us Beryl Yates MD LAB BLOOD ORDERAB LES Final Result Performing Organization Address [facility] Co de Phone Number [facility] [address] [place] [phone] * Hemoglobin A1c (04/12/2025 9:03 AM EDT) Hemoglobin A1c 5.5 <6.0 % [facility] Comment:Hemoglobin A1C Refer ence Range Adults: 4.8 - 6.0 % Non diabetic: < 6.0 % Goal: < 7.0 %Additional Action Suggested: > 8.0 %Note: Hemoglobin A1c results are invalid for patients with abnormal amounts of HbF. Blood transfusions may impact the HbA1c concentration in the patient sample. Estimated Average Glucose 111 mg/dL [facility] Comment:eAG = Estimated ave rage glucose which is %A1C expressed asaverage glucose, using the formula of the U9K-GdyfuomTahszff Glucose study (ADAG), Diabetes Care, Vol.31,#8,Aug. 2007 Blood Venous blood specimen / Unknown 04/12/2025 9:03 AM EDT 04/12/2025 11:29 AM EDT us Beryl Yates MD LAB BLOOD ORDERAB LES Final Result Performing Organization Address [facility]/ZIP Co de Phone Number [facility] [address] [place] [address] [phone] * Ferritin (04/12/2025 9:03 AM EDT) Pathologist [facility] Ferritin 135 20 - 250 ng/mL [facility] Blood Venous blood specimen / Unknown 04/12/2025 9:03 AM EDT 04/12/2025 11:12 AM EDT us Beryl Yates MD LAB BLOOD ORDERAB LES Final Result Performing Organization Address [facility] Co de Phone Number [facility] [address] [place] [address] [phone] * (ABNORMAL) Lipid Panel, Standard (04/12/2025 9:03 AM EDT) Triglycerides 169(H) <150 mg/dL [facility] Comment:Desirable Triglyceri de: less than 150 mg/dLBorderline High Triglyceride 150-199 mg/dLHigh Triglyceride: 200-499 mg/dLVery High Triglyceride: greater than or equal to 5OO mg/dL Cholesterol 141 <200 mg/dL [facility] Comment:Desirable Cholestero l: less than 200 mg/dLBorderline High Cholesterol: 200-239 mg/dLHigh Cholesterol: greater than 239 mg/dL LDL Cholesterol Calculated 77 <100 mg/dL [facility] Comment:Desirable LDL: less than 100 mg/dLNear Optimal/Above Optimal LDL: 110- 129 mg/dLBorderline High LDL: 130-159 mg/dLHigh LDL: 160-189 mg/dLVery High LDL: greater than or equal to 190 mg/dL HDL Cholesterol 31(L) >40 mg/dL [facility] Comment:Desirable HDL: great er than 40 mg/dL Note: This HDL assay may give artificially low results in patients with liver disease. Blood Venous blood specimen / Unknown 04/12/2025 9:03 AM EDT 04/12/2025 11:12 AM EDT Beryl Yates MD LAB BLOOD ORDERAB LES Final Result Performing Organization Address [facility]/ZIP Co de Phone Number [facility] [address] [place] [address] [phone] * POCT Rapid Influenza B HOLLIDAY ID NOW (03/13/2025 9:44 AM EDT) Influenza B Negative Negative, Indeterminate [facility] QC Media Lot # [id number] [facility] Lot# Expiration Date [facility] Swab 03/13/2025 9:44 AM EDT Carol Benitez NIGHT STOCKER POINT OF CARE TEST ENTER/EDIT O RDERABLES Final Result Performing Organization Address [facility] Co de Phone Number [facility] [address] [place] [address] [phone] * POCT Rapid Influenza A HOLLIDAY ID NOW (03/13/2025 9:43 AM EDT) Influenza A Negative Negative, Indeterminate [facility] QC Media Lot # [id number] [facility] Lot# Expiration Date [facility] Swab 03/13/2025 9:43 AM EDT Carol Uriasm NIGHT STOCKER POINT OF CARE TEST ENTER/EDIT O RDERABLES Final Result Performing Organization Address [facility] Co de Phone Number [facility] [address] [place] [address] [phone] * POCT Rapid Strep A HOLLIDAY ID NOW (03/13/2025 9:41 AM EDT) Rapid Strep A Screen Negative Negative, None Detected QC Media Lot # [id number] Lot# Expiration Date 12526 Swab 03/13/2025 9:41 AM EDT [facility] NIGHT STOCKER POINT OF CARE TEST ENTER/EDIT O RDERABLES Edited Result - Final * POCT Rapid Covid-19 BinaxNOW (03/13/2025 9:39 AM EDT) Pathologist [facility] Rapid COVID Ag Negative QC Media Lot # [id number] Lot# Expiration Date [id number] Swab 03/13/2025 9:39 AM EDT [facility] NIGHT STOCKER POINT OF CARE TEST ENTER/EDIT O RDERABLES Final Result * XR Lumbar Spine 2-3 Views (02/19/2025 11:09 PM EDT) Anatomical Region Laterality Modality Spine, L-spine Radiographic Niya ging 02/19/2025 11:0 9 PM EDT Narrative 02/19/2025 11:10 PM EDT [place] [address] XRay Report Signed Patient: Merlin Diego MR#: [id number] : 1970 Acct:[id number] Age/Sex: 54 / M ADM Date: 02/17/25 Loc: HO.XRAY Attending Dr: Beryl Ytaes MD Ordering Physician: Beryl Almanza MD Date of Service: 02/17/25 Procedure(s): XR lumbar spine 2-3V Accession Number(s): [id number] cc: Beryl Almanza MD CLINICAL HISTORY: pt [...] in OV> 02/19/252309 DD/ 08 TD/TT: 02/19/252308 Manager Body: Procedure Note Donotuseinterpreter, Image - 02/19/[address] [address] XRay Report Signed Patient: Merlin Diego AMR#: [id number] : 1970Acct:[id number] Age/Sex: 54 / MADM Date: 02/17/25 Loc: HO.XRAY Attending Dr: Beryl Yates MD Ordering Physician: Beryl Almanza MD Date of Service: 02/17/25 Procedure(s): XR lumbar spine 2-3V Accession Number(s): [id number] cc: Beryl Almanza MD CLINICAL HISTORY: pt [...] Whitney MD Signed By: <Electronically signed by Migue lAngel Whitney MD in OV> 02/19/252309 DD/ 08 TD/TT: 02/19/252308 Manager Body: Beryl Yates MD IMG XR PROCEDURES Edited Result - Final * Cologuard?? colon cancer screening (05/14/2023 7:00 PM EDT) Cologuard Result Negative Negative 05/22/20 1:25 AM EDT [facility] (CLIA #:[id number]) Comment: NEGATIVE TEST RESULT. A negative Cologuard [...] screened with both Cologuard and colonoscopy. (Bennie Cabrera. et al, N Engl J Med 2014;370(14):3605-1836) The normal value (reference range) for this assay is negative. COLOGUARD RE-SCREENING RECOMMENDATION: Periodic colorectal cancer screening is an important part of preventive healthcare for asymptomatic individuals at average risk for colorectal cancer. Following a negative Cologuard result, the [place] [employer] Society and U.S. Multi-Society Task Force screening guidelines recommend a Cologuard re-screening interval of 3 years. References: [place] [employer] Guideline for Colorectal Cancer Screening: https://www.cancer.org/cancer/txfof-plfvhh-hvshrh/ybfavvqcw-sfaqqjabv-woxdmkq/ac s-rec ommendations.html.; Brian LEONG, Christine PERRY, Mickie RamosK, Colorectal Cancer Screening: Recommendations for Physicians and Patients from the U.S. Multi-Society Task Force on Colorectal Cancer Screening , Am J Gastroenterology 2017; 112:5055-0611. TEST DESCRIPTION: Composite algorithmic analysis of stool [...] Kumar et al, N Engl J Med 2014;370(14):4970-1676.) Cologuard may produce a false negative or false positive result (no colorectal cancer or precancerous polyp present at colonoscopy follow up). A negative Cologuard test result does not guarantee the absence of CRC or advanced adenoma (pre-cancer). The current Cologuard screening interval is every 3 years. ([place] [employer] and U.S. Multi-Society Task Force). Cologuard performance data in a 10,000 patient pivotal study using colonoscopy as the reference method can be accessed at the following location: www.JackBe/results. Additional description of the Cologuard test process, warnings and precautions can be found at www.[employer].com. Stool specimen (specimen) 05/14/2023 7:00 PM EDT 05/16/2023 4:51 PM EDT us Beryl Yates MD LAB MOLECULAR TESSA GNOSTICS ORDERABLES Final Result [facility] (CLIA #:[id number]) [place] [place] [address], from Last 3 Months or Most Recently Relevant to Health Maintenance [facility] [place] Care Teams Faro Dealer Relationship Specialty Start Date End Date Beryl Almanza MD [address] [place] [phone] PCP - General Internal Medicine 11/21/22
--- OUTSIDE RECORDS SUMMARY | 2025-05-01 18:25 | XMS_ITS | Clinical Summary ---
Author Organization [facility] Address [address] [place] [phone] Phone Care Team Providers Care Contract Administration Specialist Name Role Phone Physician, Pcp Unknown Primary [...] LAB CHEMISTRY METHOD 12/23/2024 4:43 PM EDT [facility] Potassium 4.2 3.5 - 5.5 mmol/L LAB CHEMISTRY METHOD 12/23/2024 4:43 PM [facility] Chloride 105 96 - 110 mmol/L LAB CHEMISTRY METHOD 12/23/2024 4:43 PM [facility] CO2 25 21 - 32 mmol/L LAB CHEMISTRY METHOD 12/23/2024 4:43 PM [facility] Anion Gap 8 3 - 11 LAB CHEMISTRY METHOD 12/23/2024 4:43 PM [facility] Glucose 89 70 - 100 mg/dL LAB CHEMISTRY METHOD 12/23/2024 4:43 PM [facility] BUN 20 5 - 25 mg/dL LAB CHEMISTRY METHOD 12/23/2024 4:43 PM [facility] Creatinine 1.44(H) 0.70 - 1.30 mg/dL LAB CHEMISTRY METHOD 12/23/2024 4:43 PM [facility] eGFR 57(L) >=60 mL/min/1. 73m2 LAB CHEMISTRY METHOD 12/23/2024 4:43 PM [facility] Comment:Calculation based on the Chronic Kidney Disease Epidemiology Collaboration (CKD-EPI) equation refit without adjustment for race. BUN/Creatinine Ratio 13.9 LAB CHEMISTRY METHOD 12/23/2024 4:43 PM [facility] Calcium 9.6 8.5 - 10.5 mg/dL LAB CHEMISTRY METHOD 12/23/2024 4:43 PM [facility] AST (SGOT) 17 10 - 42 unit/L LAB CHEMISTRY METHOD 12/23/2024 4:43 PM [facility] ALT (SGPT) 21 10 - 60 unit/L LAB CHEMISTRY METHOD 12/23/2024 4:43 PM [facility] Alkaline Phosphatase 119 42 - 121 unit/L LAB CHEMISTRY METHOD 12/23/2024 4:43 PM [facility] Total Protein 7.7 6.0 - 8.0 g/dL LAB CHEMISTRY METHOD 12/23/2024 4:43 PM EDT [facility] Albumin 4.0 3.2 - 5.0 g/dL LAB CHEMISTRY METHOD 12/23/2024 4:43 PM EDT [facility] Total Bilirubin 0.6 0.0 - 1.4 mg/dL LAB CHEMISTRY METHOD 12/23/2024 4:43 PM EDT [facility] Blood Venous blood specimen / Unknown Venipuncture / Unknown 12/23/2024 3:38 PM EDT 12/23/2024 3:54 PM EDT Douglas Bill Whaley MD LAB BLOOD ORDERABLES Final Resu lt [facility] [address] [place] [address], from Last 3 Months or Most Recently Relevant to Health Maintenance Insurance MEDICAID - [place] Care Teams Contract Administration Specialist Relationship Specialty Start Date End Date Physician, Pcp Unknown PCP - General 12/23/24
--- OUTSIDE RECORDS SUMMARY | 2025-05-01 18:25 | XMS_ITS | Encounter Summary ---
Author Organization [employer] Address [address] [place] [address] Care Team Providers Care Counselling Psychologist Name Role Phone Beryl Almanza MD Primary Care Pro vider Encounter Details Date Type Department Care Team (Late st Contact Info) Description 04/12/2025 Results Follow-Up [facility] [address] [place], [place] [phone] Beryl Almanza MD [address] [place], [place] [phone] CBC Social History Tobacco Use Types Packs/Day Years [...] AM EDT documented as of this encounter Functional Status * Over the past 2 weeks, how often have you been bothered by any of the following problems? Question Answer Date of Assessment Author Patient Health Questionnaire -2 Score 0 04/14/2025 12:59 PM EDT Riana Prasad MA * Little interest or pleasure in doing things Answer Date of Assessment Author Not at all 04/14/2025 12:59 PM EDT Riana Prasad MA * Feeling down, depressed, or hopeless Answer Date of Assessment Author Not at all 04/14/2025 12:59 PM TOMT Riana Prasad MA * Trouble falling or staying asleep, or sleeping too much Answer Date of Assessment Author Not at all 04/14/2025 12:59 PM EDT Riana Prasad MA * Feeling tired or having little energy Answer Date of Assessment Author Not at all 04/14/2025 12:59 PM TOMT Riana Prasad MA * Poor appetite or overeating Answer Date of Assessment Author Not at all 04/14/2025 12:59 PM TOMT Riana Prasad MA * Feeling bad about yourself - or that you are a failure or have let yourself or your family down Answer Date of Assessment Author Not at all 04/14/2025 12:59 PM TOMT Riana Prasad MA * Trouble concentrating on things, such as reading the newspaper or watching television Answer Date of Assessment Author Not at all 04/14/2025 12:59 PM EDT Riana Prasad MA * Moving or speaking so slowly that other people could have noticed? Or the opposite - being so fidgety or restless that you have been moving around a lot more than usual. Answer Date of Assessment Author Not at all 04/14/2025 12:59 PM EDT Riana Prasad MA * Thoughts that you would be better off or hurting yourself in some way Answer Date of Assessment Author Not at all 04/14/2025 12:59 PM EDT Riana Prasad MA * Patient Health Questionnaire-9 Score Answer Date of Assessment Author 0 04/14/2025 12:59 PM EDT Riana Prasad MA documented as of this encounter Miscellaneous Notes * Result Encounter Note - Beryl Yates MD - 04/12/2025 11:49 AM EDT Please call patient to advise to come to already scheduled apt with me to go over abnormal labs Thanks documented in this encounter Plan of Treatment Not on file documented as of this encounter Visit Diagnoses Not on filedocumented in this encounter Additional Health Concerns Assessment Noted Time PHQ-9 Depression Total Score: 1 05/01/20 10:48 AM EDT documented as of this encounter Care Teams Counselling Psychologist Relationship Specialty Start Date End Date Beryl Almanza MD [address] [place] [phone] PCP - General Internal Medicine 11/21/22 documented as of this encounter
--- OUTSIDE RECORDS SUMMARY | 2025-05-01 18:25 | XMS_ITS | Encounter Summary ---
Author Organization [employer] Address [address] [place] [address] [place] [address] Care Team Providers Care Outside Physical Damage Appraiser Name Role Phone Chauncey Haney MD Primary Care Provider Greta perry [facility] Primary Care Provider [phone] Beryl Almanza MD Primary Care Pro vider Ibis Fonseca RN Unavailable [phone] Milagros Diego Unavailable Encounter Details Date Type Department Care Team (Latest Contact Info) Description 05/14/2022 Abstract [facility] CONVERSIONS Dental, Provider, DDS Social History Tobacco Use Types Packs/Day Years Used Date Smoking Tobacco: Never Assessed Sex and Gender Information Value Date Recorded Sex Assigned at Male 06/09/2022 10:17 AM EDT Legal Sex Male 10:17 AM EDT Gender Identity Male 06/09/2022 10:17 AM EDT Sexual Orientation Straight 06/09/2022 10 :17 AM EDT documented as of this encounter Plan of Treatment Not on file documented as of this encounter Visit Diagnoses Not on filedocumented in this encounter Care Teams Outside Physical Damage Appraiser Relationship Specialty Start Date End Date Chauncey Haney MD PCP - General Family Medicine 08/16/19 06/30/22 [facility] [address] [place], [place] [phone] PCP - General Family Medicine 07/01/22 11/20/22 Beryl Almanza MD [address] [place], [place] [phone] PCP - General Internal Medicine 11/21/22 Ibis Fonseca RN [address] [place] [address] [place] [phone] Registered Nurse Family Medicine 12/26/24 12/26/24 Milagros Diego 12/26/24 12/26/24 documented as of this encounter
--- OUTSIDE RECORDS SUMMARY | 2025-05-01 18:25 | XMS_ITS | Clinical Summary ---
Author Organization [facility] Address [address] [place] [address] [place] [phone] Phone Care Team Providers Care Pan Shaker Name Role Phone Chauncey Haney Primary Care Provider Unavaila ble Allergies Active [...] Active Problems Problem Noted Date Diagnosed Date Primary aldosteronism 04/20/2025 Acute nontraumatic kidney injury 11/26/2020 Essential (primary) hypertension 11/19/2020 Hypokalemia 11/19/2020 Gastroesophageal reflux disease 11/19/2020 Schizophrenia 11/19/2020 Encounters Date Type Department Care Team Description 04/20/2025 2:45 PM EDT Office Visit [facility] [address] [place] [phone] Antoine Basilio MD Essential (primary) hypertension (Primary Dx); Primary aldosteronism (HCC) from Last 3 Months Social History Tobacco Use Types Packs/Day Years [...] Sign Reading Time Taken Comments Blood Pressure 109/60 04/20/2025 2:18 PM EDT Pulse 91 04/20/2025 2:18 PM EDT Temperature - - Respiratory Rate - - Oxygen Saturation 97% 04/20/2025 2:18 PM EDT Inhaled Oxygen Concentration - - Weight 96.5 kg (212 lb 12.8 oz) 04/20/2025 2:18 PM EDT Height 172.7 cm (5' 8 ) 11/26/2020 2:14 PM EDT Body Mass Index 32.36 11/26/2020 2:14 PM EDT Plan of Treatment Upcoming Encounters Date Type Department Care Team (Late st Contact Info) Description 10/23/2025 1:15 PM EDT Office Visit [facility] [address] [place] [phone] Antoine Basilio MD [phone] [phone] Health Maintenance Due Date Last Done [...] Discontinued 08/16/2019, 12/30/2015 Insurance Medicaid [place] Medicaid [place] Care Teams Pan Shaker Relationship Specialty Start Date End Date Chauncey Haney [address] [place] [phone] PCP - General Internal Medicine 11/06/20
[2025-05-01 20:09] VITALS: BP 126/76; PULSE 76; RESP 16; TEMP 36.6; O2SAT 97
[2025-05-01 20:20] VITALS: BP 126/76; PULSE 76; RESP 16; TEMP 36.6; O2SAT 97
== END 2025-05-01 20:21 | disposition home or self-care (01) ==
PROVIDERS: Physician Assistant Medical; Emergency Provider Emergency Medicine; PCP Student in an Organized Health Care Education/Training Program
DX: R10.2 Pelvic and perineal pain (principal); R10.32 Left lower quadrant pain; F17.210 Nicotine dependence, cigarettes, uncomplicated; Z79.899 Other long term (current) drug therapy
CPT/HCPCS: 36415; 74177; 80053; 81003; 83690; 83735; 85025; 99284; 99285; Q9967

== ENCOUNTER → 2025-05-01 17:31 | Outpatient (BNV) | payer MEDICAID, SELFPAY | PROVIDERS: Emergency Provider Emergency Medicine; PCP Student in an Organized Health Care Education/Training Program; Visit Provider Student in an Organized Health Care Education/Training Program | DX: N40.0 Benign prostatic hyperplasia without lower urinary tract symptoms (principal); Z90.49 Acquired absence of other specified parts of digestive tract | CPT/HCPCS: 74177 ==

== ENCOUNTER 2025-05-08 12:35 | Emergency (ER) | payer MEDICAID, SELFPAY ==
--- NOTE | ~2025-05-08 | XR_ITS ---
EXAMINATION: XR CHEST CLINICAL INFORMATION: chest pain COMPARISON: November 27, 2023 TECHNIQUE: 2 views of the chest were obtained. FINDINGS: Lungs are clear. Heart size normal. Mild degenerative changes are present in the thoracic spine. XR/XR chest 2V IMPRESSION: No acute disease Electronically signed by: Aubrey Wilde MD 05/08/2025 01:13 PM EDT RP
--- NOTE | 2025-05-08 12:36 | ECG_ITS ---
Test Reason : CHEST PAIN Blood Pressure : */* mmHG Vent. Rate : 82 BPM Atrial Rate : 82 BPM P-R Int : 138 ms QRS Dur : 130 ms QT Int : 386 ms P-R-T Axes : 49 79 84 degrees QTcB Int : 450 ms Artifact in tracing Normal sinus rhythm Right bundle branch block Abnormal ECG When compared with ECG of 27-Nov-2023 12:45, Nonspecific T wave abnormality now evident in Lateral leads Referred By: Kathleen Parrish Electronically Signed By: RITIKA COREY
[2025-05-08 12:52] VITALS: BP 145/74; PULSE 80; RESP 16; TEMP 36.7; O2SAT 96; BMI 32.5
--- NOTE | 2025-05-08 12:53 | ED.GENADULT ---
HPI - General Adult General Chief complaint: Chest Pain Stated complaint: CP rad into back Time Seen by Provider: 05/08/25 14:06 Source: patient Mode of arrival: ambulatory Limitations: no limitations History of Present Illness ED Provider: DR. Serrano HPI narrative: 54-year-old male history of HLD, DM, HTN, schizophrenia, osteoarthritis, gross hematuria, s/p TURP came in for evaluation of left-sided chest pain started 2 hours before coming to the hospital pain is in the mid chest radiating to the right shoulder pain is worse with taking a deep breath, no shortness of breath, no fever, no chills, no history of recent travel, no lower extremity swelling or tenderness. Related Data Home Medications ?Medication ?Instructions ?Recorded ?Confirmed aspirin 81 mg tablet,delayed 81 mg PO DAILY 06/28/20 12/25/22 release (Adult Low Dose Aspirin) docusate sodium 100 mg capsule 100 mg PO BID 06/28/20 12/25/22 (Colace) hydrochlorothiazide 25 mg tablet 25 mg PO DAILY 06/28/20 12/25/22 metoprolol tartrate 50 mg tablet 50 mg PO BID 06/28/20 12/25/22 omeprazole magnesium 20 mg 20 mg PO BID 06/28/20 12/25/22 tablet,delayed release (Prilosec OTC) sennosides 8.6 mg tablet (Natural 17.2 mg PO BEDTIME 06/28/20 12/25/22 Senna Laxative) simvastatin 20 mg tablet 20 mg PO DAILY 06/28/20 12/25/22 haloperidol 2 mg tablet 2 mg PO DAILY 06/27/22 12/25/22 haloperidol 5 mg tablet 5 mg PO BEDTIME 06/27/22 12/25/22 losartan 100 mg tablet 100 mg PO QAM 06/27/22 12/25/22 potassium chloride 20 mEq 40 meq PO QAM 06/27/22 12/25/22 tablet,extended release(part/cryst) amlodipine 10 mg tablet 10 mg PO QAM 12/25/22 12/25/22 cholecalciferol (vitamin D3) 25 25 mcg PO QAM 12/25/22 12/25/22 mcg (1,000 unit) tablet zolpidem 10 mg tablet 5 - 10 mg PO BEDTIME PRN 12/25/22 12/25/22 Previous Rx's ?Medication ?Instructions ?Recorded kkmoadsujl-nlcynyhbparyx-qhtjglco 1 cap PO Q6H PRN headache #20 caps 04/24/22 50 mg-300 mg-40 mg capsule (Fioricet) loperamide 2 mg capsule 2 mg PO Q6H PRN loose stool #30 08/08/22 (Anti-Diarrheal (loperamide)) caps ondansetron 4 mg disintegrating 4 mg PO Q6H PRN nausea and 08/08/22 tablet vomiting #14 tabs tramadol 50 mg tablet 50 mg PO Q8H PRN pain #90 tabs 06/02/23 tamsulosin 0.4 mg capsule (Flomax) 0.4 mg PO BEDTIME #30 caps 08/18/23 amoxicillin 875 mg-potassium 1 tab PO Q12H 7 days #14 tabs 02/03/24 clavulanate 125 mg tablet tramadol 50 mg tablet 50 mg PO Q8H PRN pain (scale score 02/03/24 7-10) #4 tabs Allergies Allergy/AdvReac Type Severity Reaction Status Date / Time No Known Allergies Allergy Mild Verified 05/08/25 12:53 Review of Systems Review of Systems: All other systems are reviewed and are negative Constitutional: Reports as per HPI and Reports no additional constitutional complaints Eyes: Reports as per HPI and Reports no additional eye complaints Reports system reviewed and no additional complaints, except as documented Cardiovascular: Reports as per HPI and Reports no additional cardiovascular complaints Respiratory: Reports as per HPI and Reports no additional respiratory complaints Gastrointestinal: Reports as per HPI and Reports no additional gastrointestinal complaints Genitourinary: Reports no additional female genitourinary complaints Musculoskeletal: Reports no additional musculoskeletal complaints Skin/Breast: Reports system reviewed and no additional complaints, except as docu Psychiatric: Reports no additional psychiatric complaints Endocrine: Reports no additional endocrine complaints Hematologic/Lymphatic: Reports no additional hematologic/lymphatic complaints Allergic/Immunologic: Reports no additional allergic/immunologic complaints Reports system reviewed and no additional complaints, except as documented and Reports Abnormal speech present [facility] Past Medical History Medical History Hypercholesteremia Diabetes Hypertension Social History Social History Household Members: Significant Other Alcohol intake: former Patient Tobacco Use Status: Current everyday Tobacco user Tobacco use type: Cigarette Cigarettes Per Day: 5 Smoked in Last 30 Days: No Use of substances other than those prescribed or required for medical reasons: No Advance Directives: No Advance Directives Information Provided: Yes Do you have a plan to hurt others: No Plan Physical Exam ED Vital Signs: Vital Signs - 24 hr 05/08/25 12:52 05/08/25 14:03 Temperature 98.0 F 97.9 F Pulse Rate 80 71 Respiratory Rate 16 23 H Blood Pressure 145/74 H 127/75 Pulse Oximetry 96 97 Oxygen Delivery Method Room Air Room Air BMI result Body Mass Index 32.5 Vital signs have been reviewed and appear to be correct. Blood pressure elevated. Heart rate normal. Respiratory rate normal. Temperature normal. Oxygen saturation normal. Appearance: Alert. Oriented X3. No acute distress. Head: Normal external exam. Normocephalic. Atraumatic. No Johnson signs noted. No raccoon eyes noted Eyes: PERRLA. EOMI. Conjunctiva and sclera normal. Eyelids normal. ENT: TM's Normal. Pharynx normal. Uvula midline. Moist mucous membranes. No trismus noted. No drooling noted. No muffled voice noted. Neck: Normal inspection. Neck supple. FROM. No adenopathy. Thyroid Normal. No meningeal signs. No neck mass noted. CVS: Normal heart rate and rhythm. Heart sound normal. No murmurs noted. Pulses normal throughout. Respiratory: No respiratory distress. Painless inspiration. Breath sounds normal. No wheezes/rales/rhonchi noted. Reproducible midsternal chest tenderness, no step-off, no deformity. No accessory muscle usage noted or decreased air movement noted. Abdomen: Soft and nontender. Bowel sounds normal in all 4 quadrants. No distention noted. No organomegaly noted. No visible injury noted. Back: No CVA tenderness. Full range of motion noted. Skin: Skin warm and dry. Normal skin color. Normal skin turgor. No rashes/lesions/lacerations noted. Extremities: No lower extremity edema. Extremities exhibit normal range of motion. Extremities nontender. Neuro: Oriented X 3. Cranial nerve exam: II-XII are grossly intact No motor deficit. No sensory deficit. Reflexes normal. Course Course Course Narrative: Rapid medical examination performed in triage by Kathleen Parrish PA-C. Patient is a 54 year old assigned male at presenting to the emergency department with chest pain. Detailed physical exam and review of systems are deferred to the rig manager. EKG, labs, imaging ordered. Patient placed back in the waiting room pending room availability and results. Reevaluation(s) Reevaluation #1: Left-sided chest pain with negative troponin, negative D-dimer, unremarkable EKG, unremarkable chest x-ray. Time: 15:30 Medical Decision Making Differential Diagnosis Differential Diagnoses: The differential diagnosis associated with the presentation includes ( ACS, pulmonary embolism, pneumonia, pneumothorax, pleural myofascial chest pain, electrolyte derangement, severe anemia.) Admission/Observation Consideration of admission/observation: Escalation of care including admission/observation considered Lab Data MDM Lab Attestation statement: I reviewed the patient's lab results. 05/08/25 13:00 05/08/25 13:00 Labs: Lab Results 05/08/25 Range/Units 13:00 WBC 10.4 (4.8-10.8) X10*3/uL RBC 4.00 L (4.60-5.80) X10*6/uL Hgb 12.4 L (14.0-18.0) g/dl Hct 34.8 L (42.0-52.0) % MCV 87.0 (80.0-98.0) fL MCH 31.0 (27.0-33.0) pg MCHC 35.6 (31.0-36.0) g/dl RDW 12.8 (11.0-16.0) % Plt Count 275 (160-400) X10*3/uL MPV 9.5 (9.4-12.4) fL Immature Gran % (Auto) 0.8 H (0.0-0.4) % Neut % (Auto) 70.6 (45-73) % Lymph % (Auto) 17.2 L (20-40) % [place] % (Auto) 7.1 (2-11) % Eos % (Auto) 3.8 (0-4) % Baso % (Auto) 0.5 (0-2) % Lymph # (Auto) 1.8 (1.2-4.9) X10*3/uL [place] # (Auto) 0.7 (0.1-1.2) X10*3/uL Eos # (Auto) 0.4 (0.0-0.4) X10*3/uL Baso # (Auto) 0.1 (0.0-0.2) X10*3/uL Abs Immat Gran (auto) 0.08 H (0.00-0.03) X10*3/uL Absolute Neuts (auto) 7.3 (2.0-8.3) x10*3/uL Absolute Nucleated RBC 0.000 (0.0-0.012) X10*3/uL Nucleated RBC % (auto) 0.0 (0.0-0.2) /100WBC Sodium 142 (135-145) mmol/L Potassium 4.1 (3.3-5.1) mmol/L Chloride 110 H (96-108) mmol/L Carbon Dioxide 26 (22-29) mmol/L Anion Gap 10 L (12-20) BUN 22 H (9-16) mg/dL Creatinine 1.36 (0.5-1.4) mg/dL Estim Creat Clear Calc 68.4 Estimated GFR 54 Random Glucose 164 H (60-115) mg/dL Calcium 9.8 (8.4-10.2) mg/dL Total Bilirubin 0.5 (0.0-1.0) mg/dL AST 29 (5-37) U/L ALT 22 (0-40) U/L Alkaline Phosphatase 99 (39-117) U/L Troponin I High Sens 7.0 (<3.5-35.0) ng/L NT-Pro-B Natriuret Pep < 15.8 (<300) pg/mL Total Protein 7.5 (6.5-8.0) g/dL Albumin 4.3 (3.5-5.0) g/dL Independent Interpretation I performed an independent interpretation of an: EKG ( Normal sinus rhythm at 82 beats per minutes, right bundle branch block, no change from previous EKG.) and Plain X-Ray ( Chest: No acute intrathoracic pathology.) Radiology Impression Discussion of test interpretation with radiology: I have reviewed the radiologist's reading. Discharge Plan Discharge Clinical Impression: Costalchondritis Patient Disposition: Home, Self-Care Instructions: Costochondritis (ED) Prescriptions: No Action tramadol 50 mg tablet 50 mg PO Q8H PRN (Reason: pain) Qty: 90 3RF zoftcocpqw-qtsunlblgudte-knlv [Fioricet] 50-300-40 mg capsule 1 cap PO Q6H PRN (Reason: headache) Qty: 20 0RF loperamide [Anti-Diarrheal (loperamide)] 2 mg capsule 2 mg PO Q6H PRN (Reason: loose stool) Qty: 30 0RF ondansetron 4 mg tablet,disintegrating 4 mg PO Q6H PRN (Reason: nausea and vomiting) Qty: 14 0RF tamsulosin [Flomax] 0.4 mg capsule 0.4 mg PO BEDTIME Qty: 30 0RF amoxicillin-pot clavulanate 875-125 mg tablet 1 tab PO Q12H 7 Days Qty: 14 0RF tramadol 50 mg tablet 50 mg PO Q8H PRN (Reason: pain (scale score 7-10)) Qty: 4 0RF metoprolol tartrate 50 mg tablet 50 mg PO BID simvastatin 20 mg tablet 20 mg PO DAILY hydrochlorothiazide 25 mg tablet 25 mg PO DAILY aspirin [Adult Low Dose Aspirin] 81 mg tablet,delayed release (DR/EC) 81 mg PO DAILY omeprazole magnesium [Prilosec OTC] 20 mg tablet,delayed release (DR/EC) 20 mg PO BID docusate sodium [Colace] 100 mg capsule 100 mg PO BID sennosides [Natural Senna Laxative] 8.6 mg tablet 17.2 mg PO BEDTIME losartan 100 mg tablet 100 mg PO QAM haloperidol 5 mg tablet 5 mg PO BEDTIME potassium chloride 20 mEq tablet,ER particles/crystals 40 meq PO QAM haloperidol 2 mg tablet 2 mg PO DAILY cholecalciferol (vitamin D3) 25 mcg (1,000 unit) tablet 25 mcg PO QAM zolpidem 10 mg tablet 5 - 10 mg PO BEDTIME PRN amlodipine 10 mg tablet 10 mg PO QAM Referrals: Beryl Almanza MD [Primary Care Provider, Internal Medicine] Print Language: Turkish
[2025-05-08 13:12] LABS: MANUAL DIFF FLAG NO
[2025-05-08 13:14] LABS: Hematocrit 34.8 % (42.0-52.0); Hemoglobin 12.4 g/dl (14.0-18.0); Imm Gran Abs Auto 0.08 X10*3/uL (0.00-0.03); Imm Gran Pct Auto 0.8 % (0.0-0.4); Lymphocytes Absolute Auto 1.8 X10*3/uL (1.2-4.9); Mean Corpuscular HGB Conc 35.6 g/dl (31.0-36.0); Mean Corpuscular Hemoglobin 31.0 pg (27.0-33.0); Mean Corpuscular Volume 87.0 fL (80.0-98.0); NRBC Abs Auto 0.000 X10*3/uL (0.0-0.012); NRBC Pct Auto 0.0 /100WBC (0.0-0.2); Platelet Count 275 X10*3/uL (160-400); Red Blood Count 4.00 X10*6/uL (4.60-5.80); White Blood Count 10.4 X10*3/uL (4.8-10.8)
[2025-05-08 13:28] LABS: Alanine Aminotransferase 22 U/L (0-40); Albumin Level 4.3 g/dL (3.5-5.0); Alkaline Phosphatase 99 U/L (39-117); Anion Gap 10 (12-20); Aspartate Amino Transferase 29 U/L (5-37); Blood Urea Nitrogen 22 mg/dL (9-16); Calcium 9.8 mg/dL (8.4-10.2); Carbon Dioxide 26 mmol/L (22-29); Chloride 110 mmol/L (96-108); Creatinine Clr Calc Pharmacy 68.4; Estimated Glomerular Filt Rate 54; Potassium 4.1 mmol/L (3.3-5.1); Sodium 142 mmol/L (135-145); Total Protein 7.5 g/dL (6.5-8.0)
[2025-05-08 13:38] LABS: NT Pro B Type Natriuretic Pept < 15.8 pg/mL (<300); Troponin-I High Sensitivity 7.0 ng/L (<3.5-35.0)
--- NOTE | 2025-05-08 13:49 | PC.NURSE ---
Pt reports his face feels numb. This just occurred within last couple of minutes. Chest pain 10/10 right in the middle .
[2025-05-08 14:03] VITALS: BP 127/75; PULSE 71; RESP 23; TEMP 36.6; O2SAT 97
[2025-05-08 14:57] VITALS: BP 117/66; PULSE 69; RESP 18; O2SAT 97
--- OUTSIDE RECORDS SUMMARY | 2025-05-08 15:39 | XMS_ITS | Encounter Summary ---
Author Organization [employer] Address [address] [place] [address] [address] [place] [address] Care Team Providers Care Laboratory Apparatus Glass Grinder Name Role Phone Beryl Almanza MD Primary Care Pro vider Scotty Hernandez RN Unavailable [phone] Radha Fonseca Unavailable Reason for Referral * Consultation (Routine) - Closed Specialty Diagnoses / Procedures Referred By Contsony t Referred To Contact Cardiology Diagnoses RBBB Beryl Almanza MD [address] [place] [address] Phone: tel: fax: [facility] [address] [place] [address] Phone: tel: fax: Referral ID Status Reason Start Date Expiration Date V isits Requested Visits Authorized [id number] Closed Specialty Services Required 05/04/2025 05/03/2026 6 6 Encounter Details Date Type Department Care Team (Late st Contact Info) Description 05/03/2025 Orders Only [facility] [address] [place] [phone] Beryl Almanza MD [address] [place], [place] [phone] RBBB (Primary Dx) Social History Tobacco Use Types Packs/Day Years [...] as of this encounter Plan of Treatment Scheduled Referrals Name Type Priority Associated Diagnoses Order Schedule Referral to Cardiology Outpatient Referral Routine RBBB Expected: 05/03/2025 (Approximate), Expires: 05/03/2026 documented as of this encounter Visit Diagnoses Diagnosis RBBB- Primary documented in this encounter Additional Health Concerns Assessment Noted Time PHQ-9 Depression Total Score: 0 04/14/20 12:59 PM EDT documented as of this encounter Care Teams Laboratory Apparatus Glass Grinder Relationship Specialty Start Date End Date Beryl Almanza MD [address] [place] [address] PCP - General Internal Medicine 11/21/22 Scotty Hernandez, HENRRY [address] [place] [address] Registered Nurse Family Medicine 05/02/25 05/03/25 Radha Fonseca 05/02/25 05/03/25 documented as of this encounter
--- OUTSIDE RECORDS SUMMARY | 2025-05-08 15:39 | XMS_ITS | Encounter Summary ---
Author Organization [employer] Address [address] [place] [address] 7 [place] [address] Care Team Providers Care Antitank Assault Gunner Name Role Phone Beryl Almanza MD Primary Care Pro vider Scotty Hernandez RN Unavailable [phone] Radha Fonseca Unavailable Reason for Visit * Reason Onset Date Comments Results 05/02/2025 Telephone Call 05/02/2025 Encounter Details Date Type Department Care Team ([facility] st Contact Info) Description 05/02/2025 Telephone [facility] [address] [place] [address] Beryl Almanza MD [address] [place], [place] [phone] Results; Telephone Call Social History Tobacco Use Types Packs/Day Years [...] encounter Miscellaneous Notes * Telephone Encounter - Ashlee Douglass RN - 05/04/2025 9:57 AM EDT Called pt, informed of new referral to [facility] Cardiology, explained to expect call in 7-10 business days from that office to schedule appt, and that referral letter will be mailed to home address. Pt verbalized understanding. * Telephone Encounter - Gaby Yates - 05/03/2025 10:[address] Odonnell. Patient walked in stating he is unable to attend the Cardiology appointment scheduled for today 05/03/[address] [place] [address] due to transportation. Patient is requesting to be referred to the [facility] Window Shade Ring Sewer located at [address] [facility]. Patient can be reached at [phone]. * Telephone Encounter - Emeterio Rivera 05/02/2025 2:12 PM EDT TC from pt requesting call back regarding Results. Type of results: CAT scan Date when done: 05/01 Facility: [facility] Contact pt at [phone] (omani) documented in this encounter Plan of Treatment Not on file documented as of this encounter Visit Diagnoses Not on filedocumented in this encounter Additional Health Concerns Assessment Noted Time PHQ-9 Depression Total Score: 0 04/14/20 12:59 PM EDT documented as of this encounter Care Teams Antitank Assault Gunner Relationship Specialty Start Date End Date Beryl Almanza MD [address] [place] [phone] PCP - General Internal Medicine 11/21/22 Scotty Hernandez RN [address] [place] [address] Registered Nurse Family Medicine 05/02/25 05/03/25 Radha Fonseca 05/02/25 05/03/25 documented as of this encounter
--- OUTSIDE RECORDS SUMMARY | 2025-05-08 15:39 | XMS_ITS | Encounter Summary ---
Author Organization [employer] Address [address] [facility] [address] [place] [address] Care Team Providers Care Photographer Scientific Name Role Phone Beryl Almanza MD Primary Care Pro vider Scotty Hernandez RN Unavailable [phone] Radha Fonseca Unavailable Reason for Visit * Reason Comments Care Management C3CM- Initial assess ment/enrollment Encounter Details Date Type Department Care Team (Late st Contact Info) Description 05/03/2025 Patient Outreach [facility] [address] [place], [place] [phone] Beryl Almanza MD [address] [place], [place] [phone] Care Management (C3CM- Initial assessment/enrollmen t) Social History Tobacco Use Types Packs/Day Years [...] AM EDT documented as of this encounter Progress Notes * Scotty Hernandez RN - 05/03/2025 12:57 PM EDT CM Scotty Hernandez RN placed outbound call to patient for agreed upon time for initial assessment forenrollment into Adult Care Management Program. Patient's name, , and address were verified. Caremanagement program explained. Patient declined to participate. Case will be closed. CM informed patient to reach out to his PCP if in the future he would like to request services. Pt verbalized understanding and agreed to plan. documented in this encounter Plan of Treatment Not on file documented as of this encounter Visit Diagnoses Not on filedocumented in this encounter Additional Health Concerns Assessment Noted Time PHQ-9 Depression Total Score: 0 04/14/20 25 12:59 PM EDT documented as of this encounter Care Teams Photographer Scientific Relationship Specialty Start Date End Date Beryl Almanza MD [address] [place] [phone] PCP - General Internal Medicine 11/21/22 Scotty Hernandez, RN [address] [facility] [place] [address] Registered Nurse Family Medicine 05/02/25 05/03/25 Radha Fonseca 05/02/25 05/03/25 documented as of this encounter
--- OUTSIDE RECORDS SUMMARY | 2025-05-08 15:40 | XMS_ITS | Clinical Summary ---
Author Organization [facility] Address [address] [place] [address] [place] [address] Phone Care Team Providers Care Instructor Physical Education Name Role Phone Chauncey Haney Primary Care [...] Visit [facility] [address] [place] [address] Antoine Basilio [...] Visit [facility] [address] [place] [address] Antoine Basilio MD [address] [address] Health Maintenance Due Date Last [...] Discontinued 08/16/2019, 12/30/2015 Insurance Medicaid [place] Care Teams Instructor Physical Education Relationship Specialty Start Date End Date Chauncey Haney [address] [place] [phone] PCP - General Internal Medicine 11/06/20
--- OUTSIDE RECORDS SUMMARY | 2025-05-08 15:40 | XMS_ITS | Encounter Summary ---
Author Organization [employer] Address [address] [facility] [address]t [place] [address] Care Team Providers Care Cryptographic Technician Name Role Phone Beryl Almanza MD Primary Care Pro vider Scotty Hernandez RN Unavailable [phone] Radha Fonseca Unavailable Encounter Details Date Type Department Care Team (Late st Contact Info) Description 04/12/2025 Results Follow-Up [facility] [address] [place] [address] Beryl Almanza MD [address] [place] [address] CBC Social History Tobacco Use Types Packs/Day [...] 12:59 PM EDT Riana Prasad [place] * Trouble falling or staying asleep, or sleeping too much Answer Date of Assessment Author Not at all 04/14/2025 12:59 PM EDT Riana Prasad [place] * Feeling tired or having little energy Answer Date of Assessment Author Not at all 04/14/2025 12:59 PM EDT Riana Prasad [place] * Poor appetite or overeating Answer Date of Assessment Author Not at all 04/14/2025 12:59 PM EDT Riana Prasad MA * Feeling bad about yourself - or that you are a failure or have let yourself or your family down Answer Date of Assessment Author Not at all 04/14/2025 12:59 PM EDT Riana Prasad MA * Trouble concentrating on [...] documented as of this encounter Care Teams Cryptographic Technician Relationship Specialty Start Date End Date Beryl Almanza MD [address] [place] [address] PCP - General Internal Medicine 11/21/22 Scotty Hernandez, HENRRY [address] [place] [address] Registered Nurse Family Medicine 05/02/25 05/03/25 Radha Fonseca 05/02/25 05/03/25 documented as of this encounter
--- OUTSIDE RECORDS SUMMARY | 2025-05-08 15:40 | XMS_ITS | Clinical Summary ---
Author Organization [employer] Address [address] [place] [address] 7[address] [place] [address] Care Team Providers Care Ostomy Nurse Name Role Phone Beryl Almanza MD Primary Care Pro vider Allergies No known active allergies Medications tamsulosin (Flomax) 0.4 MG 24 hr capsule Take 1 capsule (0.4 mg) by mouth in the morning. 90 capsule 09/07/19 24 Active haloperidol (Haldol) 1 MG tablet Active haloperidol (Haldol) 2 MG tablet 2 mg. 11/10/19 24 Active zolpidem (Ambien) 10 MG tablet 5 mg. 11/10/19 24 Active omega-3 acid ethyl esters (Lovaza) 1 g capsule TAKE 1 CAPSULE BY MOUTH EVERY MORNING 90 capsule 1 11/16/19 25 Active haloperidol (Haldol) 5 MG tablet Take 5 mg by mouth 4 times daily. Active Blood Pressure kitIndications:Hyp ertension, unspecified type 1 each Once per day. Check BP daily as directed 1 kit 01/17/20 25 Active simvastatin (Zocor) 20 MG tabletIndications: Hyperlipidemia, unspecified hyperlipidemia type TAKE 1 TABLET BY MOUTH AT BEDTIME 90 tablet 1 03/14/20 25 Active amLODIPine (Norvasc) 5 MG tabletIndications: Primary hypertension TAKE 1 TABLET BY MOUTH EVERY MORNING 90 tablet 1 03/29/20 25 Active lidocaine-prilocai ne (Emla) 2.5-2.5 % cream APPLY TO THE AFFECTED AREA(S) ONCE DAILY NEEDED FOR PAIN 30 g 1 04/05/20 25 Active losartan (Cozaar) 100 MG tablet Take 1 tablet (100 mg) by mouth in the morning. 90 tablet 04/06/20 25 Active cholecalciferol (Vitamin D-3) 25 MCG tabletIndications: Vitamin D deficiency TAKE 1 TABLET BY MOUTH EVERY MORNING 90 tablet 1 04/06/20 25 Active fluticasone (Flonase) 50 MCG/ACT nasal sprayIndications:S ore throat Administer 1 spray into each nostril Once per day. Shake gently. Before first use, prime pump. After use, clean tip and replace cap. 16 g 1 03/13/20 25 025 Discontin ued(Other ) Active Problems Problem Noted Date Diagnosed Date [...] Encounters Date Type Department Care Team Description 05/03/2025 Orders Only [facility] [address] [place], [place] [phone] Beryl Almanza MD RBBB (Primary Dx) 05/03/2025 Patient Outreach [facility] [address] [place], [place] [phone] Beryl Almanza MD Care Management ([facility]- Initial assessment/enrollment) 05/02/[address] [address] Beryl Almanza MD Results; Telephone Call 05/02/2025 Patient Outreach [address] [address] Beryl Almanza MD Care Coordination ([facility] Radha Fonseca, initial assessment scheduled ) 05/02/2025 Patient Outreach [address] [address] Beryl Almanza MD Care Coordination ([facility] Radha Fonseca, Chart review ) 05/02/2025 Patient Outreach [facility] [address] [place] [phone] Beryl Almanza MD Care Coordination ([facility]- chart review) 05/02/2025 Patient Outreach [address] [address] Beryl Almanza MD 05/01/2025 Orders Only [facility] External Provider, [facility] 04/14/2025 1:00 PM EDT Office Visit [address] [address] Beryl Almanza MD Lumbar back pain (Primary Dx); Anemia, unspecified type; Hypertension, unspecified type; Class 1 obesity due to excess calories without serious comorbidity with body mass index (BMI) of 30.0 to 30.9 in adult; Healthcare maintenance; Elevated pancreatic enzyme; Elevated PSA 04/14/2025 Travel 04/12/2025 Results Follow-Up [address] [address] Beryl Almanza MD CBC 04/06/[address] [address] Beryl Almanza MD Vitamin D deficiency 04/05/[address] [phone] Beryl Almanza MD 03/28/2025 Refill [facility] [address] [place] [address] Beryl Almanza MD Primary hypertension 03/14/2025 Refill [facility] [address] [place] [address] Luis Antonio Kumar MD Hyperlipidemia, unspecified hyperlipidemia type 03/13/2025 9:20 AM EDT Office Visit [facility] [address] [place] [phone] Carol Benitez, VIRGIL Sore throat (Primary Dx); Elevated blood pressure reading 03/13/2025 Travel 02/20/2025 Results Follow-Up [address] [address] Beryl Almanza MD XR Lumbar Spine 2-3 Views, Albumin, Random Urine W/Creatinine, Comprehensive Metabolic Panel, Additional followed-up results: 8 02/16/2025 Telephone [facility] [address] [place] [phone] Beryl Almanza MD Referral 02/09/2025 10:30 AM EDT Office Visit [facility] [address] [place] [phone] Beryl Almanza MD Health care maintenance (Primary Dx); Annual physical exam; Lumbar back pain; Hypertension, unspecified type; Class 1 obesity due to excess calories without serious comorbidity with body mass index (BMI) of 30.0 to 30.9 in adult 02/09/2025 Travel 02/08/[address] [phone] Beryl Almanza MD chart prep from Last 3 Months Immunizations Immunization Administration Dates Next Due Influenza Injectable Quadriv alant Preservative Free IIV4 MDCK 05/21/2023,05/08/2022,07/26/2021,06/18 Influenza injectable quadriv alent IIV4 with preservative 05/30/2019 Influenza, IIV3, injectable 05/08/2014 Influenza, Split (incl. jose fied surface antigen) 07/19/2012 Influenza, seasonal, injecta ble, preservative free 06/01/2024 Moderna Covid-19 Vaccine 12+ 12/28/2020,12/01/19 Moderna Covid-19 Vaccine 6+ Bivalent 09/25/2022 Pfizer [...] Procedure Name Priority Date/Time Associated Diagnosis Comments CT ABDOMEN PELVIS W CONTRAST Routine 05/01/2025 7:55 PM EDT URINALYSIS WITH REFLEX MICROSCOPIC Routine 05/01/2025 3:42 [...] Recently Relevant to Health Maintenance Results * CT Abdomen Pelvis w/ Contrast (05/01/2025 7:55 PM EDT) Anatomical Region Laterality Modality Body, Pelvis, Abdomen Computed T omography 05/01/2025 7:55 PM EDT Narrative 05/01/2025 7:57 PM EDT [address] [address] [address] Scan Report Signed Patient: Merlin Diego MR#: [id number] : 1970 Acct:[id number] Age/Sex: 54 / M ADM Date: 05/01/25 Loc: .ED Attending Dr: Ordering Physician: Dean Serrano MD Date of Service: 05/01/25 Procedure(s): CT abdomen pelvis w IV con Accession Number(s): [id number] cc: Dean Serrano MD; Beryl Almanza MD Report Number: [id number]: Total DLP = 646.00 mGy-cm Reason for Exam: left flank pain, s/p Left suprarenal gland resecti CLINICAL HISTORY: left flank pain, s p Left suprarenal gland resecti CT abdomen and pelvis with contrast Comparison: CT/REG/AK/SR - CT ABDOMEN PELVIS WO IV CON - 08/18/23 20:00 EST Findings: No consolidation or effusion. Postsurgical changes related to left partial adrenal gland resection with mild surrounding inflammatory changes. Status post cholecystectomy. Remainder of the solid organs are within normal limits. No hydronephrosis or nephrolithiasis. No bowel obstruction, pneumoperitoneum, or pneumatosis. Moderate prostatomegaly with prostate measuring 7.4 x 5.2 x 5.5 cm. Changes related to appendectomy. The bones are intact. IMPRESSION: Postsurgical changes related to partial left adrenal gland resection with mild surrounding inflammatory changes. No evidence of fluid collection or abscess. Moderate prostatomegaly. Status post cholecystectomy and appendectomy. This document has been electronically signed by: Nehemiah Barajas MD on 05/01/2025 19:55:52 Dictated By: Nehemiah Barajas MD Signed By: <Electronically signed by Nehemiah Barajas MD in OV> 05/01/251955 DD/ 54 TD/TT: 05/01/251954 Batch Analyst: Procedure Note Donotuseinterpreter, Image - 05/01/[address] [place] [address] [address] Scan Report Signed Patient: Merlin Diego [facility]#: [id number] : 1970Acct:[id number] Age/Sex: 54 / MADM Date: 05/01/25 Loc: .ED Attending Dr: Ordering Physician: Dean Serrano MD Date of Service: 05/01/25 Procedure(s): CT abdomen pelvis w IV con Accession Number(s): [id number] cc: Dean Serrano MD; Beryl Almanza MD Report Number: [id number]: Total DLP = 646.00 mGy-cm Reason for Exam: left flank pain, s/p Left suprarenal gland resecti CLINICAL HISTORY: left flank pain, s p Left suprarenal gland resecti CT abdomen and pelvis with contrast Comparison: CT/REG/AK/SR - CT ABDOMEN PELVIS WO IV CON - 08/18/23 20:00 EST Findings: No consolidation or effusion. Postsurgical changes related to left partial adrenal gland resection with mild surrounding inflammatory changes. Status post cholecystectomy. Remainder of the solid organs are within normal limits. No hydronephrosis or nephrolithiasis. No bowel obstruction, pneumoperitoneum, or pneumatosis. Moderate prostatomegaly with prostate measuring 7.4 x 5.2 x 5.5 cm. Changes related to appendectomy. The bones are intact. IMPRESSION: Postsurgical changes related to partial left adrenal gland resection with mild surrounding inflammatory changes. No evidence of fluid collection or abscess. Moderate prostatomegaly. Status post cholecystectomy and appendectomy. This document has been electronically signed by: Nehemiah Barajas MD on 05/01/2025 19:55:52 Dictated By: Nehemiah Barajas MD Signed By: <Electronically signed by Nehemiah Barajas MD in OV> 05/01/251955 DD/ 54 TD/TT: 05/01/251954 Batch Analyst: [facility] External Provider IMG CT PROCEDURES Edited Result - Final * (ABNORMAL) Urinalysis w/reflex microscopic (05/01/2025 3:42 PM EDT) Color Urine Yellow [facility] Appearance Urine Clear [facility] PH 5.5 5.0 - 9.0 [facility] Glucose Urine UA Negative Negative mg/dL [facility] Urine Blood Negative Negative [facility] Specific [place] - Urine >=1.030(H) 1.005 - 1.025 [facility] Urine Protein Trace Neg-Trace mg/dL [facility] Urine Ketones Trace Negative mg/dL [facility] Nitrite Urine Negative Negative [facility] Leukocyte Esterase Urine Negative Negative [facility] 05/01/2025 3:42 PM EDT 05/01/2025 4:02 PM EDT Narrative [facility] - 05/01/2025 4:07 PM EDT [id number], Clean Catch Generic External Data Provider LAB URINE ORDERAB LES Final Result [facility] [address] [place] [phone] * (ABNORMAL) CBC auto differential (05/01/2025 2:55 PM EDT) White Blood Count 8.6 4.8 - 10.8 X10*3/uL [facility] Red Blood Count 4.05(L) 4.60 - 5.80 X10*6/uL [facility] Hemoglobin 12.6(L) 14.0 - 18.0 g/dl [facility] Hematocrit 35.2(L) 42.0 - 52.0 % [facility] Mean Corpuscular Volume 86.9 80.0 - 98.0 fL [facility] Mean Corpuscular Hemoglobin 31.1 27.0 - 33.0 pg [facility] Mean Corpuscular HGB Conc 35.8 31.0 - 36.0 g/dl [facility] Red Cell Distribution Width 12.6 11.0 - 16.0 % [facility] Platelet Count 234 160 - 400 X10*3/uL [facility] Mean Platelet Volume 9.0(L) 9.4 - 12.4 fL [facility] Neutrophils Percent Auto 67.4 45 - 73 % [facility] Imm Gran Pct Auto 0.5(H) 0.0 - 0.4 % [facility] Lymphocytes Percent Auto 21.1 20 - 40 % [facility] Monocytes Percent Auto 6.4 2 - 11 % [facility] Eosinophils Percent Auto 4.1(H) 0 - 4 % [facility] Basophils Percent Auto 0.5 0 - 2 % [facility] NRBC Pct Auto 0.0 0.0 - 0.2 /100WBC [facility] Neutrophils Absolute Auto 5.8 2.0 - 8.3 x10*3/uL [facility] Imm Gran Abs Auto 0.04(H) 0.00 - 0.03 X10*3/uL [facility] Lymphocytes Absolute Auto 1.8 1.2 - 4.9 X10*3/uL [facility] Monocytes Absolute Auto 0.6 0.1 - 1.2 X10*3/uL [facility] Eosinophils Absolute Auto 0.4 0.0 - 0.4 X10*3/uL [facility] Basophils Absolute Auto 0.0 0.0 - 0.2 X10*3/uL [facility] NRBC Abs Auto 0.000 0.0 - 0.012 X10*3/uL [facility] 05/01/2025 2:55 PM EDT 05/01/2025 2:58 PM EDT us Generic External Data Provider LAB BLOOD ORDERAB LES Final Result [facility] [address] [place] [phone] * Magnesium (05/01/2025 2:55 PM EDT) [facility] Magnesium 2.2 1.6 - 2.6 mg/dL [facility] 05/01/2025 2:55 PM EDT 05/01/2025 2:58 PM EDT Generic External Data Provider LAB BLOOD ORDERAB LES Final Result Performing Organization Address [facility] Co de Phone Number [facility] [address] [place] [phone] * Lipase (05/01/2025 2:55 PM EDT) Only the most recent of2 resultswithin the time period is included. [facility] Lipase 47 8 - 78 U/L [facility] 05/01/2025 2:55 PM EDT 05/01/2025 2:58 PM EDT Generic External Data Provider LAB BLOOD ORDERAB LES Final Result Performing Organization Address [facility] de Phone Number [facility] [address] [place] [phone] * (ABNORMAL) Comprehensive Metabolic Panel (05/01/2025 2:55 PM EDT) Only the most recent of2 resultswithin the time period is included. [facility] Sodium 140 135 - 145 mmol/L [facility] Potassium 4.1 3.3 - 5.1 mmol/L [facility] Chloride 106 96 - 108 mmol/L [facility] Carbon Dioxide 29 22 - 29 mmol/L [facility] Anion Gap 9(L) 12 - 20 [facility] Urea Nitrogen (BUN) 23(H) 9 - 16 mg/dL [facility] Creatinine, Serum 1.37 0.5 - 1.4 mg/dL [facility] Creatinine Clr Calc Pharmacy 67.8 [facility] Comment:eGFR (calculated fro m the MDRD study equation) and eCrCl(calculated from the Cockcroft-Gault equation) are based ondifferent parameters and may not yield comparable results.If eCrCl result is absurd, please check patient'sheight/weight. Estimated Glomerular Filt Rate 54 [facility] Comment:Chronic Kidney Disea se: Estimated GFR < 60 mL/min/1.67j5Zkaexu Kidney Disease: Estimated GFR < 15 mL/min/1.73m2 Glucose 120(H) 60 - 115 mg/dL [facility] Calcium 9.3 8.4 - 10.2 mg/dL [facility] Bilirubin, Total 0.6 0.0 - 1.0 mg/dL [facility] Aspartate Amino Transferase 26 5 - 37 U/L [facility] Alanine Aminotransferase 21 0 - 40 U/L [facility] Total Protein 7.7 6.5 - 8.0 g/dL [facility] Albumin Level 4.3 3.5 - 5.0 g/dL [facility] Alkaline Phosphatase 105 39 - 117 U/L [facility] 05/01/2025 2:55 PM EDT 05/01/2025 2:58 PM EDT us Generic External Data Provider LAB BLOOD ORDERAB LES Final Result [facility] [address] [place] [phone] * Chlamydia/N. Gonorrhoeae, PCR, Urine (04/12/2025 9:03 AM EDT) CT PCR, Urine NOT DETECTED Not Detect. [facility] Comment:A not detected test result does [...] NG PCR, Urine NOT DETECTED Not Detect. [facility] Comment:A not detected test result does [...] ORDERAB LES Final Result Performing Organization Address [facility] Co de Phone Number [facility] [address] [place] [phone] * Syphilis Screen (04/12/2025 9:03 AM EDT) Syphilis Screen Nonreactive Nonreactive [facility] Blood 04/12/2025 9:03 AM EDT 04/12/2025 11:12 AM EDT Beryl Yates MD LAB BLOOD ORDERAB LES Final Result Performing Organization Address [facility] Co de Phone Number [facility] [address] [place] [phone] * Vitamin D, 25-Hydroxy, Total, Immunoassay (04/12/2025 9:03 AM EDT) Vitamin D 25-OH Total 54.0 >30 ng/mL [facility] Comment: Health Based Reference Values*< 20 ng/mL Ktpeaiwas17-68 ng/mL Insufficient> 30 ng/mL Sufficient*Sonia FOSS. N [...] MD LAB BLOOD ORDERAB LES Final Result [facility] [address] [place] [phone] * TSH with Reflex to Free T4 (04/12/2025 9:03 AM EDT) TSH reflex Free T4 1.64 0.32 - 4.0 uIU/mL [facility] Blood 04/12/2025 9:03 AM EDT 04/12/2025 11:12 AM EDT us Beryl Yates MD LAB BLOOD ORDERAB LES Final Result Performing Organization Address [facility]/ZIP Co de Phone Number [facility] [address] [place] [phone] * Albumin, Random Urine W/Creatinine (04/12/2025 9:03 AM EDT) [facility] Creatinine, Urine 188.88 mg/dL [facility] Microalbumin Urine 29.0 mg/L [facility] Microalbum Creatinine Ratio Ur 15.3 <30 ug/mg cr [facility] Comment:Albumin/Creatinine R atio Reference Ranges: Normal: < 30 ug/mg creatinine Microalbuminuria: 30 - 300 ug/mg creatinineClinical Albuminuria: > 300 ug/mg creatinine Urine (Urine, Random) 04/12/2025 9:03 AM EDT 04/12/2025 11:15 AM EDT us Beryl Yates MD LAB URINE ORDERAB LES Final Result Performing Organization Address [facility] Co de Phone Number [facility] [address] [place] [phone] * Hepatitis C Antibody with Reflex to HCV, RNA, Quantitative, Real-Time PCR (04/12/2025 9:03 AM EDT) [facility] Hepatitis C Antibody Nonreactive Nonreactive [facility] Comment:Antibodies to HCV no t detected; does not exclude early acuteHCV infection. Blood Venous blood specimen / Unknown 04/12/2025 9:03 AM EDT 04/12/2025 11:12 AM EDT us Beryl Yates MD LAB BLOOD ORDERAB LES Final Result Performing Organization Address [facility] Co de Phone Number [facility] [address] [place] [phone] * Iron And Total Iron Binding Capacity (04/12/2025 9:03 AM EDT) Iron 55 45 - 160 mcg/dL [facility] Total Iron Binding Capacity 236 228 - 428 mcg/dL [facility] Percent Iron Saturation 23 15 - 50 % [facility] Unsaturated Iron Binding 181 ug/dL [facility] Blood Venous blood specimen / Unknown 04/12/2025 9:03 AM EDT 04/12/2025 11:12 AM EDT us Beryl Yates MD LAB BLOOD ORDERAB LES Final Result Performing Organization Address City/[facility]/ZIP Co de Phone Number [facility] [address] [place] [phone] * Hepatitis B surface antigen, EIA (04/12/2025 9:03 AM EDT) Hepatitis B Surface Ag Negative Negative [facility] Blood Venous blood specimen / Unknown 04/12/2025 9:03 AM EDT 04/12/2025 11:12 AM EDT us Beryl Yates MD LAB BLOOD ORDERAB LES Final Result Performing Organization Address [facility] Co de Phone Number [facility] [address] [place] [phone] * Hepatitis B Core Antibody, Total (04/12/2025 9:03 AM EDT) Hepatitis B Core Antibody Nonreactive Nonreactive [facility] Blood Venous blood specimen / Unknown 04/12/2025 9:03 AM EDT 04/12/2025 11:12 AM EDT us Beryl Yates MD LAB BLOOD ORDERAB LES Final Result Performing Organization Address [facility] Co de Phone Number [facility] [address] [place] [phone] * HIV-1/2 Antigen and Antibodies, Fourth Generation, with Reflexes (04/12/2025 9:03 AM EDT) [facility] HIV AB/AG Nonreactive Nonreactive [facility] Comment:HIV-1 p24 Ag and/or HIV-1/HIV-2 Ab not detected.A test result that is nonreactive does not exclude thepossibility of exposure to or infection with HIV-1 and/orHIV-2. Nonreactive results in this assay for individualswith prior exposure to HIV-1 and/or HIV-2 may be due toantigen and antibody levels that are below the limit ofdetection of this assay.The [employer] HIV Ag/Ab Combo assay result andsupplemental assay results should be interpreted inconjunction with the patient's clinical presentation,history and other laboratory results. If the results areinconsistent with clinical evidence, additional testing issuggested to confirm the result. Blood Venous blood specimen / Unknown 04/12/2025 9:03 AM EDT 04/12/2025 11:12 AM EDT us Beryl Yates MD LAB BLOOD ORDERAB LES Final Result Performing Organization Address City/[facility]/ZIP Co de Phone Number [facility] [address] [place] [address] [phone] * Hepatitis B Surface Antibody, Qualitative (04/12/2025 9:03 AM EDT) [facility] ~Hepatitis B Surface Antibody NONREACTIVE Nonreactive [facility] Comment:Nonreactive: < 8.00 mIU/mL Blood Venous blood specimen / Unknown 04/12/2025 9:03 AM EDT 04/12/2025 11:12 AM EDT us Beryl Yates MD LAB BLOOD ORDERAB LES Final Result Performing Organization Address City/[facility]/ZIP Co de Phone Number [facility] [address] [place] [phone] * (ABNORMAL) CBC (04/12/2025 9:03 AM EDT) White Blood Count 7.6 4.8 - 10.8 X10*3/uL [facility] Red Blood Count 3.97(L) 4.60 - 5.80 X10*6/uL [facility] Hemoglobin 12.2(L) 14.0 - 18.0 g/dl [facility] Hematocrit 35.8(L) 42.0 - 52.0 % [facility] Mean Corpuscular Volume 90.2 80.0 - 98.0 fL [facility] Mean Corpuscular Hemoglobin 30.7 27.0 - 33.0 pg [facility] Mean Corpuscular HGB Conc 34.1 31.0 - 36.0 g/dl [facility] Red Cell Distribution Width 13.0 11.0 - 16.0 % [facility] Platelet Count 256 160 - 400 X10*3/uL [facility] Mean Platelet Volume 10.3 9.4 - 12.4 fL [facility] NRBC Pct Auto 0.0 0.0 - 0.2 /100WBC [facility] NRBC Abs Auto 0.000 0.0 - 0.012 X10*3/uL [facility] Blood Venous blood specimen / Unknown 04/12/2025 9:03 AM EDT 04/12/2025 11:29 AM EDT us Beryl Yates MD LAB BLOOD ORDERAB LES Final Result [facility] [address] [place] [phone] * (ABNORMAL) PSA,Total (04/12/2025 9:03 AM EDT) Prostate Specific Antigen 5.27(H) <0.05 - 4.0 ng/mL [facility] Comment:PSA methodology: John Crowe i ChemiluminescentMicroparticle Immunoassay (CMIA) Blood Venous blood specimen / Unknown 04/12/2025 9:03 AM EDT 04/12/2025 11:12 AM EDT us Beryl Yates MD LAB BLOOD ORDERAB LES Final Result Performing Organization Address City/[facility]/ZIP Co de Phone Number [facility] [address] [place] [phone] * Hemoglobin A1c (04/12/2025 9:03 AM EDT) Hemoglobin A1c 5.5 <6.0 % [facility] Comment:Hemoglobin A1C Refer ence Range Adults: 4.8 - 6.0 % Non diabetic: < 6.0 % Goal: < 7.0 %Additional Action Suggested: > 8.0 %Note: Hemoglobin A1c results are invalid for patients with abnormal amounts of HbF. Blood transfusions may impact the HbA1c concentration in the patient sample. Estimated Average Glucose 111 mg/dL [facility] Comment:eAG = Estimated ave rage glucose which is %A1C expressed asaverage glucose, using the formula of the [id number]-[id number] Glucose study (ADAG), Diabetes Care, Vol.31,#8,Mar. 2007 Blood Venous blood specimen / Unknown 04/12/2025 9:03 AM EDT 04/12/2025 11:29 AM EDT us Beryl Yates MD LAB BLOOD ORDERAB LES Final Result Performing Organization Address [facility]/ZIP Co de Phone Number [facility] [address] [place] [phone] * Ferritin (04/12/2025 9:03 AM EDT) Ferritin 135 20 - 250 ng/mL [facility] Blood Venous blood specimen / Unknown 04/12/2025 9:03 AM EDT 04/12/2025 11:12 AM EDT us Beryl Yates MD LAB BLOOD ORDERAB LES Final Result Performing Organization Address City/[facility]/ZIP Co de Phone Number [facility] [address] [place] [phone] * (ABNORMAL) Lipid Panel, Standard (04/12/2025 9:03 AM EDT) Triglycerides 169(H) <150 mg/dL [facility] Comment:Desirable Triglyceri de: less than 150 mg/dLBorderline High Triglyceride 150-199 mg/dLHigh Triglyceride: 200-499 mg/dLVery High Triglyceride: greater than or equal to 5OO mg/dL Cholesterol 141 <200 mg/dL [facility] Comment:Desirable Cholestero l: less than 200 mg/dLBorderline High Cholesterol: 200-239 mg/dLHigh Cholesterol: greater than 239 mg/dL LDL Cholesterol Calculated 77 <100 mg/dL [facility] Comment:Desirable LDL: less than 100 mg/dLNear Optimal/Above Optimal LDL: 110- 129 mg/dLBorderline High LDL: 130-159 mg/dLHigh LDL: 160-189 mg/dLVery High LDL: greater than or equal to 190 mg/dL HDL Cholesterol 31(L) >40 mg/dL [facility] Comment:Desirable HDL: great er than 40 mg/dL Note: This HDL assay may give artificially low results in patients with liver disease. Blood Venous blood specimen / Unknown 04/12/2025 9:03 AM EDT 04/12/2025 11:12 AM EDT us Beryl Yates MD LAB BLOOD ORDERAB LES Final Result [facility] [address] [place] [phone] * POCT Rapid Influenza B HOLLIDAY ID NOW (03/13/2025 9:44 AM EDT) Influenza B Negative Negative, Indeterminate [facility] QC Media Lot # [id number] [facility] Lot# Expiration Date 1082 [facility] Swab 03/13/2025 9:44 AM EDT us Carol Appram DEPUTY EDITOR IN CHIEF POINT OF CARE TEST ENTER/EDIT O RDERABLES Final Result Performing Organization Address [facility]/ZIP Co de Phone Number [facility] [address] [place] [phone] * POCT Rapid Influenza A HOLLIDAY ID NOW (03/13/2025 9:43 AM EDT) Influenza A Negative Negative, Indeterminate [facility] QC Media Lot # [id number] [facility] Lot# Expiration Date 82 [facility] Swab 03/13/2025 9:43 AM EDT Carol Urias DEPUTY EDITOR IN CHIEF POINT OF CARE TEST ENTER/EDIT O RDERABLES Final Result Performing Organization Address [facility] Co de Phone Number [facility] [address] [place] [phone] * POCT Rapid Strep A HOLLIDAY ID NOW (03/13/2025 9:41 AM EDT) Rapid Strep A Screen Negative Negative, None Detected QC Media Lot # [id number] Lot# Expiration Date 12,526 Swab 03/13/2025 9:41 AM EDT Carol Urias DEPUTY EDITOR IN CHIEF POINT OF CARE TEST ENTER/EDIT O RDERABLES Edited Result - Final * POCT Rapid Covid-19 BinaxNOW (03/13/2025 9:39 AM EDT) Rapid COVID Ag Negative QC Media Lot # [id number] Lot# Expiration Date 8,126 Swab 03/13/2025 9:39 AM EDT Carol Urias DEPUTY EDITOR IN CHIEF POINT OF CARE TEST ENTER/EDIT O RDERABLES Final Result * XR Lumbar Spine 2-3 Views (02/19/2025 11:09 PM EDT) Anatomical Region Laterality Modality Spine, L-spine Radiographic Niya ging 02/19/2025 11:0 9 PM EDT Narrative 02/19/2025 11:10 PM EDT [address] [address] XRay Report Signed Patient: Merlin Diego MR#: [id number] : 1970 Acct:[id number] Age/Sex: 54 / M ADM Date: 02/17/25 Loc: HO.XRAY Attending Dr: Beryl Yates MD Ordering Physician: Beryl Almanza MD Date of Service: 02/17/25 Procedure(s): XR lumbar spine 2-3V Accession Number(s): [id number] cc: Beyrl Almanza MD CLINICAL HISTORY: pt w chronic [...] in OV> 02/19/252309 DD/ 08 TD/TT: 02/19/252308 Batch Analyst: Procedure Note Donotuseinterpreter, Image - 02/19/[address] [address] XRay Report Signed Patient: Merlin Diego AMR#: [id number] : 1970Acct:[id number] Age/Sex: 54 / MADM Date: 02/17/25 Loc: HO.XRCELIO Attending Dr: Beryl Yates MD Ordering Physician: Beryl Almanza MD Date of Service: 02/17/25 Procedure(s): XR lumbar spine 2-3V Accession Number(s): [id number] cc: Beryl Almanza MD CLINICAL HISTORY: pt [...] in OV> 02/19/252309 DD/ 08 TD/TT: 02/19/252308 Batch Analyst: Beryl Yates MD IMG XR PROCEDURES Edited Result - Final * Cologuard?? colon cancer screening (05/14/2023 7:00 PM EDT) Cologuard Result Negative Negative 05/22/20 23 1:25 AM EDT [facility] (CLIA #:[id number]) Comment: NEGATIVE TEST RESULT. A negative Cologuard [...] Kumar et al, N Engl J Med 2014;370(14):7833-9958) The normal value (reference range) for this assay is negative. COLOGUARD RE-SCREENING RECOMMENDATION: Periodic colorectal cancer screening is an important part of preventive healthcare for asymptomatic individuals at average risk for colorectal cancer. Following a negative Cologuard result, the [place] [employer] Society and U.S. Multi-Society Task Force screening guidelines recommend a Cologuard re-screening interval of 3 years. References: [place] [employer] Guideline for Colorectal Cancer Screening: https://www.cancer.org/cancer/lbxyt-fnawua-hxcugu/rmqvyqizk-urtqavdob-igvyoks/ac s-rec ommendations.html.; Brian LEONG, Christine PERRY, Mickie KUMAR, Colorectal Cancer Screening: Recommendations for Physicians and Patients from the U.S. Multi-Society Task Force on Colorectal Cancer Screening , Am J Gastroenterology 2017; 112:4170-0266. TEST DESCRIPTION: Composite algorithmic analysis of stool [...] Cabrera. et al, N Engl J Med 2014;370(14):2950-2706.) Cologuard may produce a false negative or false positive result (no colorectal cancer or precancerous polyp present at colonoscopy follow up). A negative Cologuard test result does not guarantee the absence of CRC or advanced adenoma (pre-cancer). The current Cologuard screening interval is every 3 years. ([place] [employer] Society and U.S. Multi-Society Task Force). Cologuard performance data in a 10,000 patient pivotal study using colonoscopy as the reference method can be accessed at the following location: www.DataSphere/results. Additional description of the Cologuard test process, warnings and precautions can be found at www.cologuard.com. Stool specimen (specimen) 05/14/2023 7:00 PM EDT 05/16/2023 4:51 PM EDT Beryl Yates MD LAB MOLECULAR TESSA GNOSTICS ORDERABLES Final Result [facility] (CLIA #:[id number]) [place] [address] [place] [address], from Last 3 Months or Most Recently Relevant to Health Maintenance Insurance [facility] C3 DENTAL-[facility] MEDICAID STAND ADULT Care Teams Ostomy Nurse Relationship Specialty Start Date End Date Beryl Almanza MD [address] [place] [phone] PCP - General Internal Medicine 11/21/22
--- OUTSIDE RECORDS SUMMARY | 2025-05-08 15:40 | XMS_ITS | Clinical Summary ---
Author Organization [facility] Address [address] [place] [phone] Phone Care Team Providers Care Private Banker Name Role Phone Physician, Pcp Unknown Primary [...] LAB CHEMISTRY METHOD 12/23/2024 4:43 PM EDT [facility] Potassium 4.2 3.5 - 5.5 mmol/L LAB CHEMISTRY METHOD 12/23/2024 4:43 PM [facility] Chloride 105 96 - 110 mmol/L LAB CHEMISTRY METHOD 12/23/2024 4:43 PM [facility] CO2 25 21 - 32 mmol/L LAB CHEMISTRY METHOD 12/23/2024 4:43 PM [facility] Anion Gap 8 3 - 11 LAB CHEMISTRY METHOD 12/23/2024 4:43 PM [facility] Glucose 89 70 - 100 mg/dL LAB CHEMISTRY METHOD 12/23/2024 4:43 PM [facility] BUN 20 5 - 25 mg/dL LAB CHEMISTRY METHOD 12/23/2024 4:43 PM [facility] Creatinine 1.44(H) 0.70 - 1.30 mg/dL LAB CHEMISTRY METHOD 12/23/2024 4:43 PM [facility] eGFR 57(L) >=60 mL/min/1. 73m2 LAB CHEMISTRY METHOD 12/23/2024 4:43 PM [facility] Comment:Calculation based on the Chronic Kidney Disease Epidemiology Collaboration (CKD-EPI) equation refit without adjustment for race. BUN/Creatinine Ratio 13.9 LAB CHEMISTRY METHOD 12/23/2024 4:43 PM [facility] Calcium 9.6 8.5 - 10.5 mg/dL LAB CHEMISTRY METHOD 12/23/2024 4:43 PM [facility] AST (SGOT) 17 10 - 42 unit/L LAB CHEMISTRY METHOD 12/23/2024 4:43 PM [facility] ALT (SGPT) 21 10 - 60 unit/L LAB CHEMISTRY METHOD 12/23/2024 4:43 PM [facility] Alkaline Phosphatase 119 42 - 121 unit/L LAB CHEMISTRY METHOD 12/23/2024 4:43 PM [facility] Total Protein 7.7 6.0 - 8.0 g/dL LAB CHEMISTRY METHOD 12/23/2024 4:43 PM EDT [facility] Albumin 4.0 3.2 - 5.0 g/dL LAB CHEMISTRY METHOD 12/23/2024 4:43 PM EDT [facility] Total Bilirubin 0.6 0.0 - 1.4 mg/dL LAB CHEMISTRY METHOD 12/23/2024 4:43 PM EDT [facility] Blood Venous blood specimen / Unknown Venipuncture / Unknown 12/23/2024 3:38 PM EDT 12/23/2024 3:54 PM EDT Douglas Bill Whaley MD LAB BLOOD ORDERABLES Final Resu lt [facility] [address] [place] [address], from Last 3 Months or Most Recently Relevant to Health Maintenance Insurance MEDICAID - [place] Care Teams Private Banker Relationship Specialty Start Date End Date Physician, Pcp Unknown PCP - General 12/23/24
--- OUTSIDE RECORDS SUMMARY | 2025-05-08 15:40 | XMS_ITS ---
Author Organization [facility] Address [address] [place] [address] [address] [place] [address] Care Team Providers Care Panel Maker Name Role Phone Beryl Almanza MD Primary Care Pro vider CM Complex Status:Closed (Closed) Start date:05/02/2025 Enrollment reason:C3 Manual Referral End date:05/03/2025 Close reason:Declined to Participate Overview C3 Referral- High ED Utilization List Continued Care and Services Coordination
--- OUTSIDE RECORDS SUMMARY | 2025-05-08 15:40 | XMS_ITS ---
Author Organization [facility] Address [address] [place] [address] 7 [place] [address] Care Team Providers Care Transmission Inspector Name Role Phone Beryl Almanza MD Primary Care Pro vider CHW Complex Status:Closed (Closed) Start date:05/02/2025 Enrollment reason:C3 Manual Referral End date:05/03/2025 Close reason:Declined to Participate Overview C3 Referral- High ED Utilization List Continued Care and Services Coordination
--- OUTSIDE RECORDS SUMMARY | 2025-05-08 15:40 | XMS_ITS | Encounter Summary ---
Author Organization [facility] Address [address] [facility] [address]t [place] [address] Care Team Providers Care Solaris Administrator Name Role Phone Chauncey Haney MD Primary Care Provider Unava ilable Chanda Monroe [facility] Primary Care Provider Beryl Almanza MD Primary Care Pro vider Ibis Fonseca RN Unavailable [phone] Mliagros Diego Unavailable Scotty Hernandez RN Unavailable [phone] Radha Fonseca Unavailable Encounter Details Date Type Department Care Team (Latest Contact Info) Description 05/14/2022 Abstract [facility] CONVERSIONS Dental, Provider, DDS Social History Tobacco [...] on filedocumented in this encounter Care Teams Solaris Administrator Relationship Specialty Start Date End Date Chauncey Haney MD PCP - General Family Medicine 08/16/19 06/30/[address] [facility] [address] [place], [place] [phone] PCP - General Family Medicine 07/01/22 11/20/22 Beryl Almanza MD [address] [place] [phone] PCP - General Internal Medicine 11/21/22 Ibis Fonseca, HENRRY [address] [place] [address] Registered Nurse Family Medicine 12/26/24 12/26/24 Milagros Diego 12/26/24 12/26/24 Scotty Hernandez, HENRRY [address] [place], [place] [phone] Registered Nurse Family Medicine 05/02/25 05/03/25 Radha Fonseca 05/02/25 05/03/25 documented as of this encounter
[2025-05-08 16:01] LABS: Troponin-I High Sensitivity 8.1 ng/L (<3.5-35.0)
[2025-05-08 16:35] LABS: D Dimer High Sensitivity < 150 NG/ML
[2025-05-08 17:13] VITALS: BP 110/73; PULSE 67; RESP 18; TEMP 36.7; O2SAT 97
== END 2025-05-08 17:14 | disposition home or self-care (01) ==
PROVIDERS: Emergency Medicine; Physician Assistant Medical; Emergency Provider Student in an Organized Health Care Education/Training Program; PCP Student in an Organized Health Care Education/Training Program
DX: M94.0 Chondrocostal junction syndrome [Tietze] (principal); R07.89 Other chest pain; M25.511 Pain in right shoulder; E11.9 Type 2 diabetes mellitus without complications; I45.10 Unspecified right bundle-branch block; I10 Essential (primary) hypertension; R06.02 Shortness of breath; F17.210 Nicotine dependence, cigarettes, uncomplicated; Z79.899 Other long term (current) drug therapy
CPT/HCPCS: 36415; 71046; 80053; 83880; 84484; 85025; 85379; 93005; 99283; 99285

== ENCOUNTER → 2025-05-08 12:36 | Outpatient (BNV) | payer MEDICAID, SELFPAY | PROVIDERS: Emergency Provider Student in an Organized Health Care Education/Training Program; PCP Student in an Organized Health Care Education/Training Program; Visit Provider Internal Medicine | DX: I45.10 Unspecified right bundle-branch block (principal) | CPT/HCPCS: 93010 ==

== ENCOUNTER → 2025-05-08 12:53 | Outpatient (BNV) | payer MEDICAID, SELFPAY | PROVIDERS: PCP Student in an Organized Health Care Education/Training Program; Visit Provider Radiology Diagnostic Radiology | DX: R07.89 Other chest pain (principal) | CPT/HCPCS: 71046 ==

== ENCOUNTER 2025-06-08 09:23 | Outpatient (AMB) | payer MEDICAID, SELFPAY ==
--- NOTE | 2025-06-08 09:55 | A.OFFVIS_ITS ---
Vital Signs 06/08/25 10:05 Height 5 ft 8 in Weight 212 lb 11.937 oz BMI 32.3 BP 118/78 Blood Pressure Location Lt brachial Position Sitting Pulse 61 Pulse Source Pulse Oximeter Pulse Oximetry (%) 97 Oxygen Delivery Method Room Air Intake Visit Reasons: LBP Intake Note: Patient presents for LBP follow up. Allergies No Known Allergies Allergy (Mild, Verified 06/08/25 10:03) HPI Comments Details: Patient is a 54 year old male with hypertension, GERD, hyperlipidemia, s chizophrenia, and polyarticular osteoarthritis here today for follow up Interval History: Patient last seen 07/07/[address] Jauregui - On Tramadol 50mg 2-3 times per day - Stable on that dose Today - On Tramadol 50mg tid - Ran out of Tramdol and notes worsening pain - Had surgery in October for Adrenal hypertrophy causing secondary HTN - No other complaints Rheumatologic History: OA Current Rheumatology Medication(s): Tramadol 50mg tid PFSH Medical History Hypercholesteremia Diabetes Hypertension Social History Household Members: Significant Other Alcohol intake: former Patient Tobacco Use Status: Current everyday Tobacco user Tobacco use type: Cigarette Cigarettes Per Day: 5 Review of Systems Narrative Review of Systems Constitutional: Denies fever, chills, weight loss ENT: Denies vision changes, eye pain or eye redness, dental caries, dry mouth GI: Denies nausea, vomiting, diarrhea, abdominal pain, change in BM Pulm: Denies SOB, BRANDT, hemoptysis, wheezing Cards: Denies chest pain, palpitations Skin: Denies Raynaud's, rash, nail changes, photosensitivity, BALLET TEACHER: Denies headaches, weakness, paresthesias, recurrent falls MSK: as per HPI All other systems reviewed and are unremarkable except noted above Physical Exam Exam Exam: Vital signs reviewed Physical Examination CONSTITUITIONAL Patient alert and cooperative. Well appearing and in no apparent painful distress MSK Hands * Right Hand: Able to make a fist. No swelling or tenderness to palpation of the MCPs, PIPs or DIPs. * Left Hand: Able to make a fist. No swelling or tenderness to palpation of the MCPs, PIPs or DIPs. Wrists * Right Wrist: Full ROM to flexion and extension. No swelling or TTP * Left Wrist: Full ROM to flexion and extension. No swelling or TTP Elbows * Right Elbow: Full ROM. No swelling or TTP. No TTP of the medial epicondyle. No TTP of the lateral epicondyle * Left Elbow: Full ROM. No swelling or TTP. No TTP of the medial epicondyle. No TTP of the lateral epicondyle Shoulders * Right shoulder: Full ROM. No swelling noted. No TTP of the AC joint. No TTP of the subacromial bursa. No TTP of the posterior shoulder * Left shoulder: Full ROM. No swelling noted. No TTP of the AC joint. No TTP of the subacromial bursa. No TTP of the posterior shoulder Knees * Right knee: Full ROM. No swelling noted. No TTP of the knee joint line. No TTP of pes anserine bursa * Left knee: Full ROM. No swelling noted. No TTP of the knee joint line. No TTP of pes anserine bursa. * Crepitations felt bilaterally Ankles * Right ankle: Good ankle dorsiflexion and plantar flexion. No swelling. No TTP of the ankle joint * Left ankle: Good ankle dorsiflexion and plantar flexion. No swelling. No TTP of the ankle joint Feet * Right foot: Negative squeeze test * Left foot: Negative squeeze test Tender points? * No tenderness to palpation of the bilateral trapezius, supraspinatus, anterior costochondral junctions, bilateral suboccipital muscle insertions SKIN No rashes Vital Signs: Last Vital Signs Pulse 61 06/08/25 10:05 BP 118/78 06/08/25 10:05 Pulse Ox 97 06/08/25 10:05 Oxygen Delivery Method Room Air 06/08/25 10:05 BMI result Body Mass Index 32.3 Results Reviewed Results Reviewed: Laboratory Tests 05/08/25 13:00 WBC 10.4 RBC 4.00 L Hgb 12.4 L Hct 34.8 L Plt Count 275 Sodium 142 Potassium 4.1 Chloride 110 H Carbon Dioxide 26 BUN 22 H Creatinine 1.36 AST 29 ALT 22 XR L Spine 02/2025 Findings: Straightening of the normal lumbar lordosis. No acute fractures or dislocation. Degenerative changes stable since 06/30/2022. IMPRESSION: No acute findings. Assessment & Plan Assessment & Plan (1) Lumbar spondylosis: Code(s): M47.816 - Spondylosis without myelopathy or radiculopathy, lumbar region Category: Medical Plan: #Lumbar spondylosis Patient is a 54-year-old male with x-ray proven lumbar spondylosis here today for follow up Stable on tramadol Plan - Tramadol 50mg TID - Continue walking and stretches - RTC 1 year Plan I spent 30 minutes reviewing the record and labs, taking a history, examining the patient, discussing the treatment plan, ordering diagnostic work up and documenting in the medical record Medications: Changed From tramadol 50 mg PO Q8H PRN 4 tabs 0RF pain (scale score 7-10) M47.816 - Spondylosis without myelopathy or radiculopathy, lumbar region To tramadol 50 mg PO TID 90 tabs 5RF pain (scale score 7-10) M47.816 - Spondylosis without myelopathy or radiculopathy, lumbar region Discontinued tramadol Discontinued Reason: Doctor's Order 50 mg PO Q8H PRN 90 tabs 3RF pain Coding Level of Care Code Est Pt Level 4 (85400) Diagnoses Lumbar spondylosis M47.816
[2025-06-08 10:05] VITALS: BP 118/78; PULSE 61; O2SAT 97; BMI 32.3
--- OUTSIDE RECORDS SUMMARY | 2025-06-08 10:48 | XMS_ITS | Encounter Summary ---
Author Organization [employer] Address [address] [facility] 7t [place] [address] Care Team Providers Care Burial Vault Deliverer And Installer Name Role Phone Chauncey Haney MD Primary Care Provider Unava ilChanda Benavides [facility] Primary Care Provider Beryl Almanza MD Primary Care Pro vider Ibis Fonseca RN Unavailable [phone] Milagros Diego Unavailable Scotty Hernandez RN Unavailable [phone] Radha Fonseca Unavailable Encounter Details Date Type Department Care Team (Latest Contact Info) Description 05/14/2022 Abstract [facility] CONVERSIONS Dental, Provider, DDS Social History Tobacco [...] on filedocumented in this encounter Care Teams Burial Vault Deliverer And Installer Relationship Specialty Start Date End Date Chauncey Haney MD PCP - General Family Medicine 08/16/19 06/30/22 Chanda Monroe [facility] [address] [place], [place] [phone] PCP - General Family Medicine 07/01/22 11/20/22 Beryl Almanza MD [address] [place] [phone] PCP - General Internal Medicine 11/21/22 Ibis Fonseca, HENRRY [address] [place] [address] Registered Nurse Family Medicine 12/26/24 12/26/24 Milagros Diego 12/26/24 12/26/24 Scotty Hernandez, HENRRY [address] [place], [place] [phone] Registered Nurse Family Medicine 05/02/25 05/03/25 Radha Fonseca 05/02/25 05/03/25 documented as of this encounter
--- OUTSIDE RECORDS SUMMARY | 2025-06-08 10:48 | XMS_ITS | Clinical Summary ---
Author Organization [facility] Address [address] [place] [phone] Phone Care Team Providers Care Aircraft Hydraulic Equipment Mechanic Name Role Phone Physician, Pcp Unknown Primary [...] 07/01/2004 Cholesterol Screening (Lipid Panel) 09/11/2028 09/11/2023 RSV Immunization Adult Patients (1 - 1-dose 75+ series) 2043 Hepatitis C Screening Completed 05/19/2023 Zoster Vaccines [...] mmol/L LAB CHEMISTRY METHOD 12/23/2024 4:43 PM [facility] Potassium 4.2 3.5 - 5.5 mmol/L LAB CHEMISTRY METHOD 12/23/2024 4:43 PM [facility] Chloride 105 96 - 110 mmol/L LAB CHEMISTRY METHOD 12/23/2024 4:43 PM [facility] CO2 25 21 - 32 mmol/L LAB CHEMISTRY METHOD 12/23/2024 4:43 PM [facility] Anion Gap 8 3 - 11 LAB CHEMISTRY METHOD 12/23/2024 4:43 PM [facility] Glucose 89 70 - 100 mg/dL LAB CHEMISTRY METHOD 12/23/2024 4:43 PM [facility] BUN 20 5 - 25 mg/dL LAB CHEMISTRY METHOD 12/23/2024 4:43 PM [facility] Creatinine 1.44(H) 0.70 - 1.30 mg/dL LAB CHEMISTRY METHOD 12/23/2024 4:43 PM [facility] eGFR 57(L) >=60 mL/min/1. 73m2 LAB CHEMISTRY METHOD 12/23/2024 4:43 PM [facility] Comment:Calculation based on the Chronic Kidney Disease Epidemiology Collaboration (CKD-EPI) equation refit without adjustment for race. BUN/Creatinine Ratio 13.9 LAB CHEMISTRY METHOD 12/23/2024 4:43 PM [facility] Calcium 9.6 8.5 - 10.5 mg/dL LAB CHEMISTRY METHOD 12/23/2024 4:43 PM [facility] AST (SGOT) 17 10 - 42 unit/L LAB CHEMISTRY METHOD 12/23/2024 4:43 PM [facility] ALT (SGPT) 21 10 - 60 unit/L LAB CHEMISTRY METHOD 12/23/2024 4:43 PM [facility] Alkaline Phosphatase 119 42 - 121 unit/L LAB CHEMISTRY METHOD 12/23/2024 4:43 PM EDT [facility] Total Protein 7.7 6.0 - 8.0 g/dL LAB CHEMISTRY METHOD 12/23/2024 4:43 PM EDT [facility] Albumin 4.0 3.2 - 5.0 g/dL LAB CHEMISTRY METHOD 12/23/2024 4:43 PM EDT [facility] Total Bilirubin 0.6 0.0 - 1.4 mg/dL LAB CHEMISTRY METHOD 12/23/2024 4:43 PM EDT [facility] Blood Venous blood specimen / Unknown Venipuncture / Unknown 12/23/2024 3:38 PM EDT 12/23/2024 3:54 PM EDT [facility] Judd JOYCE LAB BLOOD ORDERABLES Final Resu lt [facility] [address] [place] [address], from Last 3 Months or Most Recently Relevant to Health Maintenance Insurance MEDICAID - [place] Care Teams Aircraft Hydraulic Equipment Mechanic Relationship Specialty Start Date End Date Physician, Pcp Unknown PCP - General 12/23/24
--- OUTSIDE RECORDS SUMMARY | 2025-06-08 10:48 | XMS_ITS | Clinical Summary ---
Author Organization [facility] Address [address] [place] [address] [place] [phone] Phone Care Team Providers Care Grommet Machine Operator Name Role Phone Chauncey Haney Primary Care [...] Visit [facility] [address] [place] [phone] Antoine Basilio [...] Visit [facility] [address] [place] [phone] Antoine Basilio MD [address] [phone] Health Maintenance Due Date Last [...] Discontinued 08/16/2019, 12/30/2015 Insurance [place] Care Teams Grommet Machine Operator Relationship Specialty Start Date End Date Chauncey Haney [address] [place] [phone] PCP - General Internal Medicine 11/06/20
--- OUTSIDE RECORDS SUMMARY | 2025-06-08 10:48 | XMS_ITS | Clinical Summary ---
Author Organization [employer] Address [address] [facility] [address] [place] [address] Care Team Providers Care Roof Shingler Name Role Phone Beryl Almanza MD Primary [...] MG tablet 5 mg. 11/10/19 24 Active haloperidol (Haldol) 5 MG tablet Take [...] MORNING 90 tablet 1 04/06/20 25 Active omega-3 acid ethyl esters (Lovaza) 1 g capsule TAKE 1 CAPSULE BY MOUTH EVERY MORNING 90 capsule 1 05/18/20 Active omega-3 acid ethyl esters (Lovaza) 1 g capsule TAKE 1 CAPSULE BY MOUTH EVERY MORNING 90 capsule 1 11/16/19 25 025 Discontinued Active Problems Problem Noted Date Diagnosed Date [...] Encounters Date Type Department Care Team Description 06/04/2025 Refill [facility] [address] [place], [place] [phone] Carol Benitez NP Sore throat 05/29/2025 Orders Only [facility] [address] [place] [address] Beryl Almanza MD Abnormal CT scan (Primary Dx); Benign prostatic hyperplasia with lower urinary tract symptoms, symptom details unspecified 05/26/2025 Telephone [facility] [address] [place] [address] Beryl Almanza MD Referral 05/18/[address] [address] Beryl Almanza MD 05/08/2025 Orders Only GENERIC EXTERNAL DATA DEPARTMENT Provider, Generic External Data 05/03/2025 Orders Only [address] [address] Beryl Almanza MD RBBB (Primary Dx) 05/03/2025 Patient Outreach [facility] [address] [place] [address] Beryl Almanza MD Care Management ([facility]- Initial assessment/enrollment) 05/02/[address] [address] Beryl Almanza MD Results; Telephone Call 05/02/2025 Patient Outreach [address] [address] Beryl Almanza MD Care Coordination ([facility]/Saravanan Fonseca, initial assessment scheduled ) 05/02/2025 Patient Outreach [address] [address] Beryl Almanza MD Care Coordination ([facility]/ANNELIESE Fonseca, Chart review ) 05/02/2025 Patient Outreach [facility] [address] [place] [phone] Beryl Almanza MD Care Coordination ([facility]- chart review) 05/02/2025 Patient Outreach [address] [address] Beryl Almanza MD 05/01/2025 Orders Only [facility] External Provider, [facility] 04/14/2025 1:00 PM EDT Office Visit [address] [address] Beryl Almanza MD Lumbar back pain (Primary Dx); Anemia, unspecified type; Hypertension, unspecified type; Class 1 obesity due to excess calories without serious comorbidity with body mass index (BMI) of 30.0 to 30.9 in adult; Healthcare maintenance; Elevated pancreatic enzyme; Elevated PSA 04/14/2025 Travel 04/12/2025 Results Follow-Up [facility] [address] [facility] [place] [address] Beryl Almanza MD CBC 04/06/2025 Refill [facility] [address] [place] [address] Beryl Almanza MD Vitamin D deficiency 04/05/2025 Refill [facility] [address] [place] [address] Beryl Almanza MD 03/28/2025 Refill [facility] [address] [place] [address] Beryl Almanza MD Primary hypertension 03/14/2025 Refill [facility] [address] [place], [place] [phone] Luis Antonio Kumar MD Hyperlipidemia, unspecified hyperlipidemia type 03/13/2025 9:20 AM EDT Office Visit [facility] [address] [place] [address] Carol Benitez NP Sore throat (Primary Dx); Elevated blood pressure reading 03/13/2025 Travel from Last 3 Months Immunizations Immunization [...] 05/05/20 22, 12/04/2015, 05/24/2015, Additional history exists FOBT 05/14/2024 [...] Procedure Name Priority Date/Time Associated Diagnosis Comments D DIMER HIGH SENSITIVITY Routine 05/08/2025 3:10 PM EDT HIGH SENSITIVITY TROPONIN I Routine 05/08/2025 3:[address] ABDOMEN PELVIS W CONTRAST Routine 05/01/2025 [...] Routine 03/13/2025 9:39 AM EDT Sore throat LAB COLOGUARD COLON CANCER SCREEN Routine 05/14/2023 7:00 PM EDT Health care maintenance PROPHYLAXIS - ADULT Routine 05/14/2022 1 2:00 AM EDT INTRAORAL - COMPLETE SERIES OF RADIOGRAPHIC IMAGES Routine 05/05/2022 12:00 AM EDT PERIODIC ORAL EVALUATION - ESTABLISHED PATIENT Routine 05/05/2022 12:00 AM EDT from Last 3 Months or Most Recently Relevant to Health Maintenance Results * D Dimer High Sensitivity (05/08/2025 3:10 PM EDT) Pathologist [facility] D Dimer High Sensitivity <150 NG/ML [facility] Comment:D-DIMER HS REFERENCE RANGENote: Our assay reports D-Dimer Units (D- DU).The cut-off value for venous thromboembolic (VTE) disease is230 ng/mL. This value has a very high negative predictivevalue when the patient has a low to moderate clinicalprobability of VTE.The upper limit of normal is 243 ng/mL. 05/08/2025 3:10 PM EDT 05/08/2025 3:13 PM EDT Generic External Data Provider LAB BLOOD ORDERAB LES Final Result Performing Organization Address [facility] Co de Phone Number [facility] [address] [place] [phone] * High Sensitivity Troponin I (05/08/2025 3:10 PM EDT) Pathologist [facility] TROPONIN I HIGH SENSITIVITY 8.1 <3.5 - 35.0 ng/L [facility] Comment:The Holliday high sens itivity Troponin-I results should beused in conjunction with other diagnostic information suchas ECG, clinical observations and information, and patientsymptoms to aid in the diagnosis of [place]. 05/08/2025 3:10 PM EDT 05/08/2025 3:13 PM EDT Generic External Data Provider LAB BLOOD ORDERAB LES Final Result Performing Organization Address [facility] Co de Phone Number [facility] [address] [place] [phone] * CT Abdomen Pelvis w/ Contrast (05/01/2025 7:55 PM EDT) Anatomical Region Laterality Modality Body, Pelvis, Abdomen Computed T omography 05/01/2025 7:55 PM EDT Narrative 05/01/2025 7:57 PM EDT [address] [address] [address] Scan Report Signed Patient: Merlin Diego MR#: [id number] : 1970 Acct:[id number] Age/Sex: 54 / M ADM Date: 05/01/25 Loc: HO.ED Attending Dr: Ordering Physician: Dean Serrano MD Date of Service: 05/01/25 Procedure(s): CT abdomen pelvis w IV con Accession Number(s): [id number] cc: Dean Serrano MD; Beryl Almanza MD Report Number: [id number]: Total DLP = 646.00 mGy-cm Reason for Exam: left flank pain, s/p Left suprarenal gland resecti CLINICAL HISTORY: left flank pain, s p Left suprarenal gland resecti CT abdomen and pelvis with contrast Comparison: CT/REG/NE/SR - CT ABDOMEN PELVIS WO IV CON [...] in OV> 05/01/251955 DD/ 54 TD/TT: 05/01/251954 [facility]: Procedure Note Donotuseinterpreter, Image - 05/01/[address] [address] [address] Scan Report Signed Patient: Merlin Diego AMR#: [id number] : 1970Acct:[id number] Age/Sex: 54 / MADM Date: 05/01/25 Loc: HO.ED Attending Dr: Ordering Physician: Dean Serrano MD Date of Service: 05/01/25 Procedure(s): CT abdomen pelvis w IV con Accession Number(s): [id number] cc: Dean Serrano MD; Berly Almanza MD Report Number: [id number]: Total DLP = 646.00 mGy-cm Reason for Exam: left flank pain, s/p Left suprarenal gland resecti CLINICAL HISTORY: left flank pain, s p Left suprarenal gland resecti CT abdomen and pelvis with contrast Comparison: CT/REG/NE/SR - CT ABDOMEN PELVIS WO IV CON [...] in OV> 05/01/251955 DD/ 54 TD/TT: 05/01/251954 [facility]: [facility] External Provider IMG CT PROCEDURES Edited Result - Final * (ABNORMAL) Urinalysis w/reflex microscopic (05/01/2025 3:42 PM EDT) Color Urine Yellow [facility] Appearance Urine Clear [facility] PH 5.5 5.0 - 9.0 [facility] Glucose Urine UA Negative Negative mg/dL [facility] Urine Blood Negative Negative [facility] Specific [place] - Urine >=1.030(H) 1.005 - 1.025 [facility] Urine Protein Trace Neg-Trace mg/dL [facility] Urine Ketones Trace Negative mg/dL [facility] Nitrite Urine Negative Negative [facility] Leukocyte Esterase Urine Negative Negative [facility] 05/01/2025 3:42 PM EDT 05/01/2025 4:02 PM EDT Narrative [facility] - 05/01/2025 4:07 PM EDT [id number], Clean C[employer] us Generic External Data Provider LAB URINE ORDERAB LES Final Result [facility] [address] [place] [phone] * (ABNORMAL) CBC auto differential (05/01/2025 2:55 PM EDT) White Blood Count 8.6 4.8 - 10.8 X10*3/uL [facility] Red Blood Count 4.05(L) 4.60 - 5.80 X10*6/uL [facility] Hemoglobin 12.6(L) 14.0 - 18.0 g/dl [facility] Hematocrit 35.2(L) 42.0 - 52.0 % [facility] Mean Corpuscular Volume 86.9 80.0 - 98.0 fL [facility] Mean Corpuscular Hemoglobin 31.1 27.0 - 33.0 pg [facility] Mean Corpuscular HGB Conc 35.8 31.0 - 36.0 g/dl [facility] Red Cell Distribution Width 12.6 11.0 - 16.0 % [facility] Platelet Count 234 160 - 400 X10*3/uL [facility] Mean Platelet Volume 9.0(L) 9.4 - 12.4 fL [facility] Neutrophils Percent Auto 67.4 45 - 73 % [facility] Imm Gran Pct Auto 0.5(H) 0.0 - 0.4 % [facility] Lymphocytes Percent Auto 21.1 20 - 40 % [facility] Monocytes Percent Auto 6.4 2 - 11 % [facility] Eosinophils Percent Auto 4.1(H) 0 - 4 % [facility] Basophils Percent Auto 0.5 0 - 2 % [facility] NRBC Pct Auto 0.0 0.0 - 0.2 /100WBC [facility] Neutrophils Absolute Auto 5.8 2.0 - 8.3 x10*3/uL [facility] Imm Gran Abs Auto 0.04(H) 0.00 - 0.03 X10*3/uL [facility] Lymphocytes Absolute Auto 1.8 1.2 - 4.9 X10*3/uL [facility] Monocytes Absolute Auto 0.6 0.1 - 1.2 X10*3/uL [facility] Eosinophils Absolute Auto 0.4 0.0 - 0.4 X10*3/uL [facility] Basophils Absolute Auto 0.0 0.0 - 0.2 X10*3/uL [facility] NRBC Abs Auto 0.000 0.0 - 0.012 X10*3/uL [facility] 05/01/2025 2:55 PM EDT 05/01/2025 2:58 PM EDT us Generic External Data Provider LAB BLOOD ORDERAB LES Final Result Performing Organization Address City/[facility]/ZIP Co de Phone Number [facility] [address] [place] [phone] * Magnesium (05/01/2025 2:55 PM EDT) Magnesium 2.2 1.6 - 2.6 mg/dL [facility] 05/01/2025 2:55 PM EDT 05/01/2025 2:58 PM EDT us Generic External Data Provider LAB BLOOD ORDERAB LES Final Result Performing Organization Address City/[facility] [address]/ZIP Co de Phone Number [facility] [address] [place] [phone] * Lipase (05/01/2025 2:55 PM EDT) Only the most recent of2 resultswithin the time period is included. Lipase 47 8 - 78 U/L [facility] 05/01/2025 2:55 PM EDT 05/01/2025 2:58 PM EDT us Generic External Data Provider LAB BLOOD ORDERAB LES Final Result Performing Organization Address [facility] [address]/[facility] Co de Phone Number [facility] [address] [place] [address] [phone] * (ABNORMAL) Comprehensive Metabolic Panel (05/01/2025 2:55 PM EDT) Only the most recent of2 resultswithin the time period is included. Sodium 140 135 - 145 mmol/L [facility] Potassium 4.1 3.3 - 5.1 mmol/L [facility] Chloride 106 96 - 108 mmol/L [facility] Carbon Dioxide 29 22 - 29 mmol/L [facility] Anion Gap 9(L) 12 - 20 [facility] Urea Nitrogen (BUN) 23(H) 9 - 16 mg/dL [facility] Creatinine, Serum 1.37 0.5 - 1.4 mg/dL [facility] Creatinine Clr Calc Pharmacy 67.8 [facility] Comment:eGFR (calculated fro m the MDRD study equation) and eCrCl(calculated from the Cockcroft-Gault equation) are based ondifferent parameters and may not yield comparable results.If eCrCl result is absurd, please check patient'sheight/weight. Estimated Glomerular Filt Rate 54 [facility] Comment:Chronic Kidney Disea se: Estimated GFR < 60 mL/min/1.62e2Loxqfe Kidney Disease: Estimated GFR < 15 mL/min/1.73m2 Glucose 120(H) 60 - 115 mg/dL [facility] Calcium 9.3 8.4 - 10.2 mg/dL [facility] Bilirubin, Total 0.6 0.0 - 1.0 mg/dL [facility] Aspartate Amino Transferase 26 5 - 37 U/L [facility] Alanine Aminotransferase 21 0 - 40 U/L [facility] Total Protein 7.7 6.5 - 8.0 g/dL [facility] Albumin Level 4.3 3.5 - 5.0 g/dL [facility] Alkaline Phosphatase 105 39 - 117 U/L [facility] 05/01/2025 2:55 PM EDT 05/01/2025 2:58 PM EDT us Generic External Data Provider LAB BLOOD ORDERAB LES Final Result [facility] [address] [place] [phone] * Chlamydia/N. Gonorrhoeae, PCR, Urine (04/12/2025 9:03 AM EDT) CT PCR, Urine NOT DETECTED Not Detect. [facility] Comment:A not detected test result [...] NG PCR, Urine NOT DETECTED Not Detect. [facility] Comment:A not detected test result [...] ORDERAB LES Final Result Performing Organization Address City/[facility] [address]/ZIP Co de Phone Number [facility] [address] [place] [phone] * Syphilis Screen (04/12/2025 9:03 AM EDT) Syphilis Screen Nonreactive Nonreactive [facility] Blood 04/12/2025 9:03 AM EDT 04/12/2025 11:12 AM EDT us Beryl Yates MD LAB BLOOD ORDERAB LES Final Result Performing Organization Address City/[facility] [address]/ZIP Co de Phone Number [facility] [address] [place] [phone] * Vitamin D, 25-Hydroxy, Total, Immunoassay (04/12/2025 9:03 AM EDT) Vitamin D 25-OH Total 54.0 >30 ng/mL [facility] Comment: Health Based Reference Values*< 20 ng/mL [id number] ng/mL Insufficient> 30 ng/mL Sufficient*Sonia FOSS. N [...] ORDERAB LES Final Result Performing Organization Address [facility] [address]/ZIP Co de Phone Number [facility] [address] [place] [phone] * TSH with Reflex to Free T4 (04/12/2025 9:03 AM EDT) TSH reflex Free T4 1.64 0.32 - 4.0 uIU/mL [facility] Blood 04/12/2025 9:03 AM EDT 04/12/2025 11:12 AM EDT us Beryl Yates MD LAB BLOOD ORDERAB LES Final Result Performing Organization Address City/[facility] [address]/ZIP Co de Phone Number [facility] [address] [place] [phone] * Albumin, Random Urine W/Creatinine (04/12/2025 9:03 AM EDT) Creatinine, Urine 188.88 mg/dL [facility] Microalbumin Urine 29.0 mg/L [facility] Microalbum Creatinine Ratio Ur 15.3 <30 ug/mg cr [facility] Comment:Albumin/Creatinine R atio Reference Ranges: Normal: < 30 ug/mg creatinine Microalbuminuria: 30 - 300 ug/mg creatinineClinical Albuminuria: > 300 ug/mg creatinine Urine (Urine, Random) 04/12/2025 9:03 AM EDT 04/12/2025 11:15 AM EDT Beryl Yates MD LAB URINE ORDERAB LES Final Result Performing Organization Address City/[facility] [address]/ZIP Co de Phone Number [facility] [address] [place] [phone] * Hepatitis C Antibody with Reflex to HCV, RNA, Quantitative, Real-Time PCR (04/12/2025 9:03 AM EDT) Pathologist [facility] Hepatitis C Antibody Nonreactive Nonreactive [facility] Comment:Antibodies to HCV no t detected; does not exclude early acuteHCV infection. Blood Venous blood specimen / Unknown 04/12/2025 9:03 AM EDT 04/12/2025 11:12 AM EDT us Beryl Yates MD LAB BLOOD ORDERAB LES Final Result Performing Organization Address City/[facility] [address]/ZIP Co de Phone Number [facility] [address] [place] [phone] * Iron And Total Iron Binding Capacity (04/12/2025 9:03 AM EDT) Iron 55 45 - 160 mcg/dL [facility] Total Iron Binding Capacity 236 228 - 428 mcg/dL [facility] Percent Iron Saturation 23 15 - 50 % [facility] Unsaturated Iron Binding 181 ug/dL [facility] Blood Venous blood specimen / Unknown 04/12/2025 9:03 AM EDT 04/12/2025 11:12 AM EDT Beryl Yates MD LAB BLOOD ORDERAB LES Final Result Performing Organization Address City/[facility] [address]/ZIP Co de Phone Number [facility] [address] [place] [phone] * Hepatitis B surface antigen, EIA (04/12/2025 9:03 AM EDT) [facility] Hepatitis B Surface Ag Negative Negative [facility] Blood Venous blood specimen / Unknown 04/12/2025 9:03 AM EDT 04/12/2025 11:12 AM EDT Beryl Yates MD LAB BLOOD ORDERAB LES Final Result Performing Organization Address City/[facility] [address]/ZIP Co de Phone Number [facility] [address] [place] [phone] * Hepatitis B Core Antibody, Total (04/12/2025 9:03 AM EDT) [facility] Hepatitis B Core Antibody Nonreactive Nonreactive [facility] Blood Venous blood specimen / Unknown 04/12/2025 9:03 AM EDT 04/12/2025 11:12 AM EDT us Beryl Yates MD LAB BLOOD ORDERAB LES Final Result Performing Organization Address City/[facility] [address]/ZIP Co de Phone Number [facility] [address] [place] [phone] * HIV-1/2 Antigen and Antibodies, Fourth Generation, with Reflexes (04/12/2025 9:03 AM EDT) [facility] HIV AB/AG Nonreactive Nonreactive [facility] Comment:HIV-1 p24 Ag and/or HIV-1/HIV-2 Ab not detected.A test result that is nonreactive does not exclude thepossibility of exposure to or infection with HIV-1 and/orHIV-2. Nonreactive results in this assay for individualswith prior exposure to HIV-1 and/or HIV-2 may be due toantigen and antibody levels that are below the limit ofdetection of this assay.The [employer] HIV Ag/Ab Combo assay result andsupplemental assay results should be interpreted inconjunction with the patient's clinical presentation,history and other laboratory results. If the results areinconsistent with clinical evidence, additional testing issuggested to confirm the result. Blood Venous blood specimen / Unknown 04/12/2025 9:03 AM EDT 04/12/2025 11:12 AM EDT Beryl Yates MD LAB BLOOD ORDERAB LES Final Result Performing Organization Address [facility] [address] [facility] Co de Phone Number [facility] [address] [place] [phone] * Hepatitis B Surface Antibody, Qualitative (04/12/2025 9:03 AM EDT) Pathologist [facility] ~Hepatitis B Surface Antibody NONREACTIVE Nonreactive [facility] Comment:Nonreactive: < 8.00 mIU/mL Blood Venous blood specimen / Unknown 04/12/2025 9:03 AM EDT 04/12/2025 11:12 AM EDT us Beryl Yates MD LAB BLOOD ORDERAB LES Final Result Performing Organization Address [facility] de Phone Number [facility] [address] [place] [address] [phone] * (ABNORMAL) CBC (04/12/2025 9:03 AM EDT) [facility] White Blood Count 7.6 4.8 - 10.8 X10*3/uL [facility] Red Blood Count 3.97(L) 4.60 - 5.80 X10*6/uL [facility] Hemoglobin 12.2(L) 14.0 - 18.0 g/dl [facility] Hematocrit 35.8(L) 42.0 - 52.0 % [facility] Mean Corpuscular Volume 90.2 80.0 - 98.0 fL [facility] Mean Corpuscular Hemoglobin 30.7 27.0 - 33.0 pg [facility] Mean Corpuscular HGB Conc 34.1 31.0 - 36.0 g/dl [facility] Red Cell Distribution Width 13.0 11.0 - 16.0 % [facility] Platelet Count 256 160 - 400 X10*3/uL [facility] Mean Platelet Volume 10.3 9.4 - 12.4 fL [facility] NRBC Pct Auto 0.0 0.0 - 0.2 /100WBC [facility] NRBC Abs Auto 0.000 0.0 - 0.012 X10*3/uL [facility] Blood Venous blood specimen / Unknown 04/12/2025 9:03 AM EDT 04/12/2025 11:29 AM EDT us Beryl Yates MD LAB BLOOD ORDERAB LES Final Result [facility] [address] [place] [address] [phone] * (ABNORMAL) PSA,Total (04/12/2025 9:03 AM EDT) Prostate Specific Antigen 5.27(H) <0.05 - 4.0 ng/mL [facility] Comment:PSA methodology: John Crowe i ChemiluminescentMicroparticle Immunoassay (CMIA) Blood Venous blood specimen / Unknown 04/12/2025 9:03 AM EDT 04/12/2025 11:12 AM EDT us Beryl Yates MD LAB BLOOD ORDERAB LES Final Result [facility] [address] [place] [phone] * Hemoglobin A1c (04/12/2025 9:03 AM EDT) Hemoglobin A1c 5.5 <6.0 % [facility] Comment:Hemoglobin A1C Refer ence Range Adults: 4.8 - 6.0 % Non diabetic: < 6.0 % Goal: < 7.0 %Additional Action Suggested: > 8.0 %Note: Hemoglobin A1c results are invalid for patients with abnormal amounts of HbF. Blood transfusions may impact the HbA1c concentration in the patient sample. Estimated Average Glucose 111 mg/dL [facility] Comment:eAG = Estimated ave rage glucose which is %A1C expressed asaverage glucose, using the formula of the D7E-TxictspUjisefl Glucose study (ADAG), Diabetes Care, Vol.31,#8,Mar. 2007 Blood Venous blood specimen / Unknown 04/12/2025 9:03 AM EDT 04/12/2025 11:29 AM EDT us Beryl Yates MD LAB BLOOD ORDERAB LES Final Result Performing Organization Address City/[facility] [address]/ZIP Co de Phone Number [facility] [address] [place] [address] [phone] * Ferritin (04/12/2025 9:03 AM EDT) Ferritin 135 20 - 250 ng/mL [facility] Blood Venous blood specimen / Unknown 04/12/2025 9:03 AM EDT 04/12/2025 11:12 AM EDT us Beryl Yates MD LAB BLOOD ORDERAB LES Final Result Performing Organization Address City/[facility] [address]/ZIP Co de Phone Number [facility] [address] [place] [address] [phone] * (ABNORMAL) Lipid Panel, Standard (04/12/2025 9:03 AM EDT) Triglycerides 169(H) <150 mg/dL [facility] Comment:Desirable Triglyceri de: less than 150 mg/dLBorderline High Triglyceride 150-199 mg/dLHigh Triglyceride: 200-499 mg/dLVery High Triglyceride: greater than or equal to 5OO mg/dL Cholesterol 141 <200 mg/dL [facility] Comment:Desirable Cholestero l: less than 200 mg/dLBorderline High Cholesterol: 200-239 mg/dLHigh Cholesterol: greater than 239 mg/dL LDL Cholesterol Calculated 77 <100 mg/dL [facility] Comment:Desirable LDL: less than 100 mg/dLNear Optimal/Above Optimal LDL: 110- 129 mg/dLBorderline High LDL: 130-159 mg/dLHigh LDL: 160-189 mg/dLVery High LDL: greater than or equal to 190 mg/dL HDL Cholesterol 31(L) >40 mg/dL [facility] Comment:Desirable HDL: great er than 40 mg/dL Note: This HDL assay may give artificially low results in patients with liver disease. Blood Venous blood specimen / Unknown 04/12/2025 9:03 AM EDT 04/12/2025 11:12 AM EDT us Beryl Yates MD LAB BLOOD ORDERAB LES Final Result Performing Organization Address [facility] [address]/ZIP Co de Phone Number [facility] [address] [place] [phone] * POCT Rapid Influenza B HOLLIDAY ID NOW (03/13/2025 9:44 AM EDT) Influenza B Negative Negative, Indeterminate [facility] QC Media Lot # [id number] [facility] Lot# Expiration Date [facility] Swab 03/13/2025 9:44 AM EDT us Carol Benitez NP POINT OF CARE TEST ENTER/EDIT O RDERABLES Final Result Performing Organization Address City/[facility] [address]/ZIP Co de Phone Number [facility] [address] [place] [phone] * POCT Rapid Influenza A HOLLIDAY ID NOW (03/13/2025 9:43 AM EDT) Influenza A Negative Negative, Indeterminate [facility] QC Media Lot # [id number] [facility] Lot# Expiration Date [facility] Swab 03/13/2025 9:43 AM EDT [facility] POINT OF CARE TEST ENTER/EDIT O RDERABLES Final Result [facility] [address] [place] [address] [phone] * POCT Rapid Strep A HOLLIDAY ID NOW (03/13/2025 9:41 AM EDT) [facility] Rapid Strep A Screen Negative Negative, None Detected QC Media Lot # [id number] Lot# Expiration Date 12,526 Swab 03/13/2025 9:41 AM EDT [facility] ENTER/EDIT O RDERABLES Edited Result - Final * POCT Rapid Covid-19 BinaxNOW (03/13/2025 9:39 AM EDT) [facility] Rapid COVID Ag Negative QC Media Lot # [id number] Lot# Expiration Date 8,126 Swab 03/13/2025 9:39 AM EDT [facility] POINT OF CARE TEST ENTER/EDIT O RDERABLES Final Result * Cologuard?? colon cancer screening (05/14/2023 7:00 PM EDT) [facility] Cologuard Result Negative Negative 05/22/20 23 1:25 AM EDT [facility] (CLIA #:[id number]) Comment: NEGATIVE TEST RESULT. A negative Cologuard [...] screened with both Cologuard and colonoscopy. (Bennie Carrasquillo al, N Engl J Med 2014;370(14):7387-5671) The normal value (reference range) for this assay is negative. COLOGUARD RE-SCREENING RECOMMENDATION: Periodic colorectal cancer screening is an important part of preventive healthcare for asymptomatic individuals at average risk for colorectal cancer. Following a negative Cologuard result, the [place] [employer] Society and U.S. Multi-Society Task Force screening guidelines recommend a Cologuard re-screening interval of 3 years. References: [place] [employer] Guideline for Colorectal Cancer Screening: https://www.cancer.org/cancer/snzda-gfepso-arddry/aazzmyokc-tlqchjhqw-ghaeexm/ac s-rec ommendations.html.; Brian DK, Christine PERRY, Mikcie RamosK, Colorectal Cancer Screening: Recommendations for Physicians and Patients from the U.S. Multi-Society Task Force on Colorectal Cancer Screening , Am J Gastroenterology 2017; 112:9115-1118. TEST DESCRIPTION: Composite algorithmic analysis of stool [...] screened with both Cologuard and colonoscopy. (Bennie Savage, N Engl J Med 2014;370(14):3511-1552.) Cologuard may produce a false negative or false positive result (no colorectal cancer or precancerous polyp present at colonoscopy follow up). A negative Cologuard test result does not guarantee the absence of CRC or advanced adenoma (pre-cancer). The current Cologuard screening interval is every 3 years. ([place] [employer] Society and U.S. Multi-Society Task Force). Cologuard performance data in a 10,000 patient pivotal study using colonoscopy as the reference method can be accessed at the following location: www.Stem/results. Additional description of the Cologuard test process, warnings and precautions can be found at www.cologuard.com. Stool specimen (specimen) 05/14/2023 7:00 PM EDT 05/16/2023 4:51 PM EDT Beryl Yates MD LAB MOLECULAR [facility] ORDERABLES Final Result [facility] (CLIA #:[id number]) [place] [address], from Last 3 Months or Most Recently Relevant to Health Maintenance Insurance [facility] C[facility] MEDICAID STAND ADULT Care Teams Roof Shingler Relationship Specialty Start Date End Date Beryl Almanza MD [address] [place] [phone] PCP - General Internal Medicine 11/21/22
--- OUTSIDE RECORDS SUMMARY | 2025-06-08 10:48 | XMS_ITS | Encounter Summary ---
Author Organization [employer] Address [address] [facility] 7t [place] [address] Care Team Providers Care Manager Package Name Role Phone Beryl Almanza MD Primary Care Pro vider Reason for Visit * Reason Comments Med Refill Encounter Details Date Type Department Care Team ([facility] st Contact Info) Description 06/04/2025 Refill [facility] [address] [place], [place] [phone] Carol Benitez NP [address] [place], [place] [phone] Sore throat Social History Tobacco Use Types Packs/Day Years [...] as of this encounter Visit Diagnoses Diagnosis Sore throat Acute pharyngitis documented in this encounter Additional Health Concerns Assessment Noted Time PHQ-9 Depression Total Score: 0 04/14/20 25 12:59 PM EDT documented as of this encounter Care Teams Manager Package Relationship Specialty Start Date End Date Beryl Almanza MD [address] [place] [phone] PCP - General Internal Medicine 11/21/22 documented as of this encounter
--- OUTSIDE RECORDS SUMMARY | 2025-06-08 10:48 | XMS_ITS | Encounter Summary ---
Author Organization [employer] Address [address] [facility] 7t [place] [address] Care Team Providers Care Rodbuster Name Role Phone Beryl Almanza MD Primary Care Pro vider Scotty Hernandez RN Unavailable [phone] Radha Fonseca Unavailable Encounter Details Date Type Department Care Team (Late st Contact Info) Description 04/12/2025 Results Follow-Up [facility] [address] [place] [address] Beryl Almanza MD [address] [place] [address] CBC Social History Tobacco Use Types Packs/Day [...] documented as of this encounter Care Teams Rodbuster Relationship Specialty Start Date End Date Beryl Almanza MD [address] [place] [phone] PCP - General Internal Medicine 11/21/22 Scotty Hernandez, HENRRY [address] [place] [phone] Registered Nurse Family Medicine 05/02/25 05/03/25 Radha Fonseca 05/02/25 05/03/25 documented as of this encounter
== END 2025-06-08 10:38 | disposition home or self-care (01) ==
LOC: HO.RHES 09:23
PROVIDERS: PCP Student in an Organized Health Care Education/Training Program; Visit Provider Student in an Organized Health Care Education/Training Program
DX: M47.816 Spondylosis without myelopathy or radiculopathy, lumbar region (principal)
CPT/HCPCS: 99214

== ENCOUNTER → 2025-06-08 09:23 | Outpatient (BNVA) | payer MEDICAID, SELFPAY | PROVIDERS: PCP Student in an Organized Health Care Education/Training Program; Visit Provider Student in an Organized Health Care Education/Training Program | DX: M47.816 Spondylosis without myelopathy or radiculopathy, lumbar region (principal); M54.50 Low back pain, unspecified; M15.9 Polyosteoarthritis, unspecified | CPT/HCPCS: 99212 ==

== ENCOUNTER 2025-07-11 20:13 | Emergency (ER) | payer MEDICAID, SELFPAY ==
--- NOTE | 2025-07-11 20:18 | ECG_ITS ---
Test Reason : CHEST PAIN Blood Pressure : */* mmHG Vent. Rate : 73 BPM Atrial Rate : 73 BPM P-R Int : 152 ms QRS Dur : 132 ms QT Int : 402 ms P-R-T Axes : 51 74 17 degrees QTcB Int : 442 ms Normal sinus rhythm Right bundle branch block Abnormal ECG When compared with ECG of 08-May-2025 12:41, No significant change was found Referred By: Generic ED Physician Electronically Signed By: RITIKA COREY
[2025-07-11 20:23] VITALS: BP 119/76; PULSE 80; O2SAT 96
[2025-07-11 20:38] VITALS: BP 127/60; PULSE 77; RESP 16; TEMP 36.6; O2SAT 95; BMI 33.0
[2025-07-11 21:20] LABS: MANUAL DIFF FLAG NO
[2025-07-11 21:21] LABS: Hematocrit 34.5 % (42.0-52.0); Hemoglobin 12.2 g/dl (14.0-18.0); Imm Gran Abs Auto 0.06 X10*3/uL (0.00-0.03); Imm Gran Pct Auto 0.5 % (0.0-0.4); Lymphocytes Absolute Auto 2.5 X10*3/uL (1.2-4.9); Mean Corpuscular HGB Conc 35.4 g/dl (31.0-36.0); Mean Corpuscular Hemoglobin 30.9 pg (27.0-33.0); Mean Corpuscular Volume 87.3 fL (80.0-98.0); NRBC Abs Auto 0.000 X10*3/uL (0.0-0.012); NRBC Pct Auto 0.0 /100WBC (0.0-0.2); Platelet Count 251 X10*3/uL (160-400); Red Blood Count 3.95 X10*6/uL (4.60-5.80); White Blood Count 11.1 X10*3/uL (4.8-10.8)
[2025-07-11 21:35] LABS: Alanine Aminotransferase 20 U/L (0-40); Albumin Level 4.4 g/dL (3.5-5.0); Alkaline Phosphatase 94 U/L (39-117); Anion Gap 15 (12-20); Aspartate Amino Transferase 30 U/L (5-37); Blood Urea Nitrogen 24 mg/dL (9-16); Calcium 9.0 mg/dL (8.4-10.2); Carbon Dioxide 24 mmol/L (22-29); Chloride 106 mmol/L (96-108); Creatinine Clr Calc Pharmacy 63.3; Estimated Glomerular Filt Rate 49; Potassium 4.2 mmol/L (3.3-5.1); Sodium 141 mmol/L (135-145); Total Protein 7.5 g/dL (6.5-8.0)
--- NOTE | 2025-07-11 21:40 | ED.CHESTPAIN ---
HPI - Chest Pain General Chief Complaint: Chest Pain Stated Complaint: carpal pedal spasms lasting longer than 30 mins Time Seen by Provider: 07/11/25 23:08 Source: patient Mode of arrival: ambulatory Limitations: no limitations History of Present Illness ED Provider: Dr. Wilson HPI narrative: 54-year-old male presented hospital today for 2 episode of right hand spasm. Also complaining of some chest pain. Patient stated this spasm has since resolved. Still have some minor chest pain at this time this has feel better. He was concerned about of heart or stroke issues therefore he presents to the ER for evaluation. Related Data Home Medications ?Medication ?Instructions ?Recorded ?Confirmed aspirin 81 mg tablet,delayed 81 mg PO DAILY 06/28/20 12/25/22 release (Adult Low Dose Aspirin) docusate sodium 100 mg capsule 100 mg PO BID 06/28/20 12/25/22 (Colace) hydrochlorothiazide 25 mg tablet 25 mg PO DAILY 06/28/20 12/25/22 metoprolol tartrate 50 mg tablet 50 mg PO BID 06/28/20 12/25/22 omeprazole magnesium 20 mg 20 mg PO BID 06/28/20 12/25/22 tablet,delayed release (Prilosec OTC) sennosides 8.6 mg tablet (Natural 17.2 mg PO BEDTIME 06/28/20 12/25/22 Senna Laxative) simvastatin 20 mg tablet 20 mg PO DAILY 06/28/20 12/25/22 haloperidol 2 mg tablet 2 mg PO DAILY 06/27/22 12/25/22 haloperidol 5 mg tablet 5 mg PO BEDTIME 06/27/22 12/25/22 losartan 100 mg tablet 100 mg PO QAM 06/27/22 12/25/22 potassium chloride 20 mEq 40 meq PO QAM 06/27/22 12/25/22 tablet,extended release(part/cryst) amlodipine 10 mg tablet 10 mg PO QAM 12/25/22 12/25/22 cholecalciferol (vitamin D3) 25 25 mcg PO QAM 12/25/22 12/25/22 mcg (1,000 unit) tablet zolpidem 10 mg tablet 5 - 10 mg PO BEDTIME PRN 12/25/22 12/25/22 Previous Rx's ?Medication ?Instructions ?Recorded qrhqvvysqq-yatqlsravjcts-jmnpclhg 1 cap PO Q6H PRN headache #20 caps 04/24/22 50 mg-300 mg-40 mg capsule (Fioricet) loperamide 2 mg capsule 2 mg PO Q6H PRN loose stool #30 08/08/22 (Anti-Diarrheal (loperamide)) caps ondansetron 4 mg disintegrating 4 mg PO Q6H PRN nausea and 08/08/22 tablet vomiting #14 tabs tamsulosin 0.4 mg capsule (Flomax) 0.4 mg PO BEDTIME #30 caps 08/18/23 amoxicillin 875 mg-potassium 1 tab PO Q12H 7 days #14 tabs 02/03/24 clavulanate 125 mg tablet acetaminophen 500 mg tablet 1,000 mg (2 x 500 mg) PO Q8H 10 05/08/25 (Tylenol Extra Strength) days #30 tabs ibuprofen 400 mg tablet 400 mg PO Q8H #30 tabs 05/08/25 lidocaine 4 % topical patch 1 patch topical DAILY PRN pain #10 05/08/25 (Aspercreme (lidocaine)) ea prednisone 20 mg tablet 20 mg PO DAILY 5 days #5 tabs 05/08/25 tramadol 50 mg tablet 50 mg PO TID pain (scale score 06/08/25 7-10) #90 tabs Allergies Allergy/AdvReac Type Severity Reaction Status Date / Time No Known Allergies Allergy Mild Verified 07/11/25 20:43 Review of Systems Review of Systems: Pertinent review of systems as mentioned in HPI. All other system otherwise negative. [facility] Past Medical History [facility] Narrative: Medical history as mentioned in HPI Medical History Hypercholesteremia Diabetes Hypertension Social History Social History Household Members: Significant Other Alcohol intake: former Patient Tobacco Use Status: Current everyday Tobacco user Tobacco use type: Cigarette Cigarettes Per Day: 5 Advance Directives: No Advance Directives Information Provided: Yes Physical Exam Exam: Exam: General: Pleasant, no distress, interacting appropriately Head: Normacephalic, atraumatic ENT: oral mucosa moist, neck supple, no tracheal deviation Cardiovascular: regular rate, regular rhythm, no murmurs, rubbing, gallops Respiratory: CTAB, no wheeze, rales, rhonchi Gastrointestinal: Soft, non distended, non tender, non guarding Extremities: No limb pain or swelling, no calf tenderness Neurological: No signs of focal neurological deficit on exam. No signs of spasm of the right upper extremity Skin: Warm and dry Psychiatric: Appropriate mood and thoughts Vital Signs: Vital Signs: Last Vital Signs Temp 98 F 07/11/25 23:51 Pulse 77 07/11/25 23:51 Resp 16 07/11/25 23:51 BP 127/60 07/11/25 23:51 Pulse Ox 95 07/11/25 23:51 O2 Del Method Nasal Cannula 07/11/25 23:51 BMI result Body Mass Index 33.0 Course Course Course Narrative: Francisca Wilson, DO 07/11/252145 Rapid medical screening was performed. Patient is coming in today for 2 episode of right hand cramps. He is also complaining of some chest pain. Cardiac lab work pending, chest x-ray ordered. EKG ordered. Medical stable at the time of evaluation. Medical Decision Making Medical Decision Making [facility] Narrative: 54-year-old male presented hospital today for right-sided upper extremity hand spasm. Patient's EKG did not show any signs of STEMI. Troponins negative her chest x-ray is negative. I have low suspicion for cardiac event with his chest pain and right hand spasm. I do not think patient is having a stroke. Neurologically intact. Patient appears to be well. On reassessment patient is asymptomatic at this time. We will plan to discharge patient at this time. Differential Diagnosis Differential Diagnoses: The differential diagnosis associated with the presentation includes ACS, CVA, muscle spasm Lab Data MDM Lab Attestation statement: I reviewed the patient's lab results. 07/11/25 21:14 07/11/25 21:14 Labs: Lab Results 07/11/25 Range/Units 21:14 WBC 11.1 H (4.8-10.8) X10*3/uL RBC 3.95 L (4.60-5.80) X10*6/uL Hgb 12.2 L (14.0-18.0) g/dl Hct 34.5 L (42.0-52.0) % MCV 87.3 (80.0-98.0) fL MCH 30.9 (27.0-33.0) pg MCHC 35.4 (31.0-36.0) g/dl RDW 13.0 (11.0-16.0) % Plt Count 251 (160-400) X10*3/uL MPV 9.4 (9.4-12.4) fL Immature Gran % (Auto) 0.5 H (0.0-0.4) % Neut % (Auto) 61.6 (45-73) % Lymph % (Auto) 22.5 (20-40) % [place]as % (Auto) 10.1 (2-11) % Eos % (Auto) 4.5 H (0-4) % Baso % (Auto) 0.8 (0-2) % Lymph # (Auto) 2.5 (1.2-4.9) X10*3/uL [place] # (Auto) 1.1 (0.1-1.2) X10*3/uL Eos # (Auto) 0.5 H (0.0-0.4) X10*3/uL Baso # (Auto) 0.1 (0.0-0.2) X10*3/uL Abs Immat Gran (auto) 0.06 H (0.00-0.03) X10*3/uL Absolute Neuts (auto) 6.9 (2.0-8.3) x10*3/uL Absolute Nucleated RBC 0.000 (0.0-0.012) X10*3/uL Nucleated RBC % (auto) 0.0 (0.0-0.2) /100WBC Sodium 141 (135-145) mmol/L Potassium 4.2 (3.3-5.1) mmol/L Chloride 106 (96-108) mmol/L Carbon Dioxide 24 (22-29) mmol/L Anion Gap 15 (12-20) BUN 24 H (9-16) mg/dL Creatinine 1.48 H (0.5-1.4) mg/dL Estim Creat Clear Calc 63.3 Estimated GFR 49 Fasting Glucose 91 (60-99) mg/dL Calcium 9.0 D (8.4-10.2) mg/dL Total Bilirubin 0.6 (0.0-1.0) mg/dL AST 30 (5-37) U/L ALT 20 (0-40) U/L Alkaline Phosphatase 94 (39-117) U/L Troponin I High Sens 6.9 (<3.5-35.0) ng/L Total Protein 7.5 (6.5-8.0) g/dL Albumin 4.4 (3.5-5.0) g/dL Independent Interpretation I performed an independent interpretation of an: Plain X-Ray Radiology Impression Discussion of test interpretation with radiology: I have reviewed the radiologist's reading. Discharge Plan Discharge Clinical Impression: Spasm, Atypical chest pain Patient Disposition: Home, Self-Care Instructions: Chest Pain (ED), Muscle Spasm (ED) Prescriptions: No Action tpdkvunolk-iersfdjaqtkjr-jbop [Fioricet] 50-300-40 mg capsule 1 cap PO Q6H PRN (Reason: headache) Qty: 20 0RF loperamide [Anti-Diarrheal (loperamide)] 2 mg capsule 2 mg PO Q6H PRN (Reason: loose stool) Qty: 30 0RF ondansetron 4 mg tablet,disintegrating 4 mg PO Q6H PRN (Reason: nausea and vomiting) Qty: 14 0RF tamsulosin [Flomax] 0.4 mg capsule 0.4 mg PO BEDTIME Qty: 30 0RF amoxicillin-pot clavulanate 875-125 mg tablet 1 tab PO Q12H 7 Days Qty: 14 0RF prednisone 20 mg tablet 20 mg PO DAILY 5 Days Qty: 5 0RF lidocaine [Aspercreme (lidocaine)] 4 % adhesive patch,medicated 1 patch topical DAILY PRN (Reason: pain) Qty: 10 0RF acetaminophen [Tylenol Extra Strength] 500 mg tablet 1,000 mg PO Q8H 10 Days Qty: 30 0RF ibuprofen 400 mg tablet 400 mg PO Q8H Qty: 30 0RF metoprolol tartrate 50 mg tablet 50 mg PO BID simvastatin 20 mg tablet 20 mg PO DAILY hydrochlorothiazide 25 mg tablet 25 mg PO DAILY aspirin [Adult Low Dose Aspirin] 81 mg tablet,delayed release (DR/EC) 81 mg PO DAILY omeprazole magnesium [Prilosec OTC] 20 mg tablet,delayed release (DR/EC) 20 mg PO BID docusate sodium [Colace] 100 mg capsule 100 mg PO BID sennosides [Natural Senna Laxative] 8.6 mg tablet 17.2 mg PO BEDTIME losartan 100 mg tablet 100 mg PO QAM haloperidol 5 mg tablet 5 mg PO BEDTIME potassium chloride 20 mEq tablet,ER particles/crystals 40 meq PO QAM haloperidol 2 mg tablet 2 mg PO DAILY cholecalciferol (vitamin D3) 25 mcg (1,000 unit) tablet 25 mcg PO QAM zolpidem 10 mg tablet 5 - 10 mg PO BEDTIME PRN amlodipine 10 mg tablet 10 mg PO QAM tramadol 50 mg tablet 50 mg PO TID Qty: 90 5RF Interventions: ED Discharge Assessment Last Done: 07/11/25 23:51 Discharge Date/Time: 07/11/25 23:51 Print Language: Moldovan
[2025-07-11 21:42] LABS: Troponin-I High Sensitivity 6.9 ng/L (<3.5-35.0)
--- OUTSIDE RECORDS SUMMARY | 2025-07-11 23:45 | XMS_ITS | Encounter Summary ---
Author Organization [employer] Address [address] [facility] 7t [place] [address] Care Team Providers Care Marine Welder Name Role Phone Beryl Almanza MD Primary Care Pro vider Reason for Visit * Reason Comments Med Refill Encounter Details Date Type Department Care Team ([facility] st Contact Info) Description 06/04/2025 Refill [facility] [address] [place], [place] [phone] Carol Benitez NP [address] [place], [place] [phone] Sore throat Social History Tobacco Use Types [...] Care Team (Late st Contact Info) Description 09/01/2025 1:15 PM EST Office Visit [facility] [address] [place] [phone] Beryl Almanza MD [address] [place] [address] [phone] documented as of this encounter Visit Diagnoses Diagnosis Sore throat Acute pharyngitis documented in this encounter Additional Health Concerns Assessment Noted Time PHQ-9 Depression Total Score: 0 04/14/20 25 12:59 PM EDT documented as of this encounter Care Teams Marine Welder Relationship Specialty Start Date End Date Beryl Almanza MD [address] [place] [phone] PCP - General Internal Medicine 11/21/22 documented as of this encounter
--- OUTSIDE RECORDS SUMMARY | 2025-07-11 23:45 | XMS_ITS | Encounter Summary ---
Author Organization [email or web address] Address [address] [place] [address] 7 [place] [address] Care Team Providers Care Accelerator Operator Name Role Phone Chauncey Haney MD Primary Care Provider [facility] Primary Care Provider [phone] Beryl Almanza MD Primary Care Pro vider Ibis Fonseca RN Unavailable [phone] Milagros Diego Unavailable Scotty Hernandez RN Unavailable [phone] Radha Fonseca Unavailable Encounter Details Date Type Department Care Team (Latest Contact Info) Description 05/14/2022 Abstract [facility] Dental, Provider, DDS Social History [...] Description 09/01/2025 1:15 PM EST Office Visit [facility] [address] [place], [place] [phone] Beryl Almanza MD [address] [place], [place] [phone] documented as of this encounter Visit Diagnoses Not on filedocumented in this encounter Care Teams Accelerator Operator Relationship Specialty Start Date End Date Chauncey Haney MD PCP - General Family Medicine 08/16/19 06/30/22 [facility] [address] [place] [address] PCP - General Family Medicine 07/01/22 11/20/22 Beryl Almanza MD [address] [place], [place] [phone] PCP - General Internal Medicine 11/21/22 Ibis Fonseca, HENRRY [address] [place], [place] [phone] Registered Nurse Family Medicine 12/26/24 12/26/24 Milagros Diego 12/26/24 12/26/24 Scotty Hernandez, RN [address] [place], [place] [phone] Registered Nurse Family Medicine 05/02/25 05/03/25 Radha Fonseca 05/02/25 05/03/25 documented as of this encounter
--- OUTSIDE RECORDS SUMMARY | 2025-07-11 23:45 | XMS_ITS | Clinical Summary ---
Author Organization [facility] Address [address] [place] [address] [place] [phone] Phone Care Team Providers Care Taker Off Hemp Fiber Name Role Phone Chauncey Haney Primary Care [...] Visit [facility] [address] [place] [phone] Antoine Basilio [...] Visit [facility] [address] [place] [address] Antoine Basilio MD [address] [address] Health Maintenance Due Date Last [...] Insurance Medicaid [place] Care Teams Taker Off Hemp Fiber Relationship Specialty Start Date End Date Chauncey Haney [address] [place] [phone] PCP - General Internal Medicine 11/06/20
--- OUTSIDE RECORDS SUMMARY | 2025-07-11 23:45 | XMS_ITS | Clinical Summary ---
Author Organization [facility] Address [address] [place] [phone] Phone Care Team Providers Care Hand Funnel Coater Name Role Phone Physician, Pcp Unknown Primary [...] mmol/L LAB CHEMISTRY METHOD 12/23/2024 4:43 PM [facility] Potassium 4.2 3.5 - 5.5 mmol/L LAB CHEMISTRY METHOD 12/23/2024 4:43 PM [facility] Chloride 105 96 - 110 mmol/L LAB CHEMISTRY METHOD 12/23/2024 4:43 PM [facility] CO2 25 21 - 32 mmol/L LAB CHEMISTRY METHOD 12/23/2024 4:43 PM [facility] Anion Gap 8 3 - 11 LAB CHEMISTRY METHOD 12/23/2024 4:43 PM [facility] Glucose 89 70 - 100 mg/dL LAB CHEMISTRY METHOD 12/23/2024 4:43 PM [facility] BUN 20 5 - 25 mg/dL LAB CHEMISTRY METHOD 12/23/2024 4:43 PM [facility] Creatinine 1.44(H) 0.70 - 1.30 mg/dL LAB CHEMISTRY METHOD 12/23/2024 4:43 PM [facility] eGFR 57(L) >=60 mL/min/1. 73m2 LAB CHEMISTRY METHOD 12/23/2024 4:43 PM [facility] Comment:Calculation based on the Chronic Kidney Disease Epidemiology Collaboration (CKD-EPI) equation refit without adjustment for race. BUN/Creatinine Ratio 13.9 LAB CHEMISTRY METHOD 12/23/2024 4:43 PM [facility] Calcium 9.6 8.5 - 10.5 mg/dL LAB CHEMISTRY METHOD 12/23/2024 4:43 PM [facility] AST (SGOT) 17 10 - 42 unit/L LAB CHEMISTRY METHOD 12/23/2024 4:43 PM [facility] ALT (SGPT) 21 10 - 60 unit/L LAB CHEMISTRY METHOD 12/23/2024 4:43 PM [facility] Alkaline Phosphatase 119 42 - 121 unit/L LAB CHEMISTRY METHOD 12/23/2024 4:43 PM EDT [facility] Total Protein 7.7 6.0 - 8.0 g/dL LAB CHEMISTRY METHOD 12/23/2024 4:43 PM EDT [facility] Albumin 4.0 3.2 - 5.0 g/dL LAB CHEMISTRY METHOD 12/23/2024 4:43 PM EDT [facility] Total Bilirubin 0.6 0.0 - 1.4 mg/dL LAB CHEMISTRY METHOD 12/23/2024 4:43 PM EDT [facility] Blood Venous blood specimen / Unknown Venipuncture / Unknown 12/23/2024 3:38 PM EDT 12/23/2024 3:54 PM EDT [facility] B Judd JOYCE LAB BLOOD ORDERABLES Final Resu lt [facility] [address] [place] [address], from Last 3 Months or Most Recently Relevant to Health Maintenance Insurance MEDICAID - [place] Care Teams Hand Funnel Coater Relationship Specialty Start Date End Date Physician, Pcp Unknown PCP - General 12/23/24
--- OUTSIDE RECORDS SUMMARY | 2025-07-11 23:45 | XMS_ITS | Clinical Summary ---
Author Organization [employer] Address [address] [facility] [address] [place] [address] Care Team Providers Care Direct Marketing Coordinator Name Role Phone Beryl Almanza MD Primary [...] BY MOUTH AT BEDTIME 90 tablet 1 5 9:05 AM EST 03/14/20 25 Active amLODIPine (Norvasc) 5 MG tabletIndications: Primary hypertension TAKE 1 TABLET BY MOUTH EVERY MORNING 90 tablet 1 5 9:05 AM EST 03/29/20 25 Active lidocaine-prilocai ne (Emla) 2.5-2.5 % cream APPLY TO THE AFFECTED AREA(S) ONCE DAILY NEEDED FOR PAIN 30 g 1 5 2:01 PM EST 04/05/20 25 Active cholecalciferol (Vitamin D-3) 25 MCG tabletIndications: Vitamin D deficiency TAKE 1 TABLET BY MOUTH EVERY MORNING 90 tablet 1 04/06/20 25 Active omega-3 acid ethyl esters (Lovaza) 1 g capsule TAKE 1 CAPSULE BY MOUTH EVERY MORNING 90 capsule 1 05/18/20 25 Active losartan (Cozaar) 100 MG tablet TAKE 1 TABLET BY MOUTH EVERY MORNING 90 tablet 07/11/20 25 Active losartan (Cozaar) 100 MG tablet Take 1 tablet (100 mg) by mouth in the morning. 90 tablet 04/06/20 25 025 Discontinued Active Problems Problem Noted [...] Encounters Date Type Department Care Team Description 07/11/2025 Refill [facility] [address] [place] [address] Beryl Almanza MD 06/04/2025 Refill [facility] [address] [place] [address] Carol Benitez NP Sore throat 05/29/2025 Orders Only [address] [address] Beryl Almanza MD Abnormal CT scan (Primary Dx); Benign prostatic hyperplasia with lower urinary tract symptoms, symptom details unspecified 05/26/[address] [address] Beryl Almanza MD Referral 05/18/[address] [address] Beryl Almanza MD 05/08/2025 Orders Only GENERIC EXTERNAL DATA DEPARTMENT Provider, Generic External Data 05/03/2025 Orders Only [address] [address] Beryl Almanza MD RBBB (Primary Dx) 05/03/2025 Patient Outreach [facility] [address] [place] [address] Beryl Almanza MD Care Management ([facility]- Initial assessment/enrollmen t) 05/02/[address] [address] Beryl Almanza MD Results; Telephone Call 05/02/2025 Patient Outreach [address] [address] Beryl Almanza MD Care Coordination ([facility]/ANNELIESE Fonseca, initial assessment scheduled ) 05/02/2025 Patient Outreach [address] [address] Beryl Almanza MD Care Coordination ([facility]/ANNELIESE Fonseca, Chart review ) 05/02/2025 Patient Outreach [facility] [address] [place] [address] Beryl Almanza MD Care Coordination ([facility]- chart review) 05/02/2025 Patient Outreach [address] [address] Beryl Almanza MD 05/01/2025 Orders Only [facility] External Provider, [facility] 04/14/2025 1:00 PM EDT Office Visit [facility] [address] [place] [address] Beryl Almanza MD Lumbar back pain (Primary Dx); Anemia, unspecified type; Hypertension, unspecified type; Class 1 obesity due to excess calories without serious comorbidity with body mass index (BMI) of 30.0 to 30.9 in adult; Healthcare maintenance; Elevated pancreatic enzyme; Elevated PSA 04/14/2025 Travel 04/12/2025 Results Follow-Up [facility] [address] [place] [address] Beryl Almanza MD CBC from Last 3 Months Immunizations Immunization Administration [...] 04/14/2025 12:57 PM EDT Plan of Treatment Upcoming Encounters Date Type Department Care Team (Late st Contact Info) Description 09/01/2025 1:15 PM EST Office Visit [facility] [address], [place] [phone] Beryl Almanza MD [address] [place], [place] [phone] Health Maintenance Due Date Last Done Comments CT Colonography 1968 Colonoscopy 1970 FIT 1968 Sigmoidoscopy 1968 Hepatitis B Vaccines (1 of 3 - 19+ 3-dose series) 1987 RSV Patients and Patients Aged 60 years or older (1 - Risk 50-74 years 1-dose series) 2018 Pneumococcal Vaccine: 50+ Years (2 of 2 [...] history exists Dental X-Ray: Full Mouth 05/06/2025 05/05/2022, 04/11 SDOH Screening 12/27/2025 12/27/2024 Disability Screening 01/04/2026 01/04/2025 Alcohol/Substance Use Screening 02/09/2026 02/09/2025 Depression Screening 04/14/2026 04/14/2025, 04/14/20 25 Tobacco Screening 04/14/2026 04/14/2025 Colorectal Cancer Screening 05/14/2026 FIT DNA/Cologuard 05/14/2026 05/14/2023 DTaP/Tdap/Td Vaccines (2 - Td or Tdap) 10/05/2027 10/05/2017, 07/01/2004 Lipid Panel 04/12/2030 04/12/2025, 09/2023, 05/19/2023, Additional history exists Zoster Vaccines Completed 07/23/2023, 05/21/2023 HIV Screening [...] Procedure Name Priority Date/Time Associated Diagnosis Comments AMB REFERRAL TO UROLOGY Routine 07/11/[address] scan Benign prostatic hyperplasia with lower urinary tract symptoms, symptom details unspecified D DIMER HIGH SENSITIVITY Routine 05/08/2025 3:10 [...] Routine 04/12/2025 9:03 AM EDT Epigastric pain LAB COLOGUARD COLON CANCER SCREEN Routine 05/14/2023 7:00 PM EDT Health care maintenance PROPHYLAXIS - ADULT Routine 05/14/2022 1 2:00 AM EDT INTRAORAL - COMPLETE SERIES OF RADIOGRAPHIC IMAGES Routine 05/05/2022 12:00 AM EDT PERIODIC ORAL EVALUATION - ESTABLISHED PATIENT Routine 05/05/2022 12:00 AM EDT from Last 3 Months or Most Recently Relevant to Health Maintenance Results * Referral to Urology (07/11/2025) Beryl Yates MD OUTPATIENT REFERR AL ORDERABLES Final Result * D Dimer High Sensitivity (05/08/2025 3:10 PM EDT) D Dimer High Sensitivity <150 NG/ML [facility] Comment:D-DIMER HS REFERENCE RANGENote: Our assay reports D-Dimer Units (D- DU).The cut-off value for venous thromboembolic (VTE) disease is230 ng/mL. This value has a very high negative predictivevalue when the patient has a low to moderate clinicalprobability of VTE.The upper limit of normal is 243 ng/mL. 05/08/2025 3:10 PM EDT 05/08/2025 3:13 PM EDT us Generic External Data Provider LAB BLOOD ORDERAB LES Final Result Performing Organization Address [facility] de Phone Number [facility] [address] [place] [phone] * High Sensitivity Troponin I (05/08/2025 3:10 PM EDT) TROPONIN I HIGH SENSITIVITY 8.1 <3.5 - 35.0 ng/L [facility] Comment:The Morales high sens itivity Troponin-I results should beused in conjunction with other diagnostic information suchas ECG, clinical observations and information, and patientsymptoms to aid in the diagnosis of ND. 05/08/2025 3:10 PM EDT 05/08/2025 3:13 PM EDT Generic External Data Provider LAB BLOOD ORDERAB LES Final Result Performing Organization Address [facility] de Phone Number [facility] [address] [place] [phone] * CT Abdomen Pelvis w/ Contrast (05/01/2025 7:55 PM EDT) Anatomical Region Laterality Modality Body, Pelvis, Abdomen Computed T omography 05/01/2025 7:55 PM EDT Narrative 05/01/2025 7:57 PM EDT [address] [address] [address] Scan Report Signed Patient: Merlin Diego MR#: [id number] : 1970 Acct:[id number] Age/Sex: 54 / M ADM Date: 05/01/25 Loc: .ED Attending Dr: Ordering Physician: Dean Serrano MD Date of Service: 05/01/25 Procedure(s): CT abdomen pelvis w IV con Accession Number(s): [id number] cc: Dean Serrano MD; Beryl Almanza MD Report Number: [id number]: Total DLP = 646.00 mGy-cm Reason for Exam: left flank pain, s/p Left suprarenal gland resecti CLINICAL HISTORY: left flank pain, s p Left suprarenal gland resecti CT abdomen and pelvis with contrast Comparison: CT/REG/RI/SR - CT ABDOMEN PELVIS WO IV CON [...] in OV> 05/01/251955 DD/ 54 TD/TT: 05/01/251954 Or First Assist Registered Nurse: Procedure Note Donotuseinterpreter, Image - 05/01/[address] [place] [address] [address] Scan Report Signed Patient: Merlin Diego [facility]#: [id number] : 1970Acct:[id number] Age/Sex: 54 / MADM Date: 05/01/25 Loc: HO.ED Attending Dr: Ordering Physician: Dean Serrano MD Date of Service: 05/01/25 Procedure(s): CT abdomen pelvis w IV con Accession Number(s): [id number] cc: Dean Serrano MD; Beryl Almanza MD Report Number: [id number]: Total DLP = 646.00 mGy-cm Reason for Exam: left flank pain, s/p Left suprarenal gland resecti CLINICAL HISTORY: left flank pain, s p Left suprarenal gland resecti CT abdomen and pelvis with contrast Comparison: CT/REG/RI/SR - CT ABDOMEN PELVIS WO IV CON [...] in OV> 05/01/251955 DD/ 54 TD/TT: 05/01/251954 Or First Assist Registered Nurse: [facility] External Provider IMG CT PROCEDURES Edited Result - Final * (ABNORMAL) Urinalysis w/reflex microscopic (05/01/2025 3:42 PM EDT) Color Urine Yellow [facility] Appearance Urine Clear [facility] PH 5.5 5.0 - 9.0 [facility] Glucose Urine UA Negative Negative mg/dL [facility] Urine Blood Negative Negative [facility] Specific [place] - Urine >=1.030(H) 1.005 - 1.025 [facility] Urine Protein Trace Neg-Trace mg/dL [facility] Urine Ketones Trace Negative mg/dL [facility] Nitrite Urine Negative Negative [facility] Leukocyte Esterase Urine Negative Negative [facility] 05/01/2025 3:42 PM EDT 05/01/2025 4:02 PM EDT Narrative [facility] - 05/01/2025 4:07 PM EDT [id number], Clean Catch us Generic External Data Provider LAB URINE ORDERAB LES Final Result [facility] [address] [place] [phone] * (ABNORMAL) CBC auto differential (05/01/2025 2:55 PM EDT) White Blood Count 8.6 4.8 - 10.8 X10*3/uL [facility] Red Blood Count 4.05(L) 4.60 - 5.80 X10*6/uL [facility] Hemoglobin 12.6(L) 14.0 - 18.0 g/dl [facility] Hematocrit 35.2(L) 42.0 - 52.0 % [facility] Mean Corpuscular Volume 86.9 80.0 - 98.0 fL [facility] Mean Corpuscular Hemoglobin 31.1 27.0 - 33.0 pg [facility] Mean Corpuscular HGB Conc 35.8 31.0 - 36.0 g/dl [facility] Red Cell Distribution Width 12.6 11.0 - 16.0 % [facility] Platelet Count 234 160 - 400 X10*3/uL [facility] Mean Platelet Volume 9.0(L) 9.4 - 12.4 fL [facility] Neutrophils Percent Auto 67.4 45 - 73 % [facility] Imm Gran Pct Auto 0.5(H) 0.0 - 0.4 % [facility] Lymphocytes Percent Auto 21.1 20 - 40 % [facility] Monocytes Percent Auto 6.4 2 - 11 % [facility] Eosinophils Percent Auto 4.1(H) 0 - 4 % [facility] Basophils Percent Auto 0.5 0 - 2 % [facility] NRBC Pct Auto 0.0 0.0 - 0.2 /100WBC [facility] Neutrophils Absolute Auto 5.8 2.0 - 8.3 x10*3/uL [facility] Imm Gran Abs Auto 0.04(H) 0.00 - 0.03 X10*3/uL [facility] Lymphocytes Absolute Auto 1.8 1.2 - 4.9 X10*3/uL [facility] Monocytes Absolute Auto 0.6 0.1 - 1.2 X10*3/uL [facility] Eosinophils Absolute Auto 0.4 0.0 - 0.4 X10*3/uL [facility] Basophils Absolute Auto 0.0 0.0 - 0.2 X10*3/uL [facility] NRBC Abs Auto 0.000 0.0 - 0.012 X10*3/uL [facility] 05/01/2025 2:55 PM EDT 05/01/2025 2:58 PM EDT Generic External Data Provider LAB BLOOD ORDERAB LES Final Result Performing Organization Address City/[facility]/ZIP Co de Phone Number [facility] [address] [place] [phone] * Magnesium (05/01/2025 2:55 PM EDT) Magnesium 2.2 1.6 - 2.6 mg/dL [facility] 05/01/2025 2:55 PM EDT 05/01/2025 2:58 PM EDT Generic External Data Provider LAB BLOOD ORDERAB LES Final Result Performing Organization Address [facility] Co de Phone Number [facility] [address] [place] [phone] * Lipase (05/01/2025 2:55 PM EDT) Only the most recent of2 resultswithin the time period is included. Lipase 47 8 - 78 U/L [facility] 05/01/2025 2:55 PM EDT 05/01/2025 2:58 PM EDT us Generic External Data Provider LAB BLOOD ORDERAB LES Final Result [facility] [address] [place] [phone] * (ABNORMAL) Comprehensive Metabolic Panel (05/01/2025 2:55 PM EDT) Only the most recent of2 resultswithin the time period is included. Sodium 140 135 - 145 mmol/L [facility] Potassium 4.1 3.3 - 5.1 mmol/L [facility] Chloride 106 96 - 108 mmol/L [facility] Carbon Dioxide 29 22 - 29 mmol/L [facility] Anion Gap 9(L) 12 - 20 [facility] Urea Nitrogen (BUN) 23(H) 9 - 16 mg/dL [facility] Creatinine, Serum 1.37 0.5 - 1.4 mg/dL [facility] Creatinine Clr Calc Pharmacy 67.8 [facility] Comment:eGFR (calculated fro m the MDRD study equation) and eCrCl(calculated from the Cockcroft-Gault equation) are based ondifferent parameters and may not yield comparable results.If eCrCl result is absurd, please check patient'sheight/weight. Estimated Glomerular Filt Rate 54 [facility] Comment:Chronic Kidney Disea se: Estimated GFR < 60 mL/min/1.70n6Apuhfo Kidney Disease: Estimated GFR < 15 mL/min/1.73m2 Glucose 120(H) 60 - 115 mg/dL [facility] Calcium 9.3 8.4 - 10.2 mg/dL [facility] Bilirubin, Total 0.6 0.0 - 1.0 mg/dL [facility] Aspartate Amino Transferase 26 5 - 37 U/L [facility] Alanine Aminotransferase 21 0 - 40 U/L [facility] Total Protein 7.7 6.5 - 8.0 g/dL [facility] Albumin Level 4.3 3.5 - 5.0 g/dL [facility] Alkaline Phosphatase 105 39 - 117 U/L [facility] 05/01/2025 2:55 PM EDT 05/01/2025 2:58 PM EDT us Generic External Data Provider LAB BLOOD ORDERAB LES Final Result [facility] [address] [place] [phone] * Chlamydia/N. Gonorrhoeae, PCR, Urine (04/12/2025 9:03 AM EDT) CT PCR, Urine NOT DETECTED Not Detect. [facility] Comment:A not detected test result [...] NG PCR, Urine NOT DETECTED Not Detect. [facility] Comment:A not detected test result [...] Performing Organization Address City/[facility]/ZIP Co de Phone Number [facility] [address] [place] [phone] * Syphilis Screen (04/12/2025 9:03 AM EDT) Syphilis Screen Nonreactive Nonreactive [facility] Blood 04/12/2025 9:03 AM EDT 04/12/2025 11:12 AM EDT Beryl Yates MD LAB BLOOD ORDERAB LES Final Result Performing Organization Address [facility] Co de Phone Number [facility] [address] [place] [phone] * Vitamin D, 25-Hydroxy, Total, Immunoassay (04/12/2025 9:03 AM EDT) Vitamin D 25-OH Total 54.0 >30 ng/mL [facility] Comment: Health Based Reference Values*< 20 ng/mL Ldbepdnux40-33 ng/mL Insufficient> 30 ng/mL Sufficient*Sonia FOSS. N [...] ORDERAB LES Final Result Performing Organization Address [facility] Co de Phone Number [facility] [address] [place] [phone] * TSH with Reflex to Free T4 (04/12/2025 9:03 AM EDT) TSH reflex Free T4 1.64 0.32 - 4.0 uIU/mL [facility] Blood 04/12/2025 9:03 AM EDT 04/12/2025 11:12 AM EDT us Beryl Yates MD LAB BLOOD ORDERAB LES Final Result Performing Organization Address [facility] Co de Phone Number [facility] [address] [place] [phone] * Albumin, Random Urine W/Creatinine (04/12/2025 9:03 AM EDT) Creatinine, Urine 188.88 mg/dL [facility] Microalbumin Urine 29.0 mg/L [facility] Microalbum Creatinine Ratio Ur 15.3 <30 ug/mg cr [facility] Comment:Albumin/Creatinine R atio Reference Ranges: Normal: < 30 ug/mg creatinine Microalbuminuria: 30 - 300 ug/mg creatinineClinical Albuminuria: > 300 ug/mg creatinine Urine (Urine, Random) 04/12/2025 9:03 AM EDT 04/12/2025 11:15 AM EDT us Beryl Yates MD LAB URINE ORDERAB LES Final Result Performing Organization Address [facility] Co de Phone Number [facility] [address] [place] [phone] * Hepatitis C Antibody with Reflex to HCV, RNA, Quantitative, Real-Time PCR (04/12/2025 9:03 AM EDT) [facility] Hepatitis C Antibody Nonreactive Nonreactive [facility] Comment:Antibodies to HCV no t detected; does not exclude early acuteHCV infection. Blood Venous blood specimen / Unknown 04/12/2025 9:03 AM EDT 04/12/2025 11:12 AM EDT Beryl Yates MD LAB BLOOD ORDERAB LES Final Result Performing Organization Address [facility]/ZIP Co de Phone Number [facility] [address] [place] [phone] * Iron And Total Iron Binding Capacity (04/12/2025 9:03 AM EDT) [facility] Iron 55 45 - 160 mcg/dL [facility] Total Iron Binding Capacity 236 228 - 428 mcg/dL [facility] Percent Iron Saturation 23 15 - 50 % [facility] Unsaturated Iron Binding 181 ug/dL [facility] Blood Venous blood specimen / Unknown 04/12/2025 9:03 AM EDT 04/12/2025 11:12 AM EDT Beryl Yates MD LAB BLOOD ORDERAB LES Final Result Performing Organization Address City/[facility]/ZIP Co de Phone Number [facility] [address] [place] [phone] * Hepatitis B surface antigen, EIA (04/12/2025 9:03 AM EDT) [facility] Hepatitis B Surface Ag Negative Negative [facility] Blood Venous blood specimen / Unknown 04/12/2025 9:03 AM EDT 04/12/2025 11:12 AM EDT Beryl Yates MD LAB BLOOD ORDERAB LES Final Result Performing Organization Address City/[facility]/ZIP Co de Phone Number [facility] [address] [place] [phone] * Hepatitis B Core Antibody, Total (04/12/2025 9:03 AM EDT) Hepatitis B Core Antibody Nonreactive Nonreactive [facility] Blood Venous blood specimen / Unknown 04/12/2025 9:03 AM EDT 04/12/2025 11:12 AM EDT us Beryl Yates MD LAB BLOOD ORDERAB LES Final Result Performing Organization Address [facility] Co de Phone Number [facility] [address] [place] [phone] * HIV-1/2 Antigen and Antibodies, Fourth Generation, with Reflexes (04/12/2025 9:03 AM EDT) Pathologist [facility] HIV AB/AG Nonreactive Nonreactive [facility] Comment:HIV-1 p24 Ag and/or HIV-1/HIV-2 Ab not detected.A test result that is nonreactive does not exclude thepossibility of exposure to or infection with HIV-1 and/orHIV-2. Nonreactive results in this assay for individualswith prior exposure to HIV-1 and/or HIV-2 may be due toantigen and antibody levels that are below the limit ofdetection of this assay.The [employer] HIV Ag/Ab Combo assay result andsupplemental assay results should be interpreted inconjunction with the patient's clinical presentation,history and other laboratory results. If the results areinconsistent with clinical evidence, additional testing issuggested to confirm the result. Blood Venous blood specimen / Unknown 04/12/2025 9:03 AM EDT 04/12/2025 11:12 AM EDT us Beryl Yates MD LAB BLOOD ORDERAB LES Final Result Performing Organization Address [facility] Co de Phone Number [facility] [address] [place] [phone] * Hepatitis B Surface Antibody, Qualitative (04/12/2025 9:03 AM EDT) [facility] ~Hepatitis B Surface Antibody NONREACTIVE Nonreactive [facility] Comment:Nonreactive: < 8.00 mIU/mL Blood Venous blood specimen / Unknown 04/12/2025 9:03 AM EDT 04/12/2025 11:12 AM EDT us Beryl Yates MD LAB BLOOD ORDERAB LES Final Result [facility] [address] [place] [phone] * (ABNORMAL) CBC (04/12/2025 9:03 AM EDT) [facility] White Blood Count 7.6 4.8 - 10.8 X10*3/uL [facility] Red Blood Count 3.97(L) 4.60 - 5.80 X10*6/uL [facility] Hemoglobin 12.2(L) 14.0 - 18.0 g/dl [facility] Hematocrit 35.8(L) 42.0 - 52.0 % [facility] Mean Corpuscular Volume 90.2 80.0 - 98.0 fL [facility] Mean Corpuscular Hemoglobin 30.7 27.0 - 33.0 pg [facility] Mean Corpuscular HGB Conc 34.1 31.0 - 36.0 g/dl [facility] Red Cell Distribution Width 13.0 11.0 - 16.0 % [facility] Platelet Count 256 160 - 400 X10*3/uL [facility] Mean Platelet Volume 10.3 9.4 - 12.4 fL [facility] NRBC Pct Auto 0.0 0.0 - 0.2 /100WBC [facility] NRBC Abs Auto 0.000 0.0 - 0.012 X10*3/uL [facility] Blood Venous blood specimen / Unknown 04/12/2025 9:03 AM EDT 04/12/2025 11:29 AM EDT Beryl Yates MD LAB BLOOD ORDERAB LES Final Result Performing Organization Address [facility]/ZIP Co de Phone Number [facility] [address] [place] [phone] * (ABNORMAL) PSA,Total (04/12/2025 9:03 AM EDT) Prostate Specific Antigen 5.27(H) <0.05 - 4.0 ng/mL [facility] Comment:PSA methodology: John valencia Alitrevor i ChemiluminescentMicroparticle Immunoassay (CMIA) Blood Venous blood specimen / Unknown 04/12/2025 9:03 AM EDT 04/12/2025 11:12 AM EDT Beryl Yates MD LAB BLOOD ORDERAB LES Final Result Performing Organization Address [facility] Co de Phone Number [facility] [address] [place] [phone] * Hemoglobin A1c (04/12/2025 9:03 AM EDT) Hemoglobin A1c 5.5 <6.0 % [facility] Comment:Hemoglobin A1C Refer ence Range Adults: 4.8 - 6.0 % Non diabetic: < 6.0 % Goal: < 7.0 %Additional Action Suggested: > 8.0 %Note: Hemoglobin A1c results are invalid for patients with abnormal amounts of HbF. Blood transfusions may impact the HbA1c concentration in the patient sample. Estimated Average Glucose 111 mg/dL [facility] Comment:eAG = Estimated ave rage glucose which is %A1C expressed asaverage glucose, using the formula of the M3T-PmyurdvJiqiaxy Glucose study (ADAG), Diabetes Care, Vol.31,#8,Mar. 2007 Blood Venous blood specimen / Unknown 04/12/2025 9:03 AM EDT 04/12/2025 11:29 AM EDT us Beryl Yates MD LAB BLOOD ORDERAB LES Final Result Performing Organization Address City/[facility]/ZIP Co de Phone Number [facility] [address] [place] [phone] * Ferritin (04/12/2025 9:03 AM EDT) Ferritin 135 20 - 250 ng/mL [facility] Blood Venous blood specimen / Unknown 04/12/2025 9:03 AM EDT 04/12/2025 11:12 AM EDT us Beryl Yates MD LAB BLOOD ORDERAB LES Final Result Performing Organization Address [facility] Co de Phone Number [facility] [address] [place] [phone] * (ABNORMAL) Lipid Panel, Standard (04/12/2025 9:03 AM EDT) Triglycerides 169(H) <150 mg/dL [facility] Comment:Desirable Triglyceri de: less than 150 mg/dLBorderline High Triglyceride 150-199 mg/dLHigh Triglyceride: 200-499 mg/dLVery High Triglyceride: greater than or equal to 5OO mg/dL Cholesterol 141 <200 mg/dL [facility] Comment:Desirable Cholestero l: less than 200 mg/dLBorderline High Cholesterol: 200-239 mg/dLHigh Cholesterol: greater than 239 mg/dL LDL Cholesterol Calculated 77 <100 mg/dL [facility] Comment:Desirable LDL: less than 100 mg/dLNear Optimal/Above Optimal LDL: 110- 129 mg/dLBorderline High LDL: 130-159 mg/dLHigh LDL: 160-189 mg/dLVery High LDL: greater than or equal to 190 mg/dL HDL Cholesterol 31(L) >40 mg/dL [facility] Comment:Desirable HDL: great er than 40 mg/dL Note: This HDL assay may give artificially low results in patients with liver disease. Blood Venous blood specimen / Unknown 04/12/2025 9:03 AM EDT 04/12/2025 11:12 AM EDT Beryl Yates MD LAB BLOOD ORDERAB LES Final Result [facility] [address] [place] [address] [phone] * Cologuard?? colon cancer screening (05/14/2023 7:00 PM EDT) Cologuard Result Negative Negative 05/22/20 1:25 AM EDT [email or web address] (CLIA #:[id number]) Comment: NEGATIVE TEST RESULT. A negative Cologuard [...] (Bennie Carrasquillo al, N Engl J Med 2014;370(14):0735-9419) The normal value (reference range) for this assay is negative. COLOGUARD RE-SCREENING RECOMMENDATION: Periodic colorectal cancer screening is an important part of preventive healthcare for asymptomatic individuals at average risk for colorectal cancer. Following a negative Cologuard result, the [place] [employer] Society and U.S. Multi-Society Task Force screening guidelines recommend a Cologuard re-screening interval of 3 years. References: [place] [employer] Guideline for Colorectal Cancer Screening: https://www.cancer.org/cancer/qggqb-mimjgm-cxzeoz/jodrwmpcd-orwcxacxy-ijwtmyz/ac s-rec ommendations.html.; Brian DK, Christine CR, Mickie KUMAR, Colorectal Cancer Screening: Recommendations for Physicians and Patients from the U.S. Multi-Society Task Force on Colorectal Cancer Screening , Am J Gastroenterology 2017; 112:5703-1998. TEST DESCRIPTION: Composite algorithmic analysis of stool [...] Kumar et al, N Engl J Med 2014;370(14):5663-2700.) Cologuard may produce a false negative or false positive result (no colorectal cancer or precancerous polyp present at colonoscopy follow up). A negative Cologuard test result does not guarantee the absence of CRC or advanced adenoma (pre-cancer). The current Cologuard screening interval is every 3 years. ([place] [employer] and U.S. Multi-Society Task Force). Cologuard performance data in a 10,000 patient pivotal study using colonoscopy as the reference method can be accessed at the following location: www.[employer].com/results. Additional description of the Cologuard test process, warnings and precautions can be found at www.[employer].com. Stool specimen (specimen) 05/14/2023 7:00 PM EDT 05/16/2023 4:51 PM EDT Beryl Yates MD LAB MOLECULAR [facility] ORDERABLES Final Result [facility] (CLIA #:[id number]) [place] [address], from Last 3 Months or Most Recently Relevant to Health Maintenance Insurance [facility] C3 [facility] [facility] MEDICA[employer] STAND ADULT Care Teams Direct Marketing Coordinator Relationship Specialty Start Date End Date Beryl Almanza MD [address] [place] [phone] PCP - General Internal Medicine 11/21/22
--- OUTSIDE RECORDS SUMMARY | 2025-07-11 23:45 | XMS_ITS | Encounter Summary ---
Author Organization [employer] Address [address] [facility] [address] [place] [address] Care Team Providers Care Assembly Line Machine Operator Name Role Phone Beryl Almanza MD Primary Care Pro vider Reason for Visit * Reason Comments Med Refill Encounter Details Date Type Department Care Team ([facility] st Contact Info) Description 07/11/2025 Refill [facility] [address] [place], [place] [phone] Beryl Almanza MD [address] [place], [place] [phone] Social History Tobacco Use Types Packs/Day Years [...] Description 09/01/2025 1:15 PM EST Office Visit [facility] [address] [place] [phone] Beryl Almanza MD [address] [place] [phone] documented as of this encounter Visit Diagnoses Not on filedocumented in this encounter Additional Health Concerns Assessment Noted Time PHQ-9 Depression Total Score: 0 04/14/20 25 12:59 PM EDT documented as of this encounter Care Teams Assembly Line Machine Operator Relationship Specialty Start Date End Date Beryl Almanza MD [address] [place] [phone] PCP - General Internal Medicine 11/21/22 documented as of this encounter
[2025-07-11 23:51] VITALS: BP 127/60; PULSE 77; RESP 16; TEMP 36.6; O2SAT 95
== END 2025-07-11 23:51 | disposition home or self-care (01) ==
PROVIDERS: Emergency Provider Student in an Organized Health Care Education/Training Program; PCP Student in an Organized Health Care Education/Training Program
DX: M62.838 Other muscle spasm (principal); R07.89 Other chest pain; I45.10 Unspecified right bundle-branch block; E11.9 Type 2 diabetes mellitus without complications; I10 Essential (primary) hypertension; E78.00 Pure hypercholesterolemia, unspecified; F17.200 Nicotine dependence, unspecified, uncomplicated; Z71.6 Tobacco abuse counseling
CPT/HCPCS: 36415; 71046; 80053; 84484; 85025; 93005; 99283

== ENCOUNTER → 2025-07-11 20:18 | Outpatient (BNV) | payer MEDICAID, SELFPAY | PROVIDERS: Emergency Provider Student in an Organized Health Care Education/Training Program; PCP Student in an Organized Health Care Education/Training Program; Visit Provider Internal Medicine | DX: I45.10 Unspecified right bundle-branch block (principal) | CPT/HCPCS: 93010 ==

== ENCOUNTER → 2025-07-11 21:42 | Outpatient (BNV) | payer MEDICAID, SELFPAY | PROVIDERS: Visit Provider Student in an Organized Health Care Education/Training Program | DX: R07.9 Chest pain, unspecified (principal) | CPT/HCPCS: 71046 ==

== ENCOUNTER 2025-07-17 12:45 | Outpatient (AMB) | payer MEDICAID, SELFPAY ==
--- NOTE | 2025-07-17 13:00 | A.OFFVIS_ITS ---
Vital Signs 07/17/25 13:08 Height 5 ft 8 in Weight 216 lb BMI 32.8 BP 134/70 Blood Pressure Location Rt brachial Position Sitting Pulse 66 Pulse Source Pulse Oximeter Pulse Oximetry (%) 95 Oxygen Delivery Method Room Air Intake Visit Reasons: Epigastric pain Intake Note: New pt for initial eval of epigastric pain. Pt has previously refused colonoscopy. Cologuard was last negative in 2022. CC; C/O epigastric pain w/ occasional reflux. Pt denies any additional sx or concerns at this time. Confirms he is taking the medications on file to his knowledge - however, he does receive [facility] services and is not confident about some of the medications statuses. Corsage Maker Required: No Accompanied by: Self / Same As Patient Allergies No Known Allergies Allergy (Mild, Verified 07/17/25 13:00) Medication List - Last Reconciled 07/17/25 by SHWETA Potts- acetaminophen (Tylenol Extra Strength) 1,000 mg (2 x 500 mg) PO Q8H 10 days amlodipine 5 mg PO QAM aspirin (Adult Low Dose Aspirin) 81 mg PO DAILY docusate sodium (Colace) 100 mg PO BID haloperidol 5 mg PO BEDTIME haloperidol 1 mg PO DAILY PRN simvastatin 20 mg PO DAILY tamsulosin (Flomax) 0.4 mg PO BEDTIME tramadol 50 mg PO TID zolpidem 5 - 10 mg PO BEDTIME PRN HPI HPI Epigastric pain: Details: 54 years old male with past medical history of hypertension, hyperlipidemia, BPH, GERD, schizophrenia, depression, anxiety, laparoscopic adrenalectomy in October of 2024 is here today for initial consultation. Patient reports that since he had the surgery he has been having multiple abdominal issues. Patient has had the surgery in October and was hospitalized 3 times for abdominal pain at [facility]. Patient had to have drain placed as he had moderate amount of fluid status post surgery. After taking the train now patient still would collect fluid, however he refused to place another drain. Patient reports that it was very painful. Recently was seen in the ER for epigastric pain and left upper quadrant pain. Mild inflammation was seen area surrounding left kidney without fluid collection. Patient reports severe bloating since surgery. No change in his diet. However patient did have in December pancreatitis. Labs sent from PCP reviewed. Patient also is status post cholecystectomy and appendectomy (this surgical history was collected from CT scan). Patient denies any true acid reflux, however he admits to occasional epigastric pain. Patient denies any dyspepsia, dysphagia or odynophagia. Depending on what he eats he might get a reflux. In the past patient took omeprazole, however not on any PPI or H2 david her for the last 2 years or so. Patient reports that he is not moving his bowels daily. Has a script for stool softener and only takes it as needed. Patient was on multiple medication to treat his blood pressure, however since adrenalectomy most of his blood pressure medications were discontinued. Patient was previously seen by GI specialist. Patient reports about 5 years ago or so was seen by Dr. Vang. Patient never had colonoscopy in the past, however he did have negative Cologuard in 2022 [facility] Medical History (Updated 07/17/25 @ 14:02 by EVA Potts) History of pancreatitis Anxiety disorder Schizophrenia Depression GERD (gastroesophageal reflux disease) BPH (benign prostatic hyperplasia) Hypercholesteremia Hypertension Surgical History (Updated 07/17/25 @ 13:57 by EVA Potts) History of appendectomy History of cholecystectomy History of total adrenalectomy Social History Household Members: Significant Other Alcohol intake: former Patient Tobacco Use Status: Current everyday Tobacco user Tobacco use type: Cigarette Cigarettes Per Day: 5 Review of Systems Const Denies weight gain and Denies weight loss ENT Reports no additional complaints, Denies dysphagia and Denies odynophagia Card Reports no additional complaints Resp Reports no additional complaints GI Reports abdominal pain, Reports belching, Denies melena, Reports bloating, Denies change in bowel habits, Reports constipation, Denies dysphagia, Denies excessive flatus, Denies dyspepsia, Reports heartburn (Occasional), Denies diarrhea, Denies loose stools, Denies nausea, Denies odynophagia and Denies vomiting Reports no additional complaints Musc Reports no additional complaints Neuro Reports no additional complaints Psych Reports no additional complaints Endo Reports no additional complaints Physical Exam Const General: healthy appearing, no acute distress and well developed Nutritional Appearance: well nourished Orientation/consciousness: patient oriented x3 Resp Effort & Inspection: normal respiratory effort, able to speak in complete senten rachid, no tracheal deviation and symmetric chest movement Auscultation: clear to auscultation bilaterally Cardio Rate: regular rate GI Inspection: Yes normal to inspection and No distended Palpation (GI): Soft to palpation, not firm, nontender and No hepatosplenomegaly present Auscultation: normal bowel sounds General: Yes no CVA tenderness Back/Spine/Pelvis Back: no CVA tenderness Skin General skin exam: elasticity normal, turgor normal and dry skin Neuro General: patient oriented x3 Psych Appearance: grossly normal Mental Status: mental status grossly normal Results Reviewed Results Reviewed: CT OF ABDOMEN AND PELVIS 05/01/2025 Findings: No consolidation or effusion. Postsurgical changes related to left partial adrenal gland resection with mild surrounding inflammatory changes. Status post cholecystectomy. Remainder of the solid organs are within normal limits. No hydronephrosis or nephrolithiasis. No bowel obstruction, pneumoperitoneum, or pneumatosis. Moderate prostatomegaly with prostate measuring 7.4 x 5.2 x 5.5 cm. Changes related to appendectomy. The bones are intact. IMPRESSION: Postsurgical changes related to partial left adrenal gland resection with mild surrounding inflammatory changes. No evidence of fluid collection or abscess. Moderate prostatomegaly. Status post cholecystectomy and appendectomy. This document has been electronically signed by: Nehemiah Barajas MD on 05/01/2025 19:55:52 Assessment & Plan Assessment & Plan (1) GERD (gastroesophageal reflux disease): Code(s): K21.9 - Gastro-esophageal reflux disease without esophagitis Category: Medical Qualifiers: Esophagitis presence: esophagitis presence not specified Qualified Code(s): K21.9 - Gastro-esophageal reflux disease without esophagitis (2) Postprandial epigastric pain: Code(s): R10.13 - Epigastric pain (3) Postprandial abdominal bloating: Code(s): R14.0 - Abdominal distension (gaseous) (4) Constipation: Code(s): K59.00 - Constipation, unspecified Qualifiers: Constipation type: slow transit constipation Qualified Code(s): K59.01 - Slow transit constipation Plan Patient will be sense for blood work and will return tomorrow for H pylori breath test. Will treat empirically positive. Patient had candy just before coming for appointment. He will start taking pantoprazole half an hour before breakfast. Avoid dietary triggers and late night snacking. Staying upright for minimal 3 hours after meals discussed with patient. Patient will take simethicone as needed. Discussed with patient low FODMAP diet. List of food recommended as well as list of food to avoid given to patient. Patient will also go for upper GI series with barium swallow. He will return in 3-4 months, sooner on as needed basis. Patient is agreeable to this plan and verbalizes understanding of instructions. He was given the opportunity to ask questions and all questions answered. Thank you for allowing me to participate in his care Orders: Orders TSH reflex Free T4 Today K59.00 - Constipation, unspecified Transglutaminase IgA Today R10.9 - Unspecified abdominal pain FL upper GI w air w Ba Swallow Today K21.9 - Gastro-esophageal reflux disease without esophagitis H Pylori Breath Test Today K21.9 - Gastro-esophageal reflux disease without esophagitis Lipase Today R10.9 - Unspecified abdominal pain Vitamin D 25-OH (D2 and D3) Today E55.9 - Vitamin D deficiency, unspecified Medications: New pantoprazole take one tablet half an hour before breakfast 40 mg PO DAILY 30 tabs 3RF K21.9 - Gastro-esophageal reflux disease without esophagitis simethicone (Gas Relief (simethicone)) 125 mg PO BID-TID PRN 90 tabs 3RF abdominal distention Coding Level of Care Code New Pt Level 4 (81434) Diagnoses Gastroesophageal reflux disease, unspecified whether esophagitis present K21.9 Esophagitis presence: esophagitis presence not specified Postprandial epigastric pain R10.13 Postprandial abdominal bloating R14.0 Slow transit constipation K59.01 Constipation type: slow transit constipation Time Spent (min) 50 Comment 35 minutes spent with patient and additional 15 minutes spent reviewing his records
[2025-07-17 13:08] VITALS: BP 134/70; PULSE 66; O2SAT 95; BMI 32.8
--- OUTSIDE RECORDS SUMMARY | 2025-07-17 21:27 | XMS_ITS | Encounter Summary ---
Author Organization [employer] Address [address] [facility] [address] [place] [address] Care Team Providers Care Degreasing Solution Mixer Name Role Phone Beryl Almanza MD Primary Care Pro vider Reason for Visit * Reason Comments Med Refill Encounter Details Date Type Department Care Team ([facility] st Contact Info) Description 06/04/2025 Refill [facility] [address] [place], [place] [phone] Carol Benitez NP [address] [place], [place] [phone] Sore throat Social History Tobacco Use Types [...] Description 09/01/2025 1:15 PM EST Office Visit [facility] [address] [place] [phone] Beryl Almanza MD [address] [place] [address] [phone] documented as of this encounter Visit Diagnoses Diagnosis Sore throat Acute pharyngitis documented in this encounter Additional Health Concerns Assessment Noted Time PHQ-9 Depression Total Score: 0 04/14/20 25 12:59 PM EDT documented as of this encounter Care Teams Degreasing Solution Mixer Relationship Specialty Start Date End Date Beryl Almanza MD [address] [place] [phone] PCP - General Internal Medicine 11/21/22 documented as of this encounter
--- OUTSIDE RECORDS SUMMARY | 2025-07-17 21:27 | XMS_ITS | Clinical Summary ---
Author Organization [employer] Address [address] [facility] 7t [place] [address] Care Team Providers Care Licensed Funeral Director And Embalmer Name Role Phone Beryl Almanza MD Primary [...] Encounters Date Type Department Care Team Description 07/15/2025 Refill [facility] [address] [place] [address] Beryl Almanza MD 07/11/2025 Refill [facility] [address] [place] [address] Beryl Almanza MD 06/04/2025 Refill [facility] [address] [place] [phone] Carol Benitez NP Sore throat 05/29/2025 Orders Only [address] [address] Beryl Almanza MD Abnormal CT scan (Primary Dx); Benign prostatic hyperplasia with lower urinary tract symptoms, symptom details unspecified 05/26/[address] [address] Beryl Almanza MD Referral 05/18/[address] [address] Beryl Almanza MD 05/08/2025 Orders Only GENERIC EXTERNAL DATA DEPARTMENT Provider, Generic External Data 05/03/2025 Orders Only [address] [address] Beryl Almanza MD RBBB (Primary Dx) 05/03/2025 Patient Outreach [facility] [address] [place] [phone] Beryl Almanza MD Care Management (C3- Initial assessment/enrollment ) 05/02/[address] [address] Beryl Almanza MD Results; Telephone Call 05/02/2025 Patient Outreach [address] [address] Beryl Almanza MD Care Coordination ([facility]/ANNELIESE Fonseca, initial assessment scheduled ) 05/02/2025 Patient Outreach [address] [address] Beryl Almanza MD Care Coordination (C3/ANNELIESE Fonseca, Chart review ) 05/02/2025 Patient Outreach [facility] [address] [place] [phone] Beryl Almanza MD Care Coordination (C3CM- chart review) 05/02/2025 Patient Outreach [address] [address] Beryl Almanza MD 05/01/2025 Orders Only [facility] External Provider, [facility] from Last 3 Months Immunizations Immunization Administration [...] Description 09/01/2025 1:15 PM EST Office Visit [facility] [address] [place] [address] Beryl Almanza MD [address] [place] [address] Health Maintenance Due Date Last Done Comments [...] AUTO DIFFERENTIAL Routine 05/01/2025 2:55 PM EDT HEPATITIS C AB W/REFL TO HCV RNA, QN, PCR Routine 04/12/2025 9:03 AM EDT Annual physical exam HIV 1/2 ANTIGEN/ANTIBODY, FOURTH GENERATION W/RFL Routine 04/12/2025 9:03 AM EDT Annual physical exam LIPID PANEL, STANDARD Routine 04/12/2025 9:03 AM EDT Annual physical exam LAB COLOGUARD COLON CANCER SCREEN Routine 05/14/2023 7:00 PM EDT Health care maintenance PROPHYLAXIS - ADULT Routine 05/14/2022 1 2:00 AM EDT INTRAORAL - COMPLETE SERIES OF RADIOGRAPHIC IMAGES Routine 05/05/2022 12:00 AM EDT PERIODIC ORAL EVALUATION - ESTABLISHED PATIENT Routine 05/05/2022 12:00 AM EDT from Last 3 Months or Most Recently Relevant to Health Maintenance Results * Referral to Urology (07/11/2025) us Beryl Yates MD OUTPATIENT REFERR AL ORDERABLES Final Result * D Dimer High Sensitivity (05/08/2025 3:10 PM EDT) [facility] D Dimer High Sensitivity <150 NG/ML [facility] Comment:D-DIMER HS REFERENCE RANGENote: Our [...] Provider LAB BLOOD ORDERAB LES Final Result [facility] [address] [place] [phone] * High Sensitivity Troponin I (05/08/2025 3:10 PM EDT) TROPONIN I HIGH SENSITIVITY 8.1 <3.5 - 35.0 ng/L [facility] Comment:The Morales high sens itivity Troponin-I results should beused in conjunction with other diagnostic information suchas ECG, clinical observations and information, and patientsymptoms to aid in the diagnosis of SC. 05/08/2025 3:10 PM EDT 05/08/2025 3:13 PM EDT us Generic External Data Provider LAB BLOOD ORDERAB LES Final Result Performing Organization Address City/State/[facility] Co de Phone Number [facility] [address] [place] [phone] * CT Abdomen Pelvis w/ Contrast (05/01/2025 7:55 PM EDT) Anatomical Region Laterality Modality Body, Pelvis, Abdomen Computed T omography 05/01/2025 7:55 PM EDT Narrative 05/01/2025 7:57 PM EDT [address] [address] [address] Scan Report Signed Patient: Merlin Diego MR#: [id number] : 1970 Acct:[id number] Age/Sex: 54 / M ADM Date: 05/01/25 Loc: .ED Attending Dr: Ordering Physician: Dean Serrano MD Date of Service: 05/01/25 Procedure(s): CT abdomen pelvis w IV con Accession Number(s): [id number] cc: Dean Serrano MD; Beryl Almanza MD Report Number: [id number]: Total DLP = 646.00 mGy-cm Reason for Exam: left flank pain, s/p Left suprarenal gland resecti CLINICAL HISTORY: left flank pain, s p Left suprarenal gland resecti CT abdomen and pelvis with contrast Comparison: CT/REG/MD/SR - CT ABDOMEN PELVIS WO IV CON [...] in OV> 05/01/251955 DD/ 54 TD/TT: 05/01/251954 Garage Door Technician: Procedure Note Donotuseinterpreter, Image - 05/01/[address] [place] [address] [address] Scan Report Signed Patient: Merlin Diego AMR#: [id number] : 1970Acct:[id number] Age/Sex: 54 / MADM Date: 05/01/25 Loc: .ED Attending Dr: Ordering Physician: Dean Serrano MD Date of Service: 05/01/25 Procedure(s): CT abdomen pelvis w IV con Accession Number(s): [id number] cc: Dean Serrano MD; Beryl Almanza MD Report Number: [id number]: Total DLP = 646.00 mGy-cm Reason for Exam: left flank pain, s/p Left suprarenal gland resecti CLINICAL HISTORY: left flank pain, s p Left suprarenal gland resecti CT abdomen and pelvis with contrast Comparison: CT/REG/MD/SR - CT ABDOMEN PELVIS WO IV CON [...] in OV> 05/01/251955 DD/ 54 TD/TT: 05/01/251954 Garage Door Technician: [facility] External Provider IMG CT PROCEDURES Edited Result - Final * (ABNORMAL) Urinalysis w/reflex microscopic (05/01/2025 3:42 PM EDT) Color Urine Yellow [facility] Appearance Urine Clear [facility] PH 5.5 5.0 - 9.0 [facility] Glucose Urine UA Negative Negative mg/dL [facility] Urine Blood Negative Negative [facility] Specific Goldonna - Urine >=1.030(H) 1.005 - 1.025 [facility] Urine Protein Trace Neg-Trace mg/dL [facility] Urine Ketones Trace Negative mg/dL [facility] Nitrite Urine Negative Negative [facility] Leukocyte Esterase Urine Negative Negative [facility] 05/01/2025 3:42 PM EDT 05/01/2025 4:02 PM EDT Narrative [facility] - 05/01/2025 4:07 PM EDT [id number], Clean Catch Generic External Data Provider LAB URINE ORDERAB LES Final Result [facility] [address] [place] [address] [phone] * (ABNORMAL) CBC auto differential (05/01/2025 2:55 PM EDT) White Blood Count 8.6 4.8 - 10.8 X10*3/uL [facility] Red Blood Count 4.05(L) 4.60 - 5.80 X10*6/uL [facility] Hemoglobin 12.6(L) 14.0 - 18.0 g/dl [facility] Hematocrit 35.2(L) 42.0 - 52.0 % [facility] Mean Corpuscular Volume 86.9 80.0 - 98.0 fL [facility] Mean Corpuscular Hemoglobin 31.1 27.0 - 33.0 pg [facility] Mean Corpuscular HGB Conc 35.8 31.0 - 36.0 g/dl [facility] Red Cell Distribution Width 12.6 11.0 - 16.0 % [facility] Platelet Count 234 160 - 400 X10*3/uL [facility] Mean Platelet Volume 9.0(L) 9.4 - 12.4 fL [facility] Neutrophils Percent Auto 67.4 45 - 73 % [facility] Imm Gran Pct Auto 0.5(H) 0.0 - 0.4 % [facility] Lymphocytes Percent Auto 21.1 20 - 40 % [facility] Monocytes Percent Auto 6.4 2 - 11 % [facility] Eosinophils Percent Auto 4.1(H) 0 - 4 % [facility] Basophils Percent Auto 0.5 0 - 2 % [facility] NRBC Pct Auto 0.0 0.0 - 0.2 /100WBC [facility] Neutrophils Absolute Auto 5.8 2.0 - 8.3 x10*3/uL [facility] Imm Gran Abs Auto 0.04(H) 0.00 - 0.03 X10*3/uL [facility] Lymphocytes Absolute Auto 1.8 1.2 - 4.9 X10*3/uL [facility] Monocytes Absolute Auto 0.6 0.1 - 1.2 X10*3/uL [facility] Eosinophils Absolute Auto 0.4 0.0 - 0.4 X10*3/uL [facility] Basophils Absolute Auto 0.0 0.0 - 0.2 X10*3/uL [facility] NRBC Abs Auto 0.000 0.0 - 0.012 X10*3/uL [facility] 05/01/2025 2:55 PM EDT 05/01/2025 2:58 PM EDT Generic External Data Provider LAB BLOOD ORDERAB LES Final Result Performing Organization Address City/[facility]/ZIP Co de Phone Number [facility] [address] [place] [phone] * Magnesium (05/01/2025 2:55 PM EDT) Pathologist [facility] Magnesium 2.2 1.6 - 2.6 mg/dL [facility] 05/01/2025 2:55 PM EDT 05/01/2025 2:58 PM EDT Generic External Data Provider LAB BLOOD ORDERAB LES Final Result Performing Organization Address [facility] Co de Phone Number [facility] [address] [place] [phone] * Lipase (05/01/2025 2:55 PM EDT) [facility] Lipase 47 8 - 78 U/L [facility] 05/01/2025 2:55 PM EDT 05/01/2025 2:58 PM EDT Generic External Data Provider LAB BLOOD ORDERAB LES Final Result Performing Organization Address [facility] de Phone Number [facility] [address] [place] [phone] * (ABNORMAL) Comprehensive Metabolic Panel (05/01/2025 2:55 PM EDT) Pathologist [facility] Sodium 140 135 - 145 mmol/L [facility] Potassium 4.1 3.3 - 5.1 mmol/L [facility] Chloride 106 96 - 108 mmol/L [facility] Carbon Dioxide 29 22 - 29 mmol/L [facility] Anion Gap 9(L) 12 - 20 [facility] Urea Nitrogen (BUN) 23(H) 9 - 16 mg/dL [facility] Creatinine, Serum 1.37 0.5 - 1.4 mg/dL [facility] Creatinine Clr Calc Pharmacy 67.8 [facility] Comment:eGFR (calculated fro m the MDRD study equation) and eCrCl(calculated from the Cockcroft-Gault equation) are based ondifferent parameters and may not yield comparable results.If eCrCl result is absurd, please check patient'sheight/weight. Estimated Glomerular Filt Rate 54 [facility] Comment:Chronic Kidney Disea se: Estimated GFR < 60 mL/min/1.23g1Fcymkz Kidney Disease: Estimated GFR < 15 mL/min/1.73m2 Glucose 120(H) 60 - 115 mg/dL [facility] Calcium 9.3 8.4 - 10.2 mg/dL [facility] Bilirubin, Total 0.6 0.0 - 1.0 mg/dL [facility] Aspartate Amino Transferase 26 5 - 37 U/L [facility] Alanine Aminotransferase 21 0 - 40 U/L [facility] Total Protein 7.7 6.5 - 8.0 g/dL [facility] Albumin Level 4.3 3.5 - 5.0 g/dL [facility] Alkaline Phosphatase 105 39 - 117 U/L [facility] 05/01/2025 2:55 PM EDT 05/01/2025 2:58 PM EDT us Generic External Data Provider LAB BLOOD ORDERAB LES Final Result [facility] [address] [place] [phone] [phone] * Hepatitis C Antibody with Reflex to HCV, RNA, Quantitative, Real-Time PCR (04/12/2025 9:03 AM EDT) Hepatitis C Antibody Nonreactive Nonreactive [facility] Comment:Antibodies to HCV no t detected; does not exclude early acuteHCV infection. Blood Venous blood specimen / Unknown 04/12/2025 9:03 AM EDT 04/12/2025 11:12 AM EDT us Beryl Yates MD LAB BLOOD ORDERAB LES Final Result Performing Organization Address City/[facility]/ZIP Co de Phone Number [facility] [address] [place] [phone] * HIV-1/2 Antigen and Antibodies, Fourth Generation, with Reflexes (04/12/2025 9:03 AM EDT) [facility] HIV AB/AG Nonreactive Nonreactive [facility] Comment:HIV-1 p24 Ag and/or HIV-1/HIV-2 Ab not detected.A test result that is nonreactive does not exclude thepossibility of exposure to or infection with HIV-1 and/orHIV-2. Nonreactive results in this assay for individualswith prior exposure to HIV-1 and/or HIV-2 may be due toantigen and antibody levels that are below the limit ofdetection of this assay.[employer] HIV Ag/Ab Combo assay result andsupplemental assay results should be interpreted inconjunction with the patient's clinical presentation,history and other laboratory results. If the results areinconsistent with clinical evidence, additional testing issuggested to confirm the result. Blood Venous blood specimen / Unknown 04/12/2025 9:03 AM EDT 04/12/2025 11:12 AM EDT us Beryl Yates MD LAB BLOOD ORDERAB LES Final Result Performing Organization Address City/[facility]/ZIP Co de Phone Number [facility] [address] [place] [address] [phone] * (ABNORMAL) Lipid Panel, Standard (04/12/2025 9:03 AM EDT) Triglycerides 169(H) <150 mg/dL [facility] Comment:Desirable Triglyceri de: less than 150 mg/dLBorderline High Triglyceride 150-199 mg/dLHigh Triglyceride: 200-499 mg/dLVery High Triglyceride: greater than or equal to 5OO mg/dL Cholesterol 141 <200 mg/dL [facility] Comment:Desirable Cholestero l: less than 200 mg/dLBorderline High Cholesterol: 200-239 mg/dLHigh Cholesterol: greater than 239 mg/dL LDL Cholesterol Calculated 77 <100 mg/dL [facility] Comment:Desirable LDL: less than 100 mg/dLNear Optimal/Above Optimal LDL: 110- 129 mg/dLBorderline High LDL: 130-159 mg/dLHigh LDL: 160-189 mg/dLVery High LDL: greater than or equal to 190 mg/dL HDL Cholesterol 31(L) >40 mg/dL [facility] Comment:Desirable HDL: great er than 40 mg/dL Note: This HDL assay may give artificially low results in patients with liver disease. Blood Venous blood specimen / Unknown 04/12/2025 9:03 AM EDT 04/12/2025 11:12 AM EDT Beryl Yates MD LAB BLOOD ORDERAB LES Final Result [facility] [address] [place] [phone] * Cologuard?? colon cancer screening (05/14/2023 7:00 PM EDT) Cologuard Result Negative Negative 05/22/20 23 1:25 AM EDT [facility] (CLIA #:[id number]) Comment: NEGATIVE TEST RESULT. A negative Cologuard [...] colonoscopy. (Bennie Savage, N Engl J Med 2014;370(14):4180-5102) The normal value (reference range) for this assay is negative. COLOGUARD RE-SCREENING RECOMMENDATION: Periodic colorectal cancer screening is an important part of preventive healthcare for asymptomatic individuals at average risk for colorectal cancer. Following a negative Cologuard result, the [place] [employer] and U.S. Multi-Society Task Force screening guidelines recommend a Cologuard re-screening interval of 3 years. References: [place] [employer] Guideline for Colorectal Cancer Screening: https://www.cancer.org/cancer/qnvuf-bjruxi-qgymqe/vcpoxwfuz-pfklbwunc-pfkpoov/ac s-rec ommendations.html.; Brian DK, Christine PERRY, Mickie RamosK, Colorectal Cancer Screening: Recommendations for Physicians and Patients from the U.S. Multi-Society Task Force on Colorectal Cancer Screening , Am J Gastroenterology 2017; 112:9091-7326. TEST DESCRIPTION: Composite algorithmic analysis of stool [...] were screened with both Cologuard and colonoscopy. (Imperiale T. et al, N Engl J Med 2014;370(14):3288-6564.) Cologuard may produce a false negative or false positive result (no colorectal cancer or precancerous polyp present at colonoscopy follow up). A negative Cologuard test result does not guarantee the absence of CRC or advanced adenoma (pre-cancer). The current Cologuard screening interval is every 3 years. ([place] [employer] and U.S. Multi-Society Task Force). Cologuard performance data in a 10,000 patient pivotal study using colonoscopy as the reference method can be accessed at the following location: www.[place].[employer]/results. Additional description of the Cologuard test process, warnings and precautions can be found at www.[employer].com. Stool specimen (specimen) 05/14/2023 7:00 PM EDT 05/16/2023 4:51 PM EDT Beryl Yates MD LAB MOLECULAR [employer]ESSA [employer] ORDERABLES Final Result [facility] (CLIA #:[id number]) [address] [place] [address], from Last 3 Months or Most Recently Relevant to Health Maintenance Insurance [facility] C3 DENTAL-[facility] MEDICAID STAND ADULT Care Teams Licensed Funeral Director And Embalmer Relationship Specialty Start Date End Date Beryl Almanza MD [address] [place] [address] PCP - General Internal Medicine 11/21/22
--- OUTSIDE RECORDS SUMMARY | 2025-07-17 21:27 | XMS_ITS | Encounter Summary ---
Author Organization [employer] Address [address] [place] [address] [address] [place] [address] Care Team Providers Care Equipment Tech Name Role Phone Chauncey Haney MD Primary Care Provider Greta [facility] Primary Care Provider [phone] Beryl Almanza MD Primary Care Pro vider Ibis Fonseca RN Unavailable Milagros Diego Unavailable Scotty Hernandez RN Unavailable [phone] Radha Fonseca Unavailable Encounter Details Date Type Department Care Team (Latest Contact Info) Description 05/14/2022 Abstract [facility] Dental, Provider, DDS Social History [...] Description 09/01/2025 1:15 PM EST Office Visit [facility] [address] [place], [place] [phone] Beryl Almanza MD [address] [place], [place] [phone] documented as of this encounter Visit Diagnoses Not on filedocumented in this encounter Care Teams Equipment Tech Relationship Specialty Start Date End Date Chauncey Haney MD PCP - General Family Medicine 08/16/19 06/30/22 [facility], [facility] [address] [place] [address] PCP - General Family Medicine 07/01/22 11/20/22 Beryl Almanza MD [address] [place], [place] [phone] PCP - General Internal Medicine 11/21/22 Ibis Fonseca, HENRRY [address] [place], [place] [phone] Registered Nurse Family Medicine 12/26/24 12/26/24 Milagros Diego 12/26/24 12/26/24 Scotty Hernandez, RN [address] [place], [place] [phone] Registered Nurse Family Medicine 05/02/25 05/03/25 Radha Fonseca 05/02/25 05/03/25 documented as of this encounter
--- OUTSIDE RECORDS SUMMARY | 2025-07-17 21:27 | XMS_ITS | Encounter Summary ---
Author Organization [employer] Address [address] [facility] 7t [place] [address] Care Team Providers Care Maxillofacial Pathology Name Role Phone Beryl Almanza MD Primary Care Pro vider Reason for Visit * Reason Comments Med Refill Encounter Details Date Type Department Care Team ([facility] st Contact Info) Description 07/11/2025 Refill [facility] [address] [place], [place] [phone] Beryl Almanza MD [address] [place], [place] [phone] Social History Tobacco Use Types Packs/Day Years [...] Description 09/01/2025 1:15 PM EST Office Visit [facility] [address] [place] [phone] Beryl Almanza MD [address] [place] [phone] documented as of this encounter Visit Diagnoses Not on filedocumented in this encounter Additional Health Concerns Assessment Noted Time PHQ-9 Depression Total Score: 0 04/14/20 25 12:59 PM EDT documented as of this encounter Care Teams Maxillofacial Pathology Relationship Specialty Start Date End Date Beryl Almanza MD [address] [place] [phone] PCP - General Internal Medicine 11/21/22 documented as of this encounter
== END 2025-07-17 13:32 | disposition home or self-care (01) ==
LOC: HO.HGI 12:45
PROVIDERS: PCP Student in an Organized Health Care Education/Training Program; Visit Provider Nurse Practitioner Family
DX: K21.9 Gastro-esophageal reflux disease without esophagitis (principal); R10.13 Epigastric pain; R14.0 Abdominal distension (gaseous); K59.01 Slow transit constipation
CPT/HCPCS: 99204

== ENCOUNTER → 2025-07-17 12:45 | Outpatient (BNVA) | payer MEDICAID, SELFPAY | PROVIDERS: PCP Student in an Organized Health Care Education/Training Program; Visit Provider Nurse Practitioner Family | DX: K21.9 Gastro-esophageal reflux disease without esophagitis (principal); R10.13 Epigastric pain; R14.0 Abdominal distension (gaseous); K59.01 Slow transit constipation | CPT/HCPCS: 99212 ==